=== PATIENT | female | born 1985 | race Caucasian/White ===

== ENCOUNTER 2024-11-29 21:12 | Observation (INO) ==
[2024-11-29] MEDS ORDERED: VANCOMYCIN CONSULT ACTIVE PRN (21:25)
--- NOTE | 2024-11-29 21:40 | Emergency Department Note ---
History of Present Illness General Chief complaint: Infection Stated complaint: SEPSIS, ADDISONS CRISIS? 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 She is due for all her medications. She was on vancomycin and cefepime. Patient states the source was her urine. Patient complains of Fever, chills, nausea, generalized illness, cough, chest pain, abdominal pain and states the source is her urine. Patient states that he was did not do any imaging on her. Home Medications Medication Instructions Recorded Confirmed Type B-complex with vitamin C 1 cap PO DAILY 11/29/24 11/29/24 History ascorbic acid (vitamin C) 1,000 mg 1,000 mg PO DAILY 11/29/24 11/29/24 History tablet (Vitamin C) calcium 250 mg (as 2 tab PO DAILY 11/29/24 11/29/24 History citrate)-vitamin D3 5 mcg (200 unit) tablet clonazepam 1 mg tablet 1 mg PO TID 11/29/24 11/29/24 History clotrimazole 10 mg ludwig 10 mg PO .2-3XDAILY 11/29/24 11/29/24 History cyanocobalamin (vitamin B-12) 1,000 mcg IM WK 11/29/24 11/29/24 History 1,000 mcg/mL injection solution cyclobenzaprine 10 mg tablet 10 mg PO QAM 11/29/24 11/29/24 History dicyclomine 10 mg capsule 10 mg PO TID PRN IRRITABLE BOWEL 11/29/24 11/29/24 History SYMPTOMS ferrous sulfate 325 mg (65 mg 650 mg PO DAILY 11/29/24 11/29/24 History iron) tablet hydrocortisone 10 mg tablet 10 - 20 mg PO TID 11/29/24 11/29/24 History hydrocortisone sod succinate 100 100 mg IM DIRECTED PRN RENAL 11/29/24 11/29/24 History mg solution for injection CRISIS lidocaine 5 % topical patch 1 patch topical DAILY 11/29/24 11/29/24 History multivitamin with minerals 1 tab PO DAILY 11/29/24 11/29/24 History pantoprazole 40 mg tablet,delayed 40 mg PO BID 11/29/24 11/29/24 History release polyethylene glycol 3350 17 17 g PO DAILY PRN Constipation 11/29/24 11/29/24 History gram/dose oral powder (Miralax) potassium chloride 20 mEq 20 meq PO DAILY 11/29/24 11/29/24 History tablet,extended release(part/cryst) pregabalin 100 mg capsule 100 mg PO AMHS 11/29/24 11/29/24 History pregabalin 50 mg capsule 50 mg PO QPM 11/29/24 11/29/24 History promethazine 25 mg tablet 25 mg PO Q6H PRN NAUSEA/VOMITING 11/29/24 11/29/24 History propranolol 10 mg tablet 10 mg PO TID PRN NEEDED 11/29/24 11/29/24 History sennosides 8.6 mg tablet (senna) 17.2 mg PO HS PRN Constipation 11/29/24 11/29/24 History sucralfate 1 gram tablet (Carafate) 1 g PO ACHS 11/29/24 11/29/24 History thiamine HCl (vitamin B1) 100 mg 100 mg PO DAILY 11/29/24 11/29/24 History tablet (Vitamin B-1) topiramate 100 mg tablet 100 mg PO BID 11/29/24 11/29/24 History topiramate 25 mg tablet 25 mg PO BID 11/29/24 11/29/24 History zinc acetate 50 mg (zinc) capsule 50 mg PO DAILY 11/29/24 11/29/24 History zolpidem 10 mg tablet (Ambien) 10 mg PO HS 11/29/24 11/29/24 History Allergies Allergy/AdvReac Type Severity Reaction Status Date / Time adhesive tape Allergy Intermediate SKIN Verified 11/29/24 22:49 REDDENED, ITCHY scopolamine Allergy Intermediate SKIN Verified 11/29/24 22:49 REDDENED, ITCHY escitalopram [From Lexapro] AdvReac Intermediate VERY Verified 11/29/24 22:49 EMOTIONAL, OPPOSITE EFFECT haloperidol [From Haldol] AdvReac Intermediate LOCKED JAW Verified 11/29/24 22:49 Past Med/Surg History Problem List (Updated 11/30/24 @ 01:54 by Bisi Riggins PA-C) Fever (Acute) Evangelina's disease (Acute) Social History Smoking Status: Never smoker Preferred Language: Macedonian Feels Safe at Home: Yes Review of Systems A total of 10 systems reviewed and were otherwise negative Physical Exam Vital Signs Vital Signs - 24 hr 11/29/24 21:15 11/29/24 21:47 11/29/24 21:56 Temperature 36.9 C Temperature Source Oral Pulse Rate 99 H 83 Pulse Rate [Apical] Pulse Rhythm [Apical] Pulse Strength [Apical] Respiratory Rate 18 Respiratory Effort / Characteristics Non-Labored Spontaneous Respiratory Depth Normal Respiratory Pattern Regular Blood Pressure 144/105 H Blood Pressure [Right Arm] Blood Pressure Mean 118 Blood Pressure Mean [Right Arm] Pulse Oximetry 98 95 Oxygen Delivery Method Room Air Room Air Sepsis Recent Fever Within 48 Hours Yes Sepsis New/Unexplained Change in Mental Status N/A Sepsis Action Taken by Nursing No Action Required 11/29/24 22:31 11/30/24 01:12 11/30/24 01:37 Temperature Temperature Source Pulse Rate 77 Pulse Rate [Apical] 87 74 Pulse Rhythm [Apical] Regular Pulse Strength [Apical] Normal Respiratory Rate 18 16 Respiratory Effort / Characteristics Non-Labored Spontaneous Non-Labored Spontaneous Respiratory Depth Normal Normal Respiratory Pattern Regular Blood Pressure Blood Pressure [Right Arm] 117/91 123/81 Blood Pressure Mean Blood Pressure Mean [Right Arm] 99 95 Pulse Oximetry 97 96 Oxygen Delivery Method Room Air Sepsis Recent Fever Within 48 Hours Sepsis New/Unexplained Change in Mental Status Sepsis Action Taken by Nursing 11/30/24 02:20 Temperature Temperature Source Pulse Rate Pulse Rate [Apical] 80 Pulse Rhythm [Apical] Regular Pulse Strength [Apical] Normal Respiratory Rate 16 Respiratory Effort / Characteristics Non-Labored Spontaneous Respiratory Depth Normal Respiratory Pattern Blood Pressure Blood Pressure [Right Arm] 100/73 Blood Pressure Mean Blood Pressure Mean [Right Arm] 82 Pulse Oximetry 98 Oxygen Delivery Method Room Air Sepsis Recent Fever Within 48 Hours Sepsis New/Unexplained Change in Mental Status Sepsis Action Taken by Nursing VITALS: Vitals are noted on the nurse's note and reviewed by myself. Vital signs stable. GENERAL: White female with family present, in no acute distress, nondiaphoretic, well-developed well-nourished. SKIN: The skin was without rashes, erythema, edema, or bruising. There is no tenting of the skin. Capillary reflex less than 2 seconds. HEAD: Normocephalic atraumatic. EARS: External auditory canals clear EYES: Pupils equal round and reactive to light and accommodation. Conjunctivae without injection, sclerae without icterus. Extraocular movements intact. NOSE: Patent, no discharge. MOUTH: Mucous membranes moist. Pharynx without erythema or exudate. Uvula midline. Airway patent. Tongue does not deviate. NECK: Supple without nuchal rigidity. No lymphadenopathy. No thyromegaly. Cervical spine is nontender. No JVD. HEART: Regular rate and rhythm LUNGS: Clear to auscultation bilaterally without wheezes, rales or rhonchi. No retractions or accessory muscle use. ABDOMEN: Positive bowel sounds x 4. Normal tympanic percussion. Soft, suprapubic cath present, tender to palpation lower abdomen, without masses or organomegaly. Macdonald sign negative. No guarding or rebound tenderness. No CVA tenderness MUSCULOSKELETAL: No muscle atrophy, erythema, or edema noted. NEURO: Patient was alert and oriented to person place and time. Normal sensation to light and sharp touch. No focal neurological deficits. Course Administered Medications Miscellaneous Information (Nursing To Pharmacy Communication) 1 each N/A TODAY ASHOK Stop: 12/30/24 00:59 Last Admin: 11/30/24 02:15 Dose: Not Given Documented By: [facility] Discontinued Medications Alteplase, Recombinant (Alteplase, Recombinant 1 Mg/Ml 2ml Vial) 2 mg INSTIL ONE ONE Stop: 11/29/24 22:30 Last Admin: 11/30/24 00:20 Dose: 2 mg Documented By: ALEXA Co-signed By: [facility] Hydrocortisone Sodium Succinate (Hydrocortisone Sod Succinate 100 Mg/2 Ml Vial) 100 mg IV NOW STA Stop: 11/29/24 21:26 Last Admin: 11/29/24 22:12 Dose: 100 mg Documented By: SKY Sodium Chloride (Nss) 1,000 mls @ 999 mls/hr IV .Q1H1M ONE Stop: 11/29/24 22:25 Last Infusion: 11/30/24 00:18 Dose: Infused Documented By: Admin: 11/29/24 22:08 Dose: 999 mls/hr Documented By: SKY Vancomycin HCl 2,500 mg/ (Sodium Chloride) 550 mls @ 200 mls/hr IV NOW ONE Stop: 11/30/24 00:09 Last Admin: 11/30/24 02:14 Dose: 200 mls/hr Documented By: [facility] Cefepime HCl (Maxipime 2000mg) 2,000 mg in 20 mls @ 5 mls/min IV NOW STA; Protocol Stop: 11/29/24 21:33 Last Admin: 11/29/24 23:43 Dose: 5 mls/min Documented By: NOE Ioversol (Optiray 320 125ml) 125 ml IV ONCE ONE Stop: 11/30/24 00:39 Last Admin: 11/30/24 00:39 Dose: 118 ml Documented By: JERMAIN Ondansetron HCl (Ondansetron Inj 2 Mg/Ml 2 Ml Vial) 4 mg IV NOW STA Stop: 11/29/24 21:37 Last Admin: 11/29/24 22:11 Dose: 4 mg Documented By: SKY Medical Decision Making Medical Records Attestation: I reviewed the patient's medical records. Home Medications Current Medication List: was personally reviewed by me Laboratory Data Attestation: I reviewed the patient's lab results. 11/29/24 23:27 11/29/24 23:27 Lab Results 11/29/24 11/29/24 11/29/24 Range/Units 23:15 23:27 23:38 WBC 8.37 (4.8-10.8) K/ul RBC 4.28 (4.20-5.40) M/uL Hgb 10.6 L (12.0-16.0) g/dl Hct 35.6 L (37.0-47.0) % MCV 83.2 (80.0-100.0) fL MCH 24.8 L (25.0-34.0) pg MCHC 29.8 L (32.0-36.0) g/dL RDW Std Deviation 81.0 H (36.4-46.3) fL RDW Coeff of [place] 28.1 H (11.5-14.5) % Plt Count 361 (130-400) K/uL MPV 9.0 L (9.4-12.4) fL Immature Gran % (Auto) 0.7 % Neut % (Auto) 80.9 % Lymph % (Auto) 13.5 % [place] % (Auto) 4.4 % Eos % (Auto) 0.1 % Baso % (Auto) 0.4 % Neut # (Auto) 6.77 H (1.40-6.50) K/uL Lymph # (Auto) 1.13 L (1.20-3.40) K/uL [place] # (Auto) 0.37 (0.11-0.59) K/uL Eos # (Auto) 0.01 (0.00-0.50) K/uL Baso # (Auto) 0.03 (0.00-0.20) K/uL Immature Gran # (Auto) 0.06 (0.01-0.20) K/uL Polychromasia 2+ Anisocytosis Present Tear Drop Cells 1+ Sodium 142 (136-145) mmol/L Potassium 3.7 (3.5-5.1) mmol/L Chloride 109 H (98-107) mmol/L Carbon Dioxide 24 (21-32) mmol/L Anion Gap 9 (3-11) BUN 8 (6-23) mg/dl Creatinine 0.54 L (0.6-1.2) mg/dl Est Cr Clr Drug Dosing 190.2 ml/min eGFR 119.29 BUN/Creatinine Ratio 14.8 (10-20) Glucose 124 H (70-99(Fasting)) mg/dl Lactate 1.7 (0.4-2.0) mmol/L Calcium 9.0 (8.6-10.3) mg/dl Magnesium 1.8 (1.7-2.4) mg/dl Total Bilirubin 0.3 (0.2-1.0) mg/dl Direct Bilirubin 0.1 (0-0.2) mg/dl AST 13 (13-39) U/L ALT 15 (7-52) U/L Alkaline Phosphatase 47 (34-104) U/L Troponin I High Sens < 2.3 (0-14) pg/ml Total Protein 6.7 (6.0-8.3) gm/dl Albumin 3.8 (3.4-5.0) gm/dl Procalcitonin 0.05 (0-0.5) ng/ml TSH 0.516 (0.300-4.500) uIu/ml Urine Color Yellow Urine Appearance Clear (Clear) Urine pH 8.5 H (4.5-7.5) Ur Specific [place] 1.008 (1.000-1.030) Urine Protein Negative (Negative) Urine Glucose (UA) Negative (Negative) Urine Ketones Negative (Negative) Urine Blood Trace H (Negative) Urine Nitrite Negative (Negative) Urine Bilirubin Negative (Negative) Urine Urobilinogen Negative (Negative) Ur Leukocyte Esterase Negative (Negative) Urine WBC (Auto) 0-5 (0-5) /hpf Urine RBC (Auto) 6-10 H (0-2) /hpf U Hyaline Cast (Auto) 0-2 (0-2) /lpf U Epithel Cells (Auto) 0-2 (0-2) /hpf Urine Bacteria (Auto) None Seen (None Seen) Urine Test Negative (Negative) Urine Comment Adenovirus (PCR) Not Detected (NotDetected) B. pertussis DNA (PCR) Not Detected (NotDetected) B.parapertussis DNA PCR Not Detected (NotDetected) C. pneumoniae DNA (PCR) Not Detected (NotDetected) Coronavirus OC43 (PCR) Not Detected (NotDetected) Coronavirus HKU1 (PCR) Not Detected (NotDetected) Coronavirus 229E (PCR) Not Detected (NotDetected) SARS-CoV-2 (PCR) Not Detected (NotDetected) Coronavirus NL63 (PCR) Not Detected (NotDetected) Human Metapneumovir PCR Not Detected (NotDetected) Influenza Type A (PCR) Not Detected (NotDetected) Influenza Type B (PCR) Not Detected (NotDetected) M. pneumoniae (PCR) Not Detected (NotDetected) Parainfluenza 1 (PCR) Not Detected (NotDetected) Parainfluenza 2 (PCR) Not Detected (NotDetected) Parainfluenza 3 (PCR) Not Detected (NotDetected) Parainfluenza 4 (PCR) Not Detected (NotDetected) RSV (PCR) Not Detected (NotDetected) Entero/Rhino (PCR) Not Detected (NotDetected) Imaging Data Attestation: I personally reviewed and interpreted this imaging study as follows: Radiologist's Impression: Abdomen/Pelvis CT 11/29/24 21:25 EXAM: CT abd pelvis IV con only CLINICAL HISTORY: evangelina's, suprapubi cath. sepsis TECHNIQUE: Contiguous axial images were obtained from the level of the diaphragm to the pubic symphysis with intravenous contrast. Coronal and sagittal reconstructions were likewise performed and indicated to increase the sensitivity for detecting clinically relevant pathology. If IV contrast material had not been administered, the likelihood of detecting abnormalities relevant to the patient's condition would have been substantially decreased. CT scan was performed according to ALARA (as low as reasonable achievable). COMPARISON: None. FINDINGS: The visualized lung bases show atelectatic bands . Minimal bilateral pleural effusion/pleural thickening is seen. Sliding hiatus hernia noted. The liver is normal in size and attenuation. No focal liver lesions are seen. There is no intra or extrahepatic biliary ductal dilatation. Hepatic vasculature is patent. The gallbladder is present. The spleen, pancreas, and adrenal glands are unremarkable. The kidneys are normal in size and attenuation. There is no hydronephrosis or perinephric fat stranding. No renal calculi or renal masses are identified. The ureters are normal in caliber and no ureteral calculi are seen. The bladder is collapsed. Evidence of suprapubic catheterization done with Lou's bulb seen in situ. Pelvic viscera are unremarkable. No focal or diffuse bowel wall thickening or evidence of bowel obstruction is identified. The appendix is visualized in the right lower quadrant and appears within normal limits. Abdominal and pelvic vasculature is patent. No adenopathy or fluid collections are seen. No aggressive appearing osseous lesions are identified. Multiple small follicles are noted in both ovaries. Mild anterolisthesis of L5 over S1 vertebra.Fixation screws are seen in situ involving L5 and S1 vertebrae. IMPRESSION: 1. Evidence of suprapubic catheterization done with Lou's bulb seen in situ. 2. Minimal bilateral pleural effusion/pleural thickening is seen. 3. Sliding hiatus hernia noted. 4. Mild anterolisthesis of L5 over S1 vertebra.Fixation screws are seen in situ involving L5 and S1 vertebrae. Electronically signed by Shamar Stovall 11-30-2024 01:39 AM Chest CTA 11/29/24 21:25 EXAM: CT angio chest PE protocol CLINICAL HISTORY: PE TECHNIQUE: Contiguous axial images were obtained from the neck base through the upper abdomen following intravenous administration of iodinated contrast material. Angiographic images were processed, 3D MIP images were acquired for interpretation. If IV contrast material had not been administered, the likelihood of detecting abnormalities relevant to the patient's condition would have been substantially decreased. Coronal and sagittal 3-D MIPs were likewise performed and indicated to increase the sensitivity of detectin diffuse clinically relevant pathology. CT scan was performed according to ALARA (as low as reasonable achievable). COMPARISON: None. FINDINGS: Few linear atelectatic bands are noted involving bilateral lower lobes. Minimal bilateral pleural effusion/pleural thickening is seen. Adequate contrast bolus without evidence of pulmonary embolism. The central airways are patent. Rest of lungs are clear. The heart, aorta, and pulmonary arteries are of normal size and configuration. There are no appreciable coronary artery and aortic atherosclerotic calcifications. No pericardial effusion is identified. The thyroid is unremarkable. No mediastinal, hilar, or axillary lymphadenopathy is noted. No suspicious lytic or sclerotic osseous lesions are identified. IMPRESSION: 1. No evidence of pulmonary embolism 2. Minimal bilateral pleural effusion/pleural thickening is seen. 3. Few linear atelectatic bands are noted involving bilateral lower lobes. Electronically signed by Shamar Stovall 11-30-2024 01:51 AM Chest X-Ray 11/29/24 21:27 Exam(s): XR CXR 1 VIEW EXAM: XR Chest, 1 View CLINICAL HISTORY: Reason for exam: Sepsis. TECHNIQUE: Frontal view of the chest. COMPARISON: No relevant prior studies available. FINDINGS: A Port-A-Cath is noted with its tip in the region of the superior vena cava. Lungs: No consolidation. Pleural space: No pleural effusion is seen. No pneumothorax. Heart: The heart is normal in size.. Mediastinum: Unremarkable Bones/joints: Grossly unremarkable.. IMPRESSION: No acute pulmonary disease. Electronically signed by: Phill Ramirez MD 11/30/24 01:25 AM MDM Narrative Prior records/ancillary studies reviewed and summarized above. Nursing notes reviewed. Additional history obtained from family. The patient's history was concerning for Moosic's with concerns for sepsis. Differential diagnosis: Etiologies such as sepsis, Moosic's crisis, metabolic, infection, hypo/hyperglycemia, electrolyte abnormalities, cardiac sources, intracerebral event, toxicologic, neurologic, as well as others were entertained. Physical examination: As above. ER treatment provided: IV Lock An order was placed for continuous cardiac monitoring. The monitor shows a rate of 60-100 with a sinus rhythm per my interpretation. Vancomycin, cefepime, IV fluids, Zofran was ordered Records were requested from [facility] I did review the records from [place]. She was admitted for cellulitis at the suprapubic cath site and started on vancomycin and cefepime. No cultures were reported back yet. I did review her EMR on her phone with her prior tests were done earlier today Dubious On reassessment the patient felt better. Diagnostics interpretation by me: ECG: Ordered for weakness EKG: Normal sinus, normal intervals, no acute ST-T wave changes, rate 81. Impression normal sinus rhythm independently interpreted by myself The labs Independently Interpreted by myself revealed Mild anemia, no worrisome leukocytosis, euthyroid, negative troponin, negative lactic. Negative urine. Negative BioFire Blood cultures pending Imaging studies: Imaging was reviewed and read by radiology Consultation: A consultation was placed with the hospitalist. The case was discussed and diagnostics were reviewed. The patient was evaluated in the ER for further treatment. Exam and history seem consistent with reported fever and a patient with Evangelina's disease. Patient signed out AMA from [email or web address]. She states she was admitted for cellulitis around her suprapubic cath site. This looks much better. Imaging was negative. She was given her stress dose of steroids here. She is continued on her antibiotics. I did review the records from the outside facility. Medicine was consulted and the case is discussed. She will be admitted to the medical service. By the evaluation outlined above emergent etiologies such as electrolyte abnormalities, cardiac sources, intracerebral event, toxologic, neurologic, abnormalities blood glucose, as well as others were deemed relatively unlikely. The pt informed about the findings as listed above. All questions were answered and pleased with the treatment. The chart was completed utilizing [employer] Speech voice recognition software. Grammatical errors, random word insertions, pronoun errors, and incomplete sentences are an occassional consequence of this system due to software limitations, ambient noise, and hardware issues. Any formal questions or concerns about the content, text, or information contained within the body of this dictation should be directly addressed to the physician health center assistant for clarification. Impression & Plan Moosic's disease, Fever Discharge Plan Visit Data Chief Complaint: Infection Stated Complaint: SEPSIS, ADDISONS CRISIS? ED Provider: Forrest Carl ED Midlevel Provider: Bisi Riggins Discharge Problem: Moosic's disease, Fever Patient Disposition: Being Evaluated by Hospitalist Condition: Good Forms Stand Alone Forms: My [facility] Prescriptions Prescriptions: No Action cyclobenzaprine [Flexeril] 10 mg Tablet 10 mg PO QAM clotrimazole 10 mg Ludwig 10 mg PO .2-3XDAILY sennosides [senna] 8.6 mg Tablet 17.2 mg PO HS PRN (Reason: Constipation) ascorbic acid (vitamin C) [Vitamin C] 1,000 mg Tablet 1,000 mg PO DAILY zinc acetate 50 mg (zinc) Capsule 50 mg PO DAILY Rx Instructions: TAKE 1 HR PRIOR TO EATING OR 2 HR AFTER EATING sucralfate [Carafate] 1 gram Tablet 1 g PO ACHS Rx Instructions: PER PT "ONLY 2-3 TIMES A DAY" clonazepam 1 mg Tablet 1 mg PO TID thiamine HCl (vitamin B1) [Vitamin B-1] 100 mg Tablet 100 mg PO DAILY topiramate 25 mg Tablet 25 mg PO BID Rx Instructions: TOTAL DOSE 125 MG--TAKES WITH 100 MG TAB. propranolol 10 mg Tablet 10 mg PO TID PRN (Reason: NEEDED) Rx Instructions: HOLD FOR LOW B/P potassium chloride 20 mEq Tablet,Er Particles/Crystals 20 meq PO DAILY hydrocortisone sod succinate 100 mg Recon Soln 100 mg IM DIRECTED PRN (Reason: RENAL CRISIS) pantoprazole 40 mg Tablet,Delayed Release (Dr/Ec) 40 mg PO BID cyanocobalamin (vitamin B-12) [Vitamin B-12] 1,000 mcg/mL Solution 1,000 mcg IM WK ferrous sulfate 325 mg (65 mg iron) Tablet 650 mg PO DAILY lidocaine 5 % Adhesive Patch,Medicated 1 patch TOPICAL DAILY Rx Instructions: leave on most painful area for up to 12 hrs promethazine 25 mg Tablet 25 mg PO Q6H PRN (Reason: NAUSEA/VOMITING) hydrocortisone 10 mg Tablet 10 - 20 mg PO TID Rx Instructions: NORMAL DOSE WHEN NOT TAKING PRN RENAL CRISIS DOSE. multivitamin with minerals Tablet 1 tab PO DAILY polyethylene glycol 3350 [Miralax] 17 gram/dose Powder 17 g PO DAILY PRN (Reason: Constipation) zolpidem [Ambien] 10 mg Tablet 10 mg PO HS topiramate 100 mg Tablet 100 mg PO BID Rx Instructions: TOTAL DOSE 125 MG--TAKES WITH 25 MG TAB. dicyclomine 10 mg Capsule 10 mg PO TID PRN (Reason: IRRITABLE BOWEL SYMPTOMS) B-complex with vitamin C [Vitamin B Complex With C] Capsule 1 cap PO DAILY pregabalin 50 mg capsule 50 mg PO QPM Rx Instructions: TAKES Q AFTERNOON pregabalin 100 mg capsule 100 mg PO AMHS calcium citrate-vitamin D3 250 mg-5 mcg (200 unit) Tablet 2 tab PO DAILY Referrals Referrals: Natalie Tony M.D. [Primary Care Provider] -
[2024-11-29] MEDS: SODIUM CHLORIDE 0.9% 1,000 ML IV ONE (22:08)
[2024-11-29] MEDS: ONDANSETRON INJ 2 MG/ML 2 ML VIAL IV STA (22:11)
[2024-11-29] MEDS: HYDROCORTISONE SOD SUCCINATE 100 MG/2 ML VIAL IV STA (22:12)
[2024-11-29 23:42] LABS: Basophils # (auto) 0.03 K/uL (0.00-0.20); Basophils % (auto) 0.4 %; Eosinophils # (auto) 0.01 K/uL (0.00-0.50); Eosinophils % (auto) 0.1 %; Hematocrit (blood only) 35.6 % (37.0-47.0); Hemoglobin 10.6 g/dl (12.0-16.0); Immature Granulocytes # (auto) 0.06 K/uL (0.01-0.20); Immature Granulocytes % (auto) 0.7 %; Lymphocytes # (auto) 1.13 K/uL (1.20-3.40); Lymphocytes % (auto) 13.5 %; Mean Corpuscular Hemoglobin 24.8 pg (25.0-34.0); Mean Corpuscular Hgb Conc 29.8 g/dL (32.0-36.0); Mean Corpuscular Volume 83.2 fL (80.0-100.0); Monocytes # (auto) 0.37 K/uL (0.11-0.59); Monocytes % (auto) 4.4 %; Neutrophils # (auto) 6.77 K/uL (1.40-6.50); Neutrophils % (auto) 80.9 %; Platelet Count 361 K/uL (130-400); RDW Coefficient of Variation 28.1 % (11.5-14.5); Red Blood Count 4.28 M/uL (4.20-5.40); White Blood Count 8.37 K/ul (4.8-10.8)
[2024-11-29] MEDS: CEFEPIME 2000MG 2,000 MG/20 ML SYR IV STA (23:43)
[2024-11-29 23:58] LABS: Appearance Urine Clear (Clear); Bacteria Urine Automated None Seen (None Seen); Bilirubin Urine Negative (Negative); Blood Urine Trace (Negative); Cast Urine Automated 0-2 /lpf (0-2); Color Urine Yellow; Epithelial Cell Urine Auto 0-2 /hpf (0-2); Glucose Urine UA Negative (Negative); Ketones Urine Negative (Negative); Leukocyte Esterase Urine Negative (Negative); Nitrite Urine Negative (Negative); Protein Urine Negative (Negative); Specific Gravity Urine 1.008 (1.000-1.030); Urobilinogen Urine Negative (Negative); WBC Urine Automated 0-5 /hpf (0-5); pH Urine 8.5 (4.5-7.5)
[2024-11-29 23:59] LABS: Alanine Aminotransferase 15 U/L (7-52); Alkaline Phosphatase 47 U/L (34-104); Anion Gap 9 (3-11); Aspartate Aminotransferase 13 U/L (13-39); BUN Creatinine Ratio 14.8 (10-20); Bilirubin Direct 0.1 mg/dl (0-0.2); Bilirubin,Total 0.3 mg/dl (0.2-1.0); Blood Urea Nitrogen 8 mg/dl (6-23); Carbon Dioxide 24 mmol/L (21-32); Chloride 109 mmol/L (98-107); Creatinine Clr Calc Pharmacy 190.2 ml/min; Glucose 124 mg/dl (70-99(Fasting)); Magnesium 1.8 mg/dl (1.7-2.4); Potassium 3.7 mmol/L (3.5-5.1); Sodium 142 mmol/L (136-145); Total Protein 6.7 gm/dl (6.0-8.3)
[2024-11-30 00:02] LABS: Anisocytosis Present; Polychromasia 2+; Tear Drop Cells 1+
[2024-11-30 00:05] LABS: Troponin I High Sensitivity < 2.3 pg/ml (0-14)
[2024-11-30 00:15] LABS: Thyroid Stimulating Hormone 0.516 uIu/ml (0.300-4.500)
[2024-11-30] MEDS: ALTEPLASE, RECOMBINANT 1 MG/ML 2ML VIAL INSTIL ONE (00:20)
[2024-11-30] MEDS: OPTIRAY 320 125ml IV ONE (00:39)
[2024-11-30 00:40] LABS: Adenovirus PCR Not Detected (NotDetected); Bordetella parapertussis PCR Not Detected (NotDetected); Bordetella pertussis PCR Not Detected (NotDetected); Chlamydia pneumoniae PCR Not Detected (NotDetected); Coronavirus 229E PCR Not Detected (NotDetected); Coronavirus CoV-2 (COVID19)PCR Not Detected (NotDetected); Coronavirus HKU1 PCR Not Detected (NotDetected); Coronavirus NL63 PCR Not Detected (NotDetected); Coronavirus OC43PCR Not Detected (NotDetected); Human Metapneumovirus PCR Not Detected (NotDetected); Influenza A PCR Not Detected (NotDetected); Influenza B PCR Not Detected (NotDetected); Mycoplasma pneumoniae PCR Not Detected (NotDetected); Parainfluenza Virus 1 PCR Not Detected (NotDetected); Parainfluenza Virus 2 PCR Not Detected (NotDetected); Parainfluenza Virus 3 PCR Not Detected (NotDetected); Parainfluenza Virus 4 PCR Not Detected (NotDetected); Respiratory Syncytial VirusPCR Not Detected (NotDetected); Rhinovirus/Enterovirus PCR Not Detected (NotDetected)
[2024-11-30 00:56] LABS: Pregnancy Test, Urine Negative (Negative)
--- NOTE | 2024-11-30 01:26 | XRay Report ---
Exam(s): XR CXR 1 VIEW EXAM: XR Chest, 1 View CLINICAL HISTORY: Reason for exam: Sepsis. TECHNIQUE: Frontal view of the chest. COMPARISON: No relevant prior studies available. FINDINGS: A Port-A-Cath is noted with its tip in the region of the superior vena cava. Lungs: No consolidation. Pleural space: No pleural effusion is seen. No pneumothorax. Heart: The heart is normal in size.. Mediastinum: Unremarkable Bones/joints: Grossly unremarkable.. IMPRESSION: No acute pulmonary disease. Electronically signed by: Phill Ramirez MD 11/30/24 01:25 AM
--- NOTE | 2024-11-30 01:40 | CT Scan Report ---
EXAM: CT abd pelvis IV con only CLINICAL HISTORY: evangelina's, suprapubi cath. sepsis TECHNIQUE: Contiguous axial images were obtained from the level of the diaphragm to the pubic symphysis with intravenous contrast. Coronal and sagittal reconstructions were likewise performed and indicated to increase the sensitivity for detecting clinically relevant pathology. If IV contrast material had not been administered, the likelihood of detecting abnormalities relevant to the patient's condition would have been substantially decreased. CT scan was performed according to ALARA (as low as reasonable achievable). COMPARISON: None. FINDINGS: The visualized lung bases show atelectatic bands . Minimal bilateral pleural effusion/pleural thickening is seen. Sliding hiatus hernia noted. The liver is normal in size and attenuation. No focal liver lesions are seen. There is no intra or extrahepatic biliary ductal dilatation. Hepatic vasculature is patent. The gallbladder is present. The spleen, pancreas, and adrenal glands are unremarkable. The kidneys are normal in size and attenuation. There is no hydronephrosis or perinephric fat stranding. No renal calculi or renal masses are identified. The ureters are normal in caliber and no ureteral calculi are seen. The bladder is collapsed. Evidence of suprapubic catheterization done with Lou's bulb seen in situ. Pelvic viscera are unremarkable. No focal or diffuse bowel wall thickening or evidence of bowel obstruction is identified. The appendix is visualized in the right lower quadrant and appears within normal limits. Abdominal and pelvic vasculature is patent. No adenopathy or fluid collections are seen. No aggressive appearing osseous lesions are identified. Multiple small follicles are noted in both ovaries. Mild anterolisthesis of L5 over S1 vertebra.Fixation screws are seen in situ involving L5 and S1 vertebrae. IMPRESSION: 1. Evidence of suprapubic catheterization done with Lou's bulb seen in situ. 2. Minimal bilateral pleural effusion/pleural thickening is seen. 3. Sliding hiatus hernia noted. 4. Mild anterolisthesis of L5 over S1 vertebra.Fixation screws are seen in situ involving L5 and S1 vertebrae. Electronically signed by Shamar Stovall 11-30-2024 01:39 AM
--- NOTE | 2024-11-30 01:51 | CT Scan Report ---
EXAM: CT angio chest PE protocol CLINICAL HISTORY: PE TECHNIQUE: Contiguous axial images were obtained from the neck base through the upper abdomen following intravenous administration of iodinated contrast material. Angiographic images were processed, 3D MIP images were acquired for interpretation. If IV contrast material had not been administered, the likelihood of detecting abnormalities relevant to the patient's condition would have been substantially decreased. Coronal and sagittal 3-D MIPs were likewise performed and indicated to increase the sensitivity of detectin diffuse clinically relevant pathology. CT scan was performed according to ALARA (as low as reasonable achievable). COMPARISON: None. FINDINGS: Few linear atelectatic bands are noted involving bilateral lower lobes. Minimal bilateral pleural effusion/pleural thickening is seen. Adequate contrast bolus without evidence of pulmonary embolism. The central airways are patent. Rest of lungs are clear. The heart, aorta, and pulmonary arteries are of normal size and configuration. There are no appreciable coronary artery and aortic atherosclerotic calcifications. No pericardial effusion is identified. The thyroid is unremarkable. No mediastinal, hilar, or axillary lymphadenopathy is noted. No suspicious lytic or sclerotic osseous lesions are identified. IMPRESSION: 1. No evidence of pulmonary embolism 2. Minimal bilateral pleural effusion/pleural thickening is seen. 3. Few linear atelectatic bands are noted involving bilateral lower lobes. Electronically signed by Shamar Stovall 11-30-2024 01:51 AM
[2024-11-30] MEDS: VANCOMYCIN HCL 2,500 MG in SODIUM CHLORIDE 0.9% 500 ML IV ONE (02:14)
[2024-11-30] MEDS: Nursing to Pharmacy Communication SCH (02:15)
--- NOTE | 2024-11-30 03:45 | History & Physical Report ---
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 Pt states that she has had numerous hospitalizations over the past few years due to sepsis or urosepsis and sometimes silent sepsis. Pt has a suprapubic catheter for neurogenic bladder and states that some admissions are due to infections around the catheter site, will get pus and rash around the site, and most other admissions are due to UTIs or adrenal crises. She states she gets sick nearly constantly due to a bad immune system and addisons and has been seen numerous times at [facility] and [facility]. She states that she likes the care she gets at [facility] but it is a long drive for her. Her usual care was through [facility], but she states they do not manage her sepsis properly, so with latest admission this Thursday (11/28) she then did sign out AMA to come here today for better care. Pt states that she has been in hypertensive crisis throughout her entire admission at [facility] from Thursday until signing out AMA today and that they just refused to do anything about it. She states that she went in to [facility] in the first place because she had her home health nurse come in on Thursday and he had noticed her suprapubic catheter was infected with pus and advised her to go to the hospital. She states she told him she would not go because she did not like the care at [facility]. Over the weekend, she states she had fevers 100-101F, hypotension, fatigue, diarrhea, tachycardia, and generalized malaise, she states she did stress dose herself with steroids but she states that finally on Thursday her home health nurse told her she really needed to go to the hospital and she felt very sick so she did go to [facility]. She states that they had her on cefepime and vancomycin and through today she just still does not feel much better, although states the suprapubic site does look much better than it did previously. She does have a hx of evangelina crises in the past, sometimes with transition from IV to oral steroids. She has had a number of antibiotics over the last year and per her [facility] health honorio she has grown resistant enterobacter (September 2024) and minocycline resistant enterococcus (October 2024). She does note that at [facility] that they check serial lactate levels as she states that sometimes it will be normal one time of day and then abnormal again later in the day preceding worsening illness. She has seen infectious disease in the hospital before for recurrent and sometimes resistant infections. She states when she is treated at [facility] she will be in the hospital for 2 weeks, then after 1 week of being home she will be sick again. She states when she has been treated with IV antibiotics at [facility] and transitioned to oral meds prior to leaving she will be free from illness about 1 mo before getting an infection once again. Allergies Allergy/AdvReac Type Severity Reaction Status Date / Time adhesive tape Allergy Intermediate SKIN Verified 11/29/24 22:49 REDDENED, ITCHY scopolamine Allergy Intermediate SKIN Verified 11/29/24 22:49 REDDENED, ITCHY escitalopram [From Lexapro] AdvReac Intermediate VERY Verified 11/29/24 22:49 EMOTIONAL, OPPOSITE EFFECT haloperidol [From Haldol] AdvReac Intermediate LOCKED JAW Verified 11/29/24 22:49 Home Medications Medication Instructions Recorded Confirmed Type B-complex with vitamin C 1 cap PO DAILY 11/29/24 11/29/24 History ascorbic acid (vitamin C) 1,000 mg 1,000 mg PO DAILY 11/29/24 11/29/24 History tablet (Vitamin C) calcium 250 mg (as 2 tab PO DAILY 11/29/24 11/29/24 History citrate)-vitamin D3 5 mcg (200 unit) tablet clonazepam 1 mg tablet 1 mg PO TID 11/29/24 11/29/24 History clotrimazole 10 mg ludwig 10 mg PO .2-3XDAILY 11/29/24 11/29/24 History cyanocobalamin (vitamin B-12) 1,000 mcg IM WK 11/29/24 11/29/24 History 1,000 mcg/mL injection solution cyclobenzaprine 10 mg tablet 10 mg PO QAM 11/29/24 11/29/24 History dicyclomine 10 mg capsule 10 mg PO TID PRN IRRITABLE BOWEL 11/29/24 11/29/24 History SYMPTOMS ferrous sulfate 325 mg (65 mg 650 mg PO DAILY 11/29/24 11/29/24 History iron) tablet hydrocortisone 10 mg tablet 10 - 20 mg PO TID 11/29/24 11/29/24 History hydrocortisone sod succinate 100 100 mg IM DIRECTED PRN RENAL 11/29/24 11/29/24 History mg solution for injection CRISIS lidocaine 5 % topical patch 1 patch topical DAILY 11/29/24 11/29/24 History multivitamin with minerals 1 tab PO DAILY 11/29/24 11/29/24 History pantoprazole 40 mg tablet,delayed 40 mg PO BID 11/29/24 11/29/24 History release polyethylene glycol 3350 17 17 g PO DAILY PRN Constipation 11/29/24 11/29/24 History gram/dose oral powder (Miralax) potassium chloride 20 mEq 20 meq PO DAILY 11/29/24 11/29/24 History tablet,extended release(part/cryst) pregabalin 100 mg capsule 100 mg PO AMHS 11/29/24 11/29/24 History pregabalin 50 mg capsule 50 mg PO QPM 11/29/24 11/29/24 History promethazine 25 mg tablet 25 mg PO Q6H PRN NAUSEA/VOMITING 11/29/24 11/29/24 History propranolol 10 mg tablet 10 mg PO TID PRN NEEDED 11/29/24 11/29/24 History sennosides 8.6 mg tablet (senna) 17.2 mg PO HS PRN Constipation 11/29/24 11/29/24 History sucralfate 1 gram tablet (Carafate) 1 g PO ACHS 11/29/24 11/29/24 History thiamine HCl (vitamin B1) 100 mg 100 mg PO DAILY 11/29/24 11/29/24 History tablet (Vitamin B-1) topiramate 100 mg tablet 100 mg PO BID 11/29/24 11/29/24 History topiramate 25 mg tablet 25 mg PO BID 11/29/24 11/29/24 History zinc acetate 50 mg (zinc) capsule 50 mg PO DAILY 11/29/24 11/29/24 History zolpidem 10 mg tablet (Ambien) 10 mg PO HS 11/29/24 11/29/24 History Past Med/Surg History Problem List (Updated 11/30/24 @ 04:58 by Angi Mejia DO) Anxiety Pyelonephritis Fever (Acute) Houston's disease (Acute) Social History Smoking Status: Never smoker Preferred Language: Niuean Feels Safe at Home: Yes Review of Systems Review of Systems: Per HPI. Physical Exam Physical Exam: General: Alert and oriented, no acute distress, very anxious but pleasant HEENT: Normocephalic, moist oral mucosa, Cardio: Regular rate and rhythm, Resp: Lungs clear to auscultation b/l, no wheezes or rhonchi, GI: Soft, bowel sounds active, lower abdominal pain to palpation, lloyds punch positive bilaterally, suprapubic catheter inspected and no surrounding erythema or pus noted at time of admission Skin: Warm, pink, dry, Results & Data Results & Data Vital Signs (Past 12 Hours) Vital Signs Temp Pulse Pulse Resp BP BP Pulse Ox 11/30/24 02:20 80 16 100/73 98 11/30/24 01:37 77 11/30/24 01:12 74 16 123/81 96 11/29/24 22:31 87 18 117/91 97 11/29/24 21:56 95 11/29/24 21:47 83 11/29/24 21:15 36.9 C 99 H 18 144/105 H 98 O2 Del Method 11/30/24 02:20 Room Air 11/30/24 01:37 11/30/24 01:12 Room Air 11/29/24 22:31 11/29/24 21:56 Room Air 11/29/24 21:47 11/29/24 21:15 Room Air Code Status & VTE Plan VTE Prophylaxis Plan VTE Prophylaxis will be ordered: Yes Supervising Physician Co-Signing Physician Notes I personally saw and examined the patient. I independently reviewed the labs, EKG, imaging, problem list, medication list, past medical history and family history. I verified all fallon points and agree with resident physician Dr Angi Mejia with the following exceptions and/or additions: 39 year old female presents to the ER after signing out from [facility] with diagnosis of sepsis due to cellulitis vs. UTI, adrenal crisis on IV hydrocortisone, IV vancomycin and cefepime. Blood culture 1/2 negative after 24 hours. Urine culture pending from outside hospital. 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 Usually she is switched over to oral hydrocortisone in the hospital setting once infection is under control due to poorer absorption with her gastric bypass. We also do not currently have a bacteria to switch her to oral antibiotics and in setting of history of multi-drug resistant organisms will continue the vancomycin and cefepime she was already on pending outside hospital cultures. Currently there is no cellulitis surrounding her suprapubic catheter therefore suspect more likely source of infection was her urine. Will reduce hydrocortisone to 25mg IV q6h. Resident Activity Tracking Resident Involvement: Resident Care Provided Care Provided: Adult Hospital Medicine
[2024-11-30] MEDS: PREGABALIN 100 MG CAP PO STA (04:17)
[2024-11-30] MEDS: PANTOprazole 40 MG TAB PO STA (04:17)
[2024-11-30] MEDS: clonazePAM 1 MG TAB PO STA (04:18)
[2024-11-30] MEDS: TOPIRAMATE 50 MG TAB PO STA (04:45)
[2024-11-30] MEDS ORDERED: VANCOMYCIN CONSULT ACTIVE PRN (05:06)
[2024-11-30] MEDS ORDERED: PROPRANOLOL HCL 10 MG TAB PO PRN (05:06)
[2024-11-30] MEDS ORDERED: HYDROCORTISONE SOD SUCCINATE 100 MG/2 ML VIAL IV SCH (05:06)
[2024-11-30] MEDS: TOPIRAMATE 25 MG TAB PO STA (05:34)
[2024-11-30] MEDS: TOPIRAMATE 100 MG TAB PO STA (05:34)
[2024-11-30] MEDS: HYDROCORTISONE SOD 25 MG in SYRINGE 0 ML IV SCH (06:28)
--- NOTE | 2024-11-30 06:40 | Billing Data ---
Date of Service November 30, 2024 Coding Level of Care Code 91923 INT INP/OBS CARE
--- NOTE | 2024-11-30 07:14 | Hospitalist Progress Note ---
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 #Pyelonephritis/ Frequent infections Pt's vitals have been stable since admission. Appearing non toxic, but awaiting results from prior medical facility for cultures. - Ordered immunoglobin levels - urine cx done at [facility]); pending - blood cx done at [facility]); pending - Continue cefepime and vanco (started 11/28 at [facility]) as pt has grown multidrug resistant bacteria in the past until culture/sensitivies back #Fredrick's disease Pt appears hypovolumic today with episode of pre syncope, nausea upon standing this morning. - Ordered Bolus LR followed by 125mls LR for maintenance - Zofran IV PRN for nausea - Continue IV prednisone 25mg q6h - Ordered CRP and orthostatics to be obtained after LR bolus #Anxiety - continue home medications including home benzos to prevent withdrawal #Chronic back pain - continue home medications for pain #GERD - continue home protonix DVT: Lovenox Diet: Heart healthy Code: Full Admission and Anticipated Discharge Date Admission Date: November 30, 2024 Supervising Physician Co-Signing Physician Notes I personally examined the patient and verified all fallon points of history and exam, discussed case, and agree with decision making with Dr Serrano Seen in follow-up from early a.m. admission. Feeling better. Appreciates care. Fairly difficult to truly obtain historyspeaks extremely at length with large mixture of acute symptoms and recent course intermingled with chronic problems intermingled with prior surgical history intermingled with what she has been told is going on intermingled with what seems to be a chronic degree of dysfunction. It sounds as though she was in a reasonable state of health until about 5 years ago. She had a gastric bypass. She has since had spinal issues and spine surgeries, and subsequent to that (it sounds like) neurogenic bladder and a degree of functional paraplegia/weakness of her lower extremities. She also notes frequent infections, but it sounds more like truly frequent times where she ends up in the hospital very symptomatic weak and/or hypotensive, but it is unclear how often there truly is an infection. Whenever asked her about frequent infections, she relates frequent bladder infections, as well as 1 GI infection, treatment regimen sounds like it might have been directed towards H. pylori. She is able to show me her labs from [facility] 11/28no leukocytosis, UA looked extremely reassuringI believe it was all negative except for positive leukocyte esterase. Ferritin was I believe 79 with an iron of 29. Remainder of labs essentially normal. Vitals noted, in general she is awake and alert mildly anxious but no acute distress. HEENT normocephalic atraumatic mucous membranes moist, poor dentition. Cardio is regular without rubs murmurs or gallops, lungs are clear without rales rhonchi or wheezes good effort no accessory muscle use no conversational dyspnea. Abdomen is soft nondistended nontender no masses organomegaly, suprapubic catheter site clean dry and intact with no erythema or exudate. Current labs and diagnostics noted as well. Acute illnessshe came with apparently a working diagnosis of sepsis from pyelonephritis in the context of suprapubic catheterization frequent infections and neurogenic bladderbut given her lack of leukocytosis there or here, given that her kidneys do not appear to light up with pyelonephritis type findings on CT here (and that often takes a while to get better), and given that the inciting symptoms as it relates to what led to the diagnosis of urinary tract infection sounds to have been visible exudative changes around her suprapubic catheter siteI am skeptical as to whether or not there is any infection at play at all. At the same time, with her diagnosis of Brookings's as well as potential for malabsorption from her gastric bypass, I do wonder if she has under treated adrenal insufficiency as potentially the culprit for why she notes that she can never really stay out of the hospital for more than a week before crashing out with another infection. Currently on stress dosing of steroids, she did feel a bit weak shaky and nauseated somewhat consistent with Brookings's todaywill give a fluid bolus and if that does not alleviate her symptoms increase the steroids. Probably will need larger baseline of steroids, although if the problem is malabsorption and not entirely sure if simply raising the dose will overcome this or if we will need to have an alternative solutionMay need to discuss with endocrine. Again doubt sepsis is at play at allwill hopefully be able to stop antibiotics by tomorrow if there is still no clear signs of infection and obviously awaiting cultures from [facility]. Check a CRP today for baseline to compare to. Seems as though she is likely got significant deficiencieswith her "crumbling bones" and post gastric bypasscheck a vitamin D, strongly suspicious of osteoporosis. With her motor weakness, while it seems to be a spinal issue, and likely structural, given the frequency of B12 deficiency post gastric bypass we will check a B12 level as well (she does note that she has B12 deficiency and is supposed to be on shots, but frequently is unable to get them due to being in the hospital ill). PT/OT eval and treat, very complicated. DVT proph - lovenox Subjective Pt reports she is feeling a little better this morning. She continues with nausea and a headache, which she attributes to her adrenal disease. She denies CP, SOB, cough/congestion, abdominal pain, Pt has chronic low back pain and weakness from DJD and previous back surgeries. 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 Pt has history of gastric bypass, and feels that is when all of her medical p roblems started. She takes 10 mg daily of prednisone for maintenance for Brookings's disease, but has been on stress doses more often than maintenance dose due to recurrent infections. Pt denies recurrent URI's reporting most of her infections are UTIs or GI infections. After initial exam, pt attempted to standing without assist from nursing and felt dizzy with significant weakness in her legs. She was able to sit herself back down on the bed. Since then she feels dizzy and nauseous. She is also noting straining to void through her catheter without much urine. Review of Systems Review of Systems: Per HPI. Physical Exam Physical Exam: General: Alert and oriented, no acute distress, very anxious but pleasant HEENT: Normocephalic, moist oral mucosa, Cardio: Regular rate and rhythm, no murmurs appreciated Resp: Lungs clear to auscultation b/l, no wheezes or rhonchi, GI: Soft, bowel sounds active, suprapubic catheter inspected and no surrounding erythema or pus noted. Lou bag with 100+mL or yellow urine without noted blood or sediment Skin: Warm, pink, dry. No rashes noted on exposed skin Results & Data Results & Data Vital Signs (Past 12 Hours) Vital Signs Temp Pulse Pulse Pulse Resp BP BP 11/30/24 06:28 36.5 C 71 16 129/81 11/30/24 05:11 36.5 C 71 16 129/81 11/30/24 04:10 78 18 126/89 11/30/24 02:20 80 16 100/73 11/30/24 01:37 77 11/30/24 01:12 74 16 123/81 11/29/24 22:31 87 18 117/91 11/29/24 21:56 11/29/24 21:47 83 11/29/24 21:15 36.9 C 99 H 18 144/105 H Pulse Ox O2 Del Method 11/30/24 06:28 92 Room Air 11/30/24 05:11 93 Room Air 11/30/24 04:10 100 Room Air 11/30/24 02:20 98 Room Air 11/30/24 01:37 11/30/24 01:12 96 Room Air 11/29/24 22:31 97 11/29/24 21:56 95 Room Air 11/29/24 21:47 11/29/24 21:15 98 Room Air Resident Activity Tracking Resident Involvement: Resident Care Provided Care Provided: Adult Hospital Medicine
[2024-11-30] MEDS: SUCRALFATE 1 GM TAB PO SCH (07:46)
[2024-11-30] MEDS: CEFEPIME 2000MG 2,000 MG/20 ML SYR IV SCH (07:46)
[2024-11-30] MEDS ORDERED: clonazePAM 1 MG TAB PO SCH (09:00)
--- NOTE | 2024-11-30 09:16 | Electrocardiogram Report ---
Test Reason : Blood Pressure : */* mmHG Vent. Rate : 81 BPM Atrial Rate : 81 BPM P-R Int : 164 ms QRS Dur : 76 ms QT Int : 386 ms P-R-T Axes : 41 6 27 degrees QTcB Int : 448 ms Normal sinus rhythm Normal ECG No previous ECGs available Confirmed by Kyle Guillen ([id number]) on 11/30/2024 9:16:20 AM Referred By: REFERRED SELF Confirmed By: Kyle Guillen
[2024-11-30] MEDS: FERROUS SULFATE 325 MG TAB PO SCH (10:00)
[2024-11-30] MEDS ORDERED: VANCOMYCIN HCL 2,500 MG in SODIUM CHLORIDE 0.9% 500 ML IV ONE (10:00)
[2024-11-30] MEDS: ENOXAPARIN INJ 40 MG/0.4 ML SYR SQ SCH (10:00)
[2024-11-30] MEDS: DICYCLOMINE HCL 10 MG CAP PO PRN (10:00)
[2024-11-30] MEDS: PANTOprazole 40 MG TAB PO SCH (10:01)
[2024-11-30] MEDS: THIAMINE HCL 100 MG TAB PO SCH (10:02)
[2024-11-30] MEDS: CYCLOBENZAPRINE HCL 10 MG TAB PO SCH (10:02)
[2024-11-30] MEDS: PREGABALIN 100 MG CAP PO SCH (10:18)
[2024-11-30] MEDS: POTASSIUM CHLORIDE CRTAB 20 MEQ TABCR PO SCH (10:18)
[2024-11-30 11:22] LABS: Creatinine Clr Calc Pharmacy 180.1 ml/min
--- NOTE | 2024-11-30 11:56 | Pharmacy Report ---
Pharmacy PK ABX Note - Date of Service November 30, 2024 - Assessment and Plan Assessment 39 year old F receiving empiric vancomycin and cefepime for treatment of pyelonephritis. Pertinent microbiologic data includes: urine culture and blood cultures obtained at [facility] (pending currently per hospitalist note), blood cultures x 2 from [facility] also pending. Patient was admitted at [facility] and left AMA (did receive vancomycin on 11/29, 2 g at ~0300 and then 1 g at ~1500). Patient has history of Addisons disease (on chronic oral steroids at home). Day # 1 of antimicrobial therapy. Plan Vancomycin * Loading dose: 2500 mg IV x 1 * Random level obtained due to patient previously receiving vanocomycin and then being reloaded * Vanco level resulted as 16.5 mg/L * Maintenance dose: 1250 mg IV every 8 hours * Regimen is predicted to achieve target AUC/ROYER of 400-600 mg/L.hr * Random level ordered for: 12/02/24 Pharmacy will continue to follow and will adjust dose/frequency as necessary. Thank you. Pharmacy has transitioned to AUC monitoring for vancomycin. AUC/ROYER is the preferred PK/PD target and is associated with decreased risk of nephrotoxicity compared to traditional trough targets.
[2024-11-30] MEDS: ONDANSETRON INJ 2 MG/ML 2 ML VIAL IV STA (12:01)
[2024-11-30] MEDS: TOPIRAMATE 100 MG TAB PO SCH (12:02)
[2024-11-30] MEDS: LACTATED RINGER'S 1,000 ML IV SCH (12:02)
[2024-11-30] MEDS: TOPIRAMATE 25 MG TAB PO SCH (12:02)
[2024-11-30] MEDS: LACTATED RINGER'S 1,000 ML IV ONE (12:02)
[2024-11-30 12:30] LABS: C Reactive Protein 0.54 mg/dl (0-0.5); Immunoglobulin A 191.9 mg/dl (70-400); Immunoglobulin G 595.2 mg/dl (635-1741); Immunoglobulin M 86.9 mg/dl (45-281)
[2024-11-30] MEDS: VANCOMYCIN HCL 1,250 MG in SODIUM CHLORIDE 0.9% 250 ML IV SCH (14:20)
[2024-11-30] MEDS: PREGABALIN 50 MG CAP PO SCH (14:25)
[2024-11-30] MEDS: ACETAMINOPHEN 325 MG TAB PO PRN (15:54)
[2024-11-30] MEDS: oxyCODONE HCL IR 5 MG TAB (IMMEDIATE RELEASE) PO PRN (17:08)
[2024-11-30] MEDS: ERGOCALCIFEROL 1250 MCG (50,000 UNITS) CAP PO SCH (18:20)
[2024-11-30] MEDS: ZOLPIDEM TARTRATE 5 MG TAB PO SCH (22:19)
[2024-12-01] MEDS: ONDANSETRON INJ 2 MG/ML 2 ML VIAL IV PRN (03:48)
[2024-12-01 07:28] LABS: Anion Gap 6 (3-11); BUN Creatinine Ratio 15.3 (10-20); Blood Urea Nitrogen 9 mg/dl (6-23); C Reactive Protein < 0.50 mg/dl (0-0.5); Calcium 8.8 mg/dl (8.6-10.3); Carbon Dioxide 27 mmol/L (21-32); Chloride 109 mmol/L (98-107); Glucose 74 mg/dl (70-99(Fasting)); Potassium 3.5 mmol/L (3.5-5.1); Sodium 142 mmol/L (136-145)
--- NOTE | 2024-12-01 07:38 | Hospitalist Progress Note ---
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 #Pyelonephritis/ Frequent infections Pt's vitals have been stable since admission. Appearing non toxic, but awaiting results from prior medical facility for cultures. Immunoglobin levels returned with mild reduction in IgM. CRP was 0.54 on 11/30 and <0.50 this morning. - urine cx done at [facility] ([place] negative - blood cx done at [facility] pending - Blood cultures drawn on 11/29 in [facility] ED- negative at 24 hrs. - Stopped cefepime and vanco due to low likelihood of sepsis as well as negative urine culture. - Consider outpatient follow up with immunology for work up due to low IgM and hx of frequent #Fredrick's disease Pt appeared hypovolumic on 11/30 with episode of pre syncope and nausea upon standing. S/p Bolus 1L LR on 11/30. - Continue 125mls LR for maintenance - Continues Zofran IV PRN for nausea - Stop IV hydrocortisone 25mg q6h, in favor of PO 10mg prednisone qd for improved absorption in intestine s/p Tanya-en-Y - Consider outpatient follow up with endocrinology for continued care of Choctaw's disease via prednisone verses hydrocortisone #Anxiety - continue home medications including home benzos to prevent withdrawal #Chronic back pain - continue home medications for pain - Added oxycodone 5 mg q6h PRN #GERD - continue home protonix DVT: Lovenox Diet: Heart healthy Code: Full Admission and Anticipated Discharge Date Admission Date: November 30, 2024 Supervising Physician Co-Signing Physician Notes I personally examined the patient and verified all fallon points of history and exam, discussed case, and agree with decision making with Dr Serrano feeling some nausea but also headache (and on directed questioning photophobia). no new or different abdominal pain (on asking about abdominal pain she then delves into chronic issues that are not clear if it's pain or just anatomic issues her bariatrics team has been monitoring, but it's clear that there's no acute/new/different/intolerable pain issues today). last BM ~2 days ago. clarifying past surg hx - bariatric surgery was tanya en Y. vitals noted nad heent nc at mmm breathing unlabored no accessory muscles good effort skin no rashes no pallor or icterus abd soft mild epigastric > diffuse abdominal discomfort on palpation no guarding no rebound no rigidity frequent decompensations -leaving dx, and even presenting symptom complex, purposefully vague as the actual cause is not entirely clear. she notes that she's labeled as frequent sepsis but i'm fairly skeptical - this current admission seems entirely inconsistent with sepsis - no fever, no leukocytosis/leukopenia, HR up slightly but nonspecific. cultures at OSH negative. CRP 0.54 yesterday. given all this and given that she left OSH after only a day or so - if septic it would have had to resolve rapidly and dramatically for her to look so good/stay so good since arrival, and this (as well as data from OSH) are quite inconsistent with sepsis as a working dx this time. this, then raises the question of if she was ever septic (or if she was, was she occasionally, but other admissions were for different problems?). -stop abx, follow -alternate working dx would be that her decompensation relates to her fredrick's - given her tanya en Y, it's possible that she's not absorbing her hydrocortisone (which appears to be predominantly duodenal absorption) - and therefore if she gets supported with IV steroids while inpatient, then home on PO steroids that she's not absorbing, then it would essentially be not treating the adrenal insufficiency at all. for now will follow with this as working dx (but keeping viewpoints open for other dx as her situation evolves) - stop IV steroids, switch to PO prednisone (absorbed across all of small bowel)(she notes previously other docs would avoid prednisone - d/w her my suspicion is that this would be risks/benefits concern on PUD but that PUD would be more dose dependant than specific steroids dependant, she agrees with trial) and follow. if she's doing OK into tomorrow, stop IV fluids and follow another ~1-3 days depending on progress/stability. d/w endocrine and they will be happy to see in f/u (and also see to help confirm if the adrenal insufficiency is true) ?frequent infections -now that i've got more data, more skeptical about this; yesterday in wanting to investigate frequent infections deeper, and knowing that she does not appear to have infection now, checked Ig levels - IgG sl low - doubtful of large significance - but did d/w immunology who feels most likely secondary to nutritional status/gastric bypass - and (like endocrine) is graciously willing to follow as outpt as well -currently no infection -she notes that she appreciates care here compared to other facilities - will be following locally and coming to this hospital when/if needed - which will then allow us more continuous data to be able to truly discern ?frequent infections vs no infection and labeled as such, vs mild infection labeled more significant due to other factors (such as addisons) nutritional deficiencies -B12 shots have her adequately replaced; as noted from OSH Iron ~29, ferritin ~79 - notes getting IV iron in the past - levels reasonable; since care coordination has been difficult for her and she's transitioning much of care to our system, will likely give venofer prior to dc since she's likely to need IV iron in the reasonably near future anyway and levels, while adequate, certainly are not elevated -PO vitamin D, follow levels in ~3 months to ensure she's getting enough vaginal bleeding -notes for hysterectomy in [facility] - seems to relate to ?fibroids, ?endometriosis - based on hx. also relates hx of abnormal pap smears but then relates that hyster planned seems to center on uterine issues not anything she can recall related to cervical cancer leg weakness -?spinal stenosis; post op? ?other -> awaiting outside records. PT/OT eval and treat otherwise as above Subjective Pt reports she had some increased low back pain yesterday afternoon, however, oxycodone allowed her to rest comfortably last night. She feels that her ability to standing and move from bed to chair is much better since receiving IVF as her HR has maintained in the 90's with activity, compared to at home where her HR jumps to the 130-160's with small activities. Pt states that she sees in her records that her urine culture has returned from the last hospital she was at and they negative for growth. Pt is concerned that this is not an accurate test as she thinks she was started on IV abx prior to urine sample being taken. Although, pt is agreeable to stopping IV abx today. Pt endorses nausea today and headache. She was taken Zofran and tylenol, which has helped. Pt denies CP, SOB, abdominal pain/cramping, vomiting, diarrhea Review of Systems Review of Systems: Per HPI. Physical Exam Physical Exam: General: Alert and oriented, no acute distress, very anxious but pleasant HEENT: Normocephalic, moist oral mucosa, Cardio: Regular rate and rhythm, no murmurs appreciated Resp: Lungs clear to auscultation b/l, no wheezes or rhonchi, GI: Soft, bowel sounds active, suprapubic catheter inspected and no surrounding erythema or pus noted. Lou bag with 100+mL of pale yellow urine without noted blood or sediment Skin: Warm, pink, dry. No rashes noted on exposed skin Results & Data Results & Data Vital Signs (Past 12 Hours) Vital Signs Temp Pulse Resp BP Pulse Ox O2 Del Method 12/01/24 07:18 36.5 C 85 18 124/83 100 Room Air 11/30/24 20:44 36.5 C 94 H 16 121/85 97 Room Air Resident Activity Tracking Resident Involvement: Resident Care Provided Care Provided: Adult Hospital Medicine
[2024-12-01] MEDS: CHOLECALCIFEROL 125 MCG (5,000 UNITS) TAB PO SCH (08:57)
--- NOTE | 2024-12-01 14:00 | Billing Data ---
Date of Service December 01, 2024 Coding Level of Care Code 70060 SUB INP/OBS CARE
[2024-12-01] MEDS: predniSONE 10 MG TABLET PO SCH (14:22)
[2024-12-01] MEDS: POLYETHYLENE (MIRALAX) 17 GM PACK PO PRN (15:11)
[2024-12-01] MEDS: SENNA 8.6 MG TAB PO PRN (21:13)
[2024-12-02] MEDS: clonazePAM 1 MG TAB PO PRN (02:06)
[2024-12-02] MEDS: CYCLOBENZAPRINE HCL 5 MG TAB PO STA (03:12)
[2024-12-02] MEDS: MAGNESIUM SULFATE / D5W 1 GM/100 ML BAG IV ONE (03:12)
[2024-12-02] MEDS: VANCOMYCIN LEVEL ONE (06:31)
[2024-12-02 06:40] LABS: Hemoglobin 10.1 g/dl (12.0-16.0); Mean Corpuscular Hemoglobin 25.7 pg (25.0-34.0); Mean Corpuscular Hgb Conc 30.6 g/dL (32.0-36.0); Mean Platelet Volume 9.2 fL (9.4-12.4); Nucleated RBC # (auto) 0.02 K/uL (0.00-0.12); Nucleated RBC % (auto) 0.3 %; Platelet Count 304 K/uL (130-400); RDW Coefficient of Variation 27.4 % (11.5-14.5); Red Blood Count 3.93 M/uL (4.20-5.40)
[2024-12-02 07:11] LABS: BUN Creatinine Ratio 16.1 (10-20); Calcium 8.7 mg/dl (8.6-10.3); Creatinine Clr Calc Pharmacy 165.6 ml/min; Potassium 3.3 mmol/L (3.5-5.1)
--- NOTE | 2024-12-02 07:25 | Hospitalist Progress Note ---
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 Exacerbation os symptoms last night may be due to transition of IV hydrocortisone to PO prednisone vs reaction to overload of anticholinergic medication with addition of oxybutynin on 12/01. #Pyelonephritis/ Frequent infections Pt's vitals have been stable since admission- afebrile, normotensive, no tachycardia. Pt's urine culture for outside facility resulted with no growth. CRPs have been low to normal. Records from last visit from outside facility show only slight increase in lactate that resolved in less than 24 hrs. All things considered making sepsis less likely. Immunoglobin levels returned 12/01 with mild reduction in IgM. - Blood cultures drawn on 11/29 in [facility] ED- negative at 48 hrs. - No antibiotics at this time - Consider outpatient follow up with immunology for work up due to low IgM and hx of frequent infections #Rooks's disease Pt appeared hypovolumic on 11/30 with episode of pre syncope and nausea upon standing. S/p Bolus 1L LR on 11/30. Pt appears euvolemic at this time with stable. - Stop LR for maintenance - Continues Zofran IV PRN for nausea - Continue PO 10mg prednisone qd for improved absorption in intestine s/p Jean-en-Y, will continue to monitor -Consider additional 5mg prednisone, if needed for increase in symptoms - Consider outpatient follow up with endocrinology for continued care of Rooks's disease via prednisone verses hydrocortisone #Anxiety - continue home medications including home benzos to prevent withdrawal #Chronic back pain - continue home medications for pain - Added oxycodone 5 mg q6h PRN - PT following Recommended return to home if goals met, if not short term stay at rehab #GERD - continue home protonix DVT: Lovenox Diet: Heart healthy Code: Full Admission and Anticipated Discharge Date Admission Date: November 30, 2024 Supervising Physician Co-Signing Physician Notes I personally examined the patient and verified all fallon points of history and exam, discussed case, and agree with decision making with Dr Serrano feeling ok now. did have some racing heart earlier. now better. does not feel it was anxiety related. does note that it improved ~40mins after PO prednisone. does have occassional diarrhea at home, but also sounds like she has constipation about as often. nothing chronically that sounds c/w dumping syndrome. present as well. vitals noted nad heent nc at mmm breathing unlabored no accessory muscles good effort skin no rashes no pallor or icterus frequent decompensations -leaving dx, and even presenting symptom complex, purposefully vague as the actual cause is not entirely clear. she notes that she's labeled as frequent sepsis but i'm fairly skeptical - this current admission seems entirely inconsistent with sepsis - no fever, no leukocytosis/leukopenia, HR up slightly but nonspecific. cultures at OSH negative. CRP 0.54 yesterday. given all this and given that she left OSH after only a day or so - if septic it would have had to resolve rapidly and dramatically for her to look so good/stay so good since arrival, and this (as well as data from OSH) are quite inconsistent with sepsis as a working dx this time. this, then raises the question of if she was ever septic (or if she was, was she occasionally, but other admissions were for different problems?). -stop abx, follow -alternate working dx would be that her decompensation relates to her evangelina's - given her jean en Y, it's possible that she's not absorbing her hydrocortisone (which appears to be predominantly duodenal absorption) - and therefore if she gets supported with IV steroids while inpatient, then home on PO steroids that she's not absorbing, then it would essentially be not treating the adrenal insufficiency at all. for now will follow with this as working dx (but keeping viewpoints open for other dx as her situation evolves) - stopped IV steroids, switched to PO prednisone (absorbed across all of small bowel)(she notes previously other docs would avoid prednisone - d/w her my suspicion is that this would be risks/benefits concern on PUD but that PUD would be more dose dependant than specific steroids dependant, she agrees with trial) and follow. stopping fluids today. if more erratic weakness/tremulousness and tachycardia - then consider escalating prednisone a little. d/w endocrine and they will be happy to see in f/u (and also see to help confirm if the adrenal insufficiency is true) ?frequent infections -now that i've got more data, more skeptical about this; yesterday in wanting to investigate frequent infections deeper, and knowing that she does not appear to have infection now, checked Ig levels - IgG sl low - doubtful of large significance - but did d/w immunology who feels most likely secondary to nutritional status/gastric bypass - and (like endocrine) is graciously willing to follow as outpt as well -currently no infection -she notes that she appreciates care here compared to other facilities - will be following locally and coming to this hospital when/if needed - which will then allow us more continuous data to be able to truly discern ?frequent infections vs no infection and labeled as such, vs mild infection labeled more significant due to other factors (such as addisons) nutritional deficiencies -B12 shots have her adequately replaced; as noted from OSH Iron ~29, ferritin ~79 - notes getting IV iron in the past - levels reasonable; since care coordination has been difficult for her and she's transitioning much of care to our system, will give venofer prior since she's likely to need IV iron in the reasonably near future anyway and levels, while adequate, certainly are not elevated -PO vitamin D, follow levels in ~3 months to ensure she's getting enough vaginal bleeding -notes for hysterectomy in [facility] - seems to relate to ?fibroids, ?endometriosis - based on hx. also relates hx of abnormal pap smears but then relates that hyster planned seems to center on uterine issues not anything she can recall related to cervical cancer leg weakness -?spinal stenosis; post op? ?other -> awaiting outside records. PT/OT eval and treat otherwise as above Subjective Pt states that she was able to get up and walk with therapy in her room yesterd jaxon. She also sat int he chair for 3 hours before getting back in the bed to rest. She noted a red, flushed area at her left cheek yesterday evening (pt showed picture). Then, reports she was unable to sleep overnight due to sweating, alternating muscle cramps and twitching, restlessness and headache. Pt reports her mouth was very dry and she had a dry cough. She drank quite a bit of water, but had a lot of trouble being able to relax and sleep. Pt endorses nausea and headache. She was taken Zofran and tylenol, which has helped. Pt denies CP, SOB, abdominal pain/cramping, vomiting, diarrhea Review of Systems Review of Systems: Per HPI. Physical Exam Physical Exam: General: Alert and oriented, anxious but pleasant HEENT: Normocephalic, No facial flushing noted, moist oral mucosa Cardio: Regular rate and rhythm, no murmurs appreciated Resp: Lungs clear to auscultation b/l, no wheezes or rhonchi, GI: Soft, bowel sounds active, suprapubic catheter inspected and no surrounding erythema or pus noted. Lou bag with pale yellow urine without noted blood or sediment Extremities: No edema noted at distal extremities. Able to move all 4 limbs on command. Skin: Warm, pink, dry. No rashes noted on exposed skin Results & Data Results & Data Vital Signs (Past 12 Hours) Vital Signs Temp Pulse Resp BP Pulse Ox O2 Del Method 12/02/24 01:43 36.5 C 83 18 131/82 100 Room Air 12/01/24 19:48 36.8 C 80 16 133/92 93 Room Air Resident Activity Tracking Resident Involvement: Resident Care Provided Care Provided: Adult Hospital Medicine
[2024-12-02] MEDS: OXYBUTYNIN CHLORIDE XL 5 MG TABCR PO SCH (09:32)
[2024-12-02] MEDS: HEPARIN 100 UNIT/ML 5ML FLUSH FLUSH PRN (09:42)
[2024-12-02] MEDS: POTASSIUM CHLORIDE CRTAB 20 MEQ TABCR PO STA (11:20)
--- NOTE | 2024-12-02 13:35 | Billing Data ---
Date of Service December 02, 2024 Coding Level of Care Code 98558 SUB INP/OBS CARE
[2024-12-02] MEDS: IRON SUCROSE 200 MG in SODIUM CHLORIDE 0.9% 100 ML IV ONE (14:44)
--- NOTE | 2024-12-02 16:16 | Electrocardiogram Report ---
Test Reason : Blood Pressure : */* mmHG Vent. Rate : 113 BPM Atrial Rate : 113 BPM P-R Int : 150 ms QRS Dur : 76 ms QT Int : 292 ms P-R-T Axes : * 126 -25 degrees QTcB Int : 400 ms Sinus tachycardia Low voltage QRS Left posterior fascicular block Inferior infarct , age undetermined Abnormal ECG When compared with ECG of 29-Nov-2024 22:23, Left posterior fascicular block is now Present Non-specific change in ST segment in Lateral leads Nonspecific T wave abnormality, worse in Inferior leads Nonspecific T wave abnormality now evident in Anterolateral leads Confirmed by Kyle Guillen ([id number]) on 12/02/2024 4:16:23 PM Referred By: REFERRED SELF Confirmed By: Kyle Guillen
[2024-12-02] MEDS: PROMETHAZINE HCL 25 MG TAB PO PRN (21:07)
[2024-12-02] MEDS: MoRPHine SULFATE 2 MG/ML CARP IV STA (22:02)
[2024-12-03 05:54] LABS: Hematocrit (blood only) 37.7 % (37.0-47.0); Hemoglobin 11.2 g/dl (12.0-16.0); Mean Corpuscular Hemoglobin 25.1 pg (25.0-34.0); Mean Corpuscular Hgb Conc 29.7 g/dL (32.0-36.0); Mean Corpuscular Volume 84.3 fL (80.0-100.0); Mean Platelet Volume 9.2 fL (9.4-12.4); Platelet Count 326 K/uL (130-400); RDW Coefficient of Variation 28.1 % (11.5-14.5); Red Blood Count 4.47 M/uL (4.20-5.40); White Blood Count 7.85 K/ul (4.8-10.8)
[2024-12-03 06:12] LABS: BUN Creatinine Ratio 17.4 (10-20); Calcium 8.8 mg/dl (8.6-10.3); Creatinine Clr Calc Pharmacy 148.8 ml/min; Potassium 3.2 mmol/L (3.5-5.1)
[2024-12-03] MEDS: ACETAMINOPHEN 500 MG TAB PO SCH (12:34)
[2024-12-03] MEDS: predniSONE 5 MG TAB PO SCH (13:59)
[2024-12-03] MEDS ORDERED: predniSONE 5 MG TAB PO SCH (14:00)
--- NOTE | 2024-12-03 15:14 | Hospitalist Progress Note ---
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 for continued medical care to treat Readfield's flare vs UTI. Exacerbation os symptoms last night may be due to transition of IV hydrocortisone to PO prednisone vs reaction to overload of anticholinergic medication with addition of oxybutynin on 12/01. #Pyelonephritis/ Frequent infections Pt's vitals have been stable since admission- afebrile, normotensive, no tachycardia. Pt's urine culture for outside facility resulted with no growth. CRPs have been low to normal. Records from last visit from outside facility show only slight increase in lactate that resolved in less than 24 hrs. All things considered making sepsis less likely. Immunoglobin levels returned 12/01 with mild reduction in IgM. - Blood cultures drawn on 11/29 in [facility] ED- negative at 48 hrs. - No antibiotics at this time - Consider outpatient follow up with immunology for work up due to low IgM and hx of frequent infections #Readfield's disease Pt appeared hypovolumic on 11/30 with episode of pre syncope and nausea upon standing. S/p Bolus 1L LR on 11/30. Pt appears euvolemic at this time with stable. - Stop LR for maintenance - Continues Zofran IV PRN for nausea - Continue PO 10mg prednisone qd for improved absorption in intestine s/p [id number], will continue to monitor - Additional 5mg prednisone afternoon dose given - If volume status still poor will add 2L LR and 4g of magnesium - Continue to monitor, consider addition of 0.1mg fludrocortisone due potential mineralocorticoid deficiency - Consider outpatient follow up with endocrinology for continued care of Fredrick's disease via prednisone verses hydrocortisone #Yeast infection - Patient endorses painful urges to urinate with clear thick discharge - Patient endorses that this has happened 4-5 times since suprapubic catheter placement - Ordered Monistat #Anxiety - continue home medications including home benzos to prevent withdrawal #Chronic back pain - continue home medications for pain - Added oxycodone 5 mg q6h PRN - PT following Recommended return to home if goals met, if not short term stay at rehab #GERD - continue home protonix DVT: Lovenox Diet: Heart healthy Code: Full Admission and Anticipated Discharge Date Admission Date: November 30, 2024 Supervising Physician Co-Signing Physician Notes I personally examined the patient and verified all fallon points of history and exam, discussed case, and agree with decision making with Dr Bojorquez feeling a little bit worse. Heart rate was up to 130/140 for a good bit of the night, now down to more like 1 teens, but still not as good as it was a few days ago. She also feels a bit headachy and flushed. Some back pain and leg cramps. No bowel movements. While she is drinking a good bit and making a lot of urine she does note her urine is getting noticeably darker. In terms of drinking a good bit it is hard to totally discern, but it seems like she is probably drink at least 100 ounces p.o. in the last 18 or so hours. vitals noted appears a bit more fatigued, flushed heent nc at mmm breathing unlabored no accessory muscles good effort skin no rashes no pallor or icterus urine in bag moderately concentrated despite being fairly large volume frequent decompensations -leaving out dx, and even presenting symptom complex, purposefully vague as the actual cause is not entirely clear. she notes that she's labeled as frequent sepsis but i'm fairly skeptical - this current admission seems entirely inconsistent with sepsis - no fever, no leukocytosis/leukopenia, HR up slightly but nonspecific. cultures at OSH negative. CRP 0.54 yesterday. given all this and given that she left OSH after only a day or so - if septic it would have had to resolve rapidly and dramatically for her to look so good/stay so good since arrival, and this (as well as data from OSH) are quite inconsistent with sepsis as a working dx this time. this, then raises the question of if she was ever septic (or if she was, was she occasionally, but other admissions were for different problems?). -stopped abx, following - no septic decompensation -alternate working dx would be that her decompensation relates to her fredrick's - given her tanya en Y, it's possible that she's not absorbing her hydrocortisone (which appears to be predominantly duodenal absorption) - and therefore if she gets supported with IV steroids while inpatient, then home on PO steroids that she's not absorbing, then it would essentially be not treating the adrenal insufficiency at all. for now will follow with this as working dx (but keeping viewpoints open for other dx as her situation evolves) - stopped IV steroids, switched to PO prednisone (absorbed across all of small bowel)(she notes previously other docs would avoid prednisone - d/w her my suspicion is that this would be risks/benefits concern on PUD but that PUD would be more dose dependant than specific steroids dependant, she agrees with trial) and follow. off fluids for >24hrs. HR up some - a bit concerning that we either may be under treating her addisons (will give additional 5mg prednisone this afternoon - d/w pt that eventually it would probably be easier to roll whole dose into AM with prednisone - but for now will split), that she requires mineralocorticoid too (will give trial of fludrocortisone starting in AM) or that we have a differrent dx altogether ------>does seem to have trouble holding volume status - oddly incongruous but following closely: great PO fluid intake, fairly high urine volume but looking more and more concentrated, no dumping syndrome sx that would be the "ready explanation" for this. -->another reason to give trial to PO fludrocortisone (caveat being it's not totally clear where it gets absorbed); eval for other reasons she could third space - not septic, albumin 3.8, bili normal (will check INR to round this out). if no other clear reason can be found, but fluid status still is an issue, it would be reasonable to at least consider some degree of gut malabsorption (again, her lack of bowel symptoms plead against this) and then look at some degree of regular IV fluids at home ?frequent infections -now that i've got more data, more skeptical about this; yesterday in wanting to investigate frequent infections deeper, and knowing that she does not appear to have infection now, checked Ig levels - IgG sl low - doubtful of large significance - but did d/w immunology who feels most likely secondary to nutritional status/gastric bypass - and (like endocrine) is graciously willing to follow as outpt as well -currently no infection -she notes that she appreciates care here compared to other facilities - will be following locally and coming to this hospital when/if needed - which will then allow us more continuous data to be able to truly discern ?frequent infections vs no infection and labeled as such, vs mild infection labeled more significant due to other factors (such as addisons) nutritional deficiencies -B12 shots have her adequately replaced; as noted from OSH Iron ~29, ferritin ~79 - notes getting IV iron in the past - levels reasonable; since care coordina tion has been difficult for her and she's transitioning much of care to our system, will gave venofer prior since she's likely to need IV iron in the reasonably near future anyway and levels, while adequate, certainly are not elevated -PO vitamin D, follow levels in ~3 months to ensure she's getting enough vaginal bleeding -notes for hysterectomy in [facility] - seems to relate to ?fibroids, ?endometriosis - based on hx. also relates hx of abnormal pap smears but then relates that hyster planned seems to center on uterine issues not anything she can recall related to cervical cancer leg weakness -?spinal stenosis; post op? ?other -> awaiting outside records. PT/OT eval and treat - doing well enough with mobility that she will be able to go home once stable for discharge otherwise as above if HR doesn't improve/feels worse despite slight increase in prednisone can give fluids (would probably give ~2L LR) and for cramping give IV mag (probably 4g) - but trying to hold off since this would also stabilize her situation and make it harder to know that she's shown enough progress to be safe for discharge -- and given her frequent readmissions and decompensations, we've been discussing that really we should probably see ~48hrs of stability with only interventions she can do outside the hospital prior to discharge. Subjective Patient reports continued substantial pain this morning at about a 8/10. Reports that she had a rough night, with dizziness, migraines, abdominal pain, back pain, hip/[place] pain and urethral pain. Patient reports that her worst discomfort is her migraines, back and hip muscular pain. Today patient denies SOB, chest pain, and palpitations but has been closely monitoring her HR and reports that it has been elevated and normally she does run elevated at about 120s at home. Patient remains afebrile and hemodynamically stable. Physical Exam Physical Exam: General: patient resting comfortably, NAD, non-toxic in appearance, answers questions appropriately. Skin: warm, dry, intact HEENT: NC/AT, anicteric sclera, conjunctiva without injection, moist mucus membranes. Heart: +S1/S2, regular, no m/r/g Lungs: equal air entry bilaterally, no rales/rhonchi/wheezes Abd: +BS, soft, NT/ND Ext: warm, no clubbing/cyanosis or edema Neuro: nonfocal, speech intact, no facial droop, moving all extremities. Results & Data Results & Data Vital Signs (Past 12 Hours) Vital Signs Temp Pulse Pulse Resp BP Pulse Ox O2 Del Method 12/03/24 15:01 105 H 98 H 12/03/24 11:50 132 H 16 96 Room Air 12/03/24 07:46 36.7 C 97 H 16 124/84 93 Room Air Resident Activity Tracking Resident Involvement: Resident Care Provided Care Provided: Adult Hospital Medicine
--- NOTE | 2024-12-03 16:01 | Billing Data ---
Date of Service December 03, 2024 Coding Level of Care Code 05500 SUB INP/OBS CARE
[2024-12-03] MEDS: MICONAZOLE NITRATE 2% VAG CR 45 GM TUBE PV SCH (20:28)
[2024-12-03] MEDS: FLUCONAZOLE 50 MG TAB PO ONE (22:45)
[2024-12-04 07:24] LABS: Prothrombin Time 10.6 Seconds (9.0-12.0)
[2024-12-04] MEDS: FLUDROCORTISONE ACETATE 0.1 MG TAB PO SCH (08:01)
[2024-12-04 09:23] LABS: BUN Creatinine Ratio 20.3 (10-20); Calcium 9.1 mg/dl (8.6-10.3); Creatinine Clr Calc Pharmacy 160.4 ml/min; Potassium 3.5 mmol/L (3.5-5.1)
--- NOTE | 2024-12-04 10:50 | Hospitalist Progress Note ---
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 Exacerbation os symptoms last night may be due to transition of IV hydrocortisone to PO prednisone vs reaction to overload of anticholinergic medication with addition of oxybutynin on 12/01. #Pyelonephritis/ Frequent infections (disproven - no infection this admission) Pt's vitals have been stable since admission- afebrile, normotensive, no tachycardia. Pt's urine culture for outside facility resulted with no growth. CRPs have been low to normal. Records from last visit from outside facility show only slight increase in lactate that resolved in less than 24 hrs. All things considered making sepsis less likely. Immunoglobin levels returned 12/01 with mild reduction in IgM. - Blood cultures drawn on 11/29 in [facility] ED- negative at 48 hrs. - No antibiotics at this time - Consider outpatient follow up with immunology for work up due to low IgM and hx of frequent infections #[place]'s disease Pt appeared hypovolumic on 11/30 with episode of pre syncope and nausea upon standing. S/p Bolus 1L LR on 11/30. Pt appears euvolemic at this time with stable. - Stop LR for maintenance - Continues Zofran IV PRN for nausea - Continue PO 10mg prednisone qd for improved absorption in intestine s/p Jean-en-Y, will continue to monitor - Additional 5mg prednisone afternoon dose given - If volume status still poor will add 2L LR and 4g of magnesium - Continue to monitor, addition of 0.1mg fludrocortisone due potential mineralocorticoid deficiency. Absorption may be compromised by gastric bypass via jean en y, however literature suggests absorption pattern is uncertain and may not be reliant on the duodenum - Consider outpatient follow up with endocrinology for continued care of [place]'s disease via prednisone verses hydrocortisone #Yeast infection - Patient endorses painful urges to urinate with clear thick discharge - Patient endorses that this has happened 4-5 times since suprapubic catheter placement - Ordered Monistat #Anxiety - continue home medications including home benzos to prevent withdrawal #Chronic back pain - continue home medications for pain - Added oxycodone 5 mg q6h PRN - PT following Recommended return to home if goals met, if not short term stay at rehab #GERD - continue home protonix DVT: Lovenox Diet: Heart healthy Code: Full Admission and Anticipated Discharge Date Admission Date: November 30, 2024 Supervising Physician Co-Signing Physician Notes I personally examined the patient and verified all fallon points of history and exam, discussed case, and agree with decision making with Dr Bojorquez Ongoing cramping pain in the legs and low back, also had abdominal cramps that started as what felt like an abdominal wall charley horse and then localizedshe describes what she felt as bladder and uterine contractionsbut it does not appear that she had any notable urethral or vaginal discharge). Tachycardia has become more erratic. She notes a hospital stay in [facility] Sometime in the last few years she cannot quite remember exactly when where she was told that she had tachybradycardia syndrome, and separately relates at some point being told maybe she had atrial fibrillation. Interestingly, while she was told that she might need a pacemaker or an ablation, there has been no follow-up since. She had an echocardiogram done a few weeks ago at [facility], EF was 6570, trace tricuspid regurg, pulmonary artery pressure estimated at 37, otherwise normal. vitals noted appears fatigued, heent nc at mmm breathing unlabored no accessory muscles good effort skin no rashes no pallor or icterus urine in bag moderately concentrated despite being fairly large volume, about the same as yesterday. Pulse in the 140s whenever we are in the room, palpates regular. Abdomen mildly distended, no guarding rebound or rigidity. frequent decompensations - Given that the exact etiology is not 100% clear, we are trying to make sure that we do not anchor on any working diagnosis, but rather build differentials, explore them, and then keep our eyes open for other possibilities. The common threads seem to be tachycardia, feeling very weak, facial flushing, possibly low blood pressures but this part is not entirely clear, muscle cramps, and weakness - she has been labeled septic repeatedly, including when she was admitted at [facility] the day before leaving against advice and coming to our facilityat least for this particular admission there appears to be absolutely no sepsis at play on review of her records from [facility] and since she arrived here. stopped abx, following - no septic decompensation -alternate working dx would be that her decompensation relates to her evangelina's - given her jean en Y, it's possible that she's not absorbing her hydrocortisone (which appears to be predominantly duodenal absorption) - and therefore if she gets supported with IV steroids while inpatient, then home on PO steroids that she's not absorbing, then it would essentially be not treating the adrenal insufficiency at all. for now will follow with this as working dx (but keeping viewpoints open for other dx as her situation evolves) - stopped IV steroids, switched to PO prednisone (absorbed across all of small bowel)(she notes previously other docs would avoid prednisone - d/w her my suspicion is that this would be risks/benefits concern on PUD but that PUD would be more dose dependant than specific steroids dependant, she agrees with trial) and follow. off fluids for ~3 days. HR up some -see below under "tachycardia" for ddx for this, but in terms of potential adrenal insufficiency we added an additional 5mg prednisone (In the end, probably no real need for split dosing, but for now we are doing so to allow for closer monitoring, as well as the fact that at least psychologically she is used to taking the majority of her dose in the morning and a smaller dose in the afternoon); today added 0.1 of fludrocortisone (not entirely clear where this gets absorbed in the intestines). Endocrinology has reviewed her case with me, and notes that are working theory, while obviously rare, is physiologically plausibleand they will be seeing her as an outpatient - apparent difficulty holding volume status: She has been drinking probably 120- 150 ounces or more per day, and still showing some evidence that seems like she is intravascularly "volume down"tying together with the potential adrenal insufficiency, it could be a hint that we are still inadequately managing her Evangelina's (hence the addition of 5 mg of prednisone in the afternoon, and today the addition of the fludrocortisone)and obviously we will need to continue to look at steroid mediated physiology as a possibility; at the same time, I wonder about an overlay of POTS physiology (even if she does not overtly meet criteria for POTS), and it is also possible that her volume status is reasonable but she is tachycardic for other reasons, creating a bit of a mixed picture that becomes harder to interpret (again see "tachycardia" below). we have been also entertaining malabsorption/dumping syndrome, but right now this seems to be far less likely the case given that she gives a back story of some incongruence bowel habits, but here in the hospital she has not had a bowel movement for several days in spite of some MiraLAX and senna. While she does seem to be getting a little bit more symptomatic from the constipation, given that she is not in distress and her abdomen only examines mildly distended, purposefully holding off on more aggressive bowel regimen so as to not create an iatrogenic diarrhea that might cloud the clinical picture creating the illusion of dumping syndrome physiology. We did discuss that while we are not there yet, it is also possible we may see a situation that eventually requires a degree of maintenance outpatient IV fluids (something like a liter or to IV a few days a week) she is certainly amenable to this if it ends up being necessary. --------> As it relates to the potential for Evangelina's being undertreated and/or other difficulties with holding her volume status, we discussed that it would be very easy to "fix her vitals" with stress dosing IV steroids as well as IV fluids, but in the big picture given that her fundamental problem is frequent decompensations and her inability to stay stable at home, and given that we are not seeing anything that looks like true harm at play right now, I felt it more prudent to try to get to the bottom of what is actually going on and build more of a plan that is viable in the outpatient world even if it means excepting s omewhat less than ideal "numbers" (as long as she continues to look like she is not going to suffer any true harmwhich is again the case today) rather than "winning the carlos to lose the war" - Tachycardia: She definitely shows inappropriate and somewhat erratic tachycardia. Obviously the differential that would tie it altogether would relate to adrenal insufficiencyand we are managing with prednisone/fludrocortisone to try to titrate for this. To a degree the erratic nature of this seems to fit with a degree of POTS physiology (although she does not seem to overtly show POTS)and this may be at play as well, although I suppose the management for it would largely be the same, along with education and reassurance. It does raise the question of if she has intravascular hypovolemia that may simply require outpatient IV fluidsbut I feel like this would be more of a plan/diagnosis of exclusion given that she is not showing overt GI malabsorption or dumping syndrome to support the requirement of outpatient IVs. she also relates a history that today opens the door for the potential of cardiac electrophysiology issueshopefully we will be able to get records from [facility] From this day where she was told she might have tachybradycardia syndrome, we will check EKGs from time to time when she is tachycardic (consider transfer to telemetry, but given that she has been sinus, feels sinus, and she does not show another need for higher level of care, we will keep on medical and check periodic EKGs for now)and it is reassuring that her echocardiogram was so normal (I suspect the mild elevation in pulmonary artery pressures may just be from undiagnosed and therefore untreated sleep apnea). 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 She also does carry a history of anxiety with panic attacks. I would work "backwards" into looking at the tachycardia as being caused by anxiety simply because we have a lot of other physiologic possibilities to evaluate and managealso a few days ago w henever we were discussing the potential for anxiety driving some of the tachycardia, she felt like this was not the case because of no clear anxiety trigger at this time (I did try to explain that when someone has anxiety as a condition, panic attacks can occur with no clear trigger, but she did not believe it to be the case at the time). That said, and to be clear, I do not think that the majority of her tachycardia is anxiety driven at this time, but more that it is a bit of a "wild card" that could also be contributing to erratic tachycardia, not the main underlying cause. *as noted above in HPI - her echo from [facility] just a few weeks ago was quite reassuring - from reviewing her portal report: ef 65-70, mild TR, PAP 37mmHg, otherwise normal muscle cramps -?exact situation with Lspine unclear - no acuity but would like to get prior imaging and op notes if at all possible -cramping could also relate to fluid shifting/volume status/etc as above, but definitely want to keep [id number] broad and differentials wide -continue to follow ?frequent infections -now that i've got more data, more skeptical about this; yesterday in wanting to investigate frequent infections deeper, and knowing that she does not appear to have infection now, checked Ig levels - IgG sl low - doubtful of large significance - but did d/w immunology who feels most likely secondary to nutritional status/gastric bypass - and (like endocrine) is graciously willing to follow as outpt as well (Dr Quiles noted his office will be in contact to schedule) -currently no infection -she notes that she appreciates care here compared to other facilities - will be following locally and coming to this hospital when/if needed - which will then allow us more continuous data to be able to truly discern ?frequent infections vs no infection and labeled as such, vs mild infection labeled more significant due to other factors (such as addisons) nutritional deficiencies -B12 shots have her adequately replaced; as noted from OSH Iron ~29, ferritin ~79 - notes getting IV iron in the past - levels reasonable; since care coordination has been difficult for her and she's transitioning much of care to our system, will gave venofer prior since she's likely to need IV iron in the reasonably near future anyway and levels, while adequate, certainly are not elevated -PO vitamin D, follow levels in ~3 months to ensure she's getting enough vaginal bleeding -notes for hysterectomy in [facility] - seems to relate to ?fibroids, ?endometriosis - based on hx. also relates hx of abnormal pap smears but then relates that hyster planned seems to center on uterine issues not anything she can recall related to cervical cancer leg weakness -?spinal stenosis; post op? ?other -> awaiting outside records. PT/OT eval and treat - doing well enough with mobility that she will be able to go home once stable for discharge *records we do not yet have that would be helpful: -most recent detailed (ie MRI) Lspine imaging and spine surgery report -discharge summary from hospital stay at [facility] when she was told she may have tachybrady syndrome (?exact date unclear, but within the last few years) -reports from [employer] (we believe to be Jae [facility]) about her vaginal bleeding and potential need for hysterectomy would like to see ~48hrs of stability without "hospital level interventions" given that her main presenting problem truly is that she can't stay out of the hospital for very long without decompensating at home, and the etiology/management of that is still a "work in progress" -outpt f/u being arranged: PCP Dr Caridad Felton (RN Hunter will arrange), endocrine (Dr Beckett - he noted to me that his office will call to arrange f/u), immunology (Dr Quiles - he also noted his office will arrange f/u), [facility] Bariatric surgery (ongoing/as scheduled/as previous) Subjective Patient reports feeling drained this morning, but does endorse being able to sleep from around 12am to 6am and this has been an improvement from previous nights. Patient does report that yesterday when working with PT her HR remained elevated and continued to increase with minimal exertion. Patient reports that she had some discomfort in her chest that was partially relieved by rubbing her chest. Patient reports that she has not had a BM since 11/29, but has been regularly taking stool softeners and her fluid intake has been maintained well. Patient shows data from her previous echo that is largely within normal limits other than trace tricuspid regurgitation and mildly elevated pulmonary a. pressures. Patient remains afebrile and hemodynamically stable. Physical Exam Physical Exam: General: patient resting comfortably, NAD, non-toxic in appearance, answers questions appropriately. Skin: warm, dry, intact HEENT: NC/AT, anicteric sclera, conjunctiva without injection, moist mucus membranes. Heart: +S1/S2, regular, no m/r/g Lungs: equal air entry bilaterally, no rales/rhonchi/wheezes Abd: +BS, soft, NT/ND Ext: warm, no clubbing/cyanosis or edema Neuro: nonfocal, speech intact, no facial droop, moving all extremities. Results & Data Results & Data Vital Signs (Past 12 Hours) Vital Signs Temp Pulse Pulse Resp BP Pulse Ox O2 Del Method 12/04/24 09:47 136 H 98 Room Air 12/04/24 08:15 36.8 C 100 H 18 104/74 97 Room Air 12/04/24 06:06 94 H
--- NOTE | 2024-12-04 11:21 | Billing Data ---
Date of Service December 04, 2024 Coding Level of Care Code 82694 SUB INP/OBS CARE
[2024-12-05 07:16] LABS: Basophils # (auto) 0.04 K/uL (0.00-0.20); Basophils % (auto) 0.5 %; Eosinophils % (auto) 1.3 %; Hematocrit (blood only) 36.7 % (37.0-47.0); Hemoglobin 10.7 g/dl (12.0-16.0); Immature Granulocytes # (auto) 0.14 K/uL (0.01-0.20); Immature Granulocytes % (auto) 1.8 %; Lymphocytes % (auto) 30.9 %; Mean Corpuscular Hemoglobin 25.2 pg (25.0-34.0); Mean Corpuscular Hgb Conc 29.2 g/dL (32.0-36.0); Mean Corpuscular Volume 86.4 fL (80.0-100.0); Mean Platelet Volume 9.4 fL (9.4-12.4); Monocytes % (auto) 5.1 %; Neutrophils # (auto) 4.69 K/uL (1.40-6.50); Neutrophils % (auto) 60.4 %; Platelet Count 290 K/uL (130-400); RDW Standard Deviation 86.3 fL (36.4-46.3); Red Blood Count 4.25 M/uL (4.20-5.40); White Blood Count 7.77 K/ul (4.8-10.8)
[2024-12-05 07:32] LABS: BUN Creatinine Ratio 18.2 (10-20); Calcium 9.1 mg/dl (8.6-10.3); Creatinine Clr Calc Pharmacy 155.6 ml/min; Potassium 3.3 mmol/L (3.5-5.1)
[2024-12-05 07:38] LABS: Anisocytosis Present; Polychromasia 1+; Tear Drop Cells 1+
--- NOTE | 2024-12-05 11:31 | Hospitalist Progress Note ---
Date of Service December 05, 2024 Assessment & Plan (1) [place]'s disease: (2) Anxiety: Plan Pt is a 39 yo female with a past med hx including [place]'s on chronic steroids, neurogenic bladder with suprapubic catheter, anxiety, chronic pain, GERD, and obesity admitted to [facility] on 11/29 after leaving [facility] for continued medical care to treat [place]'s flare vs UTI. #[place]ue[place]'s disease - Patient presented hypovolemic on 11/30. with an episode of pre syncope and nausea upon standing. On beginning of admission patient treated with IV steroids stress dose while infection was clear up. - Worry that her frequent decompensation is secondary of poor absorption of hydrocortisone due to Tanya-en-Y - Continue PO prednisone qd for improved absorption in intestine s/p Tanya-en-Y, will continue to monitor - Decreased to 10 mg prednisone from 15 mg prednisone (equivalent to her stress home dose of hydrocortisone 20 mg TID) - Plan to taper to home dose of steroids, this will be equivalent to 7.5 mg Prednisone ( equivalent to home dose of hydrocortisone 10 mg TID) - Continue to monitor, addition of 0.1mg fludrocortisone due potential mineralocorticoid deficiency - Continue monitor symptoms of weakness, tachycardia??, facial flushing, hypot ension, muscle cramps. - Consider outpatient follow up with endocrinology for continued care of [place]'s disease via prednisone verses hydrocortisone #Tachycardia - Unknown etiology. Fredrick's disease vs overload anticholinergic vs possible POTS vs anxiety component vs tachybrady syndrome - low concern of dehydration as per patine being taking po and no signs of dehydration on labs -Outside Echo from [facility] reassuring - EF 65-70, mild TR, PAP 37 mmHg, otherwise normal - EKG sinus tachycardia - Propranolol as needed for HR >130, hold with soft BPs - Will stop Oxybutynin today as per patient has other symptoms such as dry mouth and eyes. This can explained her tachycardia as well - Prednisone taper as above #hx Frequent infections Pt's vitals have been stable since admission- afebrile, normotensive - Pt's urine culture for outside facility resulted with no growth. CRPs have been low to normal. Records from last visit from outside facility show only slight increase in lactate that resolved in less than 24 hrs. All things considered making sepsis less likely. Immunoglobin levels returned 12/01 with mild reduction in IgM. - Blood cultures drawn on 11/29 in [facility] ED- negative at 48 hrs. - No antibiotics at this time - Consider outpatient follow up with immunology for work up due to low IgM and hx of frequent infections #Yeast infection - Patient endorses painful urges to urinate with clear thick discharge - Patient endorses that this has happened 4-5 times since suprapubic catheter placement - Ordered Monistat #Anxiety - continue home medications including home benzos to prevent withdrawal #Chronic back pain | Muscle cramps - continue home medications for pain - Continue Flexeril - Added oxycodone 5 mg q6h PRN - PT following Recommended return to home if goals met, if not short term stay at rehab #GERD - continue home protonix DVT: Lovenox Diet: Heart healthy Disposition -outpt f/u being arranged: PCP Dr Caridad Felton (CELESTINE Harrison will arrange), endocrine (Dr Beckett - he noted to me that his office will call to arrange f/u), immunology (Dr Quiles - he also noted his office will arrange f/u), [facility] Bariatric surgery (ongoing/as scheduled/as previous) Admission and Anticipated Discharge Date Admission Date: November 30, 2024 Supervising Physician Co-Signing Physician Notes Attending attestation Pt seen and examined in concert with Dr. Palomo Briscoe. In agreement with the documented findings as noted in the resident documentation with any exceptions or additions as noted here. Ongoing complaint of pain which is stable chronically, focused primarily in the back related to 'titanium cage' and surgical repairs. Intermittent bilateral lower extremity cramping not responsive to increased PO intake. Feeling very bloated 2/2 significant water POI without drastic adjustment in either tachycardia or BP. Symptoms of Addisonian Crisis reported with previous adjustment including cognitive slowing and dysfunction, worsening of pain. Reports no symptoms related to tachycardia either with flare or currently. VS noted. On examination, S1/S2 nl tachy no MCG. CTAB. Abd NT/ND BS+ve Tachycardia - multiple potential etiologies apparent - chronic enough that has PRN for propranolol at home which she attests is for tachycardia (?anxiety). Continue tele monitoring. Agree w/ d/c oxybutynin as may be contributing to same and is likely contributing to xerostomia [place]ue[place]'s disease - if hydrocortisone inappropriately absorbed, then transition to equivalent escalated dose of prednisone would be significantly higher than even escalated hydrocortisone dose and may also be contributing to tachycardia. Would down adjust prednisone and monitor for change in symptom control. If c risis arises, would split dose of intermediate steroid to 6mg BID as a mid-point and continue to monitor. Vulvovaginal candidiasis - continue topical Monistat therapy Chronic back pain and myalgias in the setting of back surgery - continue pain control with oxycodone and cyclobenzaprine, monitor. PT/OT consult. Else see resident documentation as noted. Subjective Seen this morning. Patient states that sleep ok. She refers yesterday had episodes of tachycardia and hypoxia that was accompanied with confusion. She had been increasing her hydration drinking 250 in less than 24 hr. She states feel "like a truck run her over" she states that she has abdominal pain, flare up of OA, headaches, confusion and back pain. She denied any chest pain or SOB. Review of Systems Review of Systems: Per HPI. Physical Exam Constitutional: WD/WN, vitals as above ENMT: external ear and nose normal, oropharynx normal Respiratory: normal respiratory effort, lungs clear to auscultation Cardiovascular: Rate/Rhythm: regular rhythm and + tachycardic Gastrointestinal (Abdomen): normal bowel sounds, soft, nontender, no hepatosplenomegaly Results & Data Results & Data Vital Signs (Past 12 Hours) Vital Signs Temp Pulse Resp BP Pulse Ox O2 Del Method 12/05/24 09:16 36.7 C 93 H 16 114/82 93 Room Air 12/05/24 04:17 36.4 C L 87 17 110/79 95 Room Air 12/05/24 00:27 36.4 C L 114 H 18 117/84 94 Room Air Resident Activity Tracking Resident Involvement: Resident Care Provided Care Provided: Adult Hospital Medicine
[2024-12-05] MEDS: LIDOCAINE 5% 1 PATCH TD STA (16:36)
[2024-12-05] MEDS: KETOROLAC TROMETHAMINE 15 MG/ML VIAL IV ONE (16:37)
[2024-12-05] MEDS: oxyCODONE HCL IR 5 MG TAB (IMMEDIATE RELEASE) PO STA (17:42)
[2024-12-05] MEDS: DICLOFENAC SOD 1% GEL 100 GM TUBE EXT SCH (20:44)
--- NOTE | 2024-12-06 07:17 | Electrocardiogram Report ---
Test Reason : Blood Pressure : */* mmHG Vent. Rate : 114 BPM Atrial Rate : 114 BPM P-R Int : 160 ms QRS Dur : 78 ms QT Int : 330 ms P-R-T Axes : 43 31 24 degrees QTcB Int : 454 ms Sinus tachycardia Cannot rule out Inferior infarct (cited on or before 02-Dec-2024) Possible Anterolateral infarct , age undetermined Abnormal ECG When compared with ECG of 02-Dec-2024 10:20, Left posterior fascicular block is no longer Present Questionable change in initial forces of Inferior leads Confirmed by Annita Marcos (Casey) on 12/06/2024 7:17:08 AM Referred By: REFERRED SELF Confirmed By: Annita Marcos
[2024-12-06 07:29] LABS: Hematocrit (blood only) 36.9 % (37.0-47.0); Hemoglobin 11.1 g/dl (12.0-16.0); Mean Corpuscular Hemoglobin 25.6 pg (25.0-34.0); Mean Corpuscular Hgb Conc 30.1 g/dL (32.0-36.0); Mean Corpuscular Volume 85.2 fL (80.0-100.0); Mean Platelet Volume 9.5 fL (9.4-12.4); Platelet Count 303 K/uL (130-400); RDW Coefficient of Variation 28.2 % (11.5-14.5); RDW Standard Deviation 85.4 fL (36.4-46.3); Red Blood Count 4.33 M/uL (4.20-5.40); White Blood Count 8.01 K/ul (4.8-10.8)
[2024-12-06 07:52] LABS: Albumin Globulin Ratio 1.7 (0.9-2); BUN Creatinine Ratio 20.3 (10-20); Bilirubin,Total 0.4 mg/dl (0.2-1.0); Calcium 8.8 mg/dl (8.6-10.3); Creatinine Clr Calc Pharmacy 151.6 ml/min; Globulin 2.4 gm/dl (2.5-4.0); Magnesium 1.9 mg/dl (1.7-2.4); Potassium 3.1 mmol/L (3.5-5.1); Total Protein 6.4 gm/dl (6.0-8.3)
[2024-12-06] MEDS: POTASSIUM CHLORIDE CRTAB 20 MEQ TABCR PO STA (08:48)
[2024-12-06] MEDS: predniSONE 2.5 MG TAB PO SCH (08:52)
--- NOTE | 2024-12-06 09:15 | Hospitalist Progress Note ---
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 #Cochise's disease - Patient presented hypovolemic on 11/30. with an episode of pre syncope and nausea upon standing. On beginning of admission patient treated with IV steroids stress dose while infection was clear up. - Worry that her frequent decompensation is secondary of poor absorption of hydrocortisone due to Tanya-en-Y - Continue PO prednisone qd for improved absorption in intestine s/p Tanya-en-Y: - Decreased to 10 mg prednisone from 15 mg prednisone ( which is equivalent to her stress home dose of hydrocortisone 20 mg TID) - Plan to taper to home dose of steroids, this will be equivalent to 7.5 mg Prednisone ( to home dose of hydrocortisone 10 mg TID) - Continue to monitor, addition of 0.1mg fludrocortisone due potential mineralocorticoid deficiency - Continue monitor symptoms of weakness, tachycardia??, facial flushing, hypotension, muscle cramps. - Consider outpatient follow up with endocrinology for continued care of Cochise's disease via prednisone verses hydrocortisone - BP stable, no hypotension #Tachycardia - Unknown etiology. Cochise's disease vs overload anticholinergic vs possible POTS vs anxiety component vs tachybrady syndrome - low concern of dehydration as per patine being taking po and no signs of dehydration on labs - Outside Echo from [facility] reassuring - EF 65-70, mild TR, PAP 37 mmHg, otherwise normal - Telemetry overnight sinus tachycardia higher 110 - Propranolol as needed for HR >130, hold with soft BPs - Will stop Oxybutynin today as per patient has other symptoms such as dry mouth and eyes. This can explained her tachycardia as well - Prednisone taper as above - LAbs AM #Spastic bladder #Suprapubic catheter - She uses antispasm medication on and off. Spasm worse when they change foleey - Usually on trospium at home - oxybutunin #hx Frequent infections Pt's vitals have been stable since admission- afebrile, normotensive - Pt's urine culture for outside facility resulted with no growth. CRPs have been low to normal. Records from last visit from outside facility show only slight increase in lactate that resolved in less than 24 hrs. All things considered making sepsis less likely. Immunoglobin levels returned 12/01 with mild reduction in IgM. - Blood cultures drawn on 11/29 in [facility] ED- negative at 48 hrs. - No antibiotics at this time - Consider outpatient follow up with immunology for work up due to low IgM and hx of frequent infections #Yeast infection - Patient endorses painful urges to urinate with clear thick discharge - Patient endorses that this has happened 4-5 times since suprapubic catheter placement - Ordered Monistat #Anxiety - continue home medications including home benzos to prevent withdrawal #Chronic back pain | Muscle cramps - continue home medications for pain - Continue Flexeril - Added oxycodone 5 mg q6h PRN - PT following Recommended return to home if goals met, if not short term stay at rehab #GERD - continue home protonix DVT: Lovenox Diet: Heart healthy Disposition -outpt f/u being arranged: PCP Dr Caridad Felton (RN Hunter will arrange), endocrine (Dr Beckett - he noted to me that his office will call to arrange f/u), immunology (Dr Quiles - he also noted his office will arrange f/u), [facility] Bariatric surgery (ongoing/as scheduled/as previous) Admission and Anticipated Discharge Date Admission Date: November 30, 2024 Supervising Physician Co-Signing Physician Notes Attending attestation Pt seen and examined in concert with Dr. Palomo Briscoe. In agreement with the documented findings as noted in the resident documentation with any exceptions or additions as noted here. In the setting of decreasing steroid use and discontinued oxybutynin, the patient reports stable persistent back pain and spasm, intermittent lower extremity cramping which is unchanged from previous in frequency and severity, no significant change in bladder spasm presentation. Single episode of tachycardia which resolved following PRN propranolol for tachycardia/anxiety and breathing exercises and did not recur, without accompanying hemodynamic instability. No episode of cognitive change. VS noted. On examination, S1/S2 nl RRR no MCG. CTAB. Abd NT/ND BS+ve Tachycardia - multiple potential etiologies apparent - chronic enough that has PRN for propranolol at home which she attests is for tachycardia (?anxiety). Continue tele monitoring. Significant improvement off oxybutynin, avoid anti- cholinergic if possible. Patient reports has tolerated stretches of being off without significant ill consequence. 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 PT/OT consult. Else see resident documentation as noted. Subjective Seen this am. AOOx3. States feels about the same. States having muscle/ back pain, leg spasm. This morning had a little but of face flush. last night with her back pain had nausea and vomiting. She expressed anxiety regarding her tachycardia and Oxygen saturation, she measured them herself overnight. Denied any SOB, palpitations, chest pain. Her fatigue had remained consistent - Telemetry overnight - sinus tachycardia 110 Review of Systems Review of Systems: Per HPI. Physical Exam Constitutional: WD/WN, vitals as above ENMT: external ear and nose normal, oropharynx normal Respiratory: normal respiratory effort, lungs clear to auscultation Cardiovascular: Rate/Rhythm: regular rhythm and + tachycardic Gastrointestinal (Abdomen): normal bowel sounds, soft, nontender, no hepatosplenomegaly Results & Data Results & Data Vital Signs (Past 12 Hours) Vital Signs Temp Pulse Resp BP Pulse Ox O2 Del Method 12/06/24 07:38 36.4 C L 90 20 125/84 98 Room Air 12/06/24 03:50 36.5 C 86 18 110/74 97 Room Air 12/05/24 22:55 36.6 C 93 H 17 107/75 97 Room Air"
[2024-12-06] MEDS: PROPRANOLOL HCL 10 MG TAB PO PRN (09:41)
[2024-12-06] MEDS: POLYETHYLENE (MIRALAX) 17 GM PACK PO SCH (20:29)
[2024-12-07 06:51] LABS: Basophils # (auto) 0.06 K/uL (0.00-0.20); Basophils % (auto) 0.8 %; Eosinophils # (auto) 0.07 K/uL (0.00-0.50); Eosinophils % (auto) 0.9 %; Hemoglobin 10.7 g/dl (12.0-16.0); Immature Granulocytes # (auto) 0.23 K/uL (0.01-0.20); Immature Granulocytes % (auto) 2.9 %; Lymphocytes # (auto) 2.57 K/uL (1.20-3.40); Lymphocytes % (auto) 32.2 %; Mean Corpuscular Hemoglobin 25.5 pg (25.0-34.0); Mean Corpuscular Hgb Conc 29.7 g/dL (32.0-36.0); Mean Corpuscular Volume 85.7 fL (80.0-100.0); Mean Platelet Volume 9.2 fL (9.4-12.4); Monocytes # (auto) 0.56 K/uL (0.11-0.59); Neutrophils # (auto) 4.48 K/uL (1.40-6.50); Neutrophils % (auto) 56.2 %; Platelet Count 285 K/uL (130-400); White Blood Count 7.97 K/ul (4.8-10.8)
[2024-12-07 07:22] LABS: Anisocytosis Present; Hypochromasia Present
[2024-12-07 07:28] LABS: BUN Creatinine Ratio 21.1 (10-20); Calcium 8.3 mg/dl (8.6-10.3); Creatinine Clr Calc Pharmacy 147.3 ml/min; Potassium 3.3 mmol/L (3.5-5.1)
[2024-12-07] MEDS: predniSONE 1 MG TAB PO SCH ×2 (09:30→12:11)
--- NOTE | 2024-12-07 09:56 | Hospitalist Progress Note ---
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 #Juncos's disease - Patient presented hypovolemic on 11/30. with an episode of pre syncope and nausea upon standing. On beginning of admission patient treated with IV steroids stress dose while infection was clear up. - Worry that her frequent decompensation is secondary of poor absorption of hydrocortisone due to Tanya-en-Y - Continue PO prednisone qd for improved absorption in intestine s/p Tanya-en-Y: - Prednisone decreased to home dose of steroids, this will be equivalent to 7.5 mg Prednisone ( to home dose of hydrocortisone 10 mg TID) yesterday - Will split this during the day with Prednisone 3 mg TID - Continue to monitor, addition of 0.1mg fludrocortisone due potential mineralocorticoid deficiency - Continue monitor symptoms of weakness, tachycardia??, facial flushing, hypotension, muscle cramps. - outpatient follow up with endocrinology - BP stable, no hypotension - Continue to monitor #Tachycardia - Unknown etiology. Fredrick's disease vs overload anticholinergic vs possible POTS vs anxiety component vs tachybrady syndrome - low concern of dehydration as per patient being taking po and no signs of dehydration on labs - Outside Echo from [facility] reassuring - EF 65-70, mild TR, PAP 37 mmHg, otherwise normal - Telemetry overnight sinus tachycardia higher 110 - Propranolol as needed for HR >130 sustained , hold with soft BPs - Patient 24 hrs without Oxybutynin, anticholinergic symptoms had improved as well as the tachycardia - Prednisone taper as above - LAbs AM #Spastic bladder #Suprapubic catheter - She uses antispasm medication on and off. Spasm worse when they change Lou - Usually on trospium at home - Oxybutynin was hold - Will continue monitoring symptoms. But plan to use oxybutynin as needed with Lou changes #hx Frequent infections Pt's vitals have been stable since admission- afebrile, normotensive - Pt's urine culture for outside facility resulted with no growth. CRPs have been low to normal. Records from last visit from outside facility show only slight increase in lactate that resolved in less than 24 hrs. All things considered making sepsis less likely. Immunoglobin levels returned 12/01 with mild reduction in IgM. - Blood cultures drawn on 11/29 in [facility] ED- negative - No antibiotics at this time - Consider outpatient follow up with immunology for work up due to low IgM and hx of frequent infections #Yeast infection - Patient endorses painful urges to urinate with clear thick discharge - Patient endorses that this has happened 4-5 times since suprapubic catheter placement - Ordered Monistat #Anxiety - continue home medications including home benzos to prevent withdrawal #Chronic back pain | Muscle cramps - continue home medications for pain - Continue Flexeril and oxycodone 5 mg q6h PRN - PT following Recommended return to home if goals met, if not short term stay at rehab #GERD - continue home Protonix DVT: Lovenox Diet: Heart healthy Disposition -outpt f/u being arranged: PCP Dr Caridad Felton (CELESTINE Harrison will arrange), endocrine (Dr Beckett - he noted to me that his office will call to arrange f/u), immunology (Dr Quiles - he also noted his office will arrange f/u), [facility] Bariatric surgery (ongoing/as scheduled/as previous) Admission and Anticipated Discharge Date Admission Date: November 30, 2024 Supervising Physician Co-Signing Physician Notes ATTESTATION I also saw the patient and confirmed fallon portions of the history and exam. I agree with the impression and plan in the resident documentation, and as summarized below. Patient happy with new dosing schedule for prednisone; discussed timing here in the hospital versus timing at home (to allow for some variability given her activities at home). EXAM VS as noted; tachycardic, although around 100 upon auscultation A/O. NAD Respirations non labored DATA Labs CBC with mild anemia and hypokalemia IMPRESSION & PLAN Juncos's Disease Tachycardia Candidiasis, vulvovaginal I agree with the impression and plan as noted in the resident documentation. Will need outpatient endocrinology follow-up. Patient did not feel comfortable with discharge today, but we are getting close and discussed that further adjustments will likely be needed (and can be accomplished) as an outpatient. Subjective Patient was seen this morning. States feeling tired and fatigue still. She believe at afternoon feels more fatigue. She had PT yesterday, HR increased while walking. She states having palpitations and nausea in the afternoon that resolved after zofran. Had a bowel movement Review of Systems Review of Systems: Per HPI. Physical Exam Constitutional: WD/WN, vitals as above ENMT: external ear and nose normal, oropharynx normal Respiratory: normal respiratory effort, lungs clear to auscultation Cardiovascular: Rate/Rhythm: regular rhythm and + tachycardic Gastrointestinal (Abdomen): normal bowel sounds, soft, nontender, no hepatosplenomegaly Results & Data Results & Data Vital Signs (Past 12 Hours) Vital Signs Temp Pulse Pulse Resp BP Pulse Ox Pulse Ox 12/07/24 07:42 36.4 C L 98 H 19 111/78 98 12/07/24 04:21 36.6 C 90 18 130/82 94 12/06/24 23:30 36.8 C 105 H 18 118/82 97 12/06/24 22:37 119 H 12/06/24 22:00 96 O2 Del Method O2 Del Method 12/07/24 07:42 Room Air 12/07/24 04:21 Room Air 12/06/24 23:30 Room Air 12/06/24 22:37 12/06/24 22:00 Room Air Resident Activity Tracking Resident Involvement: Resident Care Provided Care Provided: Adult Hospital Medicine"
[2024-12-08 06:59] LABS: Hematocrit (blood only) 35.4 % (37.0-47.0); Hemoglobin 10.8 g/dl (12.0-16.0); Mean Corpuscular Hemoglobin 26.2 pg (25.0-34.0); Mean Corpuscular Hgb Conc 30.5 g/dL (32.0-36.0); Mean Corpuscular Volume 85.9 fL (80.0-100.0); Mean Platelet Volume 9.5 fL (9.4-12.4); Platelet Count 295 K/uL (130-400); Red Blood Count 4.12 M/uL (4.20-5.40); White Blood Count 8.14 K/ul (4.8-10.8)
[2024-12-08 07:20] LABS: BUN Creatinine Ratio 16.9 (10-20); Calcium 8.6 mg/dl (8.6-10.3); Creatinine Clr Calc Pharmacy 146.3 ml/min; Potassium 3.2 mmol/L (3.5-5.1)
[2024-12-08] MEDS: POTASSIUM CHLORIDE CRTAB 20 MEQ TABCR PO STA (08:30)
[2024-12-08] MEDS: SODIUM CHLORIDE 0.9% 500 ML IV SCH (09:33)
--- NOTE | 2024-12-08 10:27 | Hospitalist Progress Note ---
"Date of Service December 08, 2024 Assessment & Plan (1) Jo Daviess's disease: (2) Anxiety: Plan Pt is a 39 yo female with a past med hx including Jo Daviess's on chronic steroids, neurogenic bladder with suprapubic catheter, anxiety, chronic pain, GERD, and obesity admitted to [facility] on 11/29 after leaving [facility] for continued medical care to treat Jo Daviess's flare #Jo Daviess's disease - Patient presented hypovolemic on 11/30. with an episode of pre syncope and nausea upon standing. On beginning of admission patient treated with IV steroids stress dose while infection was clear up. - Worry that her frequent decompensation is secondary of poor absorption of hydrocortisone due to Tanya-en-Y, changed to prednisone PO - Continue PO prednisone qd for improved absorption in intestine s/p Tanya-en-Y: - Prednisone decreased to home dose of steroids, this will be equivalent to 7.5 mg Prednisone ( to home dose of hydrocortisone 10 mg TID) yesterday - Will split this during the day with Prednisone 3 mg TID. HR had maintain in 90-110, with spikes with migraine or ambulation. - Continue to monitor, addition of 0.1mg fludrocortisone due potential mineralocorticoid deficiency - Continue monitor symptoms of weakness, tachycardia??, facial flushing, hypotension, muscle cramps. This had remained stable. Continue PT - outpatient follow up with endocrinology - BP stable, no hypotension - Continue to monitor - Dispo- Anticipate discharge with Prednisone 3 mg TID, with home health, Outpatient follow up with neurology #Tachycardia - Unknown etiology. Fredrick's disease vs overload anticholinergic vs possible POTS vs anxiety component vs tachybrady syndrome. - Suspected this was secondary to overload anticholinergic vs stress dose of steroids. - low concern of dehydration as per patient being taking po and no signs of dehydration on labs. - Outside Echo from [facility] reassuring - EF 65-70, mild TR, PAP 37 mmHg, otherwise normal - Telemetry overnight sinus tachycardia higher 110 - Propranolol as needed for HR >130 sustained , hold with soft BPs - Patient 72 hrs without Oxybutynin, anticholinergic symptoms had improved as well as the tachycardia - Prednisone as above - Continue po hydration. - LAbs AM #Spastic bladder #Suprapubic catheter - She uses antispasm medication on and off. Spasm worse when they change Lou - Usually on trospium at home - Oxybutynin was hold - Will continue monitoring symptoms. But plan to use oxybutynin as needed with Lou changes #hx Frequent infections Pt's vitals have been stable since admission- afebrile, normotensive - Pt's urine culture for outside facility resulted with no growth. CRPs have been low to normal. Records from last visit from outside facility show only slight increase in lactate that resolved in less than 24 hrs. All things considered making sepsis less likely. Immunoglobin levels returned 12/01 with mild reduction in IgM. - Blood cultures drawn on 11/29 in [facility] ED- negative - No antibiotics at this time - Consider outpatient follow up with immunology for work up due to low IgM and hx of frequent infections #Yeast infection - Patient endorses painful urges to urinate with clear thick discharge - Patient endorses that this has happened 4-5 times since suprapubic catheter placement - Ordered Monistat #Anxiety - continue home medications including home benzos to prevent withdrawal #Chronic back pain | Muscle cramps - continue home medications for pain - Continue Flexeril and oxycodone 5 mg q6h PRN - PT following Recommended return to home if goals met, if not short term stay at rehab #GERD - continue home Protonix DVT: Lovenox Diet: Heart healthy Disposition -outpt f/u being arranged: PCP Dr Caridad Felton (CELESTINE Harrison will arrange), endocrine (Dr Beckett - he noted to me that his office will call to arrange f/u), immunology (Dr Quiles - he also noted his office will arrange f/u), [facility] Bariatric surgery (ongoing/as scheduled/as previous) Admission and Anticipated Discharge Date Admission Date: November 30, 2024 Supervising Physician Co-Signing Physician Notes ATTESTATION I also saw the patient and confirmed fallon portions of the history and exam. I agree with the impression and plan in the resident documentation, and as summarized below. Patient moved from PCU to floor with telemetry. Overall, seems better; still had some tachycardia with PT that concerned her. EXAM VS as noted; tachycardic, rate 100s upon my exam. A/O. NAD Respirations non labored IMPRESSION & PLAN Jo Daviess's Disease Tachycardia Candidiasis, vulvovaginal I agree with the impression and plan as noted in the resident documentation. Will need outpatient endocrinology follow-up. Patient did not feel comfortable with discharge today, but we are getting close and discussed that further adjustments will likely be needed (and can be accomplished) as an outpatient. She is targeting tomorrow for discharge. Subjective PAtient seen this am and again this afternoon. Seem that the 3 doses are working well. She states feeling fatigue and had been nodding a lot. Heart rate had been up with headaches and with ambulation. Doing PT improving Review of Systems Review of Systems: as per hpi Physical Exam Constitutional: WD/WN, vitals as above well developed ENMT: external ear and nose normal, oropharynx normal Respiratory: normal respiratory effort, lungs clear to auscultation Cardiovascular: Rate/Rhythm: regular rhythm and + tachycardic Gastrointestinal (Abdomen): normal bowel sounds, soft, nontender, no hepatosplenomegaly Results & Data Results & Data Vital Signs (Past 12 Hours) Vital Signs Temp Pulse Pulse Resp BP Pulse Ox O2 Del Method 12/08/24 08:19 36.5 C 89 19 114/82 99 Room Air 12/08/24 06:45 60 12/08/24 04:13 36.6 C 94 H 18 99/62 L 93 Room Air 12/07/24 23:45 36.6 C 108 H 18 91/68 L 96 Room Air 12/07/24 23:43 114 H Resident Activity Tracking Resident Involvement: Resident Care Provided Care Provided: Adult Hospital Medicine"
[2024-12-08] MEDS ORDERED: POLYETHYLENE (MIRALAX) 17 GM PACK PO PRN (14:23)
[2024-12-08] MEDS: MAGNESIUM SULFATE / D5W 1 GM/100 ML BAG IV ONE (14:54)
[2024-12-08] MEDS: LACTATED RINGER'S 1,000 ML IV SCH (16:24)
[2024-12-08 22:49] VITALS: RESP 18
[2024-12-09 06:21] LABS: Basophils # (auto) 0.04 K/uL (0.00-0.20); Basophils % (auto) 0.5 %; Eosinophils # (auto) 0.08 K/uL (0.00-0.50); Eosinophils % (auto) 1.1 %; Hematocrit (blood only) 34.3 % (37.0-47.0); Hemoglobin 10.2 g/dl (12.0-16.0); Immature Granulocytes # (auto) 0.14 K/uL (0.01-0.20); Immature Granulocytes % (auto) 1.9 %; Lymphocytes # (auto) 2.22 K/uL (1.20-3.40); Lymphocytes % (auto) 30.2 %; Mean Corpuscular Hemoglobin 25.8 pg (25.0-34.0); Mean Corpuscular Hgb Conc 29.7 g/dL (32.0-36.0); Mean Corpuscular Volume 86.6 fL (80.0-100.0); Mean Platelet Volume 9.7 fL (9.4-12.4); Monocytes # (auto) 0.56 K/uL (0.11-0.59); Monocytes % (auto) 7.6 %; Neutrophils # (auto) 4.31 K/uL (1.40-6.50); Neutrophils % (auto) 58.7 %; Platelet Count 280 K/uL (130-400); Red Blood Count 3.96 M/uL (4.20-5.40); White Blood Count 7.35 K/ul (4.8-10.8)
[2024-12-09 06:38] LABS: BUN Creatinine Ratio 18.6 (10-20); Calcium 8.5 mg/dl (8.6-10.3); Creatinine Clr Calc Pharmacy 150.7 ml/min; Potassium 3.4 mmol/L (3.5-5.1)
[2024-12-09 06:45] LABS: Anisocytosis Present; Hypochromasia Present; Polychromasia 1+
[2024-12-09] MEDS: POTASSIUM CHLORIDE CRTAB 20 MEQ TABCR PO SCH (08:05)
[2024-12-09 11:09] VITALS: BP 121/84; TEMP 97.9; O2SAT 93
--- NOTE | 2024-12-09 13:31 | Discharge Summary ---
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 Pt states that she has had numerous hospitalizations over the past few years due to sepsis or urosepsis and sometimes silent sepsis. Pt has a suprapubic catheter for neurogenic bladder and states that some admissions are due to infections around the catheter site, will get pus and rash around the site, and most other admissions are due to UTIs or adrenal crises. She states she gets sick nearly constantly due to a bad immune system and addisons and has been seen numerous times at [facility] and [facility]. She states that she likes the care she gets at [facility] but it is a long drive for her. Her usual care was through [facility], but she states they do not manage her sepsis properly, so with latest admission this Thursday (11/28) she then did sign out AMA to come here today for better care. Pt states that she has been in hypertensive crisis throughout her entire admission at [facility] from Thursday until signing out AMA today and that they just refused to do anything about it. She states that she went in to [facility] in the first place because she had her home health nurse come in on Thursday and he had noticed her suprapubic catheter was infected with pus and advised her to go to the hospital. She states she told him she would not go because she did not like the care at [facility]. Over the weekend, she states she had fevers 100-101F, hypotension, fatigue, diarrhea, tachycardia, and generalized malaise, she states she did stress dose herself with steroids but she states that finally on Thursday her home health nurse told her she really needed to go to the hospital and she felt very sick so she did go to [facility]. She states that they had her on cefepime and vancomycin and through today she just still does not feel much better, although states the suprapubic site does look much better than it did previously. She does have a hx of evangelina crises in the past, sometimes with transition from IV to oral steroids. She has had a number of antibiotics over the last year and per her [facility] health honorio she has grown resistant enterobacter (September 2024) and minocycline resistant enterococcus (October 2024). She does note that at [facility] that they check serial lactate levels as she states that sometimes it will be normal one time of day and then abnormal again later in the day preceding worsening illness. She has seen infectious disease in the hospital before for recurrent and sometimes resistant infections. She states when she is treated at [facility] she will be in the hospital for 2 weeks, then after 1 week of being home she will be sick again. She states when she has been treated with IV antibiotics at [facility] and transitioned to oral meds prior to leaving she will be free from illness about 1 mo before getting an infection once again. Principal Diagnosis Taccycardia Discharge Exam Constitutional: well-appearing, no acute distress HEENT: NCAT, no conjunctival injection CV: regular rhythm, no murmur appreciated, extremities well-perfused, no LE edema Resp: CTABL, no wheezes/rales/rhonchi appreciated, no increased work of breathing GI: soft, nondistended, nontender MSK: no gross deformities appreciated Skin: warm, dry, no rash appreciated Neuro: alert, oriented, no focal neurologic deficit appreciated Discharge Data Allergies Allergy/AdvReac Type Severity Reaction Status Date / Time adhesive tape Allergy Intermediate SKIN Verified 11/29/24 22:49 REDDENED, ITCHY scopolamine Allergy Intermediate SKIN Verified 11/29/24 22:49 REDDENED, ITCHY escitalopram [From Lexapro] AdvReac Intermediate VERY Verified 11/29/24 22:49 EMOTIONAL, OPPOSITE EFFECT haloperidol [From Haldol] AdvReac Intermediate LOCKED JAW Verified 11/29/24 22:49 Consultations 11/30/24 01:53 ED Decision to Admit Stat Ordered Studies 11/29/24 21:25 CT Abd and Pelvis [CT abd pelvis IV con only] Stat CT angio chest PE protocol Stat Hospital Course (1) Barron's disease: (2) Anxiety: Plan Pt is a 39 yo female with a past med hx including 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 with an episode of pre syncope and nausea upon standing. On beginning of admission patient treated with IV steroids stress dose while infection was clear up. - Worry that her frequent decompensation is secondary of poor absorption of hydrocortisone due to Tanya-en-Y, changed to prednisone PO - Continue PO prednisone qd for improved absorption in intestine s/p Tanya-en-Y: - Prednisone 3mg TID (slightly higher than prior 10mg TID hydrocortisone). HR had maintain in 90-110, with spikes with migraine or ambulation. - Continue to monitor, addition of 0.1mg fludrocortisone due potential mineralocorticoid deficiency - Continue monitor symptoms of weakness, tachycardia??, facial flushing, hypotension, muscle cramps. This had remained stable. Continue PT - outpatient follow up with endocrinology - BP stable, no hypotension - Plan for discharge with Prednisone 3 mg TID and a plan for 5mg TID as stress dose, with home health #Tachycardia - Unknown etiology. Barron's disease vs overload anticholinergic vs possible POTS vs anxiety component vs tachybrady syndrome. - Suspected this was secondary to overload anticholinergic vs stress dose of steroids. - low concern of dehydration as per patient being taking po and no signs of dehydration on labs. - Outside Echo from [facility] reassuring - EF 65-70, mild TR, PAP 37 mmHg, otherwise normal - Sinus tachycardia as per telemetry - Patient 72 hrs without Oxybutynin, anticholinergic symptoms had improved as well as the tachycardia - Prednisone as above - Continue po hydration. #Spastic bladder #Suprapubic catheter - She uses antispasm medication on and off. Spasm worse when they change Lou - Usually on trospium at home - Oxybutynin stopped -plan to use of Antispasmodic only as needed with Lou changes #hx Frequent infections Pt's vitals have been stable since admission- afebrile, normotensive - Pt's urine culture for outside facility resulted with no growth. CRPs have been low to normal. Records from last visit from outside facility show only sl ight increase in lactate that resolved in less than 24 hrs. All things considered making sepsis less likely. Immunoglobin levels returned 12/01 with mild reduction in IgM. - Blood cultures drawn on 11/29 in [facility] ED- negative - No antibiotics at this time - Consider outpatient follow up with immunology for work up due to low IgM and hx of frequent infections #Anxiety - continue home medications including home benzos to prevent withdrawal #Chronic back pain | Muscle cramps - continue home medications for pain - Continue Flexeril and oxycodone 5 mg q6h PRN-> will get short supply at d/c. - PT following Recommended return to home w/ home health #GERD - continue home Protonix Disposition -outpt f/u being arranged: PCP Dr Caridad Felton (CELESTINE Harrison will arrange), endocrine (Dr Beckett - he noted to me that his office will call to arrange f/u), immunology (Dr Quiles - he also noted his office will arrange f/u), [facility] Bariatric surgery (ongoing/as scheduled/as previous) Total Time Total Time Spent Total Time Spent (In Minutes): See Attending Attestation Discharge Plan Discharge Items Patient Disposition: Home - Home Health Services Reason For Visit: SEPSIS, ADDISONS Discharge Diagnosis: Barron's disease Condition on Discharge: Good Activity: Per Instructions section Non-emergency contact: Primary Care Provider Call non-emergency contact if: you have any medication questions and your symptoms worsen Follow-up/Referrals: Fabricio Beckett MD [Physician] - (Office will reach out to schedule) Ammon Quiles MD [Physician] - (Office will reach out to schedule) Giovanni Mclean DO [Physician] - 12/12/24 11:00 am Natalie Tony M.D. [Primary Care Provider] - Diet: Regular Addtl Attending Provider Instructions: A discharge summary will be sent to your primary care physician to ensure continuity of care. Please bring this discharge summary with you to your next office appointment so that your provider can review it at that time. Follow-up appointments: We have requested a follow-up appointment with your primary care physician within one week of discharge. Please call their office if you do not hear from them. Medications: Your medication list has been reviewed and reconciled upon discharge to ensure accuracy and continuity of care. An updated list of all your medications is included with your hospital discharge paperwork. Please review this list closely, and make note of any changes. We have changed your hydrocortisone to prednisone.You should take 3mg (3 tabs) 3 times per day at 9000, 1400, and 1900. If stress dosing is indicated then you can increase to 5mg three times per day. We have also started you on fl udrocortisone, which you should take once daily. We stopped the medication for bladder spasm, oxybutynin, because we feel it was contributing to the symptoms you are having -> when you get your catheter changed it is reasonable to take this as needed for bladder spasm. We will also send you a prescription for 5mg of oxycodone to be taken as needed for extreme back pain in case of emergency. You should continue with your current regimen for back pain in addition to this, adding ice/heat, lidocaine patches, and Voltaren gel will also help. Pending Studies at Discharge: No Stand-Alone Forms: My [facility] [employer], Smoking Cessation Medications and DC Order Prescriptions: New prednisone 1 mg Tablet 3 mg PO TID@0900,1400,1900 30 Days Qty: 270 0RF fludrocortisone 0.1 mg Tablet 0.1 mg PO QAM 30 Days Qty: 30 0RF oxycodone 5 mg tablet 5 mg PO Q8H PRN (Reason: pain) Qty: 14 0RF Continued cyclobenzaprine 10 mg Tablet 10 mg PO QAM clotrimazole 10 mg Enoch 10 mg PO .2-3XDAILY sennosides [senna] 8.6 mg Tablet 17.2 mg PO HS PRN (Reason: Constipation) ascorbic acid (vitamin C) [Vitamin C] 1,000 mg Tablet 1,000 mg PO DAILY zinc acetate 50 mg (zinc) Capsule 50 mg PO DAILY Rx Instructions: TAKE 1 HR PRIOR TO EATING OR 2 HR AFTER EATING sucralfate [Carafate] 1 gram Tablet 1 g PO ACHS Rx Instructions: PER PT "ONLY 2-3 TIMES A DAY" clonazepam 1 mg Tablet 1 mg PO TID thiamine HCl (vitamin B1) [Vitamin B-1] 100 mg Tablet 100 mg PO DAILY topiramate 25 mg Tablet 25 mg PO BID Rx Instructions: TOTAL DOSE 125 MG--TAKES WITH 100 MG TAB. propranolol 10 mg Tablet 10 mg PO TID PRN (Reason: NEEDED) Rx Instructions: HOLD FOR LOW B/P potassium chloride 20 mEq Tablet,Er Particles/Crystals 20 meq PO DAILY pantoprazole 40 mg Tablet,Delayed Release (Dr/Ec) 40 mg PO BID cyanocobalamin (vitamin B-12) 1,000 mcg/mL Solution 1,000 mcg IM WK ferrous sulfate 325 mg (65 mg iron) Tablet 650 mg PO DAILY lidocaine 5 % Adhesive Patch,Medicated 1 patch TOPICAL DAILY Rx Instructions: leave on most painful area for up to 12 hrs promethazine 25 mg Tablet 25 mg PO Q6H PRN (Reason: NAUSEA/VOMITING) multivitamin with minerals Tablet 1 tab PO DAILY polyethylene glycol 3350 [Miralax] 17 gram/dose Powder 17 g PO DAILY PRN (Reason: Constipation) zolpidem [Ambien] 10 mg Tablet 10 mg PO HS topiramate 100 mg Tablet 100 mg PO BID Rx Instructions: TOTAL DOSE 125 MG--TAKES WITH 25 MG TAB. dicyclomine 10 mg Capsule 10 mg PO TID PRN (Reason: IRRITABLE BOWEL SYMPTOMS) B-complex with vitamin C Capsule 1 cap PO DAILY pregabalin 50 mg capsule 50 mg PO QPM Rx Instructions: TAKES Q AFTERNOON pregabalin 100 mg capsule 100 mg PO [facility] calcium citrate-vitamin D3 250 mg-5 mcg (200 unit) Tablet 2 tab PO DAILY Discontinued hydrocortisone sod succinate 100 mg Recon Soln 100 mg IM DIRECTED PRN (Reason: RENAL CRISIS) hydrocortisone 10 mg Tablet 10 - 20 mg PO TID Rx Instructions: NORMAL DOSE WHEN NOT TAKING PRN RENAL CRISIS DOSE. Discharge Orders: Discharge Order (Routine); Ordered 12/09/24 Ordered By: Ibeth Prabhakar/Other Patient Handouts: When You Have Barron Disease Admission Data Admit Date/Time: 11/30/24 03:33 Attending Provider: Eleazar Lowery Admit Provider: Angi Mejia Primary Care Provider: Natalie Tony Other Providers: Omega Ramírez Other Interventions: Discharge Summary Assessment (RN) Last Done: 12/09/24 13:37 Supervising Physician Co-Signing Physician Notes Attending attestation Pt seen and examined in concert with Dr. Calhoun. In agreement with the documented findings as noted in the resident documentation with any exceptions or additions as noted here. No remarkable episodes of pain, nausea, cramping or other changes reported by patient at time of examination. Did have one episode of fecal urgency resulting in incontinence which has since resolved. VS as noted. On examination, S1/S2 nl RRR no MCG. CTAB. Abd NT/ND BS+ve Evangelina's disease with hypovolemia on presentation - steroid preparation adjusted to compensate for possible absorptive issues following gastric bypass and doing well on prednisone and fludrocortisone at present dose. Patient self- challenged with ~2 gal water intake which resulted in increased urine output and stable BP with good creatinine, indicating that in the acute sense she would not warrant further administration of IV fluids as outpatient - encourage to d/w care team. Tachycardia - possibly multifactorial but likely predominantly tied to use of oxybutynin as tachycardia and symptoms onset following initiation and resolved w/ discontinuation. Would strongly consider avoidance of anticholinergic agents. If strictly necessary, would use low dose options for bladder spasm with more limited anticholinergic profiles to limit impact and monitor closely. Else see resident documentation as noted. Total attending physician time spent with this patient's care on the day of discharge: 45 minutes.
[2024-12-09] MEDS ORDERED: oxyCODONE HCL IR 5 MG TAB (IMMEDIATE RELEASE) PO PRN (14:00)
[2024-12-09 14:42] VITALS: PULSE 98
== END 2024-12-09 16:29 | disposition home health service (06) | DRG 644 ==
LOC: ED 21:12 → 3E 11-30 03:33 → INTOOBSV 11-30 03:33 → SUATTDRO 11-30 03:33 → 3E 11-30 04:40 → 2S 12-04 17:38 → 2W 12-07 17:48

== ENCOUNTER 2024-12-26 13:48 | Observation (INO) ==
--- NOTE | 2024-12-26 14:18 | Emergency Department Note ---
Impression & Plan Bollinger's disease, Neurogenic bladder ED Provider Note CHIEF COMPLAINT: Fever, dysuria, Bollinger's disease HISTORY OF PRESENTING ILLNESS: Patient is a 39-year-old female who arrives to the emergency department for evaluation of pain at the site of her indwelling Lou catheter. She reports she has been having pain at the urethra, which feels like a razor blade. She states the chronic indwelling catheter was placed Thursday of last week. She reports no previous issues, however has been noting some mucus from the urethra, as well as some sediment in the urine itself. She states she is also having low-grade fevers, bilateral flank pain, and tenderness in her lower abdomen. 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 She reports she is concerned for crisis, as she is having diarrhea, and weakness. She states she is currently taking prednisone, however is unsure how to titrate up her dosing. She reports she has also been unable to keep down food or fluids due to nausea and vomiting. She reports previous history of urosepsis. REVIEW OF SYSTEMS: See HPI for pertinent positives and pertinent negatives. ALLERGIES: See below MEDICATIONS: See below PAST MEDICAL HISTORY: See below PHYSICAL EXAM: VITALS: Vitals are noted on the nurse's note and reviewed by myself. Tachycardia, afebrile. GENERAL: 39-year-old female, in no acute distress, nondiaphoretic. SKIN: The skin was without rashes, erythema, edema, or bruising. HEAD: Normocephalic atraumatic. HEART: Regular rate and rhythm without murmurs gallops or rubs. LUNGS: Clear to auscultation bilaterally without wheezes, rales or rhonchi. No retractions or accessory muscle use. ABDOMEN: Positive bowel sounds x 4. Soft, tenderness to palpation diffuse low abdomen, no rebound tenderness or guarding. Bilateral CVA TTP. Suprapubic catheter in place. MUSCULOSKELETAL: No muscle atrophy, erythema, or edema noted. Strength 5/5 throughout. NEURO: Patient was alert and oriented to person place and time. No focal neurological deficits. DIFFERENTIAL DIAGNOSIS: Viral illness, UTI, pyelonephritis, abscess, colitis, infection, electrolyte abnormality, sepsis, as well as other pathologies. ED COURSE AND MEDICAL DECISION MAKING: HISTORY FROM INDEPENDENT HISTORIAN: at bedside serving as secondary historian. MEDICATIONS GIVEN: 100 mg IV hydrocortisone, 1 L NSS bolus. MONITOR: Continuous cardiac rehabilitation program director: Order was placed for continuous cardiac rehabilitation program director. Patient was placed on the cardiac rehabilitation program director and continuous pulse ox. Patient was noted to be in normal sinus rhythm at an initial rate of 106 bpm per my interpretation. EKG: EKG was interpreted by myself as normal sinus rhythm rate of 98 bpm, no ST elevation, or depression noted. Previous for comparison from November 2024, which shows no concerning changes. INTERPRETATION OF LABS: I interpreted the labs with full lab results as below in the lab section of this note. Pertinent lab results discussed in the MDM section below. INTERPRETATION OF IMAGING: Imaging studies were interpreted by myself and read by radiology as per the imaging section of this note. CHRONIC MEDICAL/SOCIAL CONDITIONS AFFECTING CARE: Fredrick's disease, neurogenic bladder. MDM SUMMARY: The patient is a pleasant, 39-year-old female who arrives to the emergency department for evaluation of the above-stated complaint. The patient's Mediport was accessed by nursing staff. Sepsis workup was obtained. CBC shows no leukocytosis, no anemia. CMP shows slight hypokalemia 3.4, elevated anion gap 13, lactate 3.3, with repeat after hydration 2.4. Urinalysis shows trace leukocyte esterase, which was obtained from the suprapubic catheter. Patient was provided stress dosing of 100 mg of IV hydrocortisone. Blood cultures were obtained, will be evaluated for systemic infection. Chest x-ray imaging was obtained which per my interpretation shows no acute cardiopulmonary process. CT imaging of the abdomen pelvis with IV contrast was obtained which shows small hiatal hernia, however no infectious or surgical concerns. I spoke with Dr. Gr, from the [facility] hospitalist group, who agreed to evaluate the patient for admission due to history of Bollinger's disease. She will require IV hydration, as well as IV steroids. Dr. Gr did agree to accept the patient for admission. Please refer to her documentation for the patient workup and care. DIAGNOSIS: Bollinger's disease, neurogenic bladder The chart was completed utilizing [email or web address] voice recognition software. Grammatical errors, random word insertions, pronoun errors, and incomplete sentences are an occasional consequence of this system due to software limitations, ambient noise, and hardware issues. Any formal questions or concerns about the content, text, or information contained within the body of this dictation should be directly addressed to the provider for clarification. Past Med/Surg History Problem List (Updated 12/27/24 @ 14:40 by MARCOS Dubon) UTI (urinary tract infection) Acute diarrhea Suprapubic catheter POTS (postural orthostatic tachycardia syndrome) Anemia HTN (hypertension) Difficult intravenous access Hypokalemia Neurogenic bladder (Acute) Vulvovaginal candidiasis GERD without esophagitis Chronic back pain Chronic pain Tachycardia Anxiety Bollinger's disease (Acute) Surgical History History of lumbar fusion History of gastric bypass Family History Grandfather (Paternal) Colorectal cancer Grandmother (Paternal) Myocardial infarction Denies family history of Ovarian cancer Prostate cancer Breast cancer Social History Smoking Status: Never smoker Second Hand Exposure: No; Do You Dip or Chew Tobacco: No; Tobacco Cessation Education Requested by Patient: No Hx Alcohol Use: No Hx Substance Use: No Preferred Language: Belarusian Communication Ability: Effective Visual Impairment: No Limitations Hearing Ability: Normal Gas Engine Performance Engineer Required: No Beliefs That Will Affect Care: None marital status: Current Living Situation: Family current occupational status: disabled How many Children do You have: 2 Other Information That Helps Us Care for You: No Feels Safe at Home: Yes Safety Concerns: Feels Safe At This Time Childhood Exposure to Second-Hand Smoke: No Diet: other Diet Comment: protein, Bypass diet caffeine: Yes during the past year weight has: increased > 10 lbs Dental Care, Regularly: No Physical Activity Frequency: 3-4 Times per Week Physical Activity Frequency Comment: PT/OT Seatbelt Use: always Sunscreen Use: Yes Assistive Devices: Walker and Wheelchair Assistive Devices Comment: shower chair Allergies Allergies Allergy/AdvReac Type Severity Reaction Status Date / Time pepper (genus Capsicum) Allergy Severe Jalapeno - Unverified 12/26/24 17:00 Tongue swelling and hives adhesive tape Allergy Intermediate SKIN Verified 12/26/24 17:00 REDDENED, ITCHY scopolamine Allergy Intermediate SKIN Verified 12/26/24 17:00 REDDENED, ITCHY escitalopram [From Lexapro] AdvReac Intermediate VERY Verified 12/26/24 17:00 EMOTIONAL, OPPOSITE EFFECT haloperidol [From Haldol] AdvReac Intermediate LOCKED JAW Verified 12/26/24 17:00 Home Meds Home Medications Medication Instructions Recorded Confirmed B-complex with vitamin C 1 cap PO DAILY 11/29/24 12/26/24 ascorbic acid (vitamin C) 1,000 mg 1,000 mg PO DAILY 11/29/24 12/26/24 tablet (Vitamin C) calcium 250 mg (as 2 tab PO DAILY 11/29/24 12/26/24 citrate)-vitamin D3 5 mcg (200 unit) tablet clonazepam 1 mg tablet 1 mg PO TID 11/29/24 12/26/24 clotrimazole 10 mg ludwig 10 mg PO DIRECTED PRN Flare 11/29/24 12/26/24 cyanocobalamin (vitamin B-12) 1,000 mcg IM WK 11/29/24 12/26/24 1,000 mcg/mL injection solution cyclobenzaprine 10 mg tablet 10 mg PO QAM 11/29/24 12/26/24 dicyclomine 10 mg capsule 10 mg PO TID PRN IRRITABLE BOWEL 11/29/24 12/26/24 SYMPTOMS ferrous sulfate 325 mg (65 mg 650 mg PO DAILY 11/29/24 12/26/24 iron) tablet lidocaine 5 % topical patch 1 patch topical DAILY 11/29/24 12/26/24 multivitamin with minerals 1 tab PO DAILY 11/29/24 12/26/24 pantoprazole 40 mg tablet,delayed 40 mg PO BID 11/29/24 12/26/24 release polyethylene glycol 3350 17 17 g PO DAILY PRN Constipation 11/29/24 12/26/24 gram/dose oral powder (Miralax) potassium chloride 20 mEq 20 meq PO DAILY 11/29/24 12/26/24 tablet,extended release(part/cryst) pregabalin 100 mg capsule 100 mg PO AMHS 11/29/24 12/26/24 pregabalin 50 mg capsule 50 mg PO QPM 11/29/24 12/26/24 promethazine 25 mg tablet 25 mg PO Q6H PRN NAUSEA/VOMITING 11/29/24 12/26/24 propranolol 10 mg tablet 10 mg PO TID PRN NEEDED 11/29/24 12/26/24 sennosides 8.6 mg tablet (senna) 17.2 mg PO HS PRN Constipation 11/29/24 12/26/24 sucralfate 1 gram tablet (Carafate) 1 g PO ACHS 11/29/24 12/26/24 thiamine HCl (vitamin B1) 100 mg 100 mg PO DAILY 11/29/24 12/26/24 tablet (Vitamin B-1) topiramate 100 mg tablet 100 mg PO BID 11/29/24 12/26/24 topiramate 25 mg tablet 25 mg PO BID 11/29/24 12/26/24 zinc acetate 50 mg (zinc) capsule 50 mg PO DAILY 11/29/24 12/26/24 zolpidem 10 mg tablet (Ambien) 10 mg PO HS PRN Sleep 12/12/24 12/26/24 acetaminophen 500 mg tablet 500 mg PO Q6H PRN Pain 12/26/24 12/26/24 prednisone 1 mg tablet 3 mg PO TID 12/26/24 12/26/24 Previous Rx's Medication Instructions Recorded fludrocortisone 0.1 mg tablet 0.1 mg PO QAM 30 days #30 tabs 12/09/24 Results & Data (ED) Vital Signs Vital Signs - 24 hr 12/26/24 14:47 12/26/24 16:00 12/26/24 16:01 Pulse Rate 106 H 81 84 Pulse Rate from SpO2 Sensor 81 Pulse Rhythm Regular Respiratory Rate 20 16 Blood Pressure 129/73 Blood Pressure Mean 95 Pulse Oximetry 96 98 Oxygen Delivery Method Room Air 12/26/24 16:30 12/26/24 17:00 12/26/24 17:30 Pulse Rate 76 88 87 Pulse Rate from SpO2 Sensor 89 88 Pulse Rhythm Respiratory Rate 16 15 22 Blood Pressure 111/79 114/81 129/90 Blood Pressure Mean 98 85 103 Pulse Oximetry 98 99 97 Oxygen Delivery Method 12/26/24 18:00 Pulse Rate 105 H Pulse Rate from SpO2 Sensor 84 Pulse Rhythm Respiratory Rate 16 Blood Pressure 117/76 Blood Pressure Mean 89 Pulse Oximetry 96 Oxygen Delivery Method Home Medications Current Medication List: was personally reviewed by me Laboratory Data Attestation: I reviewed the patient's lab results. 12/27/24 08:39 12/27/24 08:46 Lab Results 12/26/24 12/26/24 12/26/24 Range/Units 14:47 15:35 17:20 WBC 9.78 (4.8-10.8) K/ul RBC 4.95 (4.20-5.40) M/uL Hgb 13.2 (12.0-16.0) g/dl Hct 43.1 (37.0-47.0) % MCV 87.1 (80.0-100.0) fL MCH 26.7 (25.0-34.0) pg MCHC 30.6 L (32.0-36.0) g/dL RDW Std Deviation 70.7 H (36.4-46.3) fL RDW Coeff of Los 22.7 H (11.5-14.5) % Plt Count 344 (130-400) K/uL MPV 9.1 L (9.4-12.4) fL Immature Gran % (Auto) 0.3 % Neut % (Auto) 74.4 % Lymph % (Auto) 19.1 % Emmons % (Auto) 5.6 % Eos % (Auto) 0.2 % Baso % (Auto) 0.4 % Neut # (Auto) 7.27 H (1.40-6.50) K/uL Lymph # (Auto) 1.87 (1.20-3.40) K/uL Emmons # (Auto) 0.55 (0.11-0.59) K/uL Eos # (Auto) 0.02 (0.00-0.50) K/uL Baso # (Auto) 0.04 (0.00-0.20) K/uL Immature Gran # (Auto) 0.03 (0.01-0.20) K/uL Anisocytosis Present Tear Drop Cells 1+ Sodium 140 (136-145) mmol/L Potassium 3.4 L (3.5-5.1) mmol/L Chloride 103 (98-107) mmol/L Carbon Dioxide 24 (21-32) mmol/L Anion Gap 13 H (3-11) BUN 9 (6-23) mg/dl Creatinine 0.56 L (0.6-1.2) mg/dl Est Cr Clr Drug Dosing 181.4 ml/min eGFR 118.25 BUN/Creatinine Ratio 16.1 (10-20) Glucose 91 (70-99(Fasting)) mg/dl Lactate 3.3 H* 2.4 H* (0.4-2.0) mmol/L Calcium 9.5 (8.6-10.3) mg/dl Magnesium 2.0 (1.7-2.4) mg/dl Total Bilirubin 0.4 (0.2-1.0) mg/dl Direct Bilirubin 0.1 (0-0.2) mg/dl AST 14 (13-39) U/L ALT 18 (7-52) U/L Alkaline Phosphatase 71 (34-104) U/L Troponin I High Sens < 2.3 (0-14) pg/ml Total Protein 7.4 (6.0-8.3) gm/dl Albumin 4.2 (3.4-5.0) gm/dl Procalcitonin < 0.02 (0-0.5) ng/ml Urine Color Yellow Urine Appearance Clear (Clear) Urine pH 5.5 (4.5-7.5) Ur Specific [place] 1.012 (1.000-1.030) Urine Protein Negative (Negative) Urine Glucose (UA) Negative (Negative) Urine Ketones Negative (Negative) Urine Blood Negative (Negative) Urine Nitrite Negative (Negative) Urine Bilirubin Negative (Negative) Urine Urobilinogen Negative (Negative) Ur Leukocyte Esterase Trace H (Negative) Urine WBC (Auto) 0-5 (0-5) /hpf Urine RBC (Auto) 0-2 (0-2) /hpf U Hyaline Cast (Auto) 0-2 (0-2) /lpf U Epithel Cells (Auto) 0-2 (0-2) /hpf Urine Bacteria (Auto) None Seen (None Seen) Urine Comment Administered Medications Clonazepam (Clonazepam 1 Mg Tab) 1 mg PO TID [facility] Stop: 01/25/25 20:59 Last Admin: 12/27/24 14:13 Dose: 1 mg Documented By: Admin: 12/27/24 08:53 Dose: 1 mg Documented By: Admin: 12/26/24 22:09 Dose: 1 mg Documented By: JUAN Cyclobenzaprine HCl (Cyclobenzaprine Hcl 10 Mg Tab) 10 mg PO QAM [facility] Stop: 01/26/25 08:59 Last Admin: 12/27/24 08:56 Dose: 10 mg Documented By: YAZMIN Ferrous Sulfate (Ferrous Sulfate 325 Mg Tab) 650 mg PO DAILY [facility] Stop: 01/26/25 08:59 Last Admin: 12/27/24 08:56 Dose: 650 mg Documented By: YAZMIN Fludrocortisone Acetate (Fludrocortisone Acetate 0.1 Mg Tab) 0.1 mg PO QAM [facility] Stop: 01/26/25 08:59 Last Admin: 12/27/24 08:54 Dose: 0.1 mg Documented By: YAZMIN Ceftriaxone Sodium (Rocephin) 2,000 mg in 50 mls @ 100 mls/hr IV Q24H [facility] Stop: 12/28/24 19:44 Last Infusion: 12/26/24 20:39 Dose: Infused Documented By: Admin: 12/26/24 19:52 Dose: 100 mls/hr Documented By: KING Lactated Ringer's (Lr) 1,000 mls @ 80 mls/hr IV .[id number] [facility] Stop: 12/28/24 08:59 Last Admin: 12/27/24 08:53 Dose: 80 mls/hr Documented By: YAZMIN Famotidine (Pepcid 20mg Iv Push) 20 mg in 5 mls @ 2.5 mls/min IV Q12H [facility] Stop: 01/26/25 12:14 Last Admin: 12/27/24 12:39 Dose: 2.5 mls/min Documented By: YAZMIN Prochlorperazine 5 mg/ Syringe 5 mls @ 5 mls/min IV Q6H [facility] Stop: 01/26/25 12:14 Last Admin: 12/27/24 13:00 Dose: 5 mls/min Documented By: YAZMIN Morphine Sulfate (Morphine Sulfate 2 Mg/Ml Carp) 2 mg IV Q3H PRN PRN Reason: Severe Pain (7,8,9,10) on NRS Stop: 01/09/25 20:28 Last Admin: 12/27/24 12:39 Dose: 2 mg Documented By: Admin: 12/27/24 09:07 Dose: 2 mg Documented By: Admin: 12/27/24 05:48 Dose: 2 mg Documented By: Admin: 12/27/24 02:02 Dose: 2 mg Documented By: Admin: 12/26/24 22:12 Dose: 2 mg Documented By: JUAN Pantoprazole Sodium (Pantoprazole 40 Mg Tab) 40 mg PO BID [facility] Stop: 01/25/25 20:59 Last Admin: 12/27/24 08:55 Dose: 40 mg Documented By: Admin: 12/26/24 21:56 Dose: 40 mg Documented By: AUSTYNK Potassium Chloride (Potassium Chloride Crtab 20 Meq Tabcr) 20 meq PO DAILY [facility] Stop: 01/26/25 08:59 Last Admin: 12/27/24 09:08 Dose: 20 meq Documented By: YAZMIN Pregabalin (Pregabalin 50 Mg Cap) 50 mg PO TODAY@1200 [facility] Stop: 01/26/25 11:59 Last Admin: 12/27/24 12:44 Dose: 50 mg Documented By: YAZMIN Pregabalin (Pregabalin 100 Mg Cap) 100 mg PO AMHS [facility] Stop: 01/25/25 20:59 Last Admin: 12/27/24 08:53 Dose: 100 mg Documented By: Admin: 12/26/24 22:10 Dose: 100 mg Documented By: AUSTYNK Promethazine HCl (Promethazine Hcl 25 Mg Tab) 25 mg PO Q6H PRN PRN Reason: NAUSEA/VOMITING Stop: 01/25/25 20:28 Last Admin: 12/27/24 01:59 Dose: 25 mg Documented By: AUSTYNK Propranolol HCl (Propranolol Hcl 10 Mg Tab) 10 mg PO TID PRN PRN Reason: Heart rate greater than 120 Stop: 01/25/25 21:18 Last Admin: 12/27/24 08:54 Dose: 10 mg Documented By: YAZMIN Sucralfate (Sucralfate 1 Gm Tab) 1 gm PO [facility] Stop: 01/25/25 20:59 Last Admin: 12/27/24 12:39 Dose: 1 gm Documented By: Admin: 12/27/24 08:55 Dose: 1 gm Documented By: Admin: 12/26/24 21:57 Dose: 1 gm Documented By: AUSTYNK Thiamine HCl (Thiamine Hcl 100 Mg Tab) 100 mg PO DAILY [facility] Stop: 01/26/25 08:59 Last Admin: 12/27/24 08:55 Dose: 100 mg Documented By: YAZMIN Topiramate (Topiramate 25 Mg Tab) 25 mg PO BID [facility] Stop: 01/25/25 20:59 Last Admin: 12/27/24 08:54 Dose: 25 mg Documented By: Admin: 12/26/24 21:57 Dose: 25 mg Documented By: JUAN Topiramate (Topiramate 100 Mg Tab) 100 mg PO BID [facility] Stop: 01/25/25 20:59 Last Admin: 12/27/24 08:54 Dose: 100 mg Documented By: Admin: 12/26/24 21:57 Dose: 100 mg Documented By: JUAN Zinc Sulfate (Zinc Sulfate 220 Mg Capsule) 220 mg PO DAILY [facility] Stop: 01/26/25 08:59 Last Admin: 12/27/24 08:56 Dose: 220 mg Documented By: YAZMIN Discontinued Medications Hydrocortisone Sodium Succinate (Hydrocortisone Sod Succinate 100 Mg/2 Ml Vial) 100 mg IV NOW STA Stop: 12/26/24 14:29 Last Admin: 12/26/24 15:05 Dose: 100 mg Documented By: STEFFI Sodium Chloride (Nss) 1,000 mls @ 999 mls/hr IV .Q1H1M [facility] Stop: 12/26/24 16:30 Last Infusion: 12/26/24 17:24 Dose: Infused Documented By: Admin: 12/26/24 16:18 Dose: 999 mls/hr Documented By: Infusion: 12/26/24 16:03 Dose: Infused Documented By: Admin: 12/26/24 15:02 Dose: 999 mls/hr Documented By: STEFFI Hydrocortisone Sodium (Succinate 25 mg/ Syringe) 0.5 mls @ 4 mls/min IV Q6H [facility] Stop: 01/25/25 20:59 Last Admin: 12/27/24 08:57 Dose: 4 mls/min Documented By: Admin: 12/27/24 03:26 Dose: 4 mls/min Documented By: Admin: 12/26/24 22:11 Dose: 4 mls/min Documented By: JUAN Potassium Chloride (K Shar / Wtr) 10 meq in 100 mls @ 100 mls/hr IV ONE ONE Stop: 12/26/24 19:16 Last Infusion: 12/26/24 19:52 Dose: Infused Documented By: Admin: 12/26/24 18:30 Dose: 75 mls/hr Documented By: STEFFI Ioversol (Optiray 320 100ml) 93 ml IV ONCE ONE Stop: 12/26/24 15:50 Last Admin: 12/26/24 15:50 Dose: 93 ml Documented By: MEI Lidocaine (Lidocaine 5% 1 Patch) 1 patch TD NOW STA Stop: 12/26/24 18:07 Last Admin: 12/26/24 18:30 Dose: 1 patch Documented By: STEFFI Miscellaneous (Remove Lidoderm Patch) 1 each N/A DAILY@0600 ONE Stop: 12/27/24 06:01 Last Admin: 12/27/24 05:53 Dose: 1 each Documented By: JUAN Morphine Sulfate (Morphine Sulfate 4 Mg/Ml 1 Ml Carp\Vial) 4 mg IV NOW STA Stop: 12/26/24 15:22 Last Admin: 12/26/24 15:26 Dose: 4 mg Documented By: STEFFI Morphine Sulfate (Morphine Sulfate 2 Mg/Ml Carp) 2 mg IV NOW STA Stop: 12/26/24 18:10 Last Admin: 12/26/24 18:30 Dose: 2 mg Documented By: STEFFI Ondansetron HCl (Ondansetron Inj 2 Mg/Ml 2 Ml Vial) 4 mg IV NOW STA Stop: 12/26/24 15:22 Last Admin: 12/26/24 15:26 Dose: 4 mg Documented By: STEFFI Potassium Chloride (Potassium Chloride Crtab 20 Meq Tabcr) 60 meq PO NOW STA Stop: 12/27/24 08:12 Last Admin: 12/27/24 12:55 Dose: Not Given Documented By: YAZMIN Promethazine HCl (Promethazine Hcl 25 Mg Tab) 25 mg PO NOW ONE Stop: 12/26/24 18:07 Last Admin: 12/26/24 18:29 Dose: 25 mg Documented By: STEFFI Imaging Data Attestation: I personally reviewed and interpreted this imaging study as follows: Discharge Plan Visit Data Chief Complaint: Illness Stated Complaint: FEVER, MUSCLE CRAMPS, CONFUSION, VOMITING ED Provider: Jaquelin Mccabe ED Midlevel Provider: Kasey Mason Discharge Problem: Bollinger's disease, Neurogenic bladder Patient Disposition: Admitted As Inpatient Condition: Fair Discharge Instructions Interventions: ED Discharge Assessment Last Done: 12/26/24 20:28
[2024-12-26] MEDS: SODIUM CHLORIDE 0.9% 1,000 ML IV SCH (15:02)
[2024-12-26 15:03] LABS: Hematocrit (blood only) 43.1 % (37.0-47.0); Hemoglobin 13.2 g/dl (12.0-16.0); Immature Granulocytes # (auto) 0.03 K/uL (0.01-0.20); Immature Granulocytes % (auto) 0.3 %; Mean Corpuscular Hemoglobin 26.7 pg (25.0-34.0); Mean Corpuscular Volume 87.1 fL (80.0-100.0); Platelet Count 344 K/uL (130-400); RDW Standard Deviation 70.7 fL (36.4-46.3); Red Blood Count 4.95 M/uL (4.20-5.40); White Blood Count 9.78 K/ul (4.8-10.8)
[2024-12-26] MEDS: HYDROCORTISONE SOD SUCCINATE 100 MG/2 ML VIAL IV STA (15:05)
[2024-12-26 15:24] LABS: Alanine Aminotransferase 18 U/L (7-52); Alkaline Phosphatase 71 U/L (34-104); Anion Gap 13 (3-11); Bilirubin,Total 0.4 mg/dl (0.2-1.0); Blood Urea Nitrogen 9 mg/dl (6-23); Calcium 9.5 mg/dl (8.6-10.3); Carbon Dioxide 24 mmol/L (21-32); Chloride 103 mmol/L (98-107); Creatinine Clr Calc Pharmacy 181.4 ml/min; Glucose 91 mg/dl (70-99(Fasting)); Magnesium 2.0 mg/dl (1.7-2.4); Potassium 3.4 mmol/L (3.5-5.1); Sodium 140 mmol/L (136-145); Total Protein 7.4 gm/dl (6.0-8.3)
[2024-12-26] MEDS: MoRPHine SULFATE 4 MG/ML 1 ML CARP\\VIAL IV STA (15:26)
[2024-12-26] MEDS: ONDANSETRON INJ 2 MG/ML 2 ML VIAL IV STA (15:26)
[2024-12-26 15:28] LABS: Anisocytosis Present; Tear Drop Cells 1+
--- NOTE | 2024-12-26 15:30 | XRay Report ---
XR chest 1V portable CLINICAL HISTORY: Sepsis COMPARISON STUDY: 11/29/2024 FINDINGS: Stable right chest port. Heart size and pulmonary vasculature are normal. No effusion, cons olidation, or pneumothorax. IMPRESSION: No acute findings. ACT 112: Negative or not required by law. Electronically signed by: Ulices Elizabeth M.D. 12/26/2024 3:28 PM
[2024-12-26] MEDS: OPTIRAY 320 100ml IV ONE (15:50)
[2024-12-26 15:59] LABS: Appearance Urine Clear (Clear); Bacteria Urine Automated None Seen (None Seen); Cast Urine Automated 0-2 /lpf (0-2); Epithelial Cell Urine Auto 0-2 /hpf (0-2); Glucose Urine UA Negative (Negative); RBC Urine Automated 0-2 /hpf (0-2); WBC Urine Automated 0-5 /hpf (0-5)
--- NOTE | 2024-12-26 16:31 | CT Scan Report ---
Clinical History: Bilateral flank pain Technique: Axial computed tomography images were obtained of the abdomen and pelvis after the administration of intravenous contrast. Comparison is made to the prior CT dated 11/29/2024. Findings: The liver is overall of normal size, attenuation, and contour with no sign of cirrhosis or significant fatty infiltration. No liver mass lesion is seen. The portal vein is patent. The gallbladder appears unremarkable. No bile duct dilatation is noted. The spleen is of normal size. No focal splenic lesion is evident. The pancreas appears normal with no sign of acute or chronic pancreatitis and no mass lesion noted. The pancreatic duct is of normal caliber. The adrenal glands appear unremarkable. No definite renal or proximal ureteral calculi are seen on this contrast-enhanced study. There is no hydronephrosis or perinephric stranding. No renal mass lesion is identified. The aorta is of normal caliber. No abdominal adenopathy is seen. There is a small hiatal hernia. There is a small diverticulum of the gastric fundus. Postsurgical changes are seen of gastric bypass surgery. There is no sign of small bowel obstruction. The colon appears unremarkable. The appendix appears normal also. No free intraperitoneal fluid or air is identified. No distal ureteral or bladder calculi are seen. The bladder is decompressed, containing a superpubic catheter. The iliac arteries are of normal caliber. No pelvic adenopathy is noted. There are small follicles in both ovaries There is mild linear atelectasis in the left lower lobe. There is an anterior posterior fusion of L5 and S1 with posterior fixation rods and pedicle screws and prosthetic disc placement. There is grade 1 anterolisthesis at L5-S1. No fracture is identified. No focal osseous lesion is seen Impression: 1. No definite acute pathology 2. Small hiatal hernia and postsurgical findings ACT 112: Positive. There are findings on this exam that require communication between the performing entity and the patient following Patient Test Result Information Act ([place] ACT 112) guidelines. Electronically signed by Howie Johnson 12-26-2024 4:31 PM
--- NOTE | 2024-12-26 16:52 | History & Physical Report ---
Date of Service December 26, 2024 Assessment & Plan (1) Suprapubic catheter: (2) Fredrick's disease: (3) Anxiety: (4) History of gastric bypass: Plan This is a 39-year-old female who presented on 12/26 for suprapubic pain and concern for adrenal crisis due to nausea/vomiting and UTI. #[place]'s disease Hydrocortisone 100 mg IV x 1 given in the ED Will plan to continue this reduced hydrocortisone 25 mg IV q6h for now Note: Patient is not hypotensive in the ED, but does have significant concern for adrenal crisis/sepsis due to history Continue home fludrocortisone Continue as needed propranolol for POTS #H/o recurrent suprapubic catheter infection | history of UTI leading to sepsis No leukocytosis; however patient reports fevers at home A/P CT revealed no acute findings Lactate 3.6 -> 2.4 UA negative on arrival, however patient reports that she normally grows bacteria on UCx (see below) Will cover empirically with Rocephin 2000 mg IV q24h and follow urine culture, blood cultures Urology consult appreciated for suprapubic catheter exchange Patient reports she has her suprapubic catheter exchanged every Thursday; last exchanged on 12/19 #Suprapubic pain Acetaminophen as needed for fever/pain control Morphine PRN for breakthrough pain Lidocaine patch application to lower back #Chest pain Clinically, patient endorses chest pain and intermittent palpitations Troponin WNL on arrival EKG NSR 98 bpm; QTc 446 Continuous telemetry monitoring #N/V/D Antiemetics as needed Close monitoring of electrolytes Flu, COVID, RSV ordered, pending #H/o gastric bypass Patient reports that she has a hard time absorbing pills/nutrients Port in place for iron infusions and IV access Prior UCxs, per [facility] records, seen on patient's phone (formal records have been requested): UCx 11/30/24 Zuly dubliniensis Unable to do sensitivities UCx 11/06/2024 E Faecalis R to minocycline S to amp/PCN UCx 05/20/2023 Klebsiella R to ampicillin S to ceph, cipro UCx 12/18/2022 E.coli new sensitive UCx 11/27/2020 E Coli R to amp, gent, bactrim S to ceph Disposition: Obs - Admit to MedSurg tele VTE PPx: SCDs History of Present Illness Chief Complaint: Suprapubic catheter pain Primary Care Provider: Giovanni Mclean DO Mrs. Weldon is a 39-year-old female who presented on 12/26 for bilateral flank pain, pain at her suprapubic catheter site, and mucus/bloody drainage from her urethra. Patient reports that she has been sick with flulike symptoms that began on 12/22. Originally, her children were sick last week, then she and her developed nausea, vomiting, and diarrhea. Over the past 40 hours, she reports that she has had constant 9/10 pain in her urethra. She reports it feels like there are "razor blades and knives" cutting into your urethra. She also endorses increased urinary frequency, mucus in her suprapubic catheter, and bloody drainage from her bag. Patient reports her last period was 2 weeks ago, however she had bright red blood in the toilet this morning. Patient reports that she has a port due to her gastric bypass and inability to retain fluids/vitamins; she also reports that she has poor IV access with her veins, and has required iron infusions through her port in the past. She is requesting a urology consult, she would like to establish care with [facility] urology. Patient reports her Lou gets changed by home health every Thursday; last changed on 12/19. She normally changes the dressing daily, but forgot to change it, and reports that when she went to change it this morning it smelled "rotten", and there was dark red/brown drainage from the site. Additionally, she reports that she is having significant lower back pain like her back is "seizing". She denies any allergies to antibiotics. She reports she has a history of "silent sepsis" requiring multiple transfers from [place] to [place], even when she has had a white blood cell count of 6. She also reports she has a history of multidrug-resistant UTI infections. Patient took "most of her" regular morning medications today at 7 AM, including Tylenol, promethazine, and propranolol. She was recently changed to prednisone and fludrocortisone for her [place]'s disease, and reports that she had difficulty keeping down her prednisone yesterday; throughout the pills. She is currently unsure how to stress dose prednisone, and was hoping to establish with Dr. Beckett ([place] [facility]). Patient denies smoking, tobacco use, recent alcohol use. Vital stable time admission. ED course: Hydrocortisone 100 mg IV NSS 1000 mL IV Zofran 4 mg IV Morphine 4 mg IV ROS: Patient endorses fever, chills, headaches, blurry vision, lower back pain, chest pain, chest palpitations (which she attributes to anxiety), nausea, vomiting, diarrhea, blood in urine, dysuria, and pain when bearing down. Patient denies SOB at rest, cough, or saddle anesthesia. Allergies Allergy/AdvReac Type Severity Reaction Status Date / Time pepper (genus Capsicum) Allergy Severe Jalapeno - Unverified 12/26/24 17:00 Tongue swelling and hives adhesive tape Allergy Intermediate SKIN Verified 12/26/24 17:00 REDDENED, ITCHY scopolamine Allergy Intermediate SKIN Verified 12/26/24 17:00 REDDENED, ITCHY escitalopram [From Lexapro] AdvReac Intermediate VERY Verified 12/26/24 17:00 EMOTIONAL, OPPOSITE EFFECT haloperidol [From Haldol] AdvReac Intermediate LOCKED JAW Verified 12/26/24 17:00 Home Medications Medication Instructions Recorded Confirmed Type B-complex with vitamin C 1 cap PO DAILY 11/29/24 12/26/24 History ascorbic acid (vitamin C) 1,000 mg 1,000 mg PO DAILY 11/29/24 12/26/24 History tablet (Vitamin C) calcium 250 mg (as 2 tab PO DAILY 11/29/24 12/26/24 History citrate)-vitamin D3 5 mcg (200 unit) tablet clonazepam 1 mg tablet 1 mg PO TID 11/29/24 12/26/24 History clotrimazole 10 mg ludwig 10 mg PO DIRECTED PRN Flare 11/29/24 12/26/24 History cyanocobalamin (vitamin B-12) 1,000 mcg IM WK 11/29/24 12/26/24 History 1,000 mcg/mL injection solution cyclobenzaprine 10 mg tablet 10 mg PO QAM 11/29/24 12/26/24 History dicyclomine 10 mg capsule 10 mg PO TID PRN IRRITABLE BOWEL 11/29/24 12/26/24 History SYMPTOMS ferrous sulfate 325 mg (65 mg 650 mg PO DAILY 11/29/24 12/26/24 History iron) tablet lidocaine 5 % topical patch 1 patch topical DAILY 11/29/24 12/26/24 History multivitamin with minerals 1 tab PO DAILY 11/29/24 12/26/24 History pantoprazole 40 mg tablet,delayed 40 mg PO BID 11/29/24 12/26/24 History release polyethylene glycol 3350 17 17 g PO DAILY PRN Constipation 11/29/24 12/26/24 History gram/dose oral powder (Miralax) potassium chloride 20 mEq 20 meq PO DAILY 11/29/24 12/26/24 History tablet,extended release(part/cryst) pregabalin 100 mg capsule 100 mg PO AMHS 11/29/24 12/26/24 History pregabalin 50 mg capsule 50 mg PO QPM 11/29/24 12/26/24 History promethazine 25 mg tablet 25 mg PO Q6H PRN NAUSEA/VOMITING 11/29/24 12/26/24 History propranolol 10 mg tablet 10 mg PO TID PRN NEEDED 11/29/24 12/26/24 History sennosides 8.6 mg tablet (senna) 17.2 mg PO HS PRN Constipation 11/29/24 12/26/24 History sucralfate 1 gram tablet (Carafate) 1 g PO ACHS 11/29/24 12/26/24 History thiamine HCl (vitamin B1) 100 mg 100 mg PO DAILY 11/29/24 12/26/24 History tablet (Vitamin B-1) topiramate 100 mg tablet 100 mg PO BID 11/29/24 12/26/24 History topiramate 25 mg tablet 25 mg PO BID 11/29/24 12/26/24 History zinc acetate 50 mg (zinc) capsule 50 mg PO DAILY 11/29/24 12/26/24 History fludrocortisone 0.1 mg tablet 0.1 mg PO QAM 30 days #30 tabs 12/09/24 12/26/24 Rx zolpidem 10 mg tablet (Ambien) 10 mg PO HS PRN Sleep 12/12/24 12/26/24 History acetaminophen 500 mg tablet 500 mg PO Q6H PRN Pain 12/26/24 12/26/24 History prednisone 1 mg tablet 3 mg PO TID 12/26/24 12/26/24 History Past Med/Surg History Problem List (Updated 12/20/24 @ 22:58 by Giovanni Mclean DO) Suprapubic catheter POTS (postural orthostatic tachycardia syndrome) Anemia HTN (hypertension) Difficult intravenous access Hypokalemia Neurogenic bladder Vulvovaginal candidiasis GERD without esophagitis Chronic back pain Chronic pain Tachycardia Anxiety Louisville's disease (Acute) Surgical History (Updated 12/26/24 @ 21:17 by Emili Gr MD) History of lumbar fusion History of gastric bypass Family History (Updated 12/12/24 @ 11:33 by Evelyn Daniel LPN) Grandfather (Paternal) Colorectal cancer Grandmother (Paternal) Myocardial infarction Denies family history of Ovarian cancer Prostate cancer Breast cancer Social History (Updated 12/12/24 @ 11:30 by Evelyn Daniel LPN) Smoking Status: Never smoker Second Hand Exposure: No; Do You Dip or Chew Tobacco: No; Hx Alcohol Use: No Hx Substance Use: No Preferred Language: Gibraltarian Communication Ability: Effective Visual Impairment: No Limitations Hearing Ability: Normal Sleeve Tailor Required: No Beliefs That Will Affect Care: None marital status: Current Living Situation: Spouse current occupational status: disabled How many Children do You have: 2 Feels Safe at Home: Yes Childhood Exposure to Second-Hand Smoke: No Diet: other Diet Comment: protein, Bypass diet caffeine: Yes during the past year weight has: increased > 10 lbs Dental Care, Regularly: No Physical Activity Frequency: 3-4 Times per Week Physical Activity Frequency Comment: PT/OT Seatbelt Use: always Sunscreen Use: Yes Assistive Devices: Walker and Wheelchair Review of Systems Review of Systems: See HPI above Physical Exam Physical Exam: General: Moderate distress secondary to suprapubic catheter pain; anxious; at bedside; non-toxic appearing; cooperative; SpO2 98% on RA HEENT: normocephalic, atraumatic; no scleral icterus; PERRLA; vision and hearing intact Neck: supple; trachea midline; patient demonstrates ability to shrug shoulders against resistance without pain; negative Brudzinski's sign Skin: warm, dry without signs of tenting; no cyanosis; no rashes, bruising, lesions, or erythema noted CV: chest wall NTP; RRR; S1/S2 normal; no murmurs/rubs/gallops; pulses intact and symmetric at radial, DP, and PT Lungs: no acute respiratory distress; symmetrical chest wall expansion; clear breath sounds across all lung [place] w/o adventitious sounds; no wheezing ABD: Soft, NTP; BS present; no rebound/guarding; no distention : Suprapubic tenderness to palpation; suprapubic catheter in place draining clear yellow urine Back: Bilateral CVA tenderness MSK: no tics or fasciculations; no edema noted in the LEs b/l, nonerythematous Neuro: A&Ox3; normal mood and affect; fluent speech; no focal deficits; sensation grossly intact in the LEs b/l Results & Data Results & Data Vital Signs (Past 12 Hours) Vital Signs Temp Pulse Resp BP Pulse Ox O2 Del Method 12/26/24 16:01 84 12/26/24 14:47 106 H 20 96 Room Air 12/26/24 13:56 36.4 C L 106 H 20 132/87 96 Room Air Laboratory Results Abnormal lab results 12/26/24 12/26/24 Range/Units 14:47 15:35 MCHC 30.6 L (32.0-36.0) g/dL RDW Std Deviation 70.7 H (36.4-46.3) fL RDW Coeff of Los 22.7 H (11.5-14.5) % MPV 9.1 L (9.4-12.4) fL Neut # (Auto) 7.27 H (1.40-6.50) K/uL Potassium 3.4 L (3.5-5.1) mmol/L Anion Gap 13 H (3-11) Creatinine 0.56 L (0.6-1.2) mg/dl Lactate 3.3 H* (0.4-2.0) mmol/L Ur Leukocyte Esterase Trace H (Negative) Diagnostic Findings Chest X-Ray 12/26/24 14:18 XR chest 1V portable CLINICAL HISTORY: Sepsis COMPARISON STUDY: 11/29/2024 FINDINGS: Stable right chest port. Heart size and pulmonary vasculature are normal. No effusion, consolidation, or pneumothorax. IMPRESSION: No acute findings. ACT 112: Negative or not required by law. Electronically signed by: Ulices Elizabeth M.D. 12/26/2024 3:28 PM Abdomen/Pelvis CT 12/26/24 14:31 Clinical History: Bilateral flank pain Technique: Axial computed tomography images were obtained of the abdomen and pelvis after the administration of intravenous contrast. Comparison is made to the prior CT dated 11/29/2024. Findings: The liver is overall of normal size, attenuation, and contour with no sign of cirrhosis or significant fatty infiltration. No liver mass lesion is seen. The portal vein is patent. The gallbladder appears unremarkable. No bile duct dilatation is noted. The spleen is of normal size. No focal splenic lesion is evident. The pancreas appears normal with no sign of acute or chronic pancreatitis and no mass lesion noted. The pancreatic duct is of normal caliber. The adrenal glands appear unremarkable. No definite renal or proximal ureteral calculi are seen on this contrast-enhanced study. There is no hydronephrosis or perinephric stranding. No renal mass lesion is identified. The aorta is of normal caliber. No abdominal adenopathy is seen. There is a small hiatal hernia. There is a small diverticulum of the gastric fundus. Postsurgical changes are seen of gastric bypass surgery. There is no sign of small bowel obstruction. The colon appears unremarkable. The appendix appears normal also. No free intraperitoneal fluid or air is identified. No distal ureteral or bladder calculi are seen. The bladder is decompressed, containing a superpubic catheter. The iliac arteries are of normal caliber. No pelvic adenopathy is noted. There are small follicles in both ovaries There is mild linear atelectasis in the left lower lobe. There is an anterior posterior fusion of L5 and S1 with posterior fixation rods and pedicle screws and prosthetic disc placement. There is grade 1 anterolisthesis at L5-S1. No fracture is identified. No focal osseous lesion is seen Impression: 1. No definite acute pathology 2. Small hiatal hernia and postsurgical findings ACT 112: Positive. There are findings on this exam that require communication between the performing entity and the patient following Patient Test Result Information Act ([place] ACT 112) guidelines. Electronically signed by Howie Johnson 12-26-2024 4:31 PM ECG Additional Comments: ECG revealed normal sinus rhythm, rate 98, no ischemic changes Code Status & VTE Plan Code Status Full code VTE Prophylaxis Plan VTE Prophylaxis will be ordered: Yes Supervising Physician Co-Signing Physician Notes PA Supervision Note: I personally saw and examined the patient. I verified all fallon points and agree with FRANKIE Gimenez with the following exceptions and/or additions: S-this patient is a 39-year-old female who has had a recent episode with nausea and vomiting and diarrhea along with other members of her family followed by sharp pains in her urethra as well as bloody and cloudy drainage from her suprapubic catheter with concerns for development of UTI. She felt weak and felt she needed increased steroids. History and ROS otherwise reviewed as above O- Vitals reviewed Gen: AAOx3, NAD, morbidly obese HEENT: Anicteric sclerae, EOMI CV: RRR no mgr nl S1S2 Pulm: CTAB no wcr Abd: +BS soft NT ND no masses or hernias Ext: No edema Skin: No rashes, warm/dry : SP cath in place with small amount of mildly erythematous rash around SP site, urine in bag clear and yellow A/S-15-fhwv-old female with history of Fredrick's disease, neurogenic bladder with SP cath, POTS, anemia, and lower back issues here with possible adrenal insufficiency, UTI Plan outlined as above, continue empiric antibiotics and follow cultures Stress dose steroids Urology consult PG Care Time/CCT Total # of Minutes Spent Total Time Spent with Patient: Total time spent is greater than 50% in coordination of care (as documented) at patient's floor/unit and/or counseling patient: C[place] [address] INT INP/OBS CARE 3/75MIN Patient Type Established Medical Decision Making High Complexity Diagnoses Suprapubic catheter Z93.59 [place]'s disease E27.1 Anxiety F41.9 History of gastric bypass Z98.84
[2024-12-26] MEDS ORDERED: PROCHLORPERAZINE 5 MG in SYRINGE 4 ML IV PRN (17:59)
[2024-12-26] MEDS: PROMETHAZINE HCL 25 MG TAB PO ONE (18:29)
[2024-12-26] MEDS: LIDOCAINE 5% 1 PATCH TD STA (18:30)
[2024-12-26] MEDS: MoRPHine SULFATE 2 MG/ML CARP IV STA (18:30)
[2024-12-26] MEDS: POTASSIUM CHLORIDE / WTR 10 MEQ/100 ML PLCT IV ONE (18:30)
[2024-12-26] MEDS: cefTRIAXone SODIUM 2,000 MG/50 ML BAG IV SCH (19:52)
[2024-12-26] MEDS ORDERED: ACETAMINOPHEN 500 MG TAB PO PRN (20:29)
[2024-12-26] MEDS ORDERED: POLYETHYLENE (MIRALAX) 17 GM PACK PO PRN (20:29)
[2024-12-26 20:33] LABS: Influenza A virus by PCR Negative (Neg); Influenza B virus by PCR Negative (Neg); SARS CoV2 RNA(COVID-19) Ceph NEGATIVE (Negative)
[2024-12-26] MEDS: TOPIRAMATE 100 MG TAB PO SCH (21:57)
[2024-12-26] MEDS: SUCRALFATE 1 GM TAB PO SCH (21:57)
[2024-12-26] MEDS: TOPIRAMATE 25 MG TAB PO SCH (21:57)
[2024-12-26] MEDS: clonazePAM 1 MG TAB PO SCH (22:09)
[2024-12-26] MEDS: MoRPHine SULFATE 2 MG/ML CARP IV PRN ×2 (22:10→22:12)
[2024-12-26] MEDS: PREGABALIN 100 MG CAP PO SCH (22:10)
[2024-12-26] MEDS: HYDROCORTISONE SOD 25 MG in SYRINGE 0 ML IV SCH (22:11)
[2024-12-26] MEDS ORDERED: HYDROCORTISONE SOD 50 MG in SYRINGE 0 ML IV SCH (23:00)
[2024-12-26] MEDS ORDERED: HYDROCORTISONE SOD SUCCINATE 100 MG/2 ML VIAL IV SCH (23:00)
[2024-12-27] MEDS: PROMETHAZINE HCL 25 MG TAB PO PRN (01:59)
[2024-12-27] MEDS: REMOVE LIDODERM PATCH ONE (05:53)
--- NOTE | 2024-12-27 05:56 | Electrocardiogram Report ---
Test Reason : Blood Pressure : */* mmHG Vent. Rate : 98 BPM Atrial Rate : 98 BPM P-R Int : 160 ms QRS Dur : 80 ms QT Int : 350 ms P-R-T Axes : 28 -2 31 degrees QTcB Int : 446 ms Normal sinus rhythm Minimal voltage criteria for LVH, may be normal variant ( R in aVL ) Inferior infarct (cited on or before 02-Dec-2024) Abnormal ECG When compared with ECG of 04-Dec-2024 11:14, Questionable change in initial forces of Inferior leads Confirmed by Deangelo Leary ([id number]) on 12/27/2024 5:55:50 AM Referred By: REFERRED SELF Confirmed By: Deangelo Leary
--- NOTE | 2024-12-27 06:59 | Hospitalist Progress Note ---
Date of Service December 27, 2024 Assessment & Plan (1) Acute diarrhea: (2) UTI (urinary tract infection): (3) Fredrick's disease: (4) Suprapubic catheter: Plan This is a 39-year-old female who presented on 12/26 for suprapubic pain and concern for adrenal crisis due to nausea/vomiting and UTI. #Acute diarrheal illness - no diarrhea since being in the hospital - Given /son also ill, suspect viral (they drink bottled water only per pt) - Flu/RSV/covid on admission negative - replete electrolytes as needed - antiemetics as needed, encourage oral hydration - will do IVF 80/hr for 2 bags #UTI - after diarrheal illness, does have symptoms of significant urethral pain - Lactate 3.6 -> 2.4 - No leukocytosis; however patient reports fevers at home - will do Rocephin pending blood cultures #[place]'s disease - Hydrocortisone 100 mg IV x 1 given in the ED - then reduced to hydrocortisone 25 mg IV q6h -> decreased today to 25 mg BID IV, plan for restarting home dosing tomorrow as she does not seem to be in adrenal crisis here - Note: Patient is not hypotensive in the ED, but does have significant concern for adrenal crisis/sepsis due to history - Continue home fludrocortisone - Continue as needed propranolol for POTS #H/o recurrent suprapubic catheter infection - A/P CT revealed no acute findings - suspect infections around suprapubic that are recurrent likely are fungal given pt BMI and the area around the cath gets very warm/moist instead of true bacterial infections around this site repeatedly #Suprapubic pain - no acute pathology on CT - Acetaminophen as needed for fever/pain control - Morphine PRN for breakthrough pain - Lidocaine patch application to lower back #Chest pain - Clinically, patient endorses chest pain and intermittent palpitations - Troponin WNL on arrival - EKG NSR 98 bpm; QTc 446 - Continuous telemetry monitoring #H/o gastric bypass - Patient reports that she has a hard time absorbing pills/nutrients - Port in place for iron infusions and IV access Prior UCxs, per [facility], seen on patient's phone (formal records have been requested): UCx 11/30/24 Zuly dubliniensis Unable to do sensitivities UCx 11/06/2024 E Faecalis R to minocycline S to amp/PCN UCx 05/20/2023 Klebsiella R to ampicillin S to ceph, cipro UCx 12/18/2022 E.coli new sensitive UCx 11/27/2020 E Coli R to amp, gent, bactrim S to ceph Admission and Anticipated Discharge Date Admission Date: December 26, 2024 Supervising Physician Co-Signing Physician Notes I personally examined the patient and verified all fallon points of history and exam, discussed case, and agree with decision making with Dr Mejia ongoing urethral pain. cath discharge and blood have cleared. no appetite. no further vomiting or diarrhea vitals noted fatigued but nad heent nc at mmm breathing unlabored no accessory muscles good effort suprapubic cath site without tracking erythema/surrounding erythema - does have mild intertrigo type changes. skin no rashes no pallor or icterus uti - appears to be subsequent to diarrhea (which was likely viral GE vs foodborne enteritis, either way now resolved) - rocephin pending ID&S, adjust abx based on culture (or if culture no dominant growth, then adjust abx based on symptom response) dehydration - due to diarrhea/vomiting/poor PO intake - IV fluids, supportive care. suspect she has a degree of gastritis due to illness - BID PPI, BID H2, QID carafate for now, follow addisons - recently switched to prednisone due to potential poor intestinal absorption of hydrocortisone. overall this seems to have done well. wean stress dosing today, switch to predisone by tomorrow otherwise as above Subjective Pt seen at bedside this morning. She states she is feeling okay but not as good as when she left the hospital last admission. She gives the following time course; she states her suprapubic catheter was replaced last week on Thursday (12/19) and she was doing well. She states starting on , she was ill. She states her son had a cough and then her and her got sick with more GI symptoms like nausea and vomiting and diarrhea. She states she had a number of watery bowel movements and fevers 100 F. She states she noticed with this illness that her HR got up to the 200s. She states that her also developed a cough like her son had but she did not. She states that she developed flank pain and urethral pain that felt like razor blades on the inside of her urethra. She states she was recently discharged with 3mg prednisone daily and was told it was more potent than her prior steroid so she was unsure how to stress dose for this illness, so she did not stress dose and instead stayed on 3mg a day but with her GI symptoms she was doubtful she actually got most of the dose. She states she just continued to feel like she was "hit by a bus." She states that the last few days she noticed blood clots in her suprapubic catheter, decreased output, and ultimately a foul smelling pus discharge around the catheter and also within the catheter bag (she has pictures of this.) She states she still feels quite dry today. She states that the nausea medication helps but does not fully take away the nausea and so even though she is trying to drink, she cannot drink much. She states the suprapubic catheter site looks better than yesterday but otherwise still feeling pretty down. Review of Systems Review of Systems: Per HPI. Physical Exam Physical Exam: General:Alert and oriented, no acute distress, very talkative with few pauses between thoughts, fatigued appearing HEENT: Normocephalic, moist oral mucosa, Cardio: Regular rate and rhythm, Resp:Lungs clear to auscultation b/l, no wheezes or rhonchi, GI: Soft and nontender, nondistended, bowel sounds active, suprapubic catheter in place with no discharge noted around the site or in urine bag this morning Skin: Warm, pink, dry, Results & Data Results & Data Vital Signs (Past 12 Hours) Vital Signs Temp Pulse Pulse Resp BP BP Pulse Ox 12/27/24 03:50 36.4 C L 80 20 112/77 98 12/27/24 00:26 36.7 C 88 20 128/88 97 12/26/24 22:00 36.7 C 99 H 18 133/87 95 12/26/24 21:30 96 H 12/26/24 20:36 91 H 19 111/82 97 12/26/24 20:00 88 20 129/80 96 12/26/24 19:57 98 H 12/26/24 19:03 86 18 114/77 95 O2 Del Method 12/27/24 03:50 Room Air 12/27/24 00:26 Room Air 12/26/24 22:00 Room Air 12/26/24 21:30 12/26/24 20:36 Room Air 12/26/24 20:00 Room Air 12/26/24 19:57 12/26/24 19:03 Room Air Resident Activity Tracking Resident Involvement: Resident Care Provided Care Provided: Adult Hospital Medicine
[2024-12-27] MEDS: LACTATED RINGER'S 1,000 ML IV SCH (08:53)
[2024-12-27] MEDS: PROPRANOLOL HCL 10 MG TAB PO PRN (08:54)
[2024-12-27] MEDS: FLUDROCORTISONE ACETATE 0.1 MG TAB PO SCH (08:54)
[2024-12-27] MEDS: THIAMINE HCL 100 MG TAB PO SCH (08:55)
[2024-12-27] MEDS: ZINC SULFATE 220 MG CAPSULE PO SCH (08:56)
[2024-12-27] MEDS: CYCLOBENZAPRINE HCL 10 MG TAB PO SCH (08:56)
[2024-12-27] MEDS: FERROUS SULFATE 325 MG TAB PO SCH (08:56)
[2024-12-27 08:57] LABS: Hematocrit (blood only) 40.6 % (37.0-47.0); Hemoglobin 12.4 g/dl (12.0-16.0); Immature Granulocytes # (auto) 0.03 K/uL (0.01-0.20); Immature Granulocytes % (auto) 0.5 %; Mean Corpuscular Hemoglobin 27.0 pg (25.0-34.0); Mean Corpuscular Volume 88.5 fL (80.0-100.0); Platelet Count 293 K/uL (130-400); RDW Standard Deviation 70.1 fL (36.4-46.3); Red Blood Count 4.59 M/uL (4.20-5.40); White Blood Count 5.95 K/ul (4.8-10.8)
[2024-12-27] MEDS: POTASSIUM CHLORIDE CRTAB 20 MEQ TABCR PO SCH (09:08)
[2024-12-27 09:31] LABS: Anisocytosis Present; Polychromasia 1+
[2024-12-27 09:41] LABS: Anion Gap 7.0 (3-11); Blood Urea Nitrogen 8.0 mg/dl (6-23); Calcium 9.0 mg/dl (8.6-10.3); Carbon Dioxide 27.0 mmol/L (21-32); Chloride 105.0 mmol/L (98-107); Creatinine Clr Calc Pharmacy 168.0 ml/min; Glucose 88.0 mg/dl (70-99(Fasting)); Potassium 3.8 mmol/L (3.5-5.1); Sodium 139.0 mmol/L (136-145)
[2024-12-27] MEDS ORDERED: POTASSIUM CHLORIDE CRTAB 20 MEQ TABCR PO ONE (12:05)
[2024-12-27] MEDS: FAMOTIDINE 20MG IV PUSH 20 MG/5 ML SYR IV SCH (12:39)
[2024-12-27] MEDS: PREGABALIN 50 MG CAP PO SCH (12:44)
[2024-12-27] MEDS: POTASSIUM CHLORIDE CRTAB 20 MEQ TABCR PO STA (12:55)
[2024-12-27] MEDS: PROCHLORPERAZINE 5 MG in SYRINGE 4 ML IV SCH (13:00)
--- NOTE | 2024-12-27 13:29 | Billing Data ---
Date of Service December 27, 2024 Coding Level of Care Code 67395 SUB INP/OBS CARE MIN
[2024-12-27] MEDS: HYDROCORTISONE SOD 25 MG in SYRINGE 0 ML IV SCH (20:15)
[2024-12-28 07:33] LABS: Anion Gap 6.0 (3-11); Blood Urea Nitrogen 7.0 mg/dl (6-23); Calcium 8.7 mg/dl (8.6-10.3); Carbon Dioxide 26.0 mmol/L (21-32); Chloride 108.0 mmol/L (98-107); Creatinine Clr Calc Pharmacy 173.6 ml/min; Glucose 75.0 mg/dl (70-99(Fasting)); Potassium 3.4 mmol/L (3.5-5.1); Sodium 140.0 mmol/L (136-145)
[2024-12-28] MEDS: PROMETHAZINE 12.5 MG/50.5 ML BAG IV PRN (09:02)
[2024-12-28] MEDS ORDERED: CLOTRIMAZOLE 10 MG TROCHE BUCCAL PRN (09:33)
[2024-12-28] MEDS: POTASSIUM CHLORIDE CRTAB 20 MEQ TABCR PO STA (09:40)
--- NOTE | 2024-12-28 11:01 | Hospitalist Progress Note ---
Date of Service December 28, 2024 Assessment & Plan (1) Acute diarrhea: (2) UTI (urinary tract infection): (3) Fredrick's disease: (4) Suprapubic catheter: Plan This is a 39-year-old female who presented on 12/26 for suprapubic pain and concern for adrenal crisis due to nausea/vomiting and UTI. #Acute diarrheal illness - no diarrhea since being in the hospital - Given /son also ill, suspect viral (they drink bottled water only per pt) - Flu/RSV/covid on admission negative - replete electrolytes as needed - antiemetics as needed (scheduled IV Compazine, prn IV Phenergan), encourage oral hydration - will do IVF 80/hr for 1 bag today while oral intake still poor #UTI - after diarrheal illness, does have symptoms of significant urethral pain - Lactate 3.6 -> 2.4 - No leukocytosis; however patient reports fevers at home - will continue Rocephin pending blood cultures -> once able to tolerate oral intake reliably, will transition to oral #[place]'s disease - Hydrocortisone 100 mg IV x 1 given in the ED - then reduced to hydrocortisone 25 mg IV q6h -> decreased to 25 mg BID IV on 12/27 -> today transitioned to home po dosing prednisone 3mg TID - Note: Patient is not hypotensive in the ED, but does have significant concern for adrenal crisis/sepsis due to history - Continue home fludrocortisone - Continue as needed propranolol for POTS #H/o recurrent suprapubic catheter infection - A/P CT revealed no acute findings - suspect infections around suprapubic that are recurrent likely are fungal given pt BMI and the area around the cath gets very warm/moist instead of true bacterial infections around this site repeatedly #Suprapubic pain - no acute pathology on CT - Acetaminophen as needed for fever/pain control - Morphine PRN for breakthrough pain - Lidocaine patch application to lower back #Chest pain - Clinically, patient endorses chest pain and intermittent palpitations - Troponin WNL on arrival - EKG NSR 98 bpm; QTc 446 - Continuous telemetry monitoring #H/o gastric bypass - Patient reports that she has a hard time absorbing pills/nutrients - Port in place for iron infusions and IV access Prior UCxs, [facility], seen on patient's phone (formal records have been requested): UCx 11/30/24 Zuly dubliniensis Unable to do sensitivities UCx 11/06/2024 E Faecalis R to minocycline S to amp/PCN UCx 05/20/2023 Klebsiella R to ampicillin S to ceph, cipro UCx 12/18/2022 E.coli new sensitive UCx 11/27/2020 E Coli R to amp, gent, bactrim S to ceph Admission and Anticipated Discharge Date Admission Date: December 28, 2024 Supervising Physician Co-Signing Physician Notes I personally examined the patient and verified all fallon points of history and exam, discussed case, and agree with decision making with Dr Mejia vomiting through the night, feeling a little better this AM tolerated a small amount of PO ok. urinary symptoms persist but seem to be getting better - and seem to have improved with some assistance with pelvic cleaning/hygeine vitals noted fatigued but nad heent nc at mmm breathing unlabored no accessory muscles good effort suprapubic cath site without tracking erythema/surrounding erythema - does have mild intertrigo type changes. skin no rashes no pallor or icterus uti - appears to be subsequent to diarrhea (which was likely viral GE vs foodborne enteritis, either way now resolved) - rocephin seems to be affecting improvement - continue for now and anticipate transition to PO cephalosporin once more reliably able to take PO dehydration - due to diarrhea/vomiting/poor PO intake - IV fluids, supportive care. suspect she has a degree of gastritis due to illness -continue aggressive supportive care and antiemetics, encouraged gradual return to regular diet addisons - recently switched to prednisone due to potential poor intestinal absorption of hydrocortisone. transition to PO prednisone again, educate on stress dosing w this. otherwise as above Subjective Pt seen at bedside. She states she was very nauseated overnight and had a few episodes of vomiting. She has the vomit bag she was given with clear liquid vomitus in it that she showed me. No blood or food contents in the vomit per my assessment. She states she did also have another episode of feeling the need to urinate and burning sensation of her urethral that feels like "razor blades." She does note her urine is more clear today compared to previous days. Review of Systems Review of Systems: Per HPI. Physical Exam Physical Exam: General:Alert and oriented, no acute distress, very talkative with few pauses between thoughts, fatigued appearing today as well but less so than yesterday HEENT: Normocephalic, moist oral mucosa, Cardio: Regular rate and rhythm, Resp:No increased resp effort, no resp distress Skin: Warm, pink, dry, Results & Data Results & Data Vital Signs (Past 12 Hours) Vital Signs Temp Pulse Pulse Resp BP Pulse Ox O2 Del Method 12/28/24 08:26 36.5 C 62 16 118/87 99 Room Air 12/28/24 03:56 36.4 C L 59 L 18 114/78 96 Room Air 12/28/24 01:16 36.3 C L 76 18 125/86 98 Room Air 12/27/24 23:31 80 Resident Activity Tracking Resident Involvement: Resident Care Provided Care Provided: Adult Hospital Medicine
[2024-12-28] MEDS: LACTATED RINGER'S 1,000 ML IV SCH (11:29)
--- NOTE | 2024-12-28 12:55 | Billing Data ---
Date of Service December 28, 2024 Coding Level of Care Code 36507 SUB INP/OBS CARE MIN
--- NOTE | 2024-12-28 12:55 | Billing Data ---
Date of Service December 28, 2024 Coding Level of Care Code 94094 SUB INP/OBS CARE MIN
[2024-12-28] MEDS: ACETAMINOPHEN 325 MG TAB PO PRN (17:41)
[2024-12-28] MEDS: LIDOCAINE 5% 1 PATCH TD SCH (18:19)
[2024-12-28] MEDS: SENNA 8.6 MG TAB PO PRN (21:07)
[2024-12-28] MEDS: REMOVE LIDODERM PATCH SCH (21:08)
[2024-12-29 08:16] LABS: Anion Gap 8.0 (3-11); Blood Urea Nitrogen 4.0 mg/dl (6-23); Calcium 8.6 mg/dl (8.6-10.3); Carbon Dioxide 25.0 mmol/L (21-32); Chloride 108.0 mmol/L (98-107); Creatinine Clr Calc Pharmacy 171.7 ml/min; Glucose 78.0 mg/dl (70-99(Fasting)); Potassium 2.9 mmol/L (3.5-5.1); Sodium 141.0 mmol/L (136-145)
--- NOTE | 2024-12-29 10:50 | Hospitalist Progress Note ---
Date of Service December 29, 2024 Assessment & Plan (1) Acute diarrhea: (2) UTI (urinary tract infection): (3) Fredrick's disease: (4) Suprapubic catheter: Plan This is a 39-year-old female who presented on 12/26 for suprapubic pain and concern for adrenal crisis due to nausea/vomiting and UTI. #Acute diarrheal illness - no diarrhea since being in the hospital - Given /son also ill, suspect viral (they drink bottled water only per pt) - Flu/RSV/covid on admission negative - replete electrolytes as needed - antiemetics as needed (scheduled IV Compazine, prn IV Phenergan), encourage oral hydration - will hold off on IVF today given increased po intake #UTI - after diarrheal illness, does have symptoms of significant urethral pain - Lactate 3.6 -> 2.4 - No leukocytosis; however patient reports fevers at home - will transition today from rocephin to cefdinir po to assess further po tolerance while in the hospital and then will discharge with remaining course #Fredrick's disease - Hydrocortisone 100 mg IV x 1 given in the ED - then reduced to hydrocortisone 25 mg IV q6h -> decreased to 25 mg BID IV on 12/27 -> transitioned to home po dose on 12/28 and did have some tachycardia in the evening (suspect more due to routine use TID propranolol at home and no use since 12/27, but given extra 3mg po prednisone and this has resolved) - Note: Patient is not hypotensive in the ED, but does have significant concern for adrenal crisis/sepsis due to history - Continue home fludrocortisone - Continue as needed propranolol for POTS #H/o recurrent suprapubic catheter infection - A/P CT revealed no acute findings - suspect infections around suprapubic that are recurrent likely are fungal given pt BMI and the area around the cath gets very warm/moist instead of true bacterial infections around this site repeatedly #Suprapubic pain - no acute pathology on CT - Acetaminophen as needed for fever/pain control - Morphine PRN for breakthrough pain - Lidocaine patch application to lower back #Chest pain - Clinically, patient endorses chest pain and intermittent palpitations - Troponin WNL on arrival - EKG NSR 98 bpm; QTc 446 - Continuous telemetry monitoring #H/o gastric bypass - Patient reports that she has a hard time absorbing pills/nutrients - Port in place for iron infusions and IV access Prior UCxs, per [facility] [place] records, seen on patient's phone (formal records have been requested): UCx 11/30/24 Zuly dubliniensis Unable to do sensitivities UCx 11/06/2024 E Faecalis R to minocycline S to amp/PCN UCx 05/20/2023 Klebsiella R to ampicillin S to ceph, cipro UCx 12/18/2022 E.coli new sensitive UCx 11/27/2020 E Coli R to amp, gent, bactrim S to ceph Admission and Anticipated Discharge Date Admission Date: December 28, 2024 Supervising Physician Co-Signing Physician Notes I personally examined the patient and verified all fallon points of history and exam, discussed case, and agree with decision making with Dr Mejia bad night - still a lot of vomiting. couldnt' really keep anything down. ongoing urethral pain - noted about 4oz urethral urine output and still "felt like razor blades" vitals noted fatigued and tearful heent nc at mmm breathing unlabored no accessory muscles good effort abd soft mild/mod distention LLQ mod tender no guarding no rebound. uti - appears to be subsequent to diarrhea (which was likely viral GE vs foodborne enteritis, either way now resolved) - at the same time, urethritis type symptoms were getting better but are now worsening and without overt sepsis/etc - exact cause and better remedy unclear - continue rocephin, consider urology input nausea/vomiting - still most likely post viral gastritis but since she's not improving and has altered GI anatomy - imaging - will start w SBFT as it's more likley to provide "workable" information than more detailed, but static imaging like a CT. dehydration - due to diarrhea/vomiting/poor PO intake - IV fluids, supportive care. suspect she has a degree of gastritis due to illness -continue aggressive supportive care and antiemetics, encouraged gradual return to regular diet addisons - PO prednisone otherwise as above Subjective Pt seen at bedside this morning. She was initially asleep but easily arousable. She grumbles initially but after a minute was more alert and baseline for her. She states she did vomit once last night but otherwise able to eat more yesterday, not full meals yet but more than before. No pain at the present. She did inquire about checking a CBC as she has a bruise on R hand from previous IV site but advised I would hold off on checking this unless she has continuous bleeding. Review of Systems Review of Systems: Per HPI. Physical Exam Physical Exam: General:Alert and oriented once awakened, no acute distress, HEENT: Normocephalic, moist oral mucosa, Cardio: Regular rate and rhythm, Resp:No increased resp effort, no resp distress Skin: Warm, pink, dry, Results & Data Results & Data Vital Signs (Past 12 Hours) Vital Signs Temp Pulse Resp BP Pulse Ox O2 Del Method 12/29/24 07:43 36.5 C 80 16 123/84 100 Room Air 12/29/24 02:32 36.5 C 82 18 119/87 96 Room Air 12/29/24 00:58 134/90 Resident Activity Tracking Resident Involvement: Resident Care Provided Care Provided: Adult Hospital Medicine
[2024-12-29] MEDS: CEFDINIR 300 MG CAP PO SCH (11:31)
[2024-12-29] MEDS: LACTATED RINGER'S 1,000 ML IV SCH (12:17)
[2024-12-29] MEDS: cefTRIAXone SODIUM 2,000 MG/50 ML BAG IV SCH (12:49)
--- NOTE | 2024-12-29 13:35 | Billing Data ---
Date of Service December 29, 2024 Coding Level of Care Code 04133 SUB INP/OBS CARE MIN
[2024-12-29] MEDS: POTASSIUM CHLORIDE CRTAB 20 MEQ TABCR PO STA (15:39)
[2024-12-29] MEDS: POTASSIUM CHLORIDE / WTR 10 MEQ/100 ML PLCT IV SCH (15:39)
--- NOTE | 2024-12-29 16:23 | Fluoroscopy Report ---
FL small bowel follow through CLINICAL HISTORY: continued N/V. TECHNIQUE: Oral barium was administered to the patient and serial radiographs of the abdomen were pe rformed. COMPARISON STUDY: CT of 12/26/2024 FLUOROSCOPY IMAGES: 8 FINDINGS: Tier Over view demonstrates moderate retained stool. There is prior gastric bypass. There is re tained esophageal contrast on the initial view, reduced esophageal motility or gastroesophageal reflu x. Initially, there is mildly dilated small bowel which resolves on the 60 minute view when the contr ast has progressed to the colon. IMPRESSION: Contrast progresses to the colon within 60 minutes. ACT 112: Negative or not required by law. The above report was generated using voice recognition software. It may contain grammatical, syntax o r spelling errors. Electronically signed by: Ulices Elizabeth M.D. 12/29/2024 4:20 PM
[2024-12-29] MEDS: ZOLPIDEM TARTRATE 5 MG TAB PO PRN (20:49)
[2024-12-29] MEDS: HEPARIN 100 UNIT/ML 5ML FLUSH FLUSH PRN (20:51)
--- NOTE | 2024-12-29 21:56 | Electrocardiogram Report ---
Test Reason : Blood Pressure : */* mmHG Vent. Rate : 106 BPM Atrial Rate : 106 BPM P-R Int : 160 ms QRS Dur : 76 ms QT Int : 342 ms P-R-T Axes : 36 14 22 degrees QTcB Int : 454 ms Sinus tachycardia Otherwise normal ECG When compared with ECG of 26-Dec-2024 14:30, No significant change was found Confirmed by Deangelo Leary ([id number]) on 12/29/2024 9:56:16 PM Referred By: REFERRED SELF Confirmed By: Deangelo Leary
[2024-12-30 07:45] LABS: Anion Gap 8.0 (3-11); Blood Urea Nitrogen 9.0 mg/dl (6-23); Calcium 8.5 mg/dl (8.6-10.3); Carbon Dioxide 24.0 mmol/L (21-32); Chloride 107.0 mmol/L (98-107); Creatinine Clr Calc Pharmacy 149.5 ml/min; Glucose 88.0 mg/dl (70-99(Fasting)); Potassium 3.0 mmol/L (3.5-5.1); Sodium 139.0 mmol/L (136-145)
--- NOTE | 2024-12-30 08:20 | Hospitalist Progress Note ---
Date of Service December 30, 2024 Assessment & Plan (1) Acute diarrhea: (2) UTI (urinary tract infection): (3) Fredrick's disease: (4) Suprapubic catheter: Plan This is a 39-year-old female who presented on 12/26 for suprapubic pain and concern for adrenal crisis due to nausea/vomiting and UTI. #Acute diarrheal illness - Given /son also ill, suspect viral (they drink bottled water only per pt) - Flu/RSV/covid on admission negative - replete electrolytes as needed - antiemetics as needed (scheduled IV Compazine, prn IV Phenergan), encourage oral hydration - no indication for further IVF #UTI - after diarrheal illness, does have symptoms of significant urethral pain - lactic acidosis on admission - resolved - No leukocytosis; however patient reports fevers at home - will transition today from rocephin to cefdinir po to assess further po tolerance while in the hospital and then will discharge with remaining course #[place]'s disease - Hydrocortisone 100 mg IV x 1 given in the ED - then reduced to hydrocortisone 25 mg IV q6h -> decreased to 25 mg BID IV on 12/27 -> transitioned to home po dose on 12/28 and did have some tachycardia in the evening (suspect more due to routine use TID propranolol at home and no use since 12/27, but given extra 3mg po prednisone and this has resolved) - Note: Patient is not hypotensive in the ED, but does have significant concern for adrenal crisis/sepsis due to history - Continue home fludrocortisone - Continue as needed propranolol for POTS #H/o recurrent suprapubic catheter infection - A/P CT revealed no acute findings - suspect infections around suprapubic that are recurrent likely are fungal given pt BMI and the area around the cath gets very warm/moist instead of true bacterial infections around this site repeatedly #Suprapubic pain - no acute pathology on CT - Acetaminophen as needed for fever/pain control - Morphine PRN for breakthrough pain - Lidocaine patch application to lower back #Chest pain - Clinically, patient endorses chest pain and intermittent palpitations - Troponin WNL on arrival - EKG NSR 98 bpm; QTc 446 - Continuous telemetry monitoring #H/o gastric bypass - Patient reports that she has a hard time absorbing pills/nutrients - Port in place for iron infusions and IV access Prior UCxs, per [facility] records, seen on patient's phone (formal records have been requested): UCx 11/30/24 Zuly dubliniensis Unable to do sensitivities UCx 11/06/2024 E Faecalis R to minocycline S to amp/PCN UCx 05/20/2023 Klebsiella R to ampicillin S to ceph, cipro UCx 12/18/2022 E.coli new sensitive UCx 11/27/2020 E Coli R to amp, gent, bactrim S to ceph Admission and Anticipated Discharge Date Admission Date: December 28, 2024 Supervising Physician Co-Signing Physician Notes I personally examined the patient and verified all fallon points of history and exam, discussed case, and agree with decision making with Dr Lam no vomiting. woke up hoarse/no voice. throat sore. also congested, then started w myalgias and sinus congestion lots of diarrhea - explosive, green and watery drinking a lot of fluids urology input appreciated vitals noted, nad heent nc at mmm breathing unlabored no accessory muscles. b/l maxillary sinus tenderness to palp. skin warm and dry no rashes no pallor or icterus uti - appears to be subsequent to diarrhea (which was likely viral GE vs foodborne enteritis, either way now resolved) - continue rocephin, treat intertrigo more aggressively, appreciate urology input nausea/vomiting - has improved. was likley post viral diarrhea - not clear etiology - no significant fecal load on CT 12/26, but then enough feces to cast shadow as part of SBFT 12/29. has had chronic constipation issues before, but current HPI fits more with dumping/fast throughput. appears well hydrated right now, HR has been goo through the day - follow for now. if continues to appear fast throughput then consider adding fiber. dehydration - due to diarrhea/vomiting/poor PO intake - seems to have improved overall. she has understandable concern on her diarrhea, but also is drinking well. 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 discussed we can be aggressively reactive and i'm not at all averse to having her restarted on IV fluids if the situation appears to warrant, but for now would want to follow her UO/color, HR, volume status, vitals and only restart fluids if appearing to be needed myalgias/malaise/congestion - most likely viral URI given congestion - afrin BID. given time of year and centra PA - check CBC, CMP as "front end screening" for hint of anything tick borne such as anaplasma/babesia, consider more specific tick borne testing/management if situation starts to warrant such addisons - PO prednisone otherwise as above Subjective Patient seen and evaluated at bedside this morning. No acute events overnight. Complains this am of sore/scratchy throat. Ongoing flank and urethral pain. VSS. Remains hypokalemic on BMP. Reports diarrhea after small bowel follow through Review of Systems Review of Systems: Per HPI. Physical Exam Physical Exam: General:Alert and oriented once awakened, no acute distress, HEENT: Normocephalic, moist oral mucosa, Cardio: Regular rate and rhythm, Resp:No increased resp effort, no resp distress Skin: Warm, pink, dry, Results & Data Results & Data Vital Signs (Past 12 Hours) Vital Signs Temp Pulse Pulse Resp BP Pulse Ox O2 Del Method 12/30/24 07:00 78 12/30/24 02:42 36.5 C 83 18 111/78 98 Room Air 12/29/24 22:52 36.6 C 96 H 18 111/79 94 Room Air 12/29/24 22:12 93 H Resident Activity Tracking Resident Involvement: Resident Care Provided Care Provided: Adult Hospital Medicine
[2024-12-30] MEDS: SENNA 8.6 MG TAB PO SCH (08:28)
[2024-12-30] MEDS: POLYETHYLENE (MIRALAX) 17 GM PACK PO SCH (08:28)
[2024-12-30] MEDS: POTASSIUM CHLORIDE / WTR 10 MEQ/100 ML PLCT IV SCH (09:33)
--- NOTE | 2024-12-30 11:53 | Urology Consultation ---
Date of Consultation December 30, 2024 Assessment & Plan (1) Suprapubic catheter: (2) Neurogenic bladder: 39-year-old female with history of neurogenic bladder managed with suprapubic catheter admitted for concern of Palisade's crisis and UTI. Urology is consulted regarding suprapubic catheter, ongoing dysuria She is afebrile and hemodynamically stable Labs reviewedcreatinine 0.68, WBC 5.95, hemoglobin 12.4 Urine culture with no growth Blood cultures with no growth to date Suprapubic catheter was recently exchanged on 12/19/2024 She reports SP catheter has not been changed since admission and it was appropriately positioned within the bladder on CT 12/26 Examined patient to ensure suprapubic catheter is not visibly tracking into urethra which can cause discomfortdid not see catheter protruding from urethra On exam, noted yeast-like dischargeconsider treatment of possible yeast infection, especially in context of steroids Consider renal/bladder ultrasound to reassess SP position and nursing can exchange catheter if indicated, otherwise can change as scheduled with her home health Consider Pyridium for dysuria Consider addition of Gemtesa for bladder spasms, urgency/frequency and leaking Continue supportive care and medical management per hospital medicine service Patient can follow-up with her established urologist for ongoing management and consideration of cystoscopy for further evaluation if ongoing dysuria Regarding mucus in urine, can consider routine suprapubic catheter flushes which can be discussed as an outpatient will sign off, please contact her service with any additional questions or concerns History of Present Illness Reason for Consultation: suprapubic cath, continued severe dysuria Attending Physician: Charli Montana DO History of Present Illness This is a 39-year-old female with 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 She presented to the emergency department on 12/26/2024 for evaluation of pain at her suprapubic catheter site, urinary symptoms and ill feelings with concern for Fredrick's crisis. On arrival she was tachycardic, normotensive. Lab work showed WBC 5.95, hemoglobin 12.4, creatinine 0.61. Lactate 3.3. Urinalysis showed trace LE, otherwise unremarkable. Workup included CT abdomen pelvis with contrast which showed no hydronephrosis, no definite renal or ureteral calculi. Bladder appears decompressed with suprapubic catheter in place. She was admitted to the hospital medicine service for concern for Palisade's crisis and UTI. Urology is consulted for suprapubic catheter, ongoing dysuria. Chart review Labs reviewedcreatinine 0.68, WBC 5.95, hemoglobin 12.4 Blood culture 12/26 no growth after 48 hours Urine culture 12/26 no growth Remains on ceftriaxone empirically Patient seen and examined at bedside. She reports she follows with [facility] urology at present. She has a suprapubic catheter due to neurogenic bladder from lumbar pathology status post fusion and decompression. Her suprapubic catheter was initially placed at [facility]. She has had multiple complications of urosepsis and recurrent UTIs. She reports home health changes her catheter approximately every 3 weeks and it was last changed on 12/19/2024. She reports her urine has had significant mucus in it recently and she is also passing mucus from her urethra. She reports home health flushes her catheter when they do changes, but she does not routinely flush it. She reports she is experiencing extreme dysuria described as "razor blades" in her urethra. This started prior to admission and continues at present. She reports prior to admission, her suprapubic catheter site was red and foul smelling, which has resolved. She reports she has experiencing urgency and frequency. Also notes urine leaking from her urethra. She reports she is on medication for bladder spasms at home, but not since admission. No fever or chills. Allergies Allergy/AdvReac Type Severity Reaction Status Date / Time pepper (genus Capsicum) Allergy Severe Jalapeno - Verified 12/30/24 08:31 Tongue swelling and hives adhesive tape Allergy Intermediate SKIN Verified 12/26/24 17:00 REDDENED, ITCHY scopolamine Allergy Intermediate SKIN Verified 12/26/24 17:00 REDDENED, ITCHY escitalopram [From Lexapro] AdvReac Intermediate VERY Verified 12/26/24 17:00 EMOTIONAL, OPPOSITE EFFECT haloperidol [From Haldol] AdvReac Intermediate LOCKED JAW Verified 12/26/24 17:00 Home Medications Medication Instructions Recorded Confirmed Type B-complex with vitamin C 1 cap PO DAILY 11/29/24 12/26/24 History ascorbic acid (vitamin C) 1,000 mg 1,000 mg PO DAILY 11/29/24 12/26/24 History tablet (Vitamin C) calcium 250 mg (as 2 tab PO DAILY 11/29/24 12/26/24 History citrate)-vitamin D3 5 mcg (200 unit) tablet clonazepam 1 mg tablet 1 mg PO TID 11/29/24 12/26/24 History clotrimazole 10 mg ludwig 10 mg PO DIRECTED PRN Flare 11/29/24 12/26/24 History cyanocobalamin (vitamin B-12) 1,000 mcg IM WK 11/29/24 12/26/24 History 1,000 mcg/mL injection solution cyclobenzaprine 10 mg tablet 10 mg PO QAM 11/29/24 12/26/24 History dicyclomine 10 mg capsule 10 mg PO TID PRN IRRITABLE BOWEL 11/29/24 12/26/24 History SYMPTOMS ferrous sulfate 325 mg (65 mg 650 mg PO DAILY 11/29/24 12/26/24 History iron) tablet lidocaine 5 % topical patch 1 patch topical DAILY 11/29/24 12/26/24 History multivitamin with minerals 1 tab PO DAILY 11/29/24 12/26/24 History pantoprazole 40 mg tablet,delayed 40 mg PO BID 11/29/24 12/26/24 History release polyethylene glycol 3350 17 17 g PO DAILY PRN Constipation 11/29/24 12/26/24 History gram/dose oral powder (Miralax) potassium chloride 20 mEq 20 meq PO DAILY 11/29/24 12/26/24 History tablet,extended release(part/cryst) pregabalin 100 mg capsule 100 mg PO AMHS 11/29/24 12/26/24 History pregabalin 50 mg capsule 50 mg PO QPM 11/29/24 12/26/24 History promethazine 25 mg tablet 25 mg PO Q6H PRN NAUSEA/VOMITING 11/29/24 12/26/24 History propranolol 10 mg tablet 10 mg PO TID PRN NEEDED 11/29/24 12/26/24 History sennosides 8.6 mg tablet (senna) 17.2 mg PO HS PRN Constipation 11/29/24 12/26/24 History sucralfate 1 gram tablet (Carafate) 1 g PO ACHS 11/29/24 12/26/24 History thiamine HCl (vitamin B1) 100 mg 100 mg PO DAILY 11/29/24 12/26/24 History tablet (Vitamin B-1) topiramate 100 mg tablet 100 mg PO BID 11/29/24 12/26/24 History topiramate 25 mg tablet 25 mg PO BID 11/29/24 12/26/24 History zinc acetate 50 mg (zinc) capsule 50 mg PO DAILY 11/29/24 12/26/24 History fludrocortisone 0.1 mg tablet 0.1 mg PO QAM 30 days #30 tabs 12/09/24 12/26/24 Rx zolpidem 10 mg tablet (Ambien) 10 mg PO HS PRN Sleep 12/12/24 12/26/24 History acetaminophen 500 mg tablet 500 mg PO Q6H PRN Pain 12/26/24 12/26/24 History prednisone 1 mg tablet 3 mg PO TID 12/26/24 12/26/24 History Patient History Surgical History History of lumbar fusion History of gastric bypass Family History Grandfather (Paternal) Colorectal cancer Grandmother (Paternal) Myocardial infarction Denies family history of Ovarian cancer Prostate cancer Breast cancer Social History Smoking Status: Never smoker Second Hand Exposure: No; Do You Dip or Chew Tobacco: No; Tobacco Cessation Education Requested by Patient: No Hx Alcohol Use: No Hx Substance Use: No Preferred Language: [place]ese Communication Ability: Effective Visual Impairment: No Limitations Hearing Ability: Normal Early Childhood Education Worker Required: No Beliefs That Will Affect Care: None marital status: Current Living Situation: Family current occupational status: disabled How many Children do You have: 2 Other Information That Helps Us Care for You: No Feels Safe at Home: Yes Safety Concerns: Feels Safe At This Time Childhood Exposure to Second-Hand Smoke: No Diet: other Diet Comment: protein, Bypass diet caffeine: Yes during the past year weight has: increased > 10 lbs Dental Care, Regularly: No Physical Activity Frequency: 3-4 Times per Week Physical Activity Frequency Comment: PT/OT Seatbelt Use: always Sunscreen Use: Yes Assistive Devices: Walker and Wheelchair Assistive Devices Comment: shower chair Review of Systems Review of Systems: All systems reviewed & are unremarkable except as noted in HPI & below Physical Exam Constitutional: + morbidly obese; no acute distress Respiratory: no respiratory distress and no labored breathing Gastrointestinal (Abdomen): Inspection/Auscultation: abdomen normal to inspection Percussion/Palpation: abdomen soft Skin: Suprapubic catheter site without erythema or drainage Neurologic: awake Psychiatric: Orientation: alert and oriented x 3 Genitourinary: Suprapubic catheter patent and draining clear yellow urine. I do not see her suprapubic catheter protruding from urethra on exam. Moisture and yeast/discharge noted. Results & Data Vital Signs (Past 12 Hours) Vital Signs Temp Pulse Pulse Resp BP Pulse Ox O2 Del Method 12/30/24 11:51 36.5 C 73 20 117/84 98 Room Air 12/30/24 08:27 36.4 C L 73 18 108/77 94 Room Air 12/30/24 07:00 78 12/30/24 02:42 36.5 C 83 18 111/78 98 Room Air PG Care Time/CCT Total # of Minutes Spent Total Time Spent with Patient: Total time spent is greater than 50% in coordination of care (as documented) at patient's floor/unit and/or counseling patient: Coding Level of Care Code 94312 IN/OBS CONSULT LVL 4,60M Diagnoses Suprapubic catheter Z93.59 Neurogenic bladder N31.9
--- NOTE | 2024-12-30 13:45 | Electrocardiogram Report ---
Test Reason : Blood Pressure : */* mmHG Vent. Rate : 88 BPM Atrial Rate : 88 BPM P-R Int : 160 ms QRS Dur : 80 ms QT Int : 392 ms P-R-T Axes : 43 12 18 degrees QTcB Int : 474 ms Normal sinus rhythm Normal ECG When compared with ECG of 28-Dec-2024 18:24, No significant change was found Confirmed by Kyle Guillen ([id number]) on 12/30/2024 1:45:19 PM Referred By: REFERRED SELF Confirmed By: Kyle Guillen
[2024-12-30] MEDS: FLUCONAZOLE 50 MG TAB PO ONE (15:47)
[2024-12-30] MEDS: NYSTATIN POWDER 15GM BTL EXT SCH (15:48)
--- NOTE | 2024-12-30 16:23 | Billing Data ---
Date of Service December 30, 2024 Coding Level of Care Code 94446 SUB INP/OBS CARE MIN
[2024-12-30] MEDS: OXYMETAZOLINE 0.05% 30 ML BTL SCH (16:59)
[2024-12-30] MEDS: FAMOTIDINE 20 MG TAB PO SCH (22:11)
[2024-12-30] MEDS: CEFDINIR 300 MG CAP PO SCH (22:12)
--- NOTE | 2024-12-31 07:01 | Hospitalist Progress Note ---
Date of Service December 31, 2024 Assessment & Plan (1) Acute diarrhea: (2) UTI (urinary tract infection): (3) Fredrick's disease: (4) Suprapubic catheter: Plan This is a 39-year-old female who presented on 12/26 for suprapubic pain and concern for adrenal crisis due to nausea/vomiting and UTI. Condition is improving but still multiple illnesses that are not yet stable/resolved. #Acute diarrheal illness - Improving; today, stool closer to normal color & caliber than prior pictures taken by pt - Given /son also ill, suspect viral (they drink bottled water only per pt) - Flu/RSV/covid on admission negative, blood cultures NGTD - Replete electrolytes as needed - Continued IV Compazine vahe, IV Phenergan prn, protnix bid, carafate achs, pepcid bid - Encourage oral hydration #UTI - after diarrheal illness, does have symptoms of significant urethral pain - UA c/w infection, final urine culture with no growth - No leukocytosis. Pt reports fevers at home; afebrile during admission - Continue po cefdinir and finish course after discharge #Fredrick's disease - Hydrocortisone 100 mg IV x 1 given in the ED - then reduced to hydrocortisone 25 mg IV q6h -> decreased to 25 mg BID IV on 12/27 -> transitioned to home po dose on 12/28 and did have some tachycardia in the evening (suspect more due to routine use TID propranolol at home and no use since 12/27, but given extra 3mg po prednisone and this has resolved) - Note: Patient is not hypotensive in the ED, but still significant concern for adrenal crisis/sepsis due to history - Continue home fludrocortisone - Continue as needed propranolol for POTS #H/o recurrent suprapubic catheter infection - A/P CT revealed no acute findings - suspect infections around suprapubic that are recurrent likely are fungal giv en pt BMI and the area around the cath gets very warm/moist instead of true bacterial infections around this site repeatedly #Suprapubic pain - no acute pathology on CT - Acetaminophen as needed for fever/pain control - Morphine PRN for breakthrough pain - Lidocaine patch application to lower back #Chest pain - Clinically, patient endorses chest pain and intermittent palpitations - Troponin WNL on arrival - EKG NSR 98 bpm; QTc 446 - Continuous telemetry monitoring #H/o gastric bypass - Patient reports that she has a hard time absorbing pills/nutrients - Port in place for iron infusions and IV access Prior UCxs, per [facility] records, seen on patient's phone (formal records have been requested): UCx 11/30/24 Zuly dubliniensis Unable to do sensitivities UCx 11/06/2024 E Faecalis R to minocycline S to amp/PCN UCx 05/20/2023 Klebsiella R to ampicillin S to ceph, cipro UCx 12/18/2022 E.coli new sensitive UCx 11/27/2020 E Coli R to amp, gent, bactrim S to ceph Diet: regular Dispo: home when stable Code: Full Admission and Anticipated Discharge Date Admission Date: December 28, 2024 Supervising Physician Co-Signing Physician Notes I personally examined the patient and verified all fallon points of history and exam, discussed case, and agree with decision making with Dr Hensley no vomiting but does still feel nausea and at times some epigastric pain, generalized abdominal bloat. loose stools slowed down. walking a bit better althoough HR did go up to ~170 with walking vitals noted, nad heent nc at mmm breathing unlabored no accessory muscles. bbreathing unlabored no accesory muscles good effort. skin warm and dry no rashes no pallor or icterus uti - appears to be subsequent to diarrhea (which was likely viral GE vs foodborne enteritis, either way now resolved) - continue rocephin, treat intertrigo more aggressively, appreciate urology input nausea/vomiting - slow ongoing improvement. was likley post viral; still has some residual sx but between GE, gastric bypass, and esophageal dysmotility - not at all surprising that her sx would take a while to improve fully diarrhea - improving. most likely was laxative effect of PO contrast for SBFT, but in the context of chronic constipation wtih what sounds to be diet mediated/intermittent dumping like symptoms, was confusing as to cause - but now getting better. dehydration - due to diarrhea/vomiting/poor PO intake - seems to have improved overall. drinking better. continue to hold off on IV fluids - low threshold to restart but try to allow PO for now. 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 discussed we can be aggressively reactive and i'm not at all averse to having her restarted on IV fluids if the situation appears to warrant, but for now would want to follow her UO/color (was less, mid-range yellow earlier --> now higher volume and clearer), HR, volume status, vitals and only restart fluids if appearing to be needed myalgias/malaise/congestion - most likely viral URI given congestion - afrin BID. addisons - PO prednisone, low threshold to give IV fluids; if that didnt' help then would consider resume IV steroids otherwise as above Subjective Patient seen and examined in bed this morning. Has been walking around the room and a bit into the mendoza. Per telemetry, her HR does get into the 140s during this exertion, but patient says she has no SOB or CP. Still having diarrhea but now more formed and normal in color. Has been doing great with po hydration, having finished several Powerades, and did well w/ breakfast. Does report still having flank pain. No abd pain or sensation of "razor blades in her urethra" Review of Systems Review of Systems: Per HPI. Physical Exam Physical Exam: Gen: NAD, WD/WN HEENT: NCAT, PERRL, MMM CV: RRR, no m/r/g, no LE edema Resp: CTAB, symmetrical chest rise, breathing non-labored Abd: Soft, nondistended, mild diffuse tenderness, +BS : No SP tenderness, no CVA tenderness to light palpation MSK: Full ROM, normal str, no gross deformities Skin: Warm, dry, well-perfused Neuro: Alert, oriented, no focal deficits Psych: Anxious. Full affect. Speech pace normal. Very circumstantial thinking. Results & Data Results & Data Vital Signs (Past 12 Hours) Vital Signs Temp Pulse Resp BP Pulse Ox O2 Del Method 12/31/24 04:18 36.2 C L 96 H 20 121/85 94 Room Air 12/30/24 23:15 36.5 C 92 H 20 126/90 97 Room Air 12/30/24 19:43 36.5 C 97 H 20 121/84 96 Room Air Resident Activity Tracking Resident Involvement: Resident Care Provided Care Provided: Adult Hospital Medicine
[2024-12-31 07:18] LABS: Hematocrit (blood only) 37.1 % (37.0-47.0); Hemoglobin 11.7 g/dl (12.0-16.0); Immature Granulocytes # (auto) 0.06 K/uL (0.01-0.20); Immature Granulocytes % (auto) 0.9 %; Mean Corpuscular Hemoglobin 27.9 pg (25.0-34.0); Mean Corpuscular Volume 88.5 fL (80.0-100.0); Platelet Count 274 K/uL (130-400); RDW Standard Deviation 68.3 fL (36.4-46.3); Red Blood Count 4.19 M/uL (4.20-5.40); White Blood Count 6.79 K/ul (4.8-10.8)
[2024-12-31 07:53] LABS: Alanine Aminotransferase 12.0 U/L (7-52); Albumin Globulin Ratio 1.7 (0.9-2); Alkaline Phosphatase 57.0 U/L (34-104); Anion Gap 8.0 (3-11); Bilirubin,Total 0.2 mg/dl (0.2-1.0); Blood Urea Nitrogen 9.0 mg/dl (6-23); Calcium 8.5 mg/dl (8.6-10.3); Carbon Dioxide 25.0 mmol/L (21-32); Chloride 107.0 mmol/L (98-107); Creatinine Clr Calc Pharmacy 153.0 ml/min; Globulin 2.4 gm/dl (2.5-4.0); Glucose 98.0 mg/dl (70-99(Fasting)); Potassium 3.3 mmol/L (3.5-5.1); Sodium 140.0 mmol/L (136-145); Total Protein 6.4 gm/dl (6.0-8.3)
[2024-12-31 08:00] LABS: Anisocytosis Present
--- NOTE | 2024-12-31 17:42 | Billing Data ---
Date of Service December 31, 2024 Coding Level of Care Code 57431 SUB INP/OBS CARE MIN
--- NOTE | 2025-01-01 08:39 | Hospitalist Progress Note ---
Date of Service January 01, 2025 Assessment & Plan (1) Acute diarrhea: (2) UTI (urinary tract infection): (3) Fredrick's disease: (4) Suprapubic catheter: Plan This is a 39-year-old female who presented on 12/26 for suprapubic pain and concern for adrenal crisis due to nausea/vomiting and UTI. Condition is improving but still multiple illnesses that are not yet stable/resolved. #Acute diarrheal illness - Improving; today, stool closer to normal color & caliber than prior pictures taken by pt - Given /son also ill, suspect viral (they drink bottled water only per pt) - Flu/RSV/covid on admission negative, blood cultures NGTD - Replete electrolytes as needed - Continued IV Compazine vahe, IV Phenergan prn, protnix bid, carafate achs, pepcid bid - Encourage oral hydration #UTI - after diarrheal illness, does have symptoms of significant urethral pain - UA c/w infection, final urine culture with no growth - No leukocytosis. Pt reports fevers at home; afebrile during admission - Continue po cefdinir and finish course after discharge #Fredrick's disease - Hydrocortisone 100 mg IV x 1 given in the ED - then reduced to hydrocortisone 25 mg IV q6h -> decreased to 25 mg BID IV on 12/27 -> transitioned to home po dose on 12/28 and did have some tachycardia in the evening (suspect more due to routine use TID propranolol at home and no use since 12/27, but given extra 3mg po prednisone and this has resolved) - Note: Patient is not hypotensive in the ED, but still significant concern for adrenal crisis/sepsis due to history - Continue home fludrocortisone - Continue as needed propranolol for POTS #H/o recurrent suprapubic catheter infection - A/P CT revealed no acute findings - suspect infections around suprapubic that are recurrent likely are fungal giv en pt BMI and the area around the cath gets very warm/moist instead of true bacterial infections around this site repeatedly #Suprapubic pain - no acute pathology on CT - Acetaminophen as needed for fever/pain control - Morphine PRN for breakthrough pain - Lidocaine patch application to lower back #Chest pain - Clinically, patient endorses chest pain and intermittent palpitations - Troponin WNL on arrival - EKG NSR 98 bpm; QTc 446 - Continuous telemetry monitoring #H/o gastric bypass - Patient reports that she has a hard time absorbing pills/nutrients - Port in place for iron infusions and IV access Prior [facility]xs, per [facility], seen on patient's phone (formal records have been requested): UCx 11/30/24 Zuly dubliniensis Unable to do sensitivities UCx 11/06/2024 E Faecalis R to minocycline S to amp/PCN UCx 05/20/2023 Klebsiella R to ampicillin S to ceph, cipro UCx 12/18/2022 E.coli new sensitive UCx 11/27/2020 E Coli R to amp, gent, bactrim S to ceph Diet: regular Dispo: home when stable Code: Full Admission and Anticipated Discharge Date Admission Date: December 28, 2024 Review of Systems Review of Systems: Per HPI. Physical Exam Physical Exam: Gen: NAD, WD/WN HEENT: NCAT, PERRL, MMM CV: RRR, no m/r/g, no LE edema Resp: CTAB, symmetrical chest rise, breathing non-labored Abd: Soft, nondistended, mild diffuse tenderness, +BS : No SP tenderness, no CVA tenderness to light palpation MSK: Full ROM, normal str, no gross deformities Skin: Warm, dry, well-perfused Neuro: Alert, oriented, no focal deficits Psych: Anxious. Full affect. Speech pace normal. Very circumstantial thinking. Results & Data Results & Data Vital Signs (Past 12 Hours) Vital Signs Temp Pulse Pulse Resp BP BP Pulse Ox 01/01/25 08:04 36.6 C 99 H 18 111/82 95 01/01/25 07:43 84 01/01/25 01:59 104 H 12/31/24 23:46 36.5 C 99 H 18 125/88 98 O2 Del Method 01/01/25 08:04 Room Air 01/01/25 07:43 01/01/25 01:59 12/31/24 23:46 Room Air
--- NOTE | 2025-01-01 11:08 | Hospitalist Progress Note ---
Date of Service January 01, 2025 Assessment & Plan (1) Acute diarrhea: (2) UTI (urinary tract infection): (3) Fredrick's disease: (4) Suprapubic catheter: Plan *01/01 -seems to be improving overall. d/w pt that she's proving herself to probably be more stable than she may have been told in the past, although unfortunately she is still quite symptomatic. d/w her that i suspect some times she probably truly has been unstable, but other times because of the complexity of her hx and potentially prior events, it may have been that she was managed as though she was becoming unstable even if she was largely sick/symptomatic but not in life threatening danger -discussed that it's quite reassurring that she can "dig herself out of a hydration hole" with PO intake - but watching for ~48hrs with no IV support, it does seem like she probably does have some malabsorption and it takes a "misery inflicting" amount of PO fluids to get there --> this seems to prove that she'd probably do much better chronically with a degree of IV fluid support. will give 1L LR today, and set things in motion for initial assumption that she'll get 1L LR daily at home to supplement PO fluid intake -discussed that her viral URI is probably unfortunately making her reasonably ill and that this is probably a large part of why she's not feeling noticeably better yet -ongoing urethral sx unclear etiology - may need to ask urology for other thoughts; urine visual finding of cylindrical mucous stranding may just be "normal abnormality" with suprapubic but will ask for UA/micro to better define this -->plan towards home: post viral gastritis appears better, can probably anticipate home on aggressive acid suppression and slow wean to baseline meds over ~1-4wks; will ask that IV fluid support be set up for home with an initial 1L daily - and then depending on her needs/clinical course, can potentially do less if needed. ongoing supportive care and "unraveling of medical PTSD" as far as giving empathy and support, but also helping her distinguish between "very symptomatic/miserable" and "truly unstable" (i suspect most of the time she requires care due to her complexity/severity of chronic illness but that true instability, while probably happening occassionally, is common). at ct will need education on stress dosing of PO prednisone This is a 39-year-old female who presented on 12/26 for suprapubic pain and concern for adrenal crisis due to nausea/vomiting and UTI. Condition is improving but still multiple illnesses that are not yet stable/resolved. #Acute diarrheal illness - Improving; today, stool closer to normal color & caliber than prior pictures taken by pt - Given /son also ill, suspect viral (they drink bottled water only per pt) - Flu/RSV/covid on admission negative, blood cultures NGTD - Replete electrolytes as needed - Continued IV Compazine vahe, IV Phenergan prn, protnix bid, carafate achs, pepcid bid - Encourage oral hydration #UTI - after diarrheal illness, does have symptoms of significant urethral pain - UA c/w infection, final urine culture with no growth - No leukocytosis. Pt reports fevers at home; afebrile during admission - Continue po cefdinir and finish course after discharge #Fredrick's disease - Hydrocortisone 100 mg IV x 1 given in the ED - then reduced to hydrocortisone 25 mg IV q6h -> decreased to 25 mg BID IV on 12/27 -> transitioned to home po dose on 12/28 and did have some tachycardia in the evening (suspect more due to routine use TID propranolol at home and no use since 12/27, but given extra 3mg po prednisone and this has resolved) - Note: Patient is not hypotensive in the ED, but still significant concern for adrenal crisis/sepsis due to history - Continue home fludrocortisone - Continue as needed propranolol for POTS #H/o recurrent suprapubic catheter infection - A/P CT revealed no acute findings - suspect infections around suprapubic that are recurrent likely are fungal given pt BMI and the area around the cath gets very warm/moist instead of true bacterial infections around this site repeatedly #Suprapubic pain - no acute pathology on CT - Acetaminophen as needed for fever/pain control - Morphine PRN for breakthrough pain - Lidocaine patch application to lower back #Chest pain - Clinically, patient endorses chest pain and intermittent palpitations - Troponin WNL on arrival - EKG NSR 98 bpm; QTc 446 - Continuous telemetry monitoring #H/o gastric bypass - Patient reports that she has a hard time absorbing pills/nutrients - Port in place for iron infusions and IV access Prior UCxs, per [facility] records, seen on patient's phone (formal records have been requested): UCx 11/30/24 Zuly dubliniensis Unable to do sensitivities UCx 11/06/2024 E Faecalis R to minocycline S to amp/PCN UCx 05/20/2023 Klebsiella R to ampicillin S to ceph, cipro UCx 12/18/2022 E.coli new sensitive UCx 11/27/2020 E Coli R to amp, gent, bactrim S to ceph Diet: regular Dispo: home when stable Code: Full Admission and Anticipated Discharge Date Admission Date: December 28, 2024 Supervising Physician Co-Signing Physician Notes I personally examined the patient and verified all fallon points of history and exam, discussed case, and agree with decision making with Dr Hensley no vomiting but does still feel nausea and at times some epigastric pain, generalized abdominal bloat. loose stools slowed down. walking a bit better althoough HR did go up to ~170 with walking vitals noted, nad heent nc at mmm breathing unlabored no accessory muscles. bbreathing unlabored no accesory muscles good effort. skin warm and dry no rashes no pallor or icterus uti - appears to be subsequent to diarrhea (which was likely viral GE vs foodborne enteritis, either way now resolved) - continue rocephin, treat intertrigo more aggressively, appreciate urology input nausea/vomiting - slow ongoing improvement. was constantinoley post viral; still has some residual sx but between GE, gastric bypass, and esophageal dysmotility - not at all surprising that her sx would take a while to improve fully diarrhea - improving. most likely was laxative effect of PO contrast for SBFT, but in the context of chronic constipation wtih what sounds to be diet mediated/intermittent dumping like symptoms, was confusing as to cause - but now getting better. dehydration - due to diarrhea/vomiting/poor PO intake - seems to have improved overall. drinking better. continue to hold off on IV fluids - low threshold to restart but try to allow PO for now. 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 discussed we can be aggressively reactive and i'm not at all averse to having her restarted on IV fluids if the situation appears to warrant, but for now would want to follow her UO/color (was less, mid-range yellow earlier --> now higher volume and clearer), HR, volume status, vitals and only restart fluids if appearing to be needed myalgias/malaise/congestion - most likely viral URI given congestion - afrin BID. addisons - PO prednisone, low threshold to give IV fluids; if that didnt' help then would consider resume IV steroids otherwise as above Subjective GI sx - mostly now bloating, and some epigastric discomfort. is able to eat and drink - but (see below w hydration) is having to drink very large volumes and then feels quite bloated hydration - still fairly tachy w exertion, she notes resting HR 115, although on monitor through the night (when she would have been asleep) she was more consistently ~80-100. urine a little more dark in the AM "eyeball sp grav" ~1.020, but then with hydration is able to get urine higher in volume and more clear - but has to drink enough that she feels quite bloated urine sx - thick mucous strands in urine, ongoing urethral pain ambulatory - still able to walk - seems to have some back pain/spasms URI sx - cough, yellow sputum Review of Systems Review of Systems: All systems reviewed & are unremarkable except as noted in HPI & below Physical Exam Physical Exam: aaox3 pleasant somewhat pressured speech fatigued appearing. heent nc at mmm. lungs cta b/l no rrw good effort skin no rashes no pallor or icterus. neuro no focal deficits. Results & Data Results & Data Vital Signs (Past 12 Hours) Vital Signs Temp Pulse Pulse Resp BP BP Pulse Ox 01/01/25 08:04 97.9 F 99 H 18 111/82 95 01/01/25 07:43 84 01/01/25 01:59 104 H 12/31/24 23:46 97.7 F 99 H 18 125/88 98 O2 Del Method 01/01/25 08:04 Room Air 01/01/25 07:43 01/01/25 01:59 12/31/24 23:46 Room Air PG Care Time/CCT Total # of Minutes Spent Total Time Spent with Patient: Total time spent is greater than 50% in coordination of care (as documented) at patient's floor/unit and/or counseling patient: Coding Level of Care Code 55640 SUB INP/OBS CARE 50MIN Diagnoses Acute diarrhea R19.7 UTI (urinary tract infection) N39.0 [place]'s disease E27.1 Suprapubic catheter Z93.59
[2025-01-01] MEDS: MAGNESIUM SULFATE / D5W 1 GM/100 ML BAG IV SCH (11:09)
[2025-01-01] MEDS: LACTATED RINGER'S 1,000 ML IV SCH (11:11)
[2025-01-01 12:04] LABS: Appearance Urine Clear (Clear); Bacteria Urine Automated None Seen (None Seen); Glucose Urine UA Negative (Negative); RBC Urine Automated >20 /hpf (0-2); WBC Urine Automated 0-5 /hpf (0-5)
--- NOTE | 2025-01-02 06:48 | Hospitalist Progress Note ---
Date of Service January 02, 2025 Assessment & Plan (1) Acute diarrhea: (2) UTI (urinary tract infection): (3) Fredrick's disease: (4) Suprapubic catheter: Plan This is a 39-year-old female with PMH [place] disease on chronic steroids, neurogenic bladder with suprapubic catheter, anxiety, chronic pain, GERD ,and obesity with BMI of 39.9 who presented on 12/26 for suprapubic pain , urinary symptoms and N/V. Condition overall improving but still multiple illnesses that are not yet resolved. #[place]'s disease - Hydrocortisone 100 mg IV x 1 given in the ED - Continue IV Hydrocortisone 25mg BID -Continue Prednisone 3mg PO TID -Continue Home Fludrocortisone 0.1mg qAM #N/V/D - Denies symptoms currently. - Flu/RSV/Covid on admission negative, blood cultures NGTD - Close monitoring of electrolytes and replete as needed - Continue IV Compazine vahe, IV Phenergan PRN, Protonix BID, Carafate ACHS, Pepcid bid - Encourage oral hydration -K+: 3.1 . Kcl 60meq stat given #Possible EDEN -Consider Sleep study in the outpatient #UTI - Urinary pain still persists. currently afebrile - UA c/w infection, final urine culture with no growth - No leukocytosis. - Continue Cefdinir(Day 4) #H/o recurrent suprapubic catheter infection - A/P CT revealed no acute findings - suspect infections around suprapubic that are recurrent likely are fungal given pt BMI and the area around the cath gets very warm/moist instead of true bacterial infections around this site repeatedly -apply Nystatin powder BID #Suprapubic pain - no acute pathology on CT - Acetaminophen as needed for fever/pain control - Morphine PRN for breakthrough pain - Lidocaine patch application to lower back #Chest pain - Clinically, patient endorses chest pain and intermittent palpitations - Troponin WNL on arrival - EKG NSR 98 bpm; QTc 446 - Continuous telemetry monitoring #H/o gastric bypass - Patient reports that she has a hard time absorbing pills/nutrients - Port in place for iron infusions and IV access #POTS -Continue Propranolol 10mg TID PRN #Anxiety -Continue Clonazepam 1mg PO TID #Chronic back pain -Continue Flexeril and Pregabalin Admission and Anticipated Discharge Date Admission Date: December 28, 2024 Supervising Physician Co-Signing Physician Notes I personally examined the patient and verified fallon points of history and exam, discussed case, and agree with decision making and plan documented by Dr. Carballo. Patient continues to maintain good p.o. intake, did have some nausea and vomiting earlier, reports loose stools with improvement from initial diarrhea. Intermittent tachycardia, improved with propranolol, also likely exacerbated with stress and frustration with staff. Discussed hope that patient gets some restorative sleep tonight. Patient appears comfortable, lungs clear b/l to auscultation, regular rate and rhythm, mild erythema and serous discharge at suprapubic catheter site in fold of pannus, no acute distress. Nystatin cream added. Repleting potassium. Monitor for continued clinical improvement. Subjective Overnight events: Didn't sleep well overnight due to multiple issues going on. Ongoing symptoms: Still feels bloated and some epigastric discomfort. Denies nausea, vomiting and diarrhea Ongoing urethral pain, has thick mucous strands in urine She had worst morning yesterday due to urinary pain and passage of clots Have some back pain/spasms but able to walk URI symptoms: Has cough, yellow sputum New symptoms: Denies new issues Review of Systems Review of Systems: As per HPI Physical Exam Physical Exam: Constitutional: Well appearing, No acute distress, PILCCOD: Negative HEENT: Atraumatic, Normocephalic, No conjunctival injection CVS: S1 S2 no murmur, Regular Rhythm, no LE edema Respiratory: BL equal air entry with NVBS. No rhonchi, wheezes, or crackles. No increased work of breathing GI: Generalized abdominal tenderness, Normal Bowel sounds + MSK: No gross deformities noted Skin: Warm, Dry, No rashes Neuro: Alert, Oriented to TPP, No Focal deficit Results & Data Results & Data Vital Signs (Past 12 Hours) Vital Signs Temp Pulse Pulse Resp BP Pulse Ox O2 Del Method 01/02/25 04:00 36.6 C 87 110/79 98 Room Air 01/02/25 00:09 36.5 C 115 H 18 116/83 96 Room Air 01/01/25 21:55 100 H 01/01/25 19:52 36.5 C 107 H 22 123/87 98 Room Air Resident Activity Tracking Resident Involvement: Resident Care Provided Care Provided: Adult [facility]
[2025-01-02 09:31] LABS: Anion Gap 6 (3-11); Calcium 9.0 mg/dl (8.6-10.3); Carbon Dioxide 24 mmol/L (21-32); Chloride 106 mmol/L (98-107); Sodium 136 mmol/L (136-145)
[2025-01-02 09:36] LABS: Blood Urea Nitrogen 9 mg/dl (6-23); Creatinine Clr Calc Pharmacy 137.2 ml/min; Glucose 80 mg/dl (70-99(Fasting))
[2025-01-02] MEDS: POTASSIUM CHLORIDE 20 MEQ/15 ML UDC PO STA ×2 (13:09→15:04)
[2025-01-03] MEDS: NYSTATIN CR 15 GM TUBE EXT SCH (00:33)
[2025-01-03 06:25] LABS: Hematocrit (blood only) 39.7 % (37.0-47.0); Hemoglobin 11.9 g/dl (12.0-16.0); Immature Granulocytes # (auto) 0.06 K/uL (0.01-0.20); Immature Granulocytes % (auto) 1.2 %; Mean Corpuscular Hemoglobin 26.6 pg (25.0-34.0); Mean Corpuscular Volume 88.8 fL (80.0-100.0); Platelet Count 260 K/uL (130-400); RDW Standard Deviation 67.2 fL (36.4-46.3); Red Blood Count 4.47 M/uL (4.20-5.40); White Blood Count 5.16 K/ul (4.8-10.8)
--- NOTE | 2025-01-03 06:46 | Hospitalist Progress Note ---
Date of Service January 03, 2025 Assessment & Plan (1) Acute diarrhea: (2) UTI (urinary tract infection): (3) Fredrick's disease: (4) Suprapubic catheter: Plan This is a 39-year-old female with PMH [place] disease on chronic steroids, neurogenic bladder with suprapubic catheter, anxiety, chronic pain, GERD ,and obesity with BMI of 39.9 who presented on 12/26 for suprapubic pain , urinary symptoms and N/V. Condition overall improving but still multiple illnesses that are not yet resolved. #[place]'s disease - Hydrocortisone 100 mg IV x 1 given in the ED - Continue IV Hydrocortisone 25mg BID -Continue Prednisone 3mg PO TID -Continue Home Fludrocortisone 0.1mg qAM #N/V/D - Had one episode of loose stool yesterday which was foul smelling. Ordered Stool test - Flu/RSV/Covid on admission negative, blood cultures NGTD - Close monitoring of electrolytes and replete as needed - Stop IV Compazine vahe - IV Phenergan PRN, Protonix BID, Carafate ACHS, Pepcid bid - Encourage oral hydration - K+: 3.3 this morning. Repleted with KCl. Will repeat tomorrow morning. #Possible EDEN -Consider Sleep study in the outpatient #UTI - Urinary pain still persists. currently afebrile - UA c/w infection, final urine culture with no growth - No leukocytosis. - Continue Cefdinir(Day 5) #H/o recurrent suprapubic catheter infection # Candidiasis around catheter insertion site - A/P CT revealed no acute findings - suspect infections around suprapubic that are recurrent likely are fungal given pt BMI and the area around the cath gets very warm/moist instead of true bacterial infections around this site repeatedly -Fluconazole 150mg stat #Suprapubic pain - no acute pathology on CT - Acetaminophen as needed for fever/pain control - Morphine PRN for breakthrough pain - Lidocaine patch application to lower back #Chest pain - Clinically, patient endorses chest pain and intermittent palpitations - Troponin WNL on arrival - EKG NSR 98 bpm; QTc 446 - Continuous telemetry monitoring #H/o gastric bypass - Patient reports that she has a hard time absorbing pills/nutrients - Port in place for iron infusions and IV access #POTS -Continue Propranolol 10mg TID PRN #Anxiety -Continue Clonazepam 1mg PO TID #Chronic back pain -Continue Flexeril and Pregabalin Admission and Anticipated Discharge Date Admission Date: December 28, 2024 Supervising Physician Co-Signing Physician Notes I personally examined the patient and verified fallon points of history and exam, discussed case, and agree with decision making and plan documented by Dr. Carballo. Great effort of PO hydration. Patient ambulated with physical therapy however continues to experience symptomatic POTS. Still having diarrhea episodes with some nausea. Vulvar area appears erythematous and irritated, agree with dose of Diflucan. Subjective Overnight events: Didn't sleep well overnight due to multiple issues going on. Ongoing symptoms: Reports some significant discomfort and itching on catheter insertion site Denies nausea, vomiting Had loose stool one episode yesterday evening which was foul smelling Reports she had distressing cough with yellow sputum Have some back pain/spasms but able to walk New symptoms: Denies new issues Review of Systems Review of Systems: As per HPI Physical Exam Physical Exam: Constitutional: Well appearing, No acute distress, PILCCOD: Negative HEENT: Atraumatic, Normocephalic, No conjunctival injection CVS: S1 S2 no murmur, Regular Rhythm, no LE edema Respiratory: BL equal air entry with NVBS. No rhonchi, wheezes, or crackles. No increased work of breathing GI: Generalized abdominal tenderness, Normal Bowel sounds + MSK: No gross deformities noted Skin: Warm, Dry, No rashes Neuro: Alert, Oriented to TPP, No Focal deficit Results & Data Results & Data Vital Signs (Past 12 Hours) Vital Signs Temp Pulse Pulse Resp BP Pulse Ox O2 Del Method 01/03/25 03:00 36.6 C 92 H 18 117/85 99 Room Air 01/02/25 22:53 36.7 C 92 H 18 129/88 96 Room Air 01/02/25 21:49 107 H 01/02/25 20:21 Room Air 01/02/25 19:39 37.1 C 104 H 18 112/77 97 Room Air 01/02/25 18:46 36.7 C 99 H 17 124/85 97 Room Air
[2025-01-03 06:58] LABS: Anisocytosis Present; Polychromasia 1+
[2025-01-03 07:03] LABS: Anion Gap 7.0 (3-11); Calcium 9.0 mg/dl (8.6-10.3); Carbon Dioxide 27.0 mmol/L (21-32); Chloride 107.0 mmol/L (98-107); Potassium 3.3 mmol/L (3.5-5.1); Sodium 141.0 mmol/L (136-145)
[2025-01-03 07:08] LABS: Blood Urea Nitrogen 11.0 mg/dl (6-23); Creatinine Clr Calc Pharmacy 156.7 ml/min
[2025-01-03] MEDS: POTASSIUM CHLORIDE 20 MEQ/15 ML UDC PO STA (10:22)
[2025-01-03] MEDS: FLUCONAZOLE 50 MG TAB PO ONE (16:40)
[2025-01-03] MEDS: POTASSIUM CHLORIDE CRTAB 20 MEQ TABCR PO SCH (21:17)
[2025-01-04 06:23] LABS: Hematocrit (blood only) 36.6 % (37.0-47.0); Hemoglobin 11.3 g/dl (12.0-16.0); Immature Granulocytes # (auto) 0.07 K/uL (0.01-0.20); Immature Granulocytes % (auto) 0.9 %; Mean Corpuscular Hemoglobin 27.1 pg (25.0-34.0); Mean Corpuscular Volume 87.8 fL (80.0-100.0); Platelet Count 263 K/uL (130-400); RDW Standard Deviation 67.5 fL (36.4-46.3); Red Blood Count 4.17 M/uL (4.20-5.40); White Blood Count 7.62 K/ul (4.8-10.8)
[2025-01-04 06:46] LABS: Anisocytosis Present; Polychromasia 2+
[2025-01-04 06:56] LABS: Anion Gap 4.0 (3-11); Blood Urea Nitrogen 10.0 mg/dl (6-23); Calcium 8.6 mg/dl (8.6-10.3); Carbon Dioxide 25.0 mmol/L (21-32); Chloride 109.0 mmol/L (98-107); Creatinine Clr Calc Pharmacy 151.2 ml/min; Potassium 3.1 mmol/L (3.5-5.1); Sodium 138.0 mmol/L (136-145)
--- NOTE | 2025-01-04 07:23 | Hospitalist Progress Note ---
Date of Service January 04, 2025 Assessment & Plan (1) Acute diarrhea: (2) UTI (urinary tract infection): (3) Fredrick's disease: (4) Suprapubic catheter: Plan This is a 39-year-old female with PMH [place] disease on chronic steroids, neurogenic bladder with suprapubic catheter, anxiety, chronic pain, GERD ,and obesity with BMI of 39.9 who presented on 12/26 for suprapubic pain , urinary symptoms and N/V. Condition overall improving but still multiple illnesses that are not yet resolved. #[place] disease - Hydrocortisone 100 mg IV x 1 given in the ED - Continue IV Hydrocortisone 25mg BID -Continue Prednisone 3mg PO TID -Continue Home Fludrocortisone 0.1mg qAM #N/V/D - She reported having 9 episodes of greenish loose stool overnight. Stool test for C diff pending - Flu/RSV/Covid on admission negative, blood cultures NGTD - Close monitoring of electrolytes and replete as needed - Stop IV Compazine vahe - IV Phenergan PRN, Protonix BID, Carafate ACHS, Pepcid bid - Encourage oral hydration - K+: 3.1 this morning. Repleted #Possible EDEN -Consider Sleep study in the outpatient #UTI - Urinary pain still persists. currently afebrile - UA c/w infection, final urine culture with no growth - No leukocytosis. - Completed course of antibiotics for 10 days. Stop antibiotics #H/o recurrent suprapubic catheter infection # Candidiasis around catheter insertion site - A/P CT revealed no acute findings - suspect infections around suprapubic that are recurrent likely are fungal given pt BMI and the area around the cath gets very warm/moist instead of true bacterial infections around this site repeatedly -Fluconazole 150mg stat given(09/05) #Suprapubic pain - no acute pathology on CT - Acetaminophen as needed for fever/pain control - Morphine PRN for breakthrough pain - Lidocaine patch application to lower back #Chest pain - Clinically, patient endorses chest pain and intermittent palpitations - Troponin WNL on arrival - EKG NSR 98 bpm; QTc 446 - Continuous telemetry monitoring #H/o gastric bypass - Patient reports that she has a hard time absorbing pills/nutrients - Port in place for iron infusions and IV access #POTS -Continue Propranolol 10mg TID PRN #Anxiety -Continue Clonazepam 1mg PO TID #Chronic back pain -Continue Flexeril and Pregabalin Admission and Anticipated Discharge Date Admission Date: December 28, 2024 Supervising Physician Co-Signing Physician Notes I personally examined the patient and verified fallon points of history and exam, discussed case, and agree with decision making and plan documented by Dr. Carballo. Patient continued to have multiple episodes of loose stools overnight, thankfully not C. difficile positive, likely due to antibiotics. Antibiotics have now been discontinued. Probiotics initiated. Will provide 1 L of LR. Loperamide ordered. Will continue to monitor for clinical improvement. Subjective Overnight events: Didn't sleep well overnight due to multiple issues going on. Ongoing symptoms: At 6:15 PM, he was coughing so hard and was wheezing and was scared At midnight, she was nauseas, hot and dizzy She still continues to have loose stool which is greenish in color. She had 9 episodes of loose stool overnight. Have some back pain/spasms but able to walk Has abdominal pain, and heart was pounding Has blurry vision Getting more fatigued. Review of Systems 2 Review of Systems: As per HPI Physical Exam Physical Exam: Constitutional: Well appearing, No acute distress, PILCCOD: Negative HEENT: Atraumatic, Normocephalic, No conjunctival injection CVS: S1 S2 no murmur, Regular Rhythm, no LE edema Respiratory: BL equal air entry with NVBS. No rhonchi, wheezes, or crackles. No increased work of breathing GI: Generalized abdominal tenderness, Normal Bowel sounds + MSK: No gross deformities noted Skin: Warm, Dry, No rashes Neuro: Alert, Oriented to TPP, No Focal deficit Results & Data Results & Data Vital Signs (Past 12 Hours) Vital Signs Temp Pulse Pulse Resp BP Pulse Ox O2 Del Method 01/04/25 04:30 36.6 C 88 18 118/87 97 Room Air 01/03/25 23:01 36.4 C L 98 H 18 106/77 95 Room Air 01/03/25 21:58 99 H
[2025-01-04] MEDS: POTASSIUM CHLORIDE 20 MEQ/15 ML UDC PO STA (08:56)
[2025-01-04] MEDS: ADVANCED PROBIOTIC 625 MG CAPSULE PO SCH (12:02)
[2025-01-04 12:31] LABS: Cdiff Toxin B Gene (2yr or >) Negative Cdiff Gene (Neg)
[2025-01-04] MEDS: LACTATED RINGER'S 1,000 ML IV ONE (15:04)
[2025-01-04] MEDS: LOPERAMIDE HCL 2 MG CAP PO PRN (15:04)
[2025-01-04] MEDS: POTASSIUM CHLORIDE 20 MEQ/15 ML UDC PO SCH (20:27)
[2025-01-05] MEDS: POTASSIUM CHLORIDE CRTAB 20 MEQ TABCR PO SCH (09:41)
--- NOTE | 2025-01-05 14:24 | XRay Report ---
KUB HISTORY: pelvic pain COMPARISON STUDY: 12/29/2024 FINDINGS: There is moderate retained stool. No bowel obstruction seen. Stable right upper quadrant an d left abdominal surgical clips. No gross free air seen. IMPRESSION: No acute findings. ACT 112: Negative or not required by law. The above report was generated using voice recognition software. It may contain grammatical, syntax o r spelling errors. Electronically signed by: Ulices Elizabeth M.D. 01/05/2025 2:23 PM
--- NOTE | 2025-01-05 14:25 | XRay Report ---
XR chest 2V PA/lateral CLINICAL HISTORY: cough COMPARISON STUDY: 12/26/2024 FINDINGS: Stable chest port. Heart size and pulmonary vasculature are normal. No consolidation or ple ural effusion. No pneumothorax. IMPRESSION: No pneumonia seen. ACT 112: Negative or not required by law. Electronically signed by: Ulices Elizabeth M.D. 01/05/2025 2:23 PM
--- NOTE | 2025-01-05 14:35 | Hospitalist Progress Note ---
Date of Service January 05, 2025 Assessment & Plan (1) Acute diarrhea: (2) UTI (urinary tract infection): (3) Fredrick's disease: (4) Suprapubic catheter: Plan This is a 39-year-old female with PMH [place] disease on chronic steroids, neurogenic bladder with suprapubic catheter, anxiety, chronic pain, GERD ,and obesity with BMI of 39.9 who presented on 12/26 for suprapubic pain , urinary symptoms and N/V. Condition overall improving but still multiple illnesses that are not yet resolved. #[place]'s disease - Hydrocortisone 100 mg IV x 1 given in the ED - Continue IV Hydrocortisone 25mg BID -Continue Prednisone 3mg PO TID -Continue Home Fludrocortisone 0.1mg qAM -Additional prednisone 1 gm given today #Diarrhea -Ongoing episodes of diarrhea likely 2/2 to antibiotics -C diff was negative -Stool biofire test pending -Loperamide 2mg q4hr PRN -K+: #Possible EDEN -Consider Sleep study in the outpatient #UTI - Urinary pain still persists. currently afebrile. XR KUB with no acute findings today - UA c/w infection, final urine culture with no growth - No leukocytosis. - Completed course of antibiotics for 10 days. Stop antibiotics #H/o recurrent suprapubic catheter infection # Candidiasis around catheter insertion site - A/P CT revealed no acute findings - suspect infections around suprapubic that are recurrent likely are fungal give n pt BMI and the area around the cath gets very warm/moist instead of true bacterial infections around this site repeatedly -Fluconazole 150mg stat given(09/05) #Suprapubic pain - no acute pathology on CT - Acetaminophen as needed for fever/pain control - Morphine PRN for breakthrough pain - Lidocaine patch application to lower back #Chest pain - Clinically, patient endorses chest pain and intermittent palpitations - Troponin WNL on arrival - EKG NSR 98 bpm; QTc 446 - Continuous telemetry monitoring #H/o gastric bypass - Patient reports that she has a hard time absorbing pills/nutrients - Port in place for iron infusions and IV access #POTS -Continue Propranolol 10mg TID PRN #Anxiety -Continue Clonazepam 1mg PO TID #Chronic back pain -Continue Flexeril and Pregabalin Admission and Anticipated Discharge Date Admission Date: December 28, 2024 Supervising Physician Co-Signing Physician Notes I personally examined the patient and verified fallon points of history and exam, discussed case, and agree with decision making and plan documented by Dr. Carballo. Patient continues to have multiple episodes of loose stools, KUB shows moderate stool burden, patient shared that she does have a history of IBS mixed symptoms that cycle through constipation and diarrhea at baseline. Will discontinue l operamide. Advised patient against use of opiates unless she absolutely needs it. Morphine IV discontinued. Tylenol with codeine added for pain. Prednisone dosing changed to 4 times daily due to volume loss with loose stools. Patient does report some improvement following 1 L of LR yesterday. Patient is happy her son is coming to visit, hopes to get home by the weekend. Subjective Overnight events: Didn't sleep well overnight due to multiple issues going on. Ongoing symptoms: Patient reports worsening pain in pelvic area, still having distressing cough, ongoing episodes of diarrhea. Review of Systems Review of Systems: As per HPI Physical Exam Physical Exam: Constitutional: Well appearing, No acute distress, PILCCOD: Negative HEENT: Atraumatic, Normocephalic, No conjunctival injection CVS: S1 S2 no murmur, Regular Rhythm, no LE edema Respiratory: BL equal air entry with NVBS. No rhonchi, wheezes, or crackles. No increased work of breathing GI: Generalized abdominal tenderness, Normal Bowel sounds + MSK: No gross deformities noted Skin: Warm, Dry, No rashes Neuro: Alert, Oriented to TPP, No Focal deficit Results & Data Results & Data Vital Signs (Past 12 Hours) Vital Signs Temp Pulse Pulse Resp BP Pulse Ox O2 Del Method 01/05/25 05:42 81 01/05/25 04:18 36.4 C L 85 18 118/82 99 Room Air 01/04/25 21:49 98 H 01/04/25 20:17 36.4 C L 96 H 18 135/85 100 Room Air
[2025-01-05] MEDS: ACETAMINOPHEN W/CODEINE #3 1 TAB PO PRN (16:29)
[2025-01-05] MEDS: PROPRANOLOL HCL 10 MG TAB PO SCH (21:38)
[2025-01-05] MEDS: ACETAMINOPHEN 325 MG TAB PO PRN (22:02)
[2025-01-05] MEDS: MAGNESIUM SULFATE / D5W 1 GM/100 ML BAG IV ONE ×2 (22:02→23:54)
[2025-01-06] MEDS: METHOCARBAMOL 750 MG TABLET PO PRN (01:20)
[2025-01-06] MEDS: MAGNESIUM SULFATE / D5W 1 GM/100 ML BAG IV ONE (01:57)
[2025-01-06 06:56] LABS: Hematocrit (blood only) 37.8 % (37.0-47.0); Hemoglobin 11.8 g/dl (12.0-16.0); Mean Corpuscular Hemoglobin 27.9 pg (25.0-34.0); Mean Corpuscular Volume 89.4 fL (80.0-100.0); Platelet Count 277 K/uL (130-400); RDW Standard Deviation 67.6 fL (36.4-46.3); Red Blood Count 4.23 M/uL (4.20-5.40); White Blood Count 8.27 K/ul (4.8-10.8)
[2025-01-06 07:18] LABS: Alanine Aminotransferase 12.0 U/L (7-52); Albumin Globulin Ratio 1.5 (0.9-2); Alkaline Phosphatase 54.0 U/L (34-104); Anion Gap 9.0 (3-11); Bilirubin,Total 0.2 mg/dl (0.2-1.0); Blood Urea Nitrogen 11.0 mg/dl (6-23); Calcium 8.7 mg/dl (8.6-10.3); Carbon Dioxide 24.0 mmol/L (21-32); Chloride 108.0 mmol/L (98-107); Creatinine Clr Calc Pharmacy 117.6 ml/min; Globulin 2.6 gm/dl (2.5-4.0); Glucose 121.0 mg/dl (70-99(Fasting)); Potassium 2.9 mmol/L (3.5-5.1); Sodium 141.0 mmol/L (136-145); Total Protein 6.6 gm/dl (6.0-8.3)
[2025-01-06] MEDS: POTASSIUM CHLORIDE 20 MEQ/15 ML UDC PO STA (10:09)
[2025-01-06] MEDS: MoRPHine SULFATE 2 MG/ML CARP IV STA (10:11)
[2025-01-06] MEDS: SODIUM CHLORIDE 0.9% 500 ML IV SCH (10:37)
[2025-01-06] MEDS: KETOROLAC 30 MG/ML VIAL IV ONE (10:50)
--- NOTE | 2025-01-06 12:16 | Electrocardiogram Report ---
Test Reason : Blood Pressure : */* mmHG Vent. Rate : 88 BPM Atrial Rate : 88 BPM P-R Int : 176 ms QRS Dur : 82 ms QT Int : 388 ms P-R-T Axes : 33 -1 18 degrees QTcB Int : 469 ms Normal sinus rhythm Inferior infarct , age undetermined Abnormal ECG When compared with ECG of 29-Dec-2024 00:04, Inferior infarct is now Present Confirmed by Barry Jimenez ([id number]) on 01/06/2025 12:16:14 PM Referred By: REFERRED SELF Confirmed By: Barry Jimenez
--- NOTE | 2025-01-06 16:57 | Hospitalist Progress Note ---
Date of Service January 06, 2025 Assessment & Plan (1) Acute diarrhea: (2) UTI (urinary tract infection): (3) Fredrick's disease: (4) Suprapubic catheter: Plan This is a 39-year-old female with PMH [place] disease on chronic steroids, neurogenic bladder with suprapubic catheter, anxiety, chronic pain, GERD ,and obesity with BMI of 39.9 who presented on 12/26 for suprapubic pain , urinary symptoms and N/V. Condition overall improving but still multiple illnesses that are not yet resolved. #Dysmenorrhea 2/ to endometriosis -H/O endometriosis -Planned for Hysterectomy - Cramping pain not manageable with Tylenol/Codeine and Toradol -Oxycodone 5mg q8hr PRN #Fredrick's disease - Hydrocortisone 100 mg IV x 1 given in the ED - Continue IV Hydrocortisone 25mg BID -Continue Prednisone 3mg PO QID -Continue Home Fludrocortisone 0.1mg qAM #Irritable bowel Syndrome -Alternating episodes of diarrhea and constipation -XR KUB reveals moderate fecal impaction -Miralax and Senna PRN #Possible EDEN -Consider Sleep study in the outpatient #UTI (Resolved) - Completed course of antibiotics for 10 days. Stop antibiotics #H/o recurrent suprapubic catheter infection # Candidiasis around catheter insertion site - A/P CT revealed no acute findings - suspect infections around suprapubic that are recurrent likely are fungal given pt BMI and the area around the cath gets very warm/moist instead of true bacterial infections around this site repeatedly -Fluconazole 150mg stat given(09/05) #Chest pain - Clinically, patient endorses chest pain and intermittent palpitations - Troponin WNL on arrival - EKG NSR 98 bpm; QTc 446 - Continuous telemetry monitoring #H/o gastric bypass - Patient reports that she has a hard time absorbing pills/nutrients - Port in place for iron infusions and IV access #POTS -Continue Propranolol 10mg TID PRN #Anxiety -Continue Clonazepam 1mg PO TID #Chronic back pain -Continue Flexeril and Pregabalin Admission and Anticipated Discharge Date Admission Date: December 28, 2024 Supervising Physician Co-Signing Physician Notes I personally examined the patient and verified fallon points of history and exam, discussed case, and agree with decision making and plan documented by Dr. Carballo. Subjective Overnight events: Didn't sleep well overnight due to multiple issues going on. Ongoing symptoms: Patient reports worsening pain after discontinuation of Morphine, has pounding headache, chest pain. She is menstruating and having severe cramping pain. Review of Systems Review of Systems: As per HPI Physical Exam Physical Exam: Constitutional: Well appearing, No acute distress, PILCCOD: Negative HEENT: Atraumatic, Normocephalic, No conjunctival injection CVS: S1 S2 no murmur, Regular Rhythm, no LE edema Respiratory: BL equal air entry with NVBS. No rhonchi, wheezes, or crackles. No increased work of breathing GI: Generalized abdominal tenderness, Normal Bowel sounds + MSK: No gross deformities noted Skin: Warm, Dry, No rashes Neuro: Alert, Oriented to TPP, No Focal deficit Results & Data Results & Data Vital Signs (Past 12 Hours) Vital Signs Temp Pulse Pulse Resp BP Pulse Ox O2 Del Method 01/06/25 15:56 36.7 C 98 H 17 120/85 96 Room Air 01/06/25 14:29 88 01/06/25 11:13 36.6 C 101 H 18 116/82 97 Room Air 01/06/25 07:51 36.5 C 106 H 19 115/84 100 Room Air Resident Activity Tracking Resident Involvement: Resident Care Provided Care Provided: Adult Hospital Medicine
[2025-01-06] MEDS: POTASSIUM CHLORIDE 40 MEQ in SODIUM CHLORIDE 0.9% 1,000 ML IV SCH (17:13)
[2025-01-07 09:47] LABS: Anion Gap 7.0 (3-11); Blood Urea Nitrogen 11.0 mg/dl (6-23); Calcium 9.0 mg/dl (8.6-10.3); Carbon Dioxide 27.0 mmol/L (21-32); Chloride 109.0 mmol/L (98-107); Creatinine Clr Calc Pharmacy 146.0 ml/min; Glucose 86.0 mg/dl (70-99(Fasting)); Potassium 3.1 mmol/L (3.5-5.1); Sodium 143.0 mmol/L (136-145)
--- NOTE | 2025-01-07 10:36 | Hospitalist Progress Note ---
Date of Service January 07, 2025 Assessment & Plan (1) Acute diarrhea: (2) UTI (urinary tract infection): (3) Fredrick's disease: (4) Suprapubic catheter: Plan This is a 39-year-old female with PMH [place] disease on chronic steroids, neurogenic bladder with suprapubic catheter, anxiety, chronic pain, GERD ,and obesity with BMI of 39.9 who presented on 12/26 for suprapubic pain , urinary symptoms and N/V. Condition overall improving but still multiple illnesses that are not yet resolved. #Dysmenorrhea 2/2 to endometriosis -H/O endometriosis -Planned for Hysterectomy -Oxycodone 5mg q8hr PRN #[place]'s disease - IV Hydrocortisone 25mg OID -Continue Prednisone 3mg PO QID -Continue Home Fludrocortisone 0.1mg qAM #Irritable bowel Syndrome -Alternating episodes of diarrhea and constipation -XR KUB reveals moderate fecal impaction -Miralax and Senna PRN #Possible EDEN -Consider Sleep study in the outpatient #UTI - Completed course of antibiotics for 10 days. Stop antibiotics -Repeated Urinalysis today. Reveals trace Leucocyte esterase, negative nitrite, urine mucus and 3-5 hyaline cast #H/o recurrent suprapubic catheter infection # Candidiasis around catheter insertion site - A/P CT revealed no acute findings - suspect infections around suprapubic that are recurrent likely are fungal given pt BMI and the area around the cath gets very warm/moist instead of true bacterial infections around this site repeatedly -Fluconazole 150mg stat given(09/05) -Changed Suprapubic catheter today #Chest pain - Clinically, patient endorses chest pain and intermittent palpitations - Troponin WNL on arrival - EKG NSR 98 bpm; QTc 446 - Continuous telemetry monitoring. Non concerning findings on tele #H/o gastric bypass - Patient reports that she has a hard time absorbing pills/nutrients - Port in place for iron infusions and IV access #POTS -Continue Propranolol 10mg TID PRN #Anxiety -Continue Clonazepam 1mg PO TID #Chronic back pain -Continue Flexeril and Pregabalin Admission and Anticipated Discharge Date Admission Date: December 28, 2024 Supervising Physician Co-Signing Physician Notes I personally examined the patient and verified fallon points of history and exam, discussed case, and agree with decision making and plan documented by Dr. Carballo. Patient is a 39-year-old female with past medical history pertinent for Fredrick's disease, POTS, neurogenic bladder with suprapubic catheter, gastric bypass, IBS, endometriosis, chronic pain, and anxiety on admission for concern for adrenal crisis in setting of acute diarrheal illness and possible UTI. Will wean patient back down to home dose steroids prior to discharge. Reduced IV hydrocortisone to 25 mg QD, will need to discontinue. Currently on prednisone 3 mg QID, home dose is prednisone 3 mg TID with fludrocortisone 0.1 mg QD. She has had improvement of intermittent tachycardia with scheduled propranolol. She reports larger formed bowel movement today. Patient has multiple complaints with concerns about being discharged early before she is ready. Reviewed importance of stress reduction and focusing on getting better. Subjective Overnight events: Had some good sleep today after additional dose of Oxycodone Ongoing symptoms: Pain manageable with Oxycodone. She is concerned about her catheter, thinks she has infection going on. Catheter changed today. Review of Systems Review of Systems: As per HPI Physical Exam Physical Exam: Constitutional: Well appearing, No acute distress, PILCCOD: Negative HEENT: Atraumatic, Normocephalic, No conjunctival injection CVS: S1 S2 no murmur, Regular Rhythm, no LE edema Respiratory: BL equal air entry with NVBS. No rhonchi, wheezes, or crackles. No increased work of breathing GI: Generalized abdominal tenderness, Normal Bowel sounds + MSK: No gross deformities noted Skin: Warm, Dry, No rashes Neuro: Alert, Oriented to TPP, No Focal deficit Results & Data Results & Data Vital Signs (Past 12 Hours) Vital Signs Temp Pulse Pulse Resp BP Pulse Ox O2 Del Method 01/07/25 07:56 36.6 C 74 18 127/88 99 Room Air 01/07/25 07:46 74 01/07/25 02:25 36.7 C 84 16 116/80 97 Room Air
[2025-01-07 14:09] LABS: Appearance Urine Clear (Clear); Bacteria Urine Automated None Seen (None Seen); Epithelial Cell Urine Auto 0-2 /hpf (0-2); Glucose Urine UA Negative (Negative); RBC Urine Automated 0-2 /hpf (0-2); WBC Urine Automated 0-5 /hpf (0-5)
[2025-01-07] MEDS: prednisoLONE sod phosphate 15 MG/5 ML PO SCH (16:16)
[2025-01-07] MEDS: DICYCLOMINE HCL 10 MG CAP PO PRN (17:18)
[2025-01-07 19:27] LABS: Adenovirus F 40/41 PCR Not Detected (NotDetected); Campylobacter PCR Not Detected (NotDetected); Enteroaggregative E.coli(EAEC) Not Detected (NotDetected); Shiga-like Toxin E.coli (STEC) Not Detected (NotDetected); Vibrio species PCR Not Detected (NotDetected)
[2025-01-08 06:14] LABS: Hematocrit (blood only) 38.8 % (37.0-47.0); Hemoglobin 11.8 g/dl (12.0-16.0); Immature Granulocytes # (auto) 0.11 K/uL (0.01-0.20); Immature Granulocytes % (auto) 1.1 %; Mean Corpuscular Hemoglobin 27.3 pg (25.0-34.0); Mean Corpuscular Volume 89.6 fL (80.0-100.0); Platelet Count 293 K/uL (130-400); RDW Standard Deviation 67.2 fL (36.4-46.3); Red Blood Count 4.33 M/uL (4.20-5.40); White Blood Count 10.36 K/ul (4.8-10.8)
[2025-01-08 06:34] LABS: Anion Gap 8.0 (3-11); Blood Urea Nitrogen 13.0 mg/dl (6-23); Calcium 8.8 mg/dl (8.6-10.3); Carbon Dioxide 26.0 mmol/L (21-32); Chloride 107.0 mmol/L (98-107); Creatinine Clr Calc Pharmacy 141.9 ml/min; Glucose 79.0 mg/dl (70-99(Fasting)); Potassium 3.5 mmol/L (3.5-5.1); Sodium 141.0 mmol/L (136-145)
[2025-01-08 06:45] LABS: Anisocytosis Present; Polychromasia 1+
--- NOTE | 2025-01-08 06:51 | Hospitalist Progress Note ---
Date of Service January 08, 2025 Assessment & Plan (1) Acute diarrhea: (2) UTI (urinary tract infection): (3) Fredrick's disease: (4) Suprapubic catheter: Plan This is a 39-year-old female with PMH [place] disease on chronic steroids, neurogenic bladder with suprapubic catheter, anxiety, chronic pain, GERD ,and obesity with BMI of 39.9 who presented on 12/26 for suprapubic pain , urinary symptoms and N/V. Condition overall improving but still multiple illnesses that are not yet resolved. #Dysmenorrhea 2/ to endometriosis -H/O endometriosis -Planned for Hysterectomy -Oxycodone 5mg q8hr PRN #[place]'s disease - Stop IV Hydrocortisone -Continue Prednisone 3mg PO QID -Continue Home Fludrocortisone 0.1mg qAM #Irritable bowel Syndrome -Alternating episodes of diarrhea and constipation -XR KUB reveals moderate fecal impaction - Stop Miralax and Senna for now due to diarrhea #Possible EDEN -Consider Sleep study in the outpatient #UTI - Completed course of antibiotics for 10 days. Stop antibiotics -Repeated Urinalysis (01/07). Reveals trace Leucocyte esterase, negative nitrite, urine mucus and 3-5 hyaline cast #H/o recurrent suprapubic catheter infection # Candidiasis around catheter insertion site - A/P CT revealed no acute findings - suspect infections around suprapubic that are recurrent likely are fungal given pt BMI and the area around the cath gets very warm/moist instead of true bacterial infections around this site repeatedly -Fluconazole 150mg stat given(09/05) -Changed Suprapubic catheter on 01/07 #Chest pain - Clinically, patient endorses chest pain and intermittent palpitations - Troponin WNL on arrival - EKG NSR 98 bpm; QTc 446 - Continuous telemetry monitoring. Non concerning findings on tele #H/o gastric bypass - Patient reports that she has a hard time absorbing pills/nutrients - Port in place for iron infusions and IV access #POTS -Continue Propranolol 10mg TID PRN #Anxiety -Continue Clonazepam 1mg PO TID #Chronic back pain -Continue Flexeril and Pregabalin Admission and Anticipated Discharge Date Admission Date: December 28, 2024 Supervising Physician Co-Signing Physician Notes I personally examined the patient and verified fallon points of history and exam, discussed case, and agree with decision making and plan documented by Dr. Carballo. Patient is a 39-year-old female with past medical history pertinent for Fredrick's disease, POTS, neurogenic bladder with suprapubic catheter, gastric bypass, IBS, endometriosis, chronic pain, and anxiety on admission for concern for adrenal crisis in setting of acute diarrheal illness and possible UTI. Suprapubic catheter was changed 01/07/25, repeat urine culture showed staph epidermidis 60K, sensitivities pending, likely colonization, no fever or signs of infection at present, monitor. Discontinued IV hydrocortisone. Currently on prednisone 3 mg QID, home dose is prednisone 3 mg TID with fludrocortisone 0.1 mg QD. She has had improvement of intermittent tachycardia, continue scheduled propranolol. She reports larger formed bowel movement yesterday and multiple episodes of diarrhea today with nausea and vomiting. Patient doing well with PO intake. Discussed hopeful discharge tomorrow, patient reluctant and worried about driving 1.5 hours home and coming right back. on phone during conversation. Subjective Overnight events: Couldnot sleep well. Reports she had episodes of vomiting and diarrhea overnight Ongoing symptoms: Pain manageable with Oxycodone. Feels tired , overnight episodes of diarrhea and vomiting and not ready to go home yet. Review of Systems Review of Systems: As per HPI Physical Exam Physical Exam: Constitutional: Well appearing, No acute distress, PILCCOD: Negative HEENT: Atraumatic, Normocephalic, No conjunctival injection CVS: S1 S2 no murmur, Regular Rhythm, no LE edema Respiratory: BL equal air entry with NVBS. No rhonchi, wheezes, or crackles. No increased work of breathing GI: Generalized abdominal tenderness, Normal Bowel sounds + MSK: No gross deformities noted Skin: Warm, Dry, No rashes Neuro: Alert, Oriented to TPP, No Focal deficit Results & Data Results & Data Vital Signs (Past 12 Hours) Vital Signs Temp Pulse Pulse Resp BP Pulse Ox O2 Del Method 01/08/25 02:19 36.5 C 90 18 134/89 96 Room Air 01/07/25 23:51 36.7 C 88 20 159/114 H 99 Room Air 01/07/25 22:28 88 01/07/25 19:38 36.4 C L 98 H 18 134/87 100 Room Air
[2025-01-08] MEDS: HYDROCORTISONE SOD 25 MG in SYRINGE 0 ML IV SCH (08:46)
[2025-01-08] MEDS ORDERED: Nursing to Pharmacy Communication SCH (16:45)
--- NOTE | 2025-01-09 12:48 | Hospitalist Progress Note ---
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 Condition overall improving but still multiple illnesses that are not yet resolved. #Irritable bowel Syndrome #Intractable nausea/vomiting -Alternating episodes of diarrhea and constipation -Reports of episodes of vomiting overnight -H/o Tanya-en Y bypass surgery - Gastroenterology consultation for persistence of N/V/D in setting of previous surgery -RL 50ml/hr upto 1l q24hr -XR KUB reveals moderate fecal impaction - Stop Miralax and Senna for now due to diarrhea #Otero's disease -Continue Prednisone 3mg PO QID -Continue Home Fludrocortisone 0.1mg qAM #Chronic pain -Has oxycodone q6hr PRN ordered #Possible EDEN -Consider Sleep study in the outpatient #UTI - Completed course of antibiotics for 10 days. Stop antibiotics -Repeated Urinalysis (01/07). Reveals trace Leucocyte esterase, negative nitrite, urine mucus and 3-5 hyaline cast #H/o recurrent suprapubic catheter infection # Candidiasis around catheter insertion site - A/P CT revealed no acute findings - suspect infections around suprapubic that are recurrent likely are fungal given pt BMI and the area around the cath gets very warm/moist instead of true bacterial infections around this site repeatedly -Fluconazole 150mg stat given(09/05) -Changed Suprapubic catheter on 01/07 #Chest pain - Clinically, patient endorses chest pain and intermittent palpitations - Troponin WNL on arrival - EKG NSR 98 bpm; QTc 446 - Continuous telemetry monitoring. Non concerning findings on tele #H/o gastric bypass - Patient reports that she has a hard time absorbing pills/nutrients - Port in place for iron infusions and IV access #POTS -Continue Propranolol 10mg TID PRN #Anxiety -Continue Clonazepam 1mg PO TID #Chronic back pain -Continue Flexeril and Pregabalin Admission and Anticipated Discharge Date Admission Date: December 28, 2024 Supervising Physician Co-Signing Physician Notes I personally examined the patient and verified all fallon points of history and exam, discussed case, and agree with decision making with Dr Carballo Still with intractable vomiting. Able to drink liquids, but generally solids or pills has her vomit right away. Ongoing loose stools. Intermittent bladder spasms. Leg cramps. Yesterday with walking had a rash from her knees down her shins that was very red and bright that seems to have come on and totally regressed over a few hours time. She notes whenever it was red and hot it was also burning and painful. Very anxious. and son present at the bedside. I spent approximately 55 minutes directly at the bedside in addition to time spent on chart review and note preparation etc. Vitals noted, in general she is awake and alert oriented anxious no distress. HEENT normocephalic atraumatic mucous membranes moist. Breathing is unlabored no accessory muscle use good effort. Abdomen shows her suprapubic cath site to be clean dry and intact with only maybe an exceedingly mild appearance of healing intertrigodefinitely far better than the last I saw it. Extremities with scattered bruising no rashes no pallor or icterus. Skin otherwise without rashes pallor or icterus. Neuro shows cranial nerves II through XII be grossly intact gross motor and sensory are intact. Intractable vomiting/dysphagia for solidsgreatly appreciate GI inputagree with EGD and appreciate assistance in management. Alternating diarrhea and constipationagain, appreciate GI insights in thisit was a bit odd that her CT from admission did not show much of any fecal burden and then only a few days later on the KUB from her small bowel follow-through there was a decent amount of stool. At the bedside, her history seems most co nsistent with overflow diarrhea, but the imaging would suggest otherwise. I wondered if she has a baseline of constipation with intermittent dumping syndrome, but other etiologies such as just general motility issues or small bowel bacterial overgrowth certainly could be playing a rolewill have GI take the lead on this for the time being, and again greatly appreciate their assistance. Adrenal insufficiencyI think she is being adequately treated at this time. No hemodynamic compromise to suggest inadequate steroid replacement. For outpatient endocrinology follow-up. Given that she is having an EGD tomorrow, we will leave the prednisone at 4 times daily for today, but after scope if she continues to look well we will try to reduce it to her prior dosing of 3 mg 3 times daily. skin rashthe weight appeared as well as its onset, peak, and resolution makes me wonder about something urticarial or mast cell related. Consider a tryptase level if it happens again, she is already set up to see immunology as an outpatient in regards to her somewhat low immunoglobulin levels, we will certainly appreciate their opinion on this as well. Status post gastric bypass, short gut syndrome.Discussed with her that it is reassuring she is able to maintain hydration with p.o. intake, but also whenever we tracked this it seems to be the better part of 140-150 ounces a day, which obviously led to a lot of GI bloating, and may also affect her bowel habitsin that respect, seems reasonable for now to assume she will need a liter of IV fluids a day as maintenance to make her p.o. intake much more reasonable. When she is well enough to get out of the hospital we will want to set this up for home. Tachycardiaseems to be multifactorialcertainly whenever her volume status or adrenal status would suggested I would look at it as related; at the same time, I do wonder especially with exertion if there is not a factor of deconditioning given how long she was bedbound before really being able to get up and around well; also discussed with patient that I do suspect an overlay of anxietymade it very clear to her that I do believe there are other medical issues at playadrenal insufficiency, volume status issues, GI issues that all create symptoms, but at the same time I do worry about how closely her anxiety may mirror how she feelsand we will need to try to carefully tease apart what is being caused by what each time she has symptoms arisediscussed with her essentially we do not want to make the mistake of treating a panic attack with IV fluids and steroids; and at the same time do not want to ignore hemodynamic compromise and label it as anxiety. I.e. I believe she has multiple diagnoses at play, but the hard part for her will be that her anxiety creates a "phen otype" very similar to her adrenal insufficiency or volume status issues. Bladder spasmswhenever we had her on an anticholinergic here it precipitated more tachycardia, discussed that she could take her bladder spasm medicine from home if her brings it in. DVT prophylaxisambulation Again 55 minutes spent directly at the bedside, in addition to time on chart review and note preparation. Otherwise as above. Subjective Overnight events: Couldnot sleep well. Reports she had episodes of vomiting and diarrhea overnight Ongoing symptoms: Pain manageable with Oxycodone. Feels tired , overnight episodes of diarrhea and vomiting and not ready to go home yet. Review of Systems Review of Systems: As per HPI Physical Exam Physical Exam: Constitutional: Well appearing, No acute distress, PILCCOD: Negative HEENT: Atraumatic, Normocephalic, No conjunctival injection CVS: S1 S2 no murmur, Regular Rhythm, no LE edema Respiratory: BL equal air entry with NVBS. No rhonchi, wheezes, or crackles. No increased work of breathing GI: Generalized abdominal tenderness, Normal Bowel sounds + MSK: No gross deformities noted Skin: Warm, Dry, No rashes Neuro: Alert, Oriented to TPP, No Focal deficit Results & Data Results & Data Vital Signs (Past 12 Hours) Vital Signs Temp Pulse Pulse Resp BP Pulse Ox Pulse Ox 01/09/25 11:30 37.3 C 92 H 18 125/91 97 01/09/25 08:00 99 01/09/25 07:42 36.5 C 87 18 127/90 99 01/09/25 06:45 90 01/09/25 03:53 36.4 C L 73 18 122/94 100 01/09/25 02:14 89 O2 Del Method O2 Del Method 01/09/25 11:30 Room Air 01/09/25 08:00 Room Air 01/09/25 07:42 Room Air 01/09/25 06:45 01/09/25 03:53 Room Air 01/09/25 02:14 Resident Activity Tracking Resident Involvement: Resident Care Provided Care Provided: Adult Hospital Medicine
--- NOTE | 2025-01-09 13:26 | Gastrointestinal Consultation ---
Date of Consultation January 09, 2025 Assessment & Plan (1) Acute diarrhea: (2) Vomiting: Plan 39yowf with h/o POTS, GERD, Chronic low back pain, Neurogenic bladder with suprapubic catheter, Fredrick's disease, Anxiety, dysmenorrhea, Endometriosis, IBS, HTN, anemia and Tanya en Y gastric bypass 2014 is seen today for initial GI consultation at [facility] where she is currently hospitalized for ongoing N/V/D and UTI. (1) Nausea and Vomiting x 1-2 years with h/o Tanya en Y bypass - DDX - may include gastroparesis, PUD/gastritis, esophageal dysmotility amongst other conditions. - CT abd/pelvis, Small bowel Xray and KUB - non-diagnostic. - Recommended scheduling with EGD. Clear liquid for the rest of the day. NPO after midnight. - Plan to f/u with further recommendations upon completion of endoscopy. (2) Diarrhea alternating with constipation - KUB initially displayed constipation with moderate fecal retention. Stool PCR negative. - CT abd/pelvis negative for signs of enteritis/colitis. No biliary or pancreatic disease noted. H/H stable. CMP unremarkable. - Recommend holding Miralax and Senna, then re-assess and adjust bowel regimen accordingly. - If s/s re-occur may consider Stool calprotectin and C.diff assessment. - Further recommendations to come with Supervising GI provider on medical rounds. Please see co-signature comments. Supervising Physician Co-Signing Physician Notes I saw and examined this patient with our nurse practitioner and agree with her assessment and plan. Major medical issues are recurrent nausea and vomiting with some dysphagia and diarrhea alternating with constipation. Suspect an underlying functional bowel disorder aggravated by her prior gastric bypass as a cause for her irregular bowel habits. Need to consider bacterial overgrowth in light of her altered anatomy as well as recent use of laxatives. Agree with excluding C. difficile as well as testing for fecal calprotectin to exclude underlying inflammatory process. Her nausea and vomiting could be related to recurrent anastomotic ulcers as well as functional disorders such as gastroparesis, esophageal dysmotility which can be seen late after gastric bypass surgery. Will proceed with endoscopy to rule out inflammatory mechanical causes for her symptoms. Imaging with CT scan and small bowel study fails to reveal any significant more distal small bowel or colonic disease as well as any additional intra-abdominal process that could be contributing to her symptoms. History of Present Illness Reason for Consultation: Intractable N/V. H/O gastric bypass. Ulcer. Attending Physician: Charli Montana DO History of Present Illness 39yowf with h/o POTS, GERD, Chronic low back pain, Neurogenic bladder with suprapubic catheter, [place]'s disease, Anxiety, dysmenorrhea, Endometriosis, IBS, HTN, anemia and Tanya en Y gastric bypass 2014 is seen today for initial GI consultation at [facility] where she is currently hospitalized for ongoing N/V/D and UTI. She reports that she's been struggling over the last 5 years. Over the last 1-2 hours she's been struggling with difficulty swallowing, regurgitation of food and vomiting. She reports that she vomits about 4 days a week. Severity varies. It's often undigested food product. Associated with chronic epigastric discomfort. She reports that she's had multiple EGDs in the past. Her bariatric surgeon has retired. She also struggles with alternating constipation and diarrhea. Her initial imaging study during this hospitalization suggested moderate fecal retention. She has since been treated with Miralax and Senna. Yesterday she reports she had 7 watery BMs by mid-morning so today they held her laxatives. She denies any hematemesis, coffee ground emesis, melena or hematochezia. KUB 01/05/25 - FINDINGS: There is moderate retained stool. No bowel obstruction seen. Stable right upper quadrant and left abdominal surgical clips. No gross free air seen. IMPRESSION: No acute findings. Small bowel xray 12/29/24 FINDINGS: Stapler Hand view demonstrates moderate retained stool. There is prior gastric bypass. There is retained esophageal contrast on the initial view, reduced esophageal motility or gastroesophageal reflux. Initially, there is mildly dilated small bowel which resolves on the 60 minute view when the contrast has progressed to the colon. IMPRESSION: Contrast progresses to the colon within [address] abd/pelvis IV contrast only 12/26/24 - Impression: 1. No definite acute pathology 2. Small hiatal hernia and postsurgical findings Stool PCR testing completed 01/05/25 - Negative. Of note Cdiff was not tested. H/H stable. BMP and LFTs unremarkable. Allergies Allergy/AdvReac Type Severity Reaction Status Date / Time pepper (genus Capsicum) Allergy Severe Jalapeno - Verified 12/30/24 08:31 Tongue swelling and hives adhesive tape Allergy Intermediate SKIN Verified 12/26/24 17:00 REDDENED, ITCHY scopolamine Allergy Intermediate SKIN Verified 12/26/24 17:00 REDDENED, ITCHY escitalopram [From Lexapro] AdvReac Intermediate VERY Verified 12/26/24 17:00 EMOTIONAL, OPPOSITE EFFECT haloperidol [From Haldol] AdvReac Intermediate LOCKED JAW Verified 12/26/24 17:00 Home Medications Medication Instructions Recorded Confirmed Type B-complex with vitamin C 1 cap PO DAILY 11/29/24 12/26/24 History ascorbic acid (vitamin C) 1,000 mg 1,000 mg PO DAILY 11/29/24 12/26/24 History tablet (Vitamin C) calcium 250 mg (as 2 tab PO DAILY 11/29/24 12/26/24 History citrate)-vitamin D3 5 mcg (200 unit) tablet clonazepam 1 mg tablet 1 mg PO TID 11/29/24 12/26/24 History clotrimazole 10 mg ludwig 10 mg PO DIRECTED PRN Flare 11/29/24 12/26/24 History cyanocobalamin (vitamin B-12) 1,000 mcg IM WK 11/29/24 12/26/24 History 1,000 mcg/mL injection solution cyclobenzaprine 10 mg tablet 10 mg PO QAM 11/29/24 12/26/24 History dicyclomine 10 mg capsule 10 mg PO TID PRN IRRITABLE BOWEL 11/29/24 12/26/24 History SYMPTOMS ferrous sulfate 325 mg (65 mg 650 mg PO DAILY 11/29/24 12/26/24 History iron) tablet lidocaine 5 % topical patch 1 patch topical DAILY 11/29/24 12/26/24 History multivitamin with minerals 1 tab PO DAILY 11/29/24 12/26/24 History pantoprazole 40 mg tablet,delayed 40 mg PO BID 11/29/24 12/26/24 History release polyethylene glycol 3350 17 17 g PO DAILY PRN Constipation 11/29/24 12/26/24 History gram/dose oral powder (Miralax) potassium chloride 20 mEq 20 meq PO DAILY 11/29/24 12/26/24 History tablet,extended release(part/cryst) pregabalin 100 mg capsule 100 mg PO AMHS 11/29/24 12/26/24 History pregabalin 50 mg capsule 50 mg PO QPM 11/29/24 12/26/24 History promethazine 25 mg tablet 25 mg PO Q6H PRN NAUSEA/VOMITING 11/29/24 12/26/24 History propranolol 10 mg tablet 10 mg PO TID PRN NEEDED 11/29/24 12/26/24 History sennosides 8.6 mg tablet (senna) 17.2 mg PO HS PRN Constipation 11/29/24 12/26/24 History sucralfate 1 gram tablet (Carafate) 1 g PO ACHS 11/29/24 12/26/24 History thiamine HCl (vitamin B1) 100 mg 100 mg PO DAILY 11/29/24 12/26/24 History tablet (Vitamin B-1) topiramate 100 mg tablet 100 mg PO BID 11/29/24 12/26/24 History topiramate 25 mg tablet 25 mg PO BID 11/29/24 12/26/24 History zinc acetate 50 mg (zinc) capsule 50 mg PO DAILY 11/29/24 12/26/24 History fludrocortisone 0.1 mg tablet 0.1 mg PO QAM 30 days #30 tabs 12/09/24 12/26/24 Rx zolpidem 10 mg tablet (Ambien) 10 mg PO HS PRN Sleep 12/12/24 12/26/24 History acetaminophen 500 mg tablet 500 mg PO Q6H PRN Pain 12/26/24 12/26/24 History prednisone 1 mg tablet 3 mg PO TID 12/26/24 12/26/24 History Patient History Medical History (Updated 01/09/25 @ 15:41 by Enrique Johnson PA-C) Vomiting Surgical History History of lumbar fusion History of gastric bypass Family History Grandfather (Paternal) Colorectal cancer Grandmother (Paternal) Myocardial infarction Denies family history of Ovarian cancer Prostate cancer Breast cancer Social History Smoking Status: Never smoker Second Hand Exposure: No; Do You Dip or Chew Tobacco: No; Hx Alcohol Use: No Hx Substance Use: No Preferred Language: Guyanese Communication Ability: Effective Visual Impairment: No Limitations Hearing Ability: Normal Diplomatic Courier Required: No Beliefs That Will Affect Care: None marital status: Current Living Situation: Family current occupational status: disabled How many Children do You have: 2 Feels Safe at Home: Yes Childhood Exposure to Second-Hand Smoke: No Diet: other Diet Comment: protein, Bypass diet caffeine: Yes during the past year weight has: increased > 10 lbs Dental Care, Regularly: No Physical Activity Frequency: 3-4 Times per Week Physical Activity Frequency Comment: PT/OT Seatbelt Use: always Sunscreen Use: Yes Assistive Devices: Walker and Wheelchair Review of Systems Review of Systems: See HPI Physical Exam Physical Exam: Constitutional: NAD. Alert. Answering questions appropriately. Respiratory: Breathing is even, non-labored. Lungs hosuton are clear to auscultation anteriorly. Cardiovascular: Regular Rate and Rhythm, no murmurs, rubs or gallops appreciated. Gastrointestinal (Abdomen): Normoactive bowel sounds x4, soft, non-distended, non-tender. Musculoskeletal: Lying in bed comfortably. No peripheral edema. Results & Data Vital Signs (Past 12 Hours) Vital Signs Temp Pulse Pulse Resp BP Pulse Ox Pulse Ox 01/09/25 11:30 99.1 F 92 H 18 125/91 97 01/09/25 08:00 99 01/09/25 07:42 97.7 F 87 18 127/90 99 01/09/25 06:45 90 01/09/25 03:53 97.5 F L 73 18 122/94 100 01/09/25 02:14 89 O2 Del Method O2 Del Method 01/09/25 11:30 Room Air 01/09/25 08:00 Room Air 01/09/25 07:42 Room Air 01/09/25 06:45 01/09/25 03:53 Room Air 01/09/25 02:14 Laboratory Results Laboratory Results - last 48 hr 01/07/25 01/08/25 17:09 05:51 WBC 10.36 RBC 4.33 Hgb 11.8 L Hct 38.8 MCV 89.6 MCH 27.3 MCHC 30.4 L RDW Std Deviation 67.2 H RDW Coeff of Los 20.4 H Plt Count 293 MPV 9.3 L Immature Gran % (Auto) 1.1 Neut % (Auto) 62.9 Lymph % (Auto) 29.8 Harvey % (Auto) 5.1 Eos % (Auto) 0.6 Baso % (Auto) 0.5 Neut # (Auto) 6.52 H Lymph # (Auto) 3.09 Harvey # (Auto) 0.53 Eos # (Auto) 0.06 Baso # (Auto) 0.05 Immature Gran # (Auto) 0.11 Polychromasia 1+ Anisocytosis Present Sodium 141 Potassium 3.5 Chloride 107 Carbon Dioxide 26 Anion Gap 8 BUN 13 Creatinine 0.72 Est Cr Clr Drug Dosing 141.9 eGFR 108.33 BUN/Creatinine Ratio 18.1 Glucose 79 Lactate 1.2 Calcium 8.8 Stl C. cayetanensis PCR Not Detected Stool Rotavirus A PCR Not Detected Stl Adenov F 40/41 PCR Not Detected Stool Astrovirus (PCR) Not Detected Stool Campylobacter PCR Not Detected Stool Cryptosporidium PCR Not Detected Stl E.coli Shiga Tox PCR Not Detected Stl Enterotoxigenic E PCR Not Detected Stool EPEC (PCR) Not Detected Stool EAEC (PCR) Not Detected Stl E. histolytica PCR Not Detected Stool Giardia Lamblia PCR Not Detected Stool Salmonella PCR Not Detected Stool Sapovirus (PCR) Not Detected Stl P. shigelloides PCR Not Detected Stl Shigella/EIEC PCR Not Detected St Y.enterocolitica PCR Not Detected Stool Vibrio (PCR) Not Detected Stl Vibrio cholerae PCR Not Detected Stl Norovirus GI/GII PCR Not Detected PG Care Time/CCT Total # of Minutes Spent Total Time Spent with Patient: Total time spent is greater than 50% in coordination of care (as documented) at patient's floor/unit and/or counseling patient: Coding Level of Care Code 52715 IN/OBS CONSULT LVL 3,45M Diagnoses Acute diarrhea R19.7 Vomiting R11.10
[2025-01-09] MEDS: LACTATED RINGER'S 1,000 ML IV SCH (13:33)
[2025-01-09] MEDS: LACTATED RINGER'S 500 ML IV SCH (13:56)
--- NOTE | 2025-01-09 16:43 | Billing Data ---
Date of Service January 09, 2025 Coding Level of Care Code 36829 SUB INP/OBS CARE MIN
--- NOTE | 2025-01-10 06:51 | Hospitalist Progress Note ---
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 Condition overall improving but still multiple illnesses that are not yet resolved. #Irritable bowel Syndrome #Intractable nausea/vomiting -Gastroenterology on board -EGD today -RL 50ml/hr upto 1l q24hr #Wibaux's disease -Continue Prednisone 3mg PO QID. Plan to switch to Prednisone 3mg TID after procedure -Continue Home Fludrocortisone 0.1mg qAM #Chronic pain -Has oxycodone q6hr PRN ordered #Possible EDEN -Consider Sleep study in the outpatient #UTI - Completed course of antibiotics for 10 days. Stop antibiotics -Repeated Urinalysis (01/07). Reveals trace Leucocyte esterase, negative nitrite, urine mucus and 3-5 hyaline cast #H/o recurrent suprapubic catheter infection # Candidiasis around catheter insertion site - A/P CT revealed no acute findings - suspect infections around suprapubic that are recurrent likely are fungal given pt BMI and the area around the cath gets very warm/moist instead of true bacterial infections around this site repeatedly -Fluconazole 150mg stat given(09/05) -Changed Suprapubic catheter on 01/07 #Chest pain - Clinically, patient endorses chest pain and intermittent palpitations - Troponin WNL on arrival - EKG NSR 98 bpm; QTc 446 - Continuous telemetry monitoring. Non concerning findings on tele #H/o gastric bypass - Patient reports that she has a hard time absorbing pills/nutrients - Port in place for iron infusions and IV access #POTS -Continue Propranolol 10mg TID PRN #Anxiety -Continue Clonazepam 1mg PO TID #Chronic back pain -Continue Flexeril and Pregabalin Admission and Anticipated Discharge Date Admission Date: December 28, 2024 Supervising Physician Co-Signing Physician Notes I personally examined the patient and verified all fallon points of history and exam, discussed case, and agree with decision making with Dr Carballo Seen after scope. Continuing to have vomiting anytime she really takes much of anything p.o. Especially food or medications. GI input appreciated. Family present at the bedside. Vitals noted, in general she is awake and alert pleasantly anxious but no distress. HEENT normocephalic atraumatic mucous membranes moist. Breathing unlabored no accessory muscle use good effort. Skin without rashes pallor or icterus. gastritis - H Pylori pending. if positive, obviously treat. If negative, somewhat concerning that she has developed gastritis in spite of twice daily Pepcid, twice daily Protonix, and 4 times daily Carafate. Given that she is having worse vomiting with the gastritis, we will switch what medications we can to IV for now mostly because she is vomiting them up. Alternating diarrhea and constipationagain, appreciate GI insights in thisit was a bit odd that her CT from admission did not show much of any fecal burden and then only a few days later on the KUB from her small bowel follow-through there was a decent amount of stool. At the bedside, her history seems most consistent with overflow diarrhea, but the imaging would suggest otherwise. I wondered if she has a baseline of constipation with intermittent dumping syndrome, but other etiologies such as just general motility issues or small bowel bacterial overgrowth certainly could be playing a rolewill have GI take the lead on this for the time being, and again greatly appreciate their assistance. Adrenal insufficiencyI think she is being adequately treated at this time. No hemodynamic compromise to suggest inadequate steroid replacement. For now given that she is vomiting medications will change to IV hydrocortisone (to be clear, not due to anything that appears to be adrenal crisis as much is simply that it seems cruel to have her have a fairly sizable pill burden when she is vomiting when almost anything hits her stomach) skin rashthe weight appeared as well as its onset, peak, and resolution makes me wonder about something urticarial or mast cell related. Consider a tryptase level if it happens again, she is already set up to see immunology as an outpatient in regards to her somewhat low immunoglobulin levels, we will certai nly appreciate their opinion on this as well. Status post gastric bypass, short gut syndrome.Discussed with her that it is reassuring she is able to maintain hydration with p.o. intake, but also whenever we tracked this it seems to be the better part of 140-150 ounces a day, which obviously led to a lot of GI bloating, and may also affect her bowel habitsin that respect, seems reasonable for now to assume she will need a liter of IV fluids a day as maintenance to make her p.o. intake much more reasonable. When she is well enough to get out of the hospital we will want to set this up for home. for now given her vomiting from gastritis, we will continue IV fluids [id number] Tachycardiaseems to be multifactorialcertainly whenever her volume status or adrenal status would suggested I would look at it as related; at the same time, I do wonder especially with exertion if there is not a factor of deconditioning given how long she was bedbound before really being able to get up and around well; also discussed with patient that I do suspect an overlay of anxietymade it very clear to her that I do believe there are other medical issues at playadrenal insufficiency, volume status issues, GI issues that all create symptoms, but at the same time I do worry about how closely her anxiety may mirror how she feelsand we will need to try to carefully tease apart what is being caused by what each time she has symptoms arisediscussed with her essentially we do not want to make the mistake of treating a panic attack with IV fluids and steroids; and at the same time do not want to ignore hemodynamic compromise and label it as anxiety. I.e. I believe she has multiple diagnoses at play, but the hard part for her will be that her anxiety creates a "phenotype" very similar to her adrenal insufficiency or volume status issues. Bladder spasmswhenever we had her on an anticholinergic here it precipitated more tachycardia, discussed that she could take her bladder spasm medicine from home if her brings it in. DVT prophylaxisambulation Subjective Overnight events: Had good sleep overnight. Did better with fluids. Ongoing symptoms: Having headache, cramps b/l legs, continues to feel nauseous and had one episode of vomiting overnight Review of Systems Review of Systems: As per HPI Physical Exam Physical Exam: Constitutional: Well appearing, No acute distress, PILCCOD: Negative HEENT: Atraumatic, Normocephalic, No conjunctival injection CVS: S1 S2 no murmur, Regular Rhythm, no LE edema Respiratory: BL equal air entry with NVBS. No rhonchi, wheezes, or crackles. No increased work of breathing GI: Generalized abdominal tenderness, Normal Bowel sounds + MSK: No gross deformities noted Skin: Warm, Dry, No rashes Neuro: Alert, Oriented to TPP, No Focal deficit Results & Data Results & Data Vital Signs (Past 12 Hours) Vital Signs Temp Pulse Pulse Resp BP Pulse Ox O2 Del Method 01/10/25 02:22 79 01/10/25 01:42 36.4 C L 69 18 120/85 99 Room Air 01/09/25 22:02 36.4 C L 82 18 124/87 96 Room Air 01/09/25 20:48 36.8 C 112 H 18 141/95 H 98 Room Air Resident Activity Tracking Resident Involvement: Resident Care Provided Care Provided: Adult Hospital Medicine
[2025-01-10 07:13] LABS: Anion Gap 6.0 (3-11); Blood Urea Nitrogen 10.0 mg/dl (6-23); Calcium 8.5 mg/dl (8.6-10.3); Carbon Dioxide 26.0 mmol/L (21-32); Chloride 110.0 mmol/L (98-107); Creatinine Clr Calc Pharmacy 143.9 ml/min; Glucose 77.0 mg/dl (70-99(Fasting)); Potassium 3.4 mmol/L (3.5-5.1); Sodium 142.0 mmol/L (136-145)
[2025-01-10] MEDS: LACTATED RINGER'S 1,000 ML IV SCH (08:47)
[2025-01-10] MEDS: PHENAZOPYRIDINE HCL 200 MG TAB PO PRN (08:52)
--- NOTE | 2025-01-10 09:18 | History & Physical Bridge Note ---
Date of Service January 10, 2025 History & Physical Bridge Note I have examined the patient, reviewed the History & Physical and in the interval since the performance of the History & Physical I have noted the following changes of clinical significance: no changes noted Patient seen today. No concerns. Has ongoing vomiting as previously noted. Completed NPO orders. Plan to proceed with EGD as scheduled today. Supervising Physician Co-Signing Physician Notes I saw and examined this patient with our nurse practitioner and agree with her assessment and plan. Will proceed with endoscopy for further evaluation.
--- NOTE | 2025-01-10 15:53 | Anesthesiology Consultation ---
Date of Service January 10, 2025 Assessment & Plan Chart Review Chart Review: Acceptable Risk for Surgery ASA ASA3 Proposed Anesthesia Anesthesia Type: MAC Risk / Benefits Reviewed With: PT / POA / Parent / Guardian, Accepts Plan and Informed Consent Obtained History Surgery Operation Date: 01/10/25 18:05 Proposed Procedures p Esophagogastroduodenoscopy Dr. Ludwin Mascorro MD Height/Weight Height: 5 ft 8 in Weight: 117.5 kg Allergies Allergy/AdvReac Type Severity Reaction Status Date / Time pepper (genus Capsicum) Allergy Severe Jalapeno - Verified 12/30/24 08:31 Tongue swelling and hives adhesive tape Allergy Intermediate SKIN Verified 12/26/24 17:00 REDDENED, ITCHY scopolamine Allergy Intermediate SKIN Verified 12/26/24 17:00 REDDENED, ITCHY escitalopram [From Lexapro] AdvReac Intermediate VERY Verified 12/26/24 17:00 EMOTIONAL, OPPOSITE EFFECT haloperidol [From Haldol] AdvReac Intermediate LOCKED JAW Verified 12/26/24 17:00 Medications Home Medications Medication Instructions Recorded Confirmed Last Taken B-complex with vitamin C 1 cap PO DAILY 11/29/24 12/26/24 12/25/24 ascorbic acid (vitamin C) 1,000 mg 1,000 mg PO DAILY 11/29/24 12/26/24 12/25/24 tablet (Vitamin C) calcium 250 mg (as 2 tab PO DAILY 11/29/24 12/26/24 12/25/24 citrate)-vitamin D3 5 mcg (200 unit) tablet clonazepam 1 mg tablet 1 mg PO TID 11/29/24 12/26/24 12/26/24 clotrimazole 10 mg ludwig 10 mg PO DIRECTED PRN Flare 11/29/24 12/26/24 Unknown cyanocobalamin (vitamin B-12) 1,000 mcg IM WK 11/29/24 12/26/24 2 Weeks Ago 1,000 mcg/mL injection solution ~12/12/24 cyclobenzaprine 10 mg tablet 10 mg PO QAM 11/29/24 12/26/24 12/25/24 dicyclomine 10 mg capsule 10 mg PO TID PRN IRRITABLE BOWEL 11/29/24 12/26/24 Unknown SYMPTOMS ferrous sulfate 325 mg (65 mg 650 mg PO DAILY 11/29/24 12/26/2412/25/25 iron) tablet lidocaine 5 % topical patch 1 patch topical DAILY 11/29/24 12/26/24 12/25/24 multivitamin with minerals 1 tab PO DAILY 11/29/24 12/26/24 12/25/24 pantoprazole 40 mg tablet,delayed 40 mg PO BID 11/29/24 12/26/24 12/25/24 release polyethylene glycol 3350 17 17 g PO DAILY PRN Constipation 11/29/24 12/26/24 Unknown gram/dose oral powder (Miralax) potassium chloride 20 mEq 20 meq PO DAILY 11/29/24 12/26/24 12/25/24 tablet,extended release(part/cryst) pregabalin 100 mg capsule 100 mg PO AMHS 11/29/24 12/26/24 12/25/24 pregabalin 50 mg capsule 50 mg PO QPM 11/29/24 12/26/24 12/25/24 promethazine 25 mg tablet 25 mg PO Q6H PRN NAUSEA/VOMITING 11/29/24 12/26/24 12/26/24 propranolol 10 mg tablet 10 mg PO TID PRN NEEDED 11/29/24 12/26/24 12/26/24 sennosides 8.6 mg tablet (senna) 17.2 mg PO HS PRN Constipation 11/29/24 12/26/24 Unknown sucralfate 1 gram tablet (Carafate) 1 g PO ACHS 11/29/24 12/26/24 12/25/24 thiamine HCl (vitamin B1) 100 mg 100 mg PO DAILY 11/29/24 12/26/24 12/25/24 tablet (Vitamin B-1) topiramate 100 mg tablet 100 mg PO BID 11/29/24 12/26/24 12/26/24 topiramate 25 mg tablet 25 mg PO BID 11/29/24 12/26/24 12/26/24 zinc acetate 50 mg (zinc) capsule 50 mg PO DAILY 11/29/24 12/26/24 12/25/24 fludrocortisone 0.1 mg tablet 0.1 mg PO QAM 30 days #30 tabs 12/09/24 12/26/24 12/25/24 zolpidem 10 mg tablet (Ambien) 10 mg PO HS PRN Sleep 12/12/24 12/26/24 Unknown acetaminophen 500 mg tablet 500 mg PO Q6H PRN Pain 12/26/24 12/26/24 12/26/24 prednisone 1 mg tablet 3 mg PO TID 12/26/24 12/26/24 12/26/24 Active Medications Generic Name Dose Route Start Last Admin Trade Name Freq PRN Reason Stop Dose Admin Acetaminophen 650 mg 01/05/25 21:25 01/09/25 10:48 Acetaminophen 325 Mg Tab PO 01/25/25 20:28 650 mg Q6H PRN Administration Fever/Mild Pain (Pain 1,2,3) Acetaminophen/Codeine Phosphate 1 tab 01/05/25 15:38 01/10/25 07:51 Acetaminophen W/Codeine #3 1 Tab PO 02/04/25 15:37 1 tab Q6H PRN Administration Pain 4-10 Clonazepam 1 mg 12/26/24 21:00 01/10/25 13:43 Clonazepam 1 Mg Tab PO 01/25/25 20:59 1 mg TID ASHOK Administration Cyclobenzaprine HCl 10 mg 12/27/24 09:00 01/10/25 08:47 Cyclobenzaprine Hcl 10 Mg Tab PO 01/26/25 08:59 10 mg QAM ASHOK Administration Dicyclomine HCl 10 mg 12/26/24 20:29 01/07/25 17:18 Dicyclomine Hcl 10 Mg Cap PO 01/25/25 20:28 10 mg TID PRN Administration IRRITABLE BOWEL SYMPTOMS Famotidine 20 mg 12/30/24 21:00 01/10/25 08:48 Famotidine 20 Mg Tab PO 01/29/25 20:59 20 mg BID ASHOK Administration Protocol Ferrous Sulfate 650 mg 12/27/24 09:00 01/10/25 08:50 Ferrous Sulfate 325 Mg Tab PO 01/26/25 08:59 650 mg DAILY ASHOK Administration Fludrocortisone Acetate 0.1 mg 12/27/24 09:00 01/10/25 08:52 Fludrocortisone Acetate 0.1 Mg Tab PO 01/26/25 08:59 0.1 mg QAM ASHOK Administration Heparin Sodium (Porcine) 5 ml 12/27/24 03:26 01/09/25 09:05 Heparin 100 Unit/Ml 5ml Flush FLUSH 01/26/25 03:25 5 ml PRN PRN Administration Flush Promethazine HCl 12.5 mg in 50.5 mls @ 202 mls/hr 12/28/24 07:51 01/10/25 02:07 Phenergan IV 01/27/25 07:50 Infused Q6H PRN Infusion Nausea And Vomiting Lactated Ringer's 1,000 mls @ 80 mls/hr 01/10/25 08:15 01/10/25 08:47 Lr IV 01/10/25 20:44 80 mls/hr .[id number] ASHOK Administration Lactobacillus Acidophilus 1,250 mg 01/04/25 10:45 01/10/25 08:50 Advanced Probiotic 625 Mg Capsule PO 02/03/25 10:44 1,250 mg DAILY ASHOK Administration Lidocaine 1 patch 12/28/24 17:45 01/10/25 08:53 Lidocaine 5% 1 Patch TD 01/27/25 17:44 1 patch DAILY ASHOK Administration Methocarbamol 750 mg 01/06/25 00:53 01/10/25 08:48 Methocarbamol 750 Mg Tablet PO 02/05/25 00:52 750 mg TID PRN Administration MSK pain Miscellaneous 1 each 12/28/24 21:00 01/09/25 20:53 Remove Lidoderm Patch N/A 01/27/25 20:59 1 each DAILY@2100 ASHOK Administration Nystatin 1 appln 12/30/24 17:00 01/10/25 12:24 Nystatin Powder 15gm Btl EXT 01/29/25 16:59 Not Given QID ASHOK Nystatin 1 appln 01/02/25 21:00 01/10/25 08:48 Nystatin Cr 15 Gm Tube EXT 02/01/25 20:59 1 appln BID ASHOK Administration Oxycodone HCl 5 mg 01/06/25 17:05 01/10/25 13:43 Oxycodone Hcl Ir 5 Mg Tab (Immediate Release) PO 01/20/25 17:04 5 mg Q8 ASHOK Administration Pantoprazole Sodium 40 mg 12/26/24 21:00 01/10/25 08:53 Pantoprazole 40 Mg Tab PO 01/25/25 20:59 40 mg BID ASHOK Administration Phenazopyridine HCl 200 mg 01/03/25 06:49 01/10/25 08:52 Phenazopyridine Hcl 200 Mg Tab PO 02/02/25 06:48 200 mg TID PRN Administration Dysuria Potassium Chloride 40 meq 01/05/25 09:00 01/10/25 08:47 Potassium Chloride Crtab 20 Meq Tabcr PO 02/04/25 08:59 40 meq QAM ASHOK Administration Potassium Chloride 20 meq 01/04/25 21:00 01/09/25 20:52 Potassium Chloride 20 Meq/15 Ml Udc PO 02/03/25 20:59 20 meq QPM ASHOK Administration Prednisone 3 mg 01/06/25 06:00 01/10/25 12:25 Prednisone 1 Mg Tab PO 02/05/25 05:59 3 mg QID ASHOK Administration Pregabalin 50 mg 12/27/24 12:00 01/10/25 11:37 Pregabalin 50 Mg Cap PO 01/26/25 11:59 50 mg TODAY@1200 ASHOK Administration Pregabalin 100 mg 12/26/24 21:00 01/10/25 08:54 Pregabalin 100 Mg Cap PO 01/25/25 20:59 100 mg AMHS ASHOK Administration Propranolol HCl 10 mg 01/05/25 21:00 01/10/25 13:45 Propranolol Hcl 10 Mg Tab PO 02/04/25 20:59 10 mg TID ASHOK Administration Sennosides 17.2 mg 12/26/24 20:29 12/29/24 20:50 Senna 8.6 Mg Tab PO 01/25/25 20:28 17.2 mg HS PRN Administration Constipation Sucralfate 1 gm 12/26/24 21:00 01/10/25 11:33 Sucralfate 1 Gm Tab PO 01/25/25 20:59 1 gm ACHS ASHOK Administration Thiamine HCl 100 mg 12/27/24 09:00 01/10/25 08:52 Thiamine Hcl 100 Mg Tab PO 01/26/25 08:59 100 mg DAILY ASHOK Administration Topiramate 25 mg 12/26/24 21:00 01/10/25 08:48 Topiramate 25 Mg Tab PO 01/25/25 20:59 25 mg BID ASHOK Administration Topiramate 100 mg 12/26/24 21:00 01/10/25 08:49 Topiramate 100 Mg Tab PO 01/25/25 20:59 100 mg BID ASHOK Administration Zinc Sulfate 220 mg 12/27/24 09:00 01/10/25 08:53 Zinc Sulfate 220 Mg Capsule PO 01/26/25 08:59 220 mg DAILY ASHOK Administration Zolpidem Tartrate 10 mg 12/26/24 20:56 01/07/25 00:26 Zolpidem Tartrate 5 Mg Tab PO 01/25/25 20:55 10 mg HS PRN Administration Sleep NPO Date Last Intake of Fluids: 01/10/25 Time Last Intake of Fluids: 14:00 Date Last Intake of Solids: 01/09/25 Time Last Intake of Solids: 13:00 Past Medical History Medical History (Updated 01/09/25 @ 15:41 by Enrique Johnson PA-C) Vomiting Past Family History Family History Grandfather (Paternal) Colorectal cancer Grandmother (Paternal) Myocardial infarction Denies family history of Ovarian cancer Prostate cancer Breast cancer Past Surgical History Surgical History History of lumbar fusion History of gastric bypass Social History Smoking Status: Never smoker Do You Dip or Chew Tobacco: No Hx Alcohol Use: No Hx Substance Use: No substance use type: does not use Review of Systems ROS Unobtainable: All systems reviewed & are unremarkable except as noted in HPI & below Physical Exam Vital Signs Last Vital Signs Temp 36.1 C L 01/10/25 15:25 Pulse 84 01/10/25 15:25 Resp 20 01/10/25 15:25 BP 128/87 01/10/25 15:25 Pulse Ox 99 01/10/25 15:25 O2 Del Method Room Air 01/10/25 15:25 ENMT Thyromental Distance: > or= 3.5 Finger Breadths Mallampati Class: II Respiratory normal respiratory effort Auscultation: lungs clear to auscultation bilaterally Cardiovascular Rate/Rhythm: regular rate and regular rhythm Psychiatric Orientation: alert and oriented x 3 Testing Laboratory Results 01/08/25 05:51 01/10/25 06:19 Urine Color Yellow 01/07/25 12:23 Urine Appearance Clear (Clear) 01/07/25 12:23 Urine pH 7.0 (4.5-7.5) 01/07/25 12:23 Ur Specific [place] 1.011 (1.000-1.030) 01/07/25 12:23 Urine Protein Negative (Negative) 01/07/25 12:23 Urine Glucose (UA) Negative (Negative) 01/07/25 12:23 Urine Ketones Negative (Negative) 01/07/25 12:23 Urine Nitrite Negative (Negative) 01/07/25 12:23 Ur Leukocyte Esterase Trace (Negative) H 01/07/25 12:23 Urine WBC (Auto) 0-5 /hpf (0-5) 01/07/25 12:23 Urine RBC (Auto) 0-2 /hpf (0-2) 01/07/25 12:23 U Hyaline Cast (Auto) 3-5 /lpf (0-2) H 01/07/25 12:23 U Epithel Cells (Auto) 0-2 /hpf (0-2) 01/07/25 12:23 Urine Bacteria (Auto) None Seen (None Seen) 01/07/25 12:23 01/07/25 12:23 Urine Culture - Final Urine,Indwelling Cath Staphylococcus epidermidis 12/26/24 14:51 Aerobic Blood Culture - Final Blood No growth in Aerobic bottle after 5 days. Anaerobic Blood Culture - Final 12/26/24 14:47 Aerobic Blood Culture - Final Blood No growth in Aerobic bottle after 5 days. Anaerobic Blood Culture - Final No growth in Anaerobic bottle after 5 days. 12/26/24 15:35 Urine Culture - Final Urine,Indwelling Cath No growth - less than 1,000 colonies/mL.
--- NOTE | 2025-01-10 16:21 | GI REPORT ---
[facility] Patient: KRZYSZTOF KATHLEEN : 1985 Sex at : Female Age: 39 Years Procedure: Upper GI endoscopy Date: 01/10/2025 Attending Physician: Enzo Mascorro MD Referring MD: Referred Self; Charli [place] Indications: - Nausea and vomiting Medications: - Monitored Anesthesia Care Complications: - No immediate complications. Procedure: - Prior to the procedure, a History and Physical was performed, and patient medications and allergies were reviewed. The patient's tolerance of previous anesthesia was also reviewed. The risks and benefits of the procedure and the sedation options and risks were discussed with the patient. All questions were answered, and informed consent was obtained. [Anticoagulant Agents] [Days Prior to Procedure]. [ASA Grade]. After reviewing the risks and benefits, the patient was deemed in satisfactory condition to undergo the procedure. - The egd scope was introduced through the mouth and advanced to the jejunum. - The upper GI endoscopy was accomplished without difficulty. - The patient tolerated the procedure well. Findings: - The examined esophagus was normal. - Diffuse moderate inflammation characterized by erythema and friability was found in the entire examined stomach. Biopsies were taken with a cold forceps for Helicobacter pylori testing. - Evidence of a gastric bypass was found. A gastric pouch with a normal size was found. The gastrojejunal anastomosis was characterized by healthy appearing mucosa. This was traversed. The [id number] limb was characterized by healthy appearing mucosa. - The examined jejunum was normal. Impression: - Normal esophagus. - Gastritis, characterized by erythema and friability. Biopsied. - Biopsies were obtained. - Gastric bypass with a normal-sized pouch. Gastrojejunal anastomosis characterized by healthy appearing mucosa. - Normal examined jejunum. Recommendation: - Resume previous diet. - Patient has a contact number available for emergencies. The signs and symptoms of potential delayed complications were discussed with the patient. Return to normal activities tomorrow. Written discharge instructions were provided to the patient. Procedure Code(s): - 75778, Esophagogastroduodenoscopy, flexible, transoral; with biopsy, single or multiple Diagnosis Code(s): - K29.70, Gastritis, unspecified, without bleeding - Z98.84, Bariatric surgery status CPT(R) - [address] [employer]. All Rights Reserved. The CPT codes, CCI edits and ICD codes generated are intended as suggestions and were generated based on input data. These codes are preliminary and upon felter tennis balls review may be revised to meet current compliance and payer requirements. The provider is responsible for the final determination of appropriate codes, and modifiers. Enzo Mascorro MD This document has been electronically signed. Note Initiated:01/10/2025 Note Completed:01/10/2025 4:20 PM \\[id number]
--- NOTE | 2025-01-10 17:32 | Anesthesiology Progress Note ---
Date of Service January 10, 2025 Anesthesia Post Procedure Vital Signs Vital Signs: Temp Pulse Pulse Resp BP BP Pulse Ox 01/10/25 16:57 87 20 110/90 93 01/10/25 16:54 36.7 C 93 H 18 123/84 94 01/10/25 16:30 82 18 124/71 92 01/10/25 16:15 89 16 120/71 92 01/10/25 15:25 36.1 C L 84 20 128/87 99 01/10/25 13:44 91 H 130/98 01/10/25 13:11 84 01/10/25 11:40 36.8 C 85 18 107/78 99 01/10/25 07:45 01/10/25 07:39 36.4 C L 74 18 118/83 96 01/10/25 05:33 72 01/10/25 02:22 79 01/10/25 01:42 36.4 C L 69 18 120/85 99 01/09/25 22:02 36.4 C L 82 18 124/87 96 01/09/25 20:48 36.8 C 112 H 18 141/95 H 98 O2 Del Method 01/10/25 16:57 Room Air 01/10/25 16:54 Room Air 01/10/25 16:30 Room Air 01/10/25 16:15 Room Air 01/10/25 15:25 Room Air 01/10/25 13:44 01/10/25 13:11 01/10/25 11:40 Room Air 01/10/25 07:45 Room Air 01/10/25 07:39 Room Air 01/10/25 05:33 01/10/25 02:22 01/10/25 01:42 Room Air 01/09/25 22:02 Room Air 01/09/25 20:48 Room Air Pain Intensity Abdomen: Pain Intensity: 8 Lower Medial Back: Pain Intensity: 8 Vaginal: Pain Intensity: 6 Pelvic: Pain Intensity: 8 Head: Pain Intensity: 7 Transfer of Care Handoff Completed per policy Notes Mental Status: alert / awake / arousable Patient Amnestic to Procedure: Yes Nausea / Vomiting: adequately controlled Pain: adequately controlled Airway Patency, RR, SpO2: stable & adequate BP & HR: stable & adequate Hydration State: stable & adequate Anesthetic Complications: no major complications apparent
[2025-01-10] MEDS: PROPOFOL IV EMULSION 10 MG/ML 20 ML VIAL IV ONE (17:38)
[2025-01-10] MEDS: LIDOCAINE 2% 2 ML VIAL/AMP(20MG/ML) INFIL ONE (17:38)
[2025-01-10] MEDS: MIDAZOLAM HCL 1 MG/ML 2ML VIAL ONE (17:38)
[2025-01-10] MEDS: HYDROCORTISONE SOD SUCCINATE 100 MG/2 ML VIAL ONE (17:39)
--- NOTE | 2025-01-10 18:20 | Billing Data ---
Date of Service January 10, 2025 Coding Level of Care Code 45793 SUB INP/OBS CARE MIN
--- NOTE | 2025-01-10 18:22 | Billing Data ---
Date of Service January 10, 2025 Coding Level of Care Code 20704 SUB INP/OBS CARE MIN
[2025-01-10] MEDS ORDERED: Nursing to Pharmacy Communication SCH (19:00)
[2025-01-10] MEDS: FAMOTIDINE 20MG IV PUSH 20 MG/5 ML SYR IV SCH (21:25)
[2025-01-10] MEDS: PANTOprazole 40 MG/10 ML SYR IV SCH (21:26)
[2025-01-11 06:02] LABS: Hematocrit (blood only) 37.7 % (37.0-47.0); Hemoglobin 11.7 g/dl (12.0-16.0); Immature Granulocytes # (auto) 0.07 K/uL (0.01-0.20); Immature Granulocytes % (auto) 0.5 %; Mean Corpuscular Hemoglobin 27.5 pg (25.0-34.0); Mean Corpuscular Volume 88.7 fL (80.0-100.0); Platelet Count 288 K/uL (130-400); RDW Standard Deviation 63.6 fL (36.4-46.3); Red Blood Count 4.25 M/uL (4.20-5.40); White Blood Count 14.11 K/ul (4.8-10.8)
[2025-01-11 06:17] LABS: Anion Gap 7.0 (3-11); Blood Urea Nitrogen 10.0 mg/dl (6-23); Calcium 9.0 mg/dl (8.6-10.3); Carbon Dioxide 26.0 mmol/L (21-32); Chloride 109.0 mmol/L (98-107); Creatinine Clr Calc Pharmacy 129.8 ml/min; Glucose 86.0 mg/dl (70-99(Fasting)); Potassium 3.3 mmol/L (3.5-5.1); Sodium 142.0 mmol/L (136-145)
[2025-01-11] MEDS: POTASSIUM CHLORIDE / WTR 10 MEQ/100 ML PLCT IV SCH (07:47)
--- NOTE | 2025-01-11 07:58 | Hospitalist Progress Note ---
Date of Service January 11, 2025 Assessment & Plan (1) Acute diarrhea: (2) UTI (urinary tract infection): (3) [place]'s disease: (4) Suprapubic catheter: Plan This is a 39-year-old female with PMH [place] disease on chronic steroids, neurogenic bladder with suprapubic catheter, anxiety, chronic pain, GERD ,and obesity with BMI of 39.9 who presented on 12/26 for suprapubic pain , urinary symptoms and N/V. Condition overall improving but still multiple illnesses that are not yet resolved. #Irritable bowel Syndrome #Intractable nausea/vomiting #Gastritis -Gastroenterology on board -EGD (01/10) reveals normal esophagus; gastritis characterized by erythema and friability; normal jejunum -H pylori pending -RL 50ml/hr upto 1l q24hr - famotidine IV; Protonix BID; Sucralfate Scheduled QID #[place]'s disease -Continue Prednisone 3mg PO QID. Plan to switch to Prednisone 3mg TID after procedure -Continue Home Fludrocortisone 0.1mg qAM #Chronic pain -Has oxycodone q6hr PRN ordered #Possible EDEN -Consider Sleep study in the outpatient #UTI - Completed course of antibiotics for 10 days. Stop antibiotics -Repeated Urinalysis (01/07). Reveals trace Leucocyte esterase, negative nitrite, urine mucus and 3-5 hyaline cast #H/o recurrent suprapubic catheter infection # Candidiasis around catheter insertion site - A/P CT revealed no acute findings - suspect infections around suprapubic that are recurrent likely are fungal given pt BMI and the area around the cath gets very warm/moist instead of true bacterial infections around this site repeatedly -Fluconazole 150mg stat given(09/05) -Changed Suprapubic catheter on 01/07 #Chest pain - Clinically, patient endorses chest pain and intermittent palpitations - Troponin WNL on arrival - EKG NSR 98 bpm; QTc 446 - Continuous telemetry monitoring. Non concerning findings on tele #H/o gastric bypass - Patient reports that she has a hard time absorbing pills/nutrients - Port in place for iron infusions and IV access #POTS -Continue Propranolol 10mg TID PRN #Anxiety -Continue Clonazepam 1mg PO TID #Chronic back pain -Continue Flexeril and Pregabalin Admission and Anticipated Discharge Date Admission Date: December 28, 2024 Supervising Physician Co-Signing Physician Notes I personally examined the patient and verified all fallon points of history and exam, discussed case, and agree with decision making with Dr Carballo Still feels pretty lousy overall. Coughing up yellow-green sputum. Had w orsening of intertrigo changes around her suprapubic catheter site. In discussion of my open concerns that some of her symptoms would overlap whether the etiology is adrenal insufficiency, volume depletion, sepsis, or anxiety, she seems to simultaneously both except that anxiety could be driving some of her symptoms, but also spends quite a while trying to convince me that there have been times that she has been truly sickdespite my repeated reassurances that aI do not think this is purely psychogenic and I do believe she also has significant organic illness, and Bthat I do believe there have been times that she has been unstable, but rather that I worry that she may be labeled as acutely ill more often than she is which could lead to longer admissions, readmissions, a bit of "self-fulfilling prophecy" lines of treatment and probably at times need less time away from her family. Vitals noted, in general she is awake and alert no distress. HEENT normocephalic atraumatic mucous mem branes moist. Lungs are clear to auscultation bilaterally no rales (except for exceedingly quiet faint base rales c/w atelectasis) rhonchi or wheezes good effort. Her own pictures of her suprapubic site from earlier did show a little bit of a recurrence of intertrigo. Her pictures of her sputum show consistent with yellow-green mucus. She is 95% on room air. Cardio slightly tachycardic. Neuro without focal deficits. gastritis - H. pylori is negative, somewhat concerning that she has developed gastritis in spite of twice daily Pepcid, twice daily Protonix, and 4 times daily Carafate. given that she was throwing most medications up, changed to IV where possible. Appreciate ongoing GI assistance. Will have to ask? Bile acid reflux Alternating diarrhea and constipationagain, appreciate GI insights in thisit was a bit odd that her CT from admission did not show much of any fecal burden and then only a few days later on the KUB from her small bowel follow-through there was a decent amount of stool. At the bedside, her history seems most consistent with overflow diarrhea, but the imaging would suggest otherwise. I wondered if she has a baseline of constipation with intermittent dumping syndrome, but other etiologies such as just general motility issues or small bowel bacterial overgrowth certainly could be playing a rolewill have GI take the lead on this for the time being, and again greatly appreciate their assistance. Adrenal insufficiencyI think she is being adequately treated at this time. No hemodynamic compromise to suggest inadequate steroid replacement. For now given that she is vomiting medications keep her on IV hydrocortisone (to be clear, not due to anything that appears to be adrenal crisis as much is simply that it seems cruel to have her have a fairly sizable pill burden when she is vomiting when almost anything hits her stomach) skin rashthe weight appeared as well as its onset, peak, and resolution makes me wonder about something urticarial or mast cell related. Consider a tryptase level if it happens again, she is already set up to see immunology as an outpatient in regards to her somewhat low immunoglobulin levels, we will certainly appreciate their opinion on this as well. Status post gastric bypass, short gut syndrome.Discussed with her that it is reassuring she is able to maintain hydration with p.o. intake, but also whenever we tracked this it seems to be the better part of 140-150 ounces a day, which obviously led to a lot of GI bloating, and may also affect her bowel habitsin that respect, seems reasonable for now to assume she will need a liter of IV fluids a day as maintenance to make her p.o. intake much more reasonable. When she is well enough to get out of the hospital we will want to set this up for home. for now given her vomiting from gastritis, we will continue IV fluids [id number] Tachycardiaseems to be multifactorial see discussions above in subjective Bladder spasmswhenever we had her on an anticholinergic here it precipitated more tachycardia, discussed that she could take her bladder spasm medicine from home if her brings it in. DVT prophylaxisambulation Subjective Overnight events: Couldn't sleep well overnight, having chest pain, feels nauseated. Review of Systems Review of Systems: As per HPI Physical Exam Physical Exam: Constitutional: Well appearing, No acute distress, PILCCOD: Negative HEENT: Atraumatic, Normocephalic, No conjunctival injection CVS: S1 S2 no murmur, Regular Rhythm, no LE edema Respiratory: BL equal air entry with NVBS. No rhonchi, wheezes, or crackles. No increased work of breathing GI: Generalized abdominal tenderness, Normal Bowel sounds + MSK: No gross deformities noted Skin: Warm, Dry, No rashes Neuro: Alert, Oriented to TPP, No Focal deficit Results & Data Results & Data Vital Signs (Past 12 Hours) Vital Signs Temp Pulse Pulse Resp BP Pulse Ox O2 Del Method 01/11/25 07:43 36.5 C 120 H 18 115/80 100 Room Air 01/11/25 07:22 108 H 01/11/25 03:05 36.4 C L 81 18 117/84 96 Room Air 01/11/25 00:49 Room Air 01/10/25 22:38 36.4 C L 110 H 18 115/79 97 Room Air 01/10/25 21:45 112 H
[2025-01-11] MEDS: HYDROCORTISONE SOD 25 MG in SYRINGE 0 ML IV SCH (09:00)
--- NOTE | 2025-01-11 12:27 | Gastroenterology Progress Note ---
Date of Service January 11, 2025 Assessment & Plan (1) Vomiting: (2) History of gastric bypass: (3) Alternating constipation and diarrhea: Plan 39yowf with h/o POTS, GERD, Chronic low back pain, Neurogenic bladder with suprapubic catheter, [place]'s disease, Anxiety, dysmenorrhea, Endometriosis, IBS, HTN, anemia and Tanya en Y gastric bypass 2014 is seen today for initial GI consultation at [facility] where she is currently hospitalized for ongoing N/V/D. Today she reports ongoing issues with regurgitation of undigested food and food getting stuck in throat. Unable to swallow pills. (1) Nausea and Vomiting x 1-2 years with h/o Tanya en Y bypass - DDX - may include gastroparesis, PUD/gastritis, esophageal dysmotility amongst other conditions. - EGD 01/10/25 revealed diffuse erythema to stomach consistent with gastritis. Biopsies pending. Normal esophagus, jejunum and GJ anastomosis. - CT abd/pelvis, Small bowel Xray and KUB - non-diagnostic. - Continue with Pantoprazole and famotidine as directed by primary team. Switch Sucralfate to suspension 1G AC and HS. Orders entered. - Recommended Speech therapy evaluation for dysphagia. Orders entered. Records requested from previous GI facilities. - Start Reglan 5mg IV q8H to see if this improves with gastric motility and regurgitation. Would ideally transition to Reglan 5mg PO AC and HS. Monitor for potential side effects (ie, Tardive dyskinesia). Promethazine stopped. - Recommend checking Cortisol levels Re: Fredrick's. - Plan to f/u on rounds tomorrow for re-assessment and further recommendations. Over 50 minutes was spent in chart review, exam and documentation on date of service. Admission and Anticipated Discharge Date Admission Date: December 28, 2024 Supervising Physician Co-Signing Physician Notes I saw and examined this patient with our nurse practitioner and agree with her assessment and plan. Patient with persistent symptoms. The symptoms have been chronic with a recent exacerbation. Need to focus on symptomatic relief. Recommended trial of IV metoclopramide every 8 hours. If tolerated can start giving her it before meals and at bedtime. Will start at 5 mg. In addition we will try switching the Carafate tablets to suspension which will be easier for her to take. In addition in light of her oropharyngeal type dysphagia recommend having speech therapy see patient. She has habits video swallows in the past which reportedly have been abnormal. Subjective 39yowf with h/o POTS, GERD, Chronic low back pain, Neurogenic bladder with suprapubic catheter, [place]'s disease, Anxiety, dysmenorrhea, Endometriosis, IBS, HTN, anemia and Tanya en Y gastric bypass 2018 is seen today for initial GI consultation at [facility] where she is currently hospitalized for ongoing N/V/D and UTI. She reports that she's been struggling over the last 5 years. Over the last 1-2 hours she's been struggling with difficulty swallowing, regurgitation of food and vomiting. She reports that she vomits about 4 days a week. Severity varies. It's often undigested food product. Associated with chronic epigastric discomfort. She reports that she's had multiple EGDs in the past. Her bariatric surgeon has retired. She also struggles with alternating constipation and diarrhea. Her initial imaging study during this hospitalization suggested moderate fecal retention. She has since been treated with Miralax and Senna. Yesterday she reports she had 7 watery BMs by mid-morning so they have been holding her laxatives. She continues to report issues with regurgitation of food. We completed EGD 01/10/25 which revealed diffuse erythema to stomach consistent with gastritis. Biopsies pending. Normal esophagus, jejunum and GJ anastomosis. She denies any hematemesis, coffee ground emesis, melena or hematochezia. We discussed her past medical history. Previous Treatments - Zofran. - Dicyclomine. - Currently on Promethazine, Pantoprazole 40mg IV BID, Pepcid 20mg IV BID and Carafate 1G AC and HS. She reports she's unable to swallow the pills or carafate and it gets stuck in her throat. She underwent Tanya en Y gastric bypass [place] [address] Livia Bell Over the last several years she has followed with several GI doctors including Dr. L[facility], [place] [facility] (no longer there per patient), Dr Ozzy Rockwell, [facility] and Cami RODRÍGUEZ [facility]. She reports that [facility] and [facility] "made her sicker" and she's looking to transfer to [facility]. She reports that she was told she has a torturous esophagus that was noted on Barium swallow study. She also reports that she completed a gastric emptying study. I had our office reach out to these offices with reports of EGD in fall. Records requested. Per [facility] they didn't have any imaging studies ordered by Dr. Rockwell but they were going to forward his office notes and any other imaging studies that they had. EGD Dr. Mascorro 01/10/25. Indication - Chronic Nausea and Vomiting Findings: - The examined esophagus was normal. - Diffuse moderate inflammation characterized by erythema and friability was found in the entire examined stomach. Biopsies were taken with a cold forceps for Helicobacter pylori testing. - Evidence of a gastric bypass was found. A gastric pouch with a normal size was found. The gastrojejunal anastomosis was characterized by healthy appearing mucosa. This was traversed. The [id number] limb was characterized by healthy appearing mucosa. - The examined jejunum was normal. Impression: - Normal esophagus. - Gastritis, characterized by erythema and friability. Biopsied. - Biopsies were obtained. - Gastric bypass with a normal-sized pouch. Gastrojejunal anastomosis characterized by healthy appearing mucosa. - Normal examined jejunum. Recommendation: - Resume previous diet. - Patient has a contact number available for emergencies. The signs and symptoms of potential delayed complications were discussed with the patient. Return to normal activities tomorrow. Written discharge instructions were provided to the patient. KUB 01/05/25 - FINDINGS: There is moderate retained stool. No bowel obstruction seen. Stable right upper quadrant and left abdominal surgical clips. No gross free air seen. IMPRESSION: No acute findings. Small bowel xray 12/29/24 FINDINGS: Field Auto Appraiser view demonstrates moderate retained stool. There is prior gastric bypass. There is retained esophageal contrast on the initial view, reduced esophageal motility or gastroesophageal reflux. Initially, there is mildly dilated small bowel which resolves on the 60 minute view when the contrast has progressed to the colon. IMPRESSION: Contrast progresses to the colon within [address] abd/pelvis IV contrast only 12/26/24 - Impression: 1. No definite acute pathology 2. Small hiatal hernia and postsurgical findings Stool PCR testing completed 01/05/25 - Negative. Of note Cdiff was not tested. H/H stable. BMP and LFTs unremarkable. CBC and BMP 01/11/25 - Hgb 11.7g/dl, Hct 37.7%, Plt 288, WBC 14.11, ANC 11.31. BUN 10, Cr 0.78, Cl 109, CO2 26, Na 142, K 3.3, Glucose 86. Review of Systems Review of Systems: See HPI Physical Exam Physical Exam: Constitutional: NAD. Alert. Answering questions appropriately. Respiratory: Breathing is even, non-labored. Lungs [place] are clear to auscultation anteriorly. Cardiovascular: Regular Rate and Rhythm, no murmurs, rubs or gallops appreciated. Gastrointestinal (Abdomen): Normoactive bowel sounds x4, soft, non-distended, non-tender. Musculoskeletal: Lying in bed comfortably. No peripheral edema. Results & Data Results & Data Vital Signs (Past 12 Hours) Vital Signs Temp Pulse Pulse Resp BP Pulse Ox O2 Del Method 01/11/25 11:16 97.9 F 115 H 18 111/68 95 Room Air 01/11/25 07:43 97.7 F 120 H 18 115/80 100 Room Air 01/11/25 07:22 108 H 01/11/25 03:05 97.5 F L 81 18 117/84 96 Room Air 01/11/25 00:49 Room Air Laboratory Results Laboratory Results - last 48 hr 01/10/25 01/11/25 06:19 05:36 WBC 14.11 H RBC 4.25 Hgb 11.7 L Hct 37.7 MCV 88.7 MCH 27.5 MCHC 31.0 L RDW Std Deviation 63.6 H RDW Coeff of Los 19.3 H Plt Count 288 MPV 9.4 Immature Gran % (Auto) 0.5 Neut % (Auto) 80.1 Lymph % (Auto) 14.0 Glades % (Auto) 4.8 Eos % (Auto) 0.3 Baso % (Auto) 0.3 Neut # (Auto) 11.31 H Lymph # (Auto) 1.97 [place]ades # (Auto) 0.68 H Eos # (Auto) 0.04 Baso # (Auto) 0.04 Immature Gran # (Auto) 0.07 Sodium 142 142 Potassium 3.4 L 3.3 L Chloride 110 H 109 H Carbon Dioxide 26 26 Anion Gap 6 7 BUN 10 10 Creatinine 0.70 0.78 Est Cr Clr Drug Dosing 143.9 129.8 eGFR 112.05 98.41 BUN/Creatinine Ratio 14.3 12.8 Glucose 77 86 Calcium 8.5 L 9.0 PG Care Time/CCT Total # of Minutes Spent Total Time Spent with Patient: Total time spent is greater than 50% in coordination of care (as documented) at patient's floor/unit and/or counseling patient: Coding Level of Care Code 10689 SUB INP/OBS CARE 3/50MIN Diagnoses Vomiting R11.10 History of gastric bypass Z98.84 Alternating constipation and diarrhea R19.8
[2025-01-11] MEDS: METOCLOPRAMIDE HCL INJ 5 MG/ML 2 ML VIAL IV SCH (15:19)
--- NOTE | 2025-01-11 15:24 | Billing Data ---
Date of Service January 11, 2025 Coding Level of Care Code 34873 SUB INP/OBS CARE
[2025-01-11] MEDS: SUCRALFATE 1 GM/10 ML UDC PO SCH (16:40)
--- NOTE | 2025-01-12 07:15 | Hospitalist Progress Note ---
Date of Service January 12, 2025 Assessment & Plan (1) Acute diarrhea: (2) UTI (urinary tract infection): (3) [place]'s disease: (4) Suprapubic catheter: Plan This is a 39-year-old female with PMH [place] disease on chronic steroids, neurogenic bladder with suprapubic catheter, anxiety, chronic pain, GERD ,and obesity with BMI of 39.9 who presented on 12/26 for suprapubic pain , urinary symptoms and N/V. Condition overall improving but still multiple illnesses that are not yet resolved. #Irritable bowel Syndrome #Intractable nausea/vomiting #Gastritis -Gastroenterology on board -EGD (01/10) reveals normal esophagus; gastritis characterized by erythema and friability; normal jejunum -H pylori negative -RL 50ml/hr upto 1l q24hr - famotidine IV; Protonix BID; Sucralfate Scheduled QID -Add Metoclopramide for vomiting #[place]'s disease -Continue Prednisone 3mg PO QID. Plan to switch to Prednisone 3mg TID after procedure -Continue Home Fludrocortisone 0.1mg qAM #Chronic pain -Has oxycodone q6hr PRN ordered #Possible EDEN -Consider Sleep study in the outpatient #UTI - Completed course of antibiotics for 10 days. Stop antibiotics -Repeated Urinalysis (01/07). Reveals trace Leucocyte esterase, negative nitrite, urine mucus and 3-5 hyaline cast #H/o recurrent suprapubic catheter infection # Candidiasis around catheter insertion site - A/P CT revealed no acute findings - suspect infections around suprapubic that are recurrent likely are fungal given pt BMI and the area around the cath gets very warm/moist instead of true bacterial infections around this site repeatedly -Fluconazole 150mg stat given(09/05) -Changed Suprapubic catheter on 01/07 #Chest pain - Clinically, patient endorses chest pain and intermittent palpitations - Troponin WNL on arrival - EKG NSR 98 bpm; QTc 446 - Continuous telemetry monitoring. Non concerning findings on tele #H/o gastric bypass - Patient reports that she has a hard time absorbing pills/nutrients - Port in place for iron infusions and IV access #POTS -Continue Propranolol 10mg TID PRN #Anxiety -Continue Clonazepam 1mg PO TID #Chronic back pain -Continue Flexeril and Pregabalin Admission and Anticipated Discharge Date Admission Date: December 28, 2024 Supervising Physician Co-Signing Physician Notes I personally examined the patient and verified all fallon points of history and exam, discussed case, and agree with decision making with Dr Carballo attempted to see patient multiple timeswas sleeping each time. Given that currently the plans for the gastritis as well as diarrhea/constipation (which are the main problems still keeping her in the hospital) are at a level I am requiring GI assistance and expertise (greatly appreciated!), and given that the patient did appear comfortable/resting, I allowed her to sleep. Vitals noted, sleeping, appearing peaceful breathing unlabored no signs of distress. Skin without rashes pallor or icterus. gastritis - H. pylori is negative, somewhat concerning that she has developed gastritis in spite of twice daily Pepcid, twice daily Protonix, and 4 times daily Carafate. given that she was throwing most medications up, changed to IV where possible. Appreciate ongoing GI assistance. by documentation consultant appears hopefully to be eating a little better Alternating diarrhea and constipationagain, appreciate GI insights in thisit was a bit odd that her CT from admission did not show much of any fecal burden and then only a few days later on the KUB from her small bowel follow-through there was a decent amount of stool. At the bedside, her history seems most consistent with overflow diarrhea, but the imaging would suggest otherwise. I wondered if she has a baseline of constipation with intermittent dumping syndrome, but other etiologies such as just general motility issues or small bowel bacterial overgrowth certainly could be playing a rolewill have GI take the lead on this for the time being, and again greatly appreciate their assistance. (right now considering rifaxamin) Adrenal insufficiencyI think she is being adequately treated at this time. No hemodynamic compromise to suggest inadequate steroid replacement. For now given that she is vomiting medications keep her on IV hydrocortisone (to be clear, not due to anything that appears to be adrenal crisis as much is simply that it seems cruel to have her have a fairly sizable pill burden when she is vomiting when almost anything hits her stomach) process for outpt endocrine f/u has been initiated skin rashthe weight appeared as well as its onset, peak, and resolution makes me wonder about something urticarial or mast cell related. Consider a tryptase level if it happens again, she is already set up to see immunology as an outpatient in regards to her somewhat low immunoglobulin levels, we will certainly appreciate their opinion on this as well. Status post gastric bypass, short gut syndrome.Discussed with her that it is reassuring she is able to maintain hydration with p.o. intake, but also whenever we tracked this it seems to be the better part of 140-150 ounces a day, which obviously led to a lot of GI bloating, and may also affect her bowel habitsin that respect, seems reasonable for now to assume she will need a liter of IV fluids a day as maintenance to make her p.o. intake much more reasonable. When she is well enough to get out of the hospital we will want to set this up for home. for now given her vomiting from gastritis, we will continue IV fluids [id number] Tachycardiaseems to be multifactorial see discussions above in subjective Bladder spasmswhenever we had her on an anticholinergic here it precipitated more tachycardia, discussed that she could take her bladder spasm medicine from home if her brings it in. DVT prophylaxisambulation Subjective Still continues to have multiple symptoms. Not slept well . Continues to feel nauseated and have episodes of diarrhea. Review of Systems Review of Systems: As per HPI Physical Exam Physical Exam: Constitutional: Well appearing, No acute distress, PILCCOD: Negative HEENT: Atraumatic, Normocephalic, No conjunctival injection CVS: S1 S2 no murmur, Regular Rhythm, no LE edema Respiratory: BL equal air entry with NVBS. No rhonchi, wheezes, or crackles. No increased work of breathing GI: Generalized abdominal tenderness, Normal Bowel sounds + MSK: No gross deformities noted Skin: Warm, Dry, No rashes Neuro: Alert, Oriented to TPP, No Focal deficit Results & Data Results & Data Vital Signs (Past 12 Hours) Vital Signs Temp Pulse Pulse Resp BP BP Pulse Ox 01/12/25 03:54 36.6 C 96 H 16 94/56 L 94 01/11/25 23:14 36.3 C L 80 16 95/63 L 94 01/11/25 21:56 86 01/11/25 20:02 108 H 114/77 01/11/25 20:00 01/11/25 19:42 36.9 C 102 H 18 99/60 L 99 O2 Del Method 01/12/25 03:54 Room Air 01/11/25 23:14 Room Air 01/11/25 21:56 01/11/25 20:02 01/11/25 20:00 Room Air 01/11/25 19:42 Room Air
--- NOTE | 2025-01-12 08:01 | Gastroenterology Progress Note ---
Date of Service January 12, 2025 Assessment & Plan (1) Vomiting: (2) History of gastric bypass: (3) Alternating constipation and diarrhea: Plan 39yowf with h/o POTS, GERD, Chronic low back pain, Neurogenic bladder with suprapubic catheter, Freeman's disease, Anxiety, dysmenorrhea, Endometriosis, IBS, HTN, anemia and Tanya en Y gastric bypass 2014 is seen today for initial GI consultation at [facility] where she is currently hospitalized for ongoing N/V/D. Today she reports ongoing issues with regurgitation of undigested food and food getting stuck in throat. Unable to swallow pills. (1) Nausea and Vomiting x 1-2 years with h/o Tanya en Y bypass - DDX - may include gastroparesis, PUD/gastritis, esophageal dysmotility amongst other conditions. - EGD 01/10/25 revealed diffuse erythema to stomach consistent with gastritis. Biopsies pending. Normal esophagus, jejunum and GJ anastomosis. - CT abd/pelvis, Small bowel Xray and KUB - non-diagnostic. - Continue with Pantoprazole and famotidine as directed by primary team. Switch Sucralfate to suspension 1G AC and HS. Orders entered. - Change dicyclomine from 10mg TID PRN to AC 30m prior to meals. - Awaiting Speech therapy evaluation for dysphagia. Orders entered. Records requested from previous GI facilities. - Continue with Reglan 5mg IV q8H to see if this improves with gastric motility and regurgitation. Would ideally transition to Reglan 5mg PO AC and HS. Monitor for potential side effects (ie, Tardive dyskinesia). Promethazine stopped. - Check AM fasting cortisol levels. - Plan to f/u on rounds tomorrow for re-assessment and further recommendations. Over 50 minutes was spent in chart review, exam and documentation on date of service. Admission and Anticipated Discharge Date Admission Date: December 28, 2024 Supervising Physician Co-Signing Physician Notes I saw and examined this patient with our nurse practitioner and agree with her assessment and plan. Still complaining of nausea and vomiting difficulty eating solid food aggravated by postprandial diarrhea. Will switch dicyclomine to before meals to help reduce diarrhea. Recent C. difficile was negative. Await trial of metoclopramide for upper GI symptoms. Needs to be on a lactose-free diet. Persistent diarrhea would consider a trial of rifaximin mean as she is at risk for bacterial overgrowth in light of her gastric bypass. Subjective 39yowf with h/o POTS, GERD, Chronic low back pain, Neurogenic bladder with suprapubic catheter, Freeman's disease, Anxiety, dysmenorrhea, Endometriosis, IBS, HTN, anemia and Tanya en Y gastric bypass 2018 is seen today for initial GI consultation at [facility] where she is currently hospitalized for ongoing N/V/D and UTI. Patient is seen this morning with Dr. Mascorro who conducted interview and exam. She reports that she's been struggling over the last 5 years. Over the last 1-2 hours she's been struggling with difficulty swallowing, regurgitation of food and vomiting. She reports that she vomits about 4 days a week. Severity varies. It's often undigested food product. Associated with chronic epigastric discomfort. She reports that she's had multiple EGDs in the past. Her bariatric surgeon has retired. She also struggles with alternating constipation and diarrhea. Her initial imaging study during this hospitalization suggested moderate fecal retention. She has since been treated with Miralax and Senna. A couple days ago she reports she had 7 watery BMs by mid-morning so they have been holding her laxatives. Since then she's had no bowel movements if she doesn't eat and when she does eat this is followed by cramping, urgency and watery bowel movement. She continues to report issues with regurgitation of food. We completed EGD 01/10/25 which revealed diffuse erythema to stomach consistent with gastritis. Biopsies pending. Normal esophagus, jejunum and GJ anastomosis. Last night we switched her from Promethazine to Reglan 5mg IV Q8h, Sucralfate tab was switched to suspension. She reports today that she was able to eat beef broth and chicken and kept this down this morning, but then it was followed by cramping and diarrhea. She is also asking for fasting AM cortisol levels. She denies any hematemesis, coffee ground emesis, melena or hematochezia. We discussed her past medical history. Previous Treatments - Zofran. - Dicyclomine. - Currently on Promethazine, Pantoprazole 40mg IV BID, Pepcid 20mg IV BID and Carafate 1G AC and HS. She reports she's unable to swallow the pills or carafate and it gets stuck in her throat. She underwent Tanya en Y gastric bypass in [address] Livia Bell Over the last several years she has followed with several GI doctors including Dr. Lima Russell [facility], [facility] [place] (no longer there per patient), Dr Ozzy Rockwell, [facility] and Cami RODRÍGUEZ [facility]. She reports that [facility] and [facility] "made her sicker" and she's looking to transfer to [facility] GI. She reports that she was told she has a torturous esophagus that was noted on Barium swallow study. She also reports that she completed a gastric emptying study. I had our office reach out to these offices with reports of EGD in fall. Records requested. Per [facility] they didn't have any imaging studies ordered by Dr. Rockwell but they were going to forward his office notes and any other imaging studies that they had. EGD Dr. Mascorro 01/10/25. Indication - Chronic Nausea and Vomiting Findings: - The examined esophagus was normal. - Diffuse moderate inflammation characterized by erythema and friability was found in the entire examined stomach. Biopsies were taken with a cold forceps for Helicobacter pylori testing. - Evidence of a gastric bypass was found. A gastric pouch with a normal size was found. The gastrojejunal anastomosis was characterized by healthy appearing mucosa. This was traversed. The [id number] limb was characterized by healthy appearing mucosa. - The examined jejunum was normal. Impression: - Normal esophagus. - Gastritis, characterized by erythema and friability. Biopsied. - Biopsies were obtained. - Gastric bypass with a normal-sized pouch. Gastrojejunal anastomosis characterized by healthy appearing mucosa. - Normal examined jejunum. Recommendation: - Resume previous diet. - Patient has a contact number available for emergencies. The signs and symptoms of potential delayed complications were discussed with the patient. Return to normal activities tomorrow. Written discharge instructions were provided to the patient. KUB 01/05/25 - FINDINGS: There is moderate retained stool. No bowel obstruction seen. Stable right upper quadrant and left abdominal surgical clips. No gross free air seen. IMPRESSION: No acute findings. Small bowel xray 12/29/24 FINDINGS: Gin Feeder view demonstrates moderate retained stool. There is prior gastric bypass. There is retained esophageal contrast on the initial view, reduced esophageal motility or gastroesophageal reflux. Initially, there is mildly dilated small bowel which resolves on the 60 minute view when the contrast has progressed to the colon. IMPRESSION: Contrast progresses to the colon within [address] abd/pelvis IV contrast only 12/26/24 - Impression: 1. No definite acute pathology 2. Small hiatal hernia and postsurgical findings Stool PCR testing completed 01/05/25 - Negative. C-diff negative 01/04/25. H/H stable. BMP and LFTs unremarkable. CBC and BMP 01/11/25 - Hgb 11.7g/dl, Hct 37.7%, Plt 288, WBC 14.11, ANC 11.31. BUN 10, Cr 0.78, Cl 109, CO2 26, Na 142, K 3.3, Glucose 86. Review of Systems Review of Systems: See HPI Physical Exam Physical Exam: Patient is seen this morning with Dr. Mascorro who conducted interview and exam. Constitutional: NAD. Alert. Answering questions appropriately. Respiratory: Breathing is even, non-labored. Gastrointestinal (Abdomen): Soft, non-distended, non-tender. Results & Data Results & Data Vital Signs (Past 12 Hours) Vital Signs Temp Pulse Pulse Resp BP BP Pulse Ox 01/12/25 03:54 97.9 F 96 H 16 94/56 L 94 01/11/25 23:14 97.3 F L 80 16 95/63 L 94 01/11/25 21:56 86 01/11/25 20:02 108 H 114/77 01/11/25 20:00 O2 Del Method 01/12/25 03:54 Room Air 01/11/25 23:14 Room Air 01/11/25 21:56 01/11/25 20:02 01/11/25 20:00 Room Air PG Care Time/CCT Total # of Minutes Spent Total Time Spent with Patient: Total time spent is greater than 50% in coordination of care (as documented) at patient's floor/unit and/or counseling patient: Coding Level of Care Code 39728 SUB INP/OBS CARE 2/35MIN Diagnoses Vomiting R11.10 History of gastric bypass Z98.84 Alternating constipation and diarrhea R19.8
[2025-01-12 09:28] LABS: Hematocrit (blood only) 35.7 % (37.0-47.0); Hemoglobin 10.9 g/dl (12.0-16.0); Immature Granulocytes # (auto) 0.06 K/uL (0.01-0.20); Immature Granulocytes % (auto) 0.7 %; Mean Corpuscular Hemoglobin 27.7 pg (25.0-34.0); Mean Corpuscular Volume 90.6 fL (80.0-100.0); Platelet Count 274 K/uL (130-400); RDW Standard Deviation 64.2 fL (36.4-46.3); Red Blood Count 3.94 M/uL (4.20-5.40); White Blood Count 8.14 K/ul (4.8-10.8)
[2025-01-12 09:46] LABS: Anion Gap 7.0 (3-11); Blood Urea Nitrogen 10.0 mg/dl (6-23); Calcium 8.4 mg/dl (8.6-10.3); Carbon Dioxide 26.0 mmol/L (21-32); Chloride 110.0 mmol/L (98-107); Creatinine Clr Calc Pharmacy 132.5 ml/min; Glucose 87.0 mg/dl (70-99(Fasting)); Potassium 3.3 mmol/L (3.5-5.1); Sodium 143.0 mmol/L (136-145)
[2025-01-12] MEDS: DICYCLOMINE HCL 10 MG CAP PO SCH (12:00)
--- NOTE | 2025-01-12 15:09 | Fluoroscopy Report ---
FL video swallow CLINICAL HISTORY: assess for aspiration. TECHNIQUE: Video fluoroscopic evaluation of swallowing was performed in the AP and lateral projection s by the speech pathology staff. The patient is fed nectar-thick and thin liquid barium, a barium coa sondra wafer, and barium pudding. FLUOROSCOPY TIME: 1 minute 7 seconds. COMPARISON: None FINDINGS: No aspiration seen with any barium consistency. There is reduced esophageal motility and re flux. IMPRESSION: No aspiration seen. ACT 112: Negative or not required by law. Electronically signed by: Ulices Elizabeth M.D. 01/12/2025 3:08 PM
--- NOTE | 2025-01-12 19:37 | Billing Data ---
Date of Service January 12, 2025 Coding Level of Care Code 63845 SUB INP/OBS CARE
--- NOTE | 2025-01-13 08:16 | Hospitalist Progress Note ---
Date of Service January 13, 2025 Assessment & Plan (1) Acute diarrhea: (2) UTI (urinary tract infection): (3) [place]'s disease: (4) Suprapubic catheter: Plan This is a 39-year-old female with PMH [place] disease on chronic steroids, neurogenic bladder with suprapubic catheter, anxiety, chronic pain, GERD ,and obesity with BMI of 39.9 who presented on 12/26 for suprapubic pain , urinary symptoms and N/V. Condition overall improving but still multiple illnesses that are not yet resolved. #Irritable bowel Syndrome #Intractable nausea/vomiting #Gastritis -Gastroenterology on board. Appreciate GI recommendattions -EGD (01/10) reveals normal esophagus; gastritis characterized by erythema and friability; normal jejunum -H pylori negative -RL 50ml/hr upto 1l q24hr - famotidine IV; Protonix BID; Sucralfate Scheduled QID #[place]'s disease -Continue Prednisone 3mg PO QID. Plan to switch to Prednisone 3mg TID after procedure -Continue Home Fludrocortisone 0.1mg qAM #Chronic pain -Has oxycodone q6hr PRN ordered #Possible EDEN -Consider Sleep study in the outpatient #UTI - Completed course of antibiotics for 10 days. Stop antibiotics -Repeated Urinalysis (01/07). Reveals trace Leucocyte esterase, negative nitrite, urine mucus and 3-5 hyaline cast #H/o recurrent suprapubic catheter infection # Candidiasis around catheter insertion site - A/P CT revealed no acute findings - suspect infections around suprapubic that are recurrent likely are fungal given pt BMI and the area around the cath gets very warm/moist instead of true bacterial infections around this site repeatedly -Fluconazole 150mg stat given(09/05) -Changed Suprapubic catheter on 01/07 #Chest pain - Clinically, patient endorses chest pain and intermittent palpitations - Troponin WNL on arrival - EKG NSR 98 bpm; QTc 446 - Continuous telemetry monitoring. Non concerning findings on tele #H/o gastric bypass - Patient reports that she has a hard time absorbing pills/nutrients - Port in place for iron infusions and IV access #POTS -Continue Propranolol 10mg TID PRN #Anxiety -Continue Clonazepam 1mg PO TID #Chronic back pain -Continue Flexeril and Pregabalin Admission and Anticipated Discharge Date Admission Date: December 28, 2024 Supervising Physician Co-Signing Physician Notes I personally examined the patient and verified all fallon points of history and exam, discussed case, and agree with decision making with Dr Carballo Still with some nausea and vomiting. Nursing notesit notes that she is taking p.o. better, which she does seem to loosely endorse. She is still vomiting, but it seems like she is getting more food down. She is very worried about her co rtisol level of 1 discussed that given that she is on exogenous corticosteroids a suppressed cortisol level is expected. Vitals noted, No acute distress. HEENT normocephalic atraumatic mucous membranes moist. Breathing unlabored no accessory muscle use good effort. Skin without rashes pallor or icterus. gastritis - H. pylori is negative, somewhat concerning that she has developed gastritis in spite of twice daily Pepcid, twice daily Protonix, and 4 times daily Carafate. given that she was throwing most medications up, changed to IV where possible. Appreciate ongoing GI assistance. Appears that she is slowly eating better. Obviously would like to see adequate p.o. intake for her to be able to be okay at home. Alternating diarrhea and constipationagain, appreciate GI insights in thisit was a bit odd that her CT from admission did not show much of any fecal burden and then only a few days later on the KUB from her small bowel follow-through there was a decent amount of stool. At the bedside, her history seems most consistent with overflow diarrhea, but the imaging would suggest otherwise. I wondered if she has a baseline of constipation with intermittent dumping syndrome, but other etiologies such as just general motility issues or small bowel bacterial overgrowth certainly could be playing a rolewill have GI take the lead on this for the time being, and again greatly appreciate their assistance. (right now considering rifaxamin). No overt complaints of diarrhea today. Continue to monitor. Adrenal insufficiencyI think she is being adequately treated at this time. No hemodynamic compromise to suggest inadequate steroid replacement. For now given that she is vomiting medications keep her on IV hydrocortisone (to be clear, not due to anything that appears to be adrenal crisis as much is simply that it seems cruel to have her have a fairly sizable pill burden when she is vomiting when almost anything hits her stomach) process for outpt endocrine f/u has been initiated. Discussed with patient that suppressed cortisol is expected whenever she is on exogenous corticosteroids, and the fact that she has been hemodynamically stable makes me confident that she is on adequate dosing of steroids; and she was worried about her vomiting being addisonianbut I discussed that we certainly have a much more plausible diagnosis right now with the gastritis and esophageal dysmotilityand again with stable hemodynamics, I doubt that the vomiting is addisonian at this time. skin rashthe weight appeared as well as its onset, peak, and resolution makes me wonder about something urticarial or mast cell related. Consider a tryptase level if it happens again, she is already set up to see immunology as an outpatient in regards to her somewhat low immunoglobulin levels, we will certainly appreciate their opinion on this as well. Status post gastric bypass, short gut syndrome.Discussed with her that it is reassuring she is able to maintain hydration with p.o. intake, but also whenever we tracked this it seems to be the better part of 140-150 ounces a day, which obviously led to a lot of GI bloating, and may also affect her bowel habitsin that respect, seems reasonable for now to assume she will need a liter of IV fluids a day as maintenance to make her p.o. intake much more reasonable. When she is well enough to get out of the hospital we will want to set this up for home. for now given her vomiting from gastritis, until p.o. intake improves we will continue IV fluids [id number] Tachycardiaseems to be multifactorial see discussions above in subjective Bladder spasmswhenever we had her on an anticholinergic here it precipitated more tachycardia, discussed that she could take her bladder spasm medicine from home if her brings it in. DVT prophylaxisambulation (pharmocologic concerning due to gastritis) Subjective Still continues to have multiple symptoms. Not slept well . Continues to feel nauseated . And she was very tired overnight. Review of Systems Review of Systems: As per HPI Physical Exam Physical Exam: Constitutional: Well appearing, No acute distress, PILCCOD: Negative HEENT: Atraumatic, Normocephalic, No conjunctival injection CVS: S1 S2 no murmur, Regular Rhythm, no LE edema Respiratory: BL equal air entry with NVBS. No rhonchi, wheezes, or crackles. No increased work of breathing GI: Generalized abdominal tenderness, Normal Bowel sounds + MSK: No gross deformities noted Skin: Warm, Dry, No rashes Neuro: Alert, Oriented to TPP, No Focal deficit Results & Data Results & Data Vital Signs (Past 12 Hours) Vital Signs Temp Pulse Pulse Resp BP Pulse Ox O2 Del Method 01/13/25 07:46 36.5 C 98 H 16 116/79 97 Room Air 01/13/25 07:10 89 01/13/25 02:37 36.4 C L 72 16 100/69 96 Room Air 01/12/25 23:22 36.4 C L 97 H 16 105/72 96 Room Air 01/12/25 22:05 100 H
--- NOTE | 2025-01-13 14:07 | Billing Data ---
Date of Service January 13, 2025 Coding Level of Care Code 25797 SUB INP/OBS CARE
--- NOTE | 2025-01-13 14:08 | Billing Data ---
Date of Service January 13, 2025 Coding Level of Care Code 45702 SUB INP/OBS CARE
[2025-01-13] MEDS: LACTATED RINGER'S 1,000 ML IV SCH (14:25)
[2025-01-14] MEDS: LOPERAMIDE HCL 2 MG CAP PO STA (03:29)
--- NOTE | 2025-01-14 07:05 | Gastroenterology Progress Note ---
Date of Service January 14, 2025 Assessment & Plan (1) Nausea & vomiting: Plan: Persistent symptoms multifactorial suspect functional as well as related to prior abdominal surgery for gastric bypass suspect West[place]'s disease also plays a role. Continue trial of metoclopramide for nausea and vomiting as well as Carafate slurry. Recommend consulting endocrinology regarding low cortisol levels. (2) Diarrhea: Plan: Suspect multi factorial related to prior gastric bypass, West[place]'s disease, as well as functional disorder. Continue with dicyclomine before meals can add Imodium once daily. 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 He to also consider bile salt malabsorption as well as possible bacterial overgrowth. Can add cholestyramine 4 g at bedtime for bile salt malabsorption.. (3) [place]'s disease: Plan: Low cortisol level. Recommend consulting endocrinology for management. Admission and Anticipated Discharge Date Admission Date: December 28, 2024 Subjective Continues to complain of multiple GI symptoms including nausea vomiting inability to eat and diarrhea. Physical Exam Physical Exam: No acute distress Respiratory rate regular Cardiac rhythm regular Abdomen soft nontender Results & Data Results & Data Vital Signs (Past 12 Hours) Vital Signs Temp Pulse Pulse Resp BP BP Pulse Ox 01/14/25 04:04 36.4 C L 86 18 126/87 99 01/13/25 22:14 103 H 01/13/25 21:03 36.8 C 114 H 16 102/70 94 O2 Del Method 01/14/25 04:04 Room Air 01/13/25 22:14 01/13/25 21:03 Room Air Laboratory Results Laboratory Results - last 48 hr 01/12/25 01/13/25 08:38 07:19 WBC 8.14 RBC 3.94 L Hgb 10.9 L Hct 35.7 L MCV 90.6 MCH 27.7 MCHC 30.5 L RDW Std Deviation 64.2 H RDW Coeff of Los 19.0 H Plt Count 274 MPV 9.8 Immature Gran % (Auto) 0.7 Neut % (Auto) 59.1 Lymph % (Auto) 30.8 Evangeline % (Auto) 7.2 Eos % (Auto) 1.7 Baso % (Auto) 0.5 Neut # (Auto) 4.80 Lymph # (Auto) 2.51 Evangeline # (Auto) 0.59 Eos # (Auto) 0.14 Baso # (Auto) 0.04 Immature Gran # (Auto) 0.06 Sodium 143 Potassium 3.3 L Chloride 110 H Carbon Dioxide 26 Anion Gap 7 BUN 10 Creatinine 0.77 Est Cr Clr Drug Dosing 132.5 eGFR 99.94 BUN/Creatinine Ratio 13.0 Glucose 87 Calcium 8.4 L Cortisol AM Sample 1.07 L PG Care Time/CCT Total # of Minutes Spent Total Time Spent with Patient: Total time spent is greater than 50% in coordination of care (as documented) at patient's floor/unit and/or counseling patient: Coding Level of Care Code 97866 SUB INP/OBS CARE 2/35MIN Diagnoses Nausea & vomiting R11.2 Diarrhea R19.7 [place]'s disease E27.1
[2025-01-14] MEDS: FAMOTIDINE 20 MG TAB PO SCH (08:26)
[2025-01-14] MEDS: POTASSIUM CHLORIDE 10 MEQ TABCR PO STA (08:26)
[2025-01-14] MEDS: CHOLESTYRAMINE LIGHT 4 GM PKT PO ONE (11:42)
--- NOTE | 2025-01-14 11:52 | Hospitalist Progress Note ---
Date of Service January 14, 2025 Assessment & Plan (1) Acute diarrhea: (2) UTI (urinary tract infection): (3) [place]'s disease: (4) Suprapubic catheter: Plan Benny is a 39-year-old female with [place]'s disease on chronic steroids, neurogenic bladder with suprapubic catheter, anxiety, chronic pain, GERD ,and obesity with BMI of 39.9 who presented on 12/26 for suprapubic pain, urinary symptoms and N/V. EGD 01/10 showing likely contributory gastritis. Condition overall improving, though requires continued admission for IV medications while we continue to wean to oral prior to discharge. #Irritable bowel Syndrome #Intractable nausea/vomiting #Gastritis -Gastroenterology on board, appreciate recs -EGD 01/10 reveals normal esophagus; gastritis characterized by erythema and friability; normal jejunum Chronic steroid use likely contributory to gastritis -H pylori negative - Continue famotidine 20mg PO BID; Protonix BID, starting 40mg PO tonight; Sucralfate PO ACHS; reglan 5mg IV q8, consider switch to PO tomorrow - Started on cholestyramine 4g nightly - CBC AM #Fredrick's disease -Continue hydrocortisone 25mg IV BID17, plan to switch to PO tomorrow 01/15 based on improving n/v -Continue home Fludrocortisone 0.1mg qAM - BMP AM #Chronic pain -Has oxycodone q8h prn and acetaminophen-codeine q6hr prn ordered - continue flexeril 10mg qAM, robaxin 750mg TID prn #UTI/dysuria - Completed course of antibiotics for 10 days. -Repeated Urinalysis (01/07). Reveals trace Leucocyte esterase, negative nitrite, urine mucus and 3-5 hyaline cast - continue prn pyridium for dysuria Ordered new UA for new dysuria 01/14 #Possible EDEN -Consider Sleep study in the outpatient #H/o recurrent suprapubic catheter infection # Candidiasis around catheter insertion site - A/P CT revealed no acute findings - Changed Suprapubic catheter on 01/07 - suspect infections around suprapubic that are recurrent likely are fungal given pt BMI and the area around the cath gets very warm/moist instead of true bacterial infections around this site repeatedly continue nystatin to affected area ordered wound care nurse consult #Chest pain - Clinically, patient endorses chest pain and intermittent palpitations - Troponin WNL on arrival - EKG NSR 98 bpm; QTc 446 - Continuous telemetry monitoring. Non concerning findings on tele #H/o gastric bypass - Patient reports that she has a hard time absorbing pills/nutrients - Port in place for iron infusions and IV access #POTS -Continue Propranolol 10mg TID PRN #Anxiety -Continue Clonazepam 1mg PO TID #Chronic back pain -Continue Flexeril and Pregabalin Admission and Anticipated Discharge Date Admission Date: December 28, 2024 Supervising Physician Co-Signing Physician Notes I personally examined the patient and verified all fallon points of history and exam, discussed case, and agree with decision making with Dr Ozuna still w nausea and vomiting but eating more and vomiting less. diarrhea ongoing. Vitals noted, No acute distress. HEENT normocephalic atraumatic mucous membranes moist. Breathing unlabored no accessory muscle use good effort. lungs without r/r/w good effort. Skin without rashes pallor or icterus. gastritis - H. pylori is negative, somewhat concerning that she has developed gastritis in spite of twice daily Pepcid, twice daily Protonix, and 4 times daily Carafate. improving w reglan. add cholestyramine for bile acid binding. start to slowly transition IV meds back to PO Alternating diarrhea and constipationagain, appreciate GI insights in thisContinue current care, add cholestyramine as suggested by GI. Consider small intestinal bacterial overgrowthappreciate GI in this. Adrenal insufficiencyI think she is being adequately treated at this time. No hemodynamic compromise to suggest inadequate steroid replacement. Low cortisol is because of exogenous steroids. Outpatient endocrine referral underway for longitudinal management. Tomorrow anticipate transitioning back to p.o. steroids as long as the vomiting seems to continue to be improving skin rashthe weight appeared as well as its onset, peak, and resolution makes me wonder about something urticarial or mast cell related. Consider a tryptase level if it happens again, she is already set up to see immunology as an outpatient in regards to her somewhat low immunoglobulin levels, we will certainly appreciate their opinion on this as well. Status post gastric bypass, short gut syndrome. appreciate GI assistance with this, as well as speech assistance with esophageal dysmotility Tachycardiaseems to be multifactorial continue to follow Bladder spasmswhenever we had her on an anticholinergic here it precipitated more tachycardia, discussed that she could take her bladder spasm medicine from home if her brings it in. DVT prophylaxisambulation (pharmocologic concerning due to gastritis) Subjective Benny was seen and evaluated at bedside this AM, endorses feeling weak and with persisting nausea, vomiting, and diarrhea, although notes she has been able to eat more and vomiting is improving. Expresses worry that she is not getting enough steroid due to keep her Fredrick's disease in control, however it was explained that her BP and sodium/potassium have been stable, so she likely would not significantly benefit from increased steroids. She was able to get out of bed and walk down hallway with her IV pole to show Julia RN how much improved she is from prior hospitalization. Denies any significant SOB, body aches, or chills. Review of Systems 2 Review of Systems: As per HPI Physical Exam Physical Exam: Constitutional: A&Ox3, no acute distress HEENT: EOM intact, anicteric sclerae CV: RRR, +s1/s2, no m/r/g Resp: BL equal air entry with NVBS. No rhonchi, wheezes, or crackles. No increased work of breathing GI/Abd: +BS, abdomen soft, generalized mild abdominal tenderness to palpation, mild suprapubic tenderness to palpation around site of suprapubic cath MSK: 5/5 strength in b/l UE and LE; no gross deformities noted; scattered mild ecchymosis on b/l LE Skin: Warm, Dry, No rashes Neuro: no facial droop, speech intact, symmetric gait Results & Data Results & Data Vital Signs (Past 12 Hours) Vital Signs Temp Pulse Pulse Resp BP BP Pulse Ox 01/14/25 11:18 36.4 C L 99 H 20 95/67 L 98 01/14/25 08:03 36.4 C L 103 H 20 120/86 99 01/14/25 07:16 85 01/14/25 04:04 36.4 C L 86 18 126/87 99 O2 Del Method 01/14/25 11:18 Room Air 01/14/25 08:03 Room Air 01/14/25 07:16 01/14/25 04:04 Room Air Resident Activity Tracking Resident Involvement: Resident Care Provided Care Provided: Adult Hospital Medicine
--- NOTE | 2025-01-14 16:13 | Billing Data ---
Date of Service January 14, 2025 Coding Level of Care Code 54066 SUB INP/OBS CARE MIN
[2025-01-14] MEDS: CHOLESTYRAMINE LIGHT 4 GM PKT PO SCH (21:40)
[2025-01-15 04:40] LABS: Appearance Urine Clear (Clear); Bacteria Urine Automated 2+ (None Seen); Cast Urine Automated 0-2 /lpf (0-2); Epithelial Cell Urine Auto 0-2 /hpf (0-2); Glucose Urine UA Negative (Negative); RBC Urine Automated 0-2 /hpf (0-2); WBC Urine Automated 0-5 /hpf (0-5)
[2025-01-15 06:01] LABS: Hematocrit (blood only) 35.2 % (37.0-47.0); Hemoglobin 10.6 g/dl (12.0-16.0); Mean Corpuscular Hemoglobin 27.7 pg (25.0-34.0); Mean Corpuscular Volume 92.1 fL (80.0-100.0); Platelet Count 282 K/uL (130-400); RDW Standard Deviation 62.1 fL (36.4-46.3); Red Blood Count 3.82 M/uL (4.20-5.40); White Blood Count 7.50 K/ul (4.8-10.8)
[2025-01-15 06:15] LABS: Anion Gap 7.0 (3-11); Blood Urea Nitrogen 12.0 mg/dl (6-23); Calcium 8.1 mg/dl (8.6-10.3); Carbon Dioxide 26.0 mmol/L (21-32); Chloride 111.0 mmol/L (98-107); Creatinine Clr Calc Pharmacy 146.3 ml/min; Glucose 108.0 mg/dl (70-99(Fasting)); Potassium 2.9 mmol/L (3.5-5.1); Sodium 144.0 mmol/L (136-145)
--- NOTE | 2025-01-15 06:46 | Hospitalist Progress Note ---
Date of Service January 15, 2025 Assessment & Plan (1) Acute diarrhea: (2) UTI (urinary tract infection): (3) [place]'s disease: (4) Suprapubic catheter: Plan Benny is a 39-year-old female with [place]'s disease on chronic steroids, neurogenic bladder with suprapubic catheter, anxiety, chronic pain, GERD ,and obesity with BMI of 39.9 who presented on 12/26 for suprapubic pain, urinary symptoms and N/V. EGD 01/10 showing likely contributory gastritis. Condition overall improving, though requires continued admission for IV medications while we continue to wean to oral prior to discharge. #Irritable bowel Syndrome #Intractable nausea/vomiting #Gastritis -Gastroenterology on board, appreciate recs -EGD 01/10 reveals normal esophagus; gastritis characterized by erythema and friability; normal jejunum Chronic steroid use likely contributory to gastritis -H pylori negative - Continue famotidine 20mg PO BID; Protonix BID, starting 40mg PO tonight; Sucralfate PO ACHS; metoclopramide 5mg PO TID - Continue cholestyramine 4g nightly - CBC AM #[place]'s disease -Continue hydrocortisone 25mg IV BID17, plan to switch to PO tomorrow 01/16 as patient is most concerned about not getting enough of her steroids Consider stress dose to get patient over the hump of feeling fatigued -Continue home Fludrocortisone 0.1mg qAM - BMP AM #UTI/dysuria - Completed course of antibiotics for 10 days. -Repeated Urinalysis (01/07). Reveals trace Leucocyte esterase, negative nitrite, urine mucus and 3-5 hyaline cast - continue prn pyridium for dysuria UA 01/14 showing 2+ bacteria, starting on Augmentin 875mg BID total of 7 days for empiric therapy while culture results No reflex culture initially but ordered 01/15 #Hypokalemia 01/15: 2.9 -> given 40meq liquid due to potential for lack of absorption in tablet formulation BMP AM #Chronic pain - continue oxycodone q8h prn and acetaminophen-codeine q6hr prn ordered - continue flexeril 10mg qAM, robaxin 750mg TID prn #Possible EDEN -Consider Sleep study outpatient #H/o recurrent suprapubic catheter infection # Candidiasis around catheter insertion site - A/P CT revealed no acute findings - Changed Suprapubic catheter on 01/07 - suspect infections around suprapubic that are recurrent likely are fungal given pt BMI and the area around the cath gets very warm/moist instead of true bacterial infections around this site repeatedly continue nystatin to affected area ordered wound care nurse consult #Chest pain - Clinically, patient endorses chest pain and intermittent palpitations - Troponin WNL on arrival - EKG NSR 98 bpm; QTc 446 - Continuous telemetry monitoring. Non concerning findings on tele #H/o gastric bypass - Patient reports that she has a hard time absorbing pills/nutrients - Port in place for iron infusions and IV access #POTS -Continue Propranolol 10mg TID PRN #Anxiety -Continue Clonazepam 1mg PO TID #Chronic back pain -Continue Flexeril and Pregabalin Admission and Anticipated Discharge Date Admission Date: December 28, 2024 Supervising Physician Co-Signing Physician Notes I personally examined the patient and verified all fallon points of history and exam, discussed case, and agree with decision making with Dr Ozuna Eating better, still vomiting, but less. Frequent large-volume bowel movements. Fatigued. Does feel like she is making progress.. Vitals noted, No acute distress. HEENT normocephalic atraumatic mucous membranes moist. Breathing u nlabored no accessory muscle use good effort. lungs without r/r/w good effort. Skin without rashes pallor or icterus. gastritis - H. pylori is negative, somewhat concerning that she has developed gastritis in spite of twice daily Pepcid, twice daily Protonix, and 4 times daily Carafate. improving w reglan. added cholestyramine for bile acid binding. Meds are now all transitioned back to p.o. While it would be nice to see 0 vomiting, the fact that her p.o. intake has improved in the amount of the vomitus has drastically decreased, I think she is getting pretty close to being safe for home. Obviously will need to continuously consider the risk/benefit of being on metoclopramide versus tardive dyskinesia riskbut currently she has not been on it for very long and is at essentially medium dosing and it seems to be largely benefiting. Alternating diarrhea and constipationagain, appreciate GI insights in thisContinue current care, added cholestyramine as suggested by GI. Consider small intestinal bacterial overgrowthappreciate GI in this. I do wonder if her larger volume bowel movements over the last day or 2 are due to chronic constipation being cleared by prokinetic effect from metoclopramide Adrenal insufficiencyI think she is being adequately treated at this time. No hemodynamic compromise to suggest inadequate steroid replacement. Low cortisol is because of exogenous steroids. Outpatient endocrine referral underway for longitudinal management. Transition back to prior p.o. dosing of prednisone 3 mg 3 times daily. Again to be clear, the only reason I had switched her to IV a few days ago was because she was vomiting up her pills, not because of anything that looked like instability due to adrenal insufficiency fatiguediscussed with patient that given I am not seeing anything looking like hemodynamic instability from adrenal insufficiency, and given that she is having frequent fairly large bowel movements, as well as the fact that the broken sleep that comes with a hospitalization can be fatiguing, I feel we have multiple plausible explanations for her fatigue separate from anything adrenal dysuriawith some bacteria on urinalysisaugmentin skin rashthe weight appeared as well as its onset, peak, and resolution makes me wonder about something urticarial or mast cell related. Consider a tryptase level if it happens again, she is already set up to see immunology as an outpatient in regards to her somewhat low immunoglobulin levels, we will certainly appreciate their opinion on this as well. Status post gastric bypass, short gut syndrome. appreciate GI assistance with this, as well as speech assistance with esophageal dysmotility Tachycardiaseems to be multifactorial continue to follow Bladder spasmswhenever we had her on an anticholinergic here it precipitated more tachycardia, discussed that she could take her bladder spasm medicine from home if her brings it in. DVT prophylaxisambulation (pharmacologic concerning due to gastritis) hopefully home in the next few days as she shows ipmroving PO intake; given short gut and hydration needs, ~2wks ago case management had orders for 1L LR daily at home - would just want to ensure this is set up prior to dc once she is able to go home Subjective Benny was seen and evaluated at bedside this AM, endorses again feeling weak and with persisting nausea, vomiting, and diarrhea, although notes she has been able to eat more than in days prior. Continues to express worry that she is not getting enough steroid due to keep her [place]'s disease in control, however it was reiterated that her BP and sodium/potassium have been stable. Does note having brainfog and needing to take naps during the day due to fatigue. Review of Systems Review of Systems: As per HPI Physical Exam Physical Exam: Constitutional: A&Ox3, appearing tired but in no acute distress HEENT: EOM intact, anicteric sclerae CV: RRR, +s1/s2, no m/r/g Resp: b/l clear to auscultation. No w/r/R, no increased work of breathing GI/Abd: +BS, abdomen soft, generalized mild abdominal tenderness to palpation, mild suprapubic tenderness to palpation around site of suprapubic cath MSK: 5/5 strength in b/l UE and LE; no gross deformities noted; scattered mild ecchymosis on b/l LE Skin: Warm, Dry, No rashes Neuro: no facial droop, speech intact, moves all extremities Results & Data Results & Data Vital Signs (Past 12 Hours) Vital Signs Temp Pulse Pulse Resp BP Pulse Ox O2 Del Method 01/15/25 03:39 36.4 C L 99 H 16 102/86 99 Room Air 01/14/25 23:33 36.6 C 99 H 18 110/72 97 Room Air 01/14/25 21:46 96 H 01/14/25 20:32 36.6 C 106 H 18 107/69 96 Room Air Resident Activity Tracking Resident Involvement: Resident Care Provided Care Provided: Adult Hospital Medicine
[2025-01-15] MEDS: POTASSIUM CHLORIDE 20 MEQ/15 ML UDC PO ONE (08:06)
[2025-01-15] MEDS: METOCLOPRAMIDE HCL 5 MG TABLET PO SCH (08:55)
[2025-01-15] MEDS ORDERED: CIPROFLOXACIN 500 MG TAB PO SCH (12:45)
--- NOTE | 2025-01-15 13:17 | Billing Data ---
Date of Service January 15, 2025 Coding Level of Care Code 50328 SUB INP/OBS CARE MIN
[2025-01-15] MEDS: AMOXICILLIN/CLAVULANATE 875 MG TAB PO SCH (17:25)
--- NOTE | 2025-01-15 20:50 | Ultrasound Report ---
DVT ULTRASOUND LEFT LOWER EXTREMITY INDICATION: Pain TECHNIQUE: Grayscale and color Doppler evaluation of the LEFT femoral-popliteal venous system was performed. A duplex Doppler study was performed, consisting of integrated two-dimensional (2D) real-time imaging: Color flow Doppler and Doppler spectral analysis. COMPARISON: None FINDINGS: LEFT common femoral, femoral and popliteal veins: Normal compressibility, color flow, respiratory variation. No intraluminal echogenic material. IMPRESSION: No evidence of deep venous thrombus in the left femoral-popliteal venous system. Electronically signed by Nima Briggs 01-15-2025 8:50 PM
[2025-01-16 06:20] LABS: Hematocrit (blood only) 33.6 % (37.0-47.0); Hemoglobin 9.9 g/dl (12.0-16.0); Mean Corpuscular Hemoglobin 27.3 pg (25.0-34.0); Mean Corpuscular Volume 92.6 fL (80.0-100.0); Platelet Count 263 K/uL (130-400); RDW Standard Deviation 63.8 fL (36.4-46.3); Red Blood Count 3.63 M/uL (4.20-5.40); White Blood Count 9.50 K/ul (4.8-10.8)
[2025-01-16 06:53] LABS: Anion Gap 4.0 (3-11); Blood Urea Nitrogen 11.0 mg/dl (6-23); Calcium 8.1 mg/dl (8.6-10.3); Carbon Dioxide 28.0 mmol/L (21-32); Chloride 110.0 mmol/L (98-107); Creatinine Clr Calc Pharmacy 163.2 ml/min; Glucose 76.0 mg/dl (70-99(Fasting)); Potassium 3.6 mmol/L (3.5-5.1); Sodium 142.0 mmol/L (136-145)
--- NOTE | 2025-01-16 07:14 | Hospitalist Progress Note ---
Date of Service January 16, 2025 Assessment & Plan (1) UTI (urinary tract infection): (2) [place]'s disease: (3) Suprapubic catheter: Plan Benny is a 39-year-old female with [place]'s disease on chronic steroids, neurogenic bladder with suprapubic catheter, anxiety, chronic pain, GERD ,and obesity with BMI of 39.9 who presented on 12/26 for suprapubic pain, urinary symptoms and N/V. EGD 01/10 showing likely contributory gastritis. Condition overall improving. #Irritable bowel Syndrome #Intractable nausea/vomiting #Gastritis -Gastroenterology on board, appreciate recs -EGD 01/10 reveals normal esophagus; gastritis characterized by erythema and friability; normal jejunum Chronic steroid use likely contributory to gastritis -H pylori negative - Continue famotidine 20mg PO BID; Protonix BID, starting 40mg PO tonight; Sucralfate PO ACHS; metoclopramide 5mg PO TID - Continue cholestyramine 4g nightly - CBC AM #[place]'s disease -Started PO Prednisone 3 mg TID -Continue home Fludrocortisone 0.1mg qAM - BMP AM #UTI/dysuria Completed course of antibiotics for 10 days. Repeat Urinalysis (01/07). Reveals trace Leucocyte esterase, negative nitrite, urine mucus and 3-5 hyaline cast. - UA 01/14 showing 2+ bacteria started on Augmentin 875mg BID total of 7 days for empiric therapy pending culture results - continue prn pyridium for dysuria #Hypokalemia K improved 2.9 --> 3.6 after PO 40meq liquid K+ on 01/15 - continue to monitor BMP AM #Chronic pain - continue oxycodone q8h prn and acetaminophen-codeine q6hr prn ordered - continue flexeril 10mg qAM, robaxin 750mg TID prn #Possible EDEN -Consider Sleep study outpatient #H/o recurrent suprapubic catheter infection # Candidiasis around catheter insertion site - A/P CT revealed no acute findings - Changed Suprapubic catheter on 01/07 - suspect infections around suprapubic that are recurrent likely are fungal given pt BMI and the area around the cath gets very warm/moist instead of true bacterial infections around this site repeatedly - No drainage or signs of skin infection noted today continue nystatin to affected area ordered wound care nurse consult on 01/14 #Chest pain - Clinically, patient endorses chest pain and intermittent palpitations - Troponin WNL on arrival - EKG NSR 98 bpm; QTc 446 - Continuous telemetry monitoring. No concerning findings on tele #H/o gastric bypass - Patient reports that she has a hard time absorbing pills/nutrients - Port in place for iron infusions and IV access #POTS -Continue Propranolol 10mg TID PRN #Anxiety -Continue Clonazepam 1mg PO TID #Chronic back pain -Continue Flexeril and Pregabalin Admission and Anticipated Discharge Date Admission Date: December 28, 2024 Supervising Physician Co-Signing Physician Notes Attending attestation Pt seen and examined in concert with Dr. Serrano. In agreement with the documented findings as noted in the resident documentation with any exceptions or additions as noted here. SIgnificantly improved energy level and diminished symptoms including loose bowel movements from previous per patient. VS as noted. On examination, S1/S2 nl RRR no MCG. CTAB. Abd NT/ND BS+ve IBS in the setting of acute gastroenteritis - GI consult - symptoms improving on symptomatic regimen as noted. Agree w/ outpatient follow up for same. [place]'s disease - considerable improvement comparative to previous admission. Continue prednisone 3mg TID and fludocortisone UTI - UCx pending, continue augmentin empirically and encourage d/c if Cx negative Else see resident documentation as noted. Total attending physician time spent with this patient's care on the day of evaluation: 40 minutes. Subjective Pt reports being very fatigued today. She states she has been waking at night due to having bowel movements and nausea, and then she is sleepy during the day. Pt denies CP, SOB, V/C, pain or drainage at catheter site Pt endorses intermittent JOY, dysuria, and N/V Review of Systems Review of Systems: As per HPI Physical Exam Physical Exam: Constitutional: A&Ox3, appearing tired but in no acute distress HEENT: EOM intact, anicteric sclerae CV: RRR, +s1/s2, no murmurs appreciated. No LE edema Resp: b/l clear to auscultation. No wheezing or crackles appreciated, no increased work of breathing GI/Abd: +BS, abdomen soft, generalized mild abdominal tenderness to palpation, mild suprapubic tenderness to palpation around site of suprapubic cath. No drainage at catheter site MSK: strength in b/l UE and LE is WNL; no gross deformities noted; mild ecchymosis at L lateral calf. Skin: Warm, Dry, No rashes Neuro: no facial droop, speech intact, moves all extremities Results & Data Results & Data Vital Signs (Past 12 Hours) Vital Signs Temp Pulse Resp BP Pulse Ox O2 Del Method 01/16/25 04:33 36.5 C 91 H 18 102/71 97 Room Air 01/15/25 23:46 Room Air 01/15/25 23:30 36.7 C 86 18 105/72 96 Room Air 01/15/25 20:09 36.8 C 106 H 18 107/67 96 Room Air Resident Activity Tracking Resident Involvement: Resident Care Provided Care Provided: Adult Hospital Medicine
--- NOTE | 2025-01-16 10:00 | Gastroenterology Progress Note ---
Date of Service January 16, 2025 Assessment & Plan (1) Nausea & vomiting: (2) Diarrhea: (3) GERD without esophagitis: Plan -Continue with Famotidine 20mg PO BID, Protonix 40 mg BID, Sucralfate PO ACHS, Imodium once daily, & metoclopramide 5mg PO TID -It does not seem as though there are any acute unanswered GI concerns at present. Symptoms appear chronic in nature without an easy solution. Patient will need ongoing outpatient treatment with her GI team. Would benefit from a mu ltidisciplinary approach at a tertiary level. Admission and Anticipated Discharge Date Admission Date: December 28, 2024 Supervising Physician Co-Signing Physician Notes I saw and examined this patient with our nurse practitioner and agree with her assessment and plan. Still with multiple GI issues that have been chronic. Have started her on a regimen that may take some time to resolve her symptoms. Continue present plan for management of acid reflux nausea and vomiting with metoclopramide famotidine and Protonix as well as Carafate suspension. Gastric biopsies were negative on recent endoscopy. We have started cholestyramine at bedtime for her chronic diarrhea and would start Imodium once daily to help with the symptoms as well. I recommended that she follow-up with an academic institution such as [facility] for management of her multiple GI and other medical conditions. I suspect they may have a center for functional bowel disorder which may be the best place to center. Subjective Patient is a 39 yo female with n/v/d. She is currently being treated supportively with Famotidine, Protonix, Carafate, Questran, Reglan, & Imodium. Overall her clinical course has demonstrated improved symptoms from presentation. She is sleeping soundly this morning. Will return on afternoon rounds to discuss symptoms further. Review of Systems Gastrointestinal: unchanged Physical Exam Constitutional: no acute distress Respiratory: normal respiratory effort Gastrointestinal (Abdomen): Inspection/Auscultation: abdomen normal to inspection Results & Data Results & Data Vital Signs (Past 12 Hours) Vital Signs Temp Pulse Resp BP Pulse Ox O2 Del Method 01/16/25 08:12 36.5 C 95 H 20 103/70 95 Room Air 01/16/25 04:33 36.5 C 91 H 18 102/71 97 Room Air 01/15/25 23:46 Room Air 01/15/25 23:30 36.7 C 86 18 105/72 96 Room Air Laboratory Results Laboratory Results - last 48 hr 01/15/25 01/15/25 01/16/25 04:26 05:28 05:56 WBC 7.50 9.50 RBC 3.82 L 3.63 L Hgb 10.6 L 9.9 L Hct 35.2 L 33.6 L MCV 92.1 92.6 MCH 27.7 27.3 MCHC 30.1 L 29.5 L RDW Std Deviation 62.1 H 63.8 H RDW Coeff of [place] 18.6 H 18.5 H Plt Count 282 263 MPV 9.5 9.1 L Sodium 144 142 Potassium 2.9 L 3.6 D Chloride 111 H 110 H Carbon Dioxide 26 28 Anion Gap 7 4 BUN 12 11 Creatinine 0.71 0.64 Est Cr Clr Drug Dosing 146.3 163.2 eGFR 110.16 114.50 BUN/Creatinine Ratio 16.9 17.2 Glucose 108 H 76 Calcium 8.1 L 8.1 L Urine Color Yellow Urine Appearance Clear Urine pH 7.5 Ur Specific [place] 1.004 Urine Protein Negative Urine Glucose (UA) Negative Urine Ketones Negative Urine Blood Negative Urine Nitrite Negative Urine Bilirubin Negative Urine Urobilinogen Negative Ur Leukocyte Esterase Trace H Urine WBC (Auto) 0-5 Urine RBC (Auto) 0-2 U Hyaline Cast (Auto) 0-2 U Epithel Cells (Auto) 0-2 Urine Bacteria (Auto) 2+ H Urine Comment PG Care Time/CCT Total # of Minutes Spent Total Time Spent with Patient: Total time spent is greater than 50% in coordination of care (as documented) at patient's floor/unit and/or counseling patient: Coding Level of Care Code 05944 SUB INP/OBS CARE 2/35MIN Diagnoses Nausea & vomiting R11.2 Diarrhea R19.7 GERD without esophagitis K21.9
--- NOTE | 2025-01-17 06:46 | Discharge Summary ---
Date of Service January 17, 2025 Admission HPI Per Admitting Provider Mrs. Weldon is a 39-year-old female who presented on 12/26 for bilateral flank pain, pain at her suprapubic catheter site, and mucus/bloody drainage from her urethra. Patient reports that she has been sick with flulike symptoms that began on 12/22. Originally, her children were sick last week, then she and her developed nausea, vomiting, and diarrhea. Over the past 40 hours, she reports that she has had constant 9/10 pain in her urethra. She reports it feels like there are "razor blades and knives" cutting into your urethra. She also endorses increased urinary frequency, mucus in her suprapubic catheter, and bloody drainage from her bag. Patient reports her last period was 2 weeks ago, however she had bright red blood in the toilet this morning. Patient reports that she has a port due to her gastric bypass and inability to retain fluids/vitamins; she also reports that she has poor IV access with her veins, and has required iron infusions through her port in the past. She is requesting a urology consult, she would like to establish care with [facility] urology. Patient reports her Lou gets changed by home health every Thursday; last changed on 12/19. She normally changes the dressing daily, but forgot to change it, and reports that when she went to change it this morning it smelled "rotten", and there was dark red/brown drainage from the site. Additionally, she reports that she is having significant lower back pain like her back is "seizing". She denies any allergies to antibiotics. She reports she has a history of "silent sepsis" requiring multiple transfers from [place] to [place], even when she has had a white blood cell count of 6. She also reports she has a history of multidrug-resistant UTI infections. Patient took "most of her" regular morning medications today at 7 AM, including Tylenol, promethazine, and propranolol. She was recently changed to prednisone and fludrocortisone for her [place]'s disease, and reports that she had difficulty keeping down her prednisone yesterday; throughout the pills. She is currently unsure how to stress dose prednisone, and was hoping to establish with Dr. Beckett ([place] [facility]). Patient denies smoking, tobacco use, recent alcohol use. Vital stable time admission. ED course: Hydrocortisone 100 mg IV NSS 1000 mL IV Zofran 4 mg IV Morphine 4 mg IV ROS: Patient endorses fever, chills, headaches, blurry vision, lower back pain, chest pain, chest palpitations (which she attributes to anxiety), nausea, vomiting, diarrhea, blood in urine, dysuria, and pain when bearing down. Patient denies SOB at rest, cough, or saddle anesthesia. Principal Diagnosis Intractable nausea and vomiting Discharge Exam Constitutional: A&Ox3, appearing tired but in no acute distress HEENT: EOM intact, anicteric sclerae CV: RRR, +s1/s2, no murmurs appreciated. No LE edema Resp: b/l clear to auscultation. No wheezing or crackles appreciated, no increased work of breathing GI/Abd: +BS, abdomen soft, generalized mild abdominal tenderness to palpation, mild suprapubic tenderness to palpation around site of suprapubic cath. No drainage at catheter site MSK: strength in b/l UE and LE is WNL; no gross deformities noted; mild ecchymosis at L lateral calf. Skin: Warm, Dry, No rashes Neuro: no facial droop, speech intact, moves all extremities Discharge Data Allergies Allergy/AdvReac Type Severity Reaction Status Date / Time adhesive tape Allergy Intermediate SKIN Verified 12/26/24 17:00 REDDENED, ITCHY scopolamine Allergy Intermediate SKIN Verified 12/26/24 17:00 REDDENED, ITCHY escitalopram [From Lexapro] AdvReac Intermediate VERY Verified 12/26/24 17:00 EMOTIONAL, OPPOSITE EFFECT haloperidol [From Haldol] AdvReac Intermediate LOCKED JAW Verified 12/26/24 17:00 Consultations 12/26/24 17:01 ED Decision to Admit Stat 12/29/24 12:03 Consult Urology Routine 01/09/25 12:43 Consult Gastroenterology Routine Procedures Performed Operation Date: 01/10/25 18:05 Actual Procedures p EGD Biopsy Cytology - Enzo Mascorro MD Ordered Studies 12/26/24 14:31 CT abd pelvis IV con only Stat 12/29/24 11:30 FL small bowel follow through Urgent 01/12/25 13:45 FL video swallow Routine 01/15/25 18:21 US venous doppler LE LT Routine Hospital Course (1) UTI (urinary tract infection): (2) Fredrick's disease: (3) Suprapubic catheter: (4) Chronic back pain: Lenny Zapata is a 39-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 EGD 01/10 showing likely contributory gastritis. Condition ove rall improving. #Irritable bowel Syndrome #Intractable nausea/vomiting #Gastritis -Gastroenterology on board, appreciate recs -EGD 01/10 reveals normal esophagus; gastritis characterized by erythema and friability; normal jejunum Chronic steroid use likely contributory to gastritis -H pylori negative - Continue famotidine 20mg PO BID; Protonix BID, starting 40mg PO tonight; Sucralfate PO ACHS; metoclopramide 5mg PO TID - Continue cholestyramine 4g nightly - CBC AM #Fredrick's disease -Continued PO Prednisone 3 mg TID -Continue home Fludrocortisone 0.1mg qAM - BMP AM #UTI/dysuria Completed course of antibiotics for 10 days. Repeat Urinalysis (01/07). Reveals trace Leucocyte esterase, negative nitrite, urine mucus and 3-5 hyaline cast. - UA 01/14 showing 2+ bacteria, culture pos for S. epidermidis and E. faecalis Started on Augmentin 875mg BID total of 7 days, ending 01/21 - continue prn pyridium for dysuria #Hypokalemia K is 3.4 -Continue to monitor BMP AM #Chronic pain - continue oxycodone q8h prn and acetaminophen-codeine q6hr prn ordered - continue flexeril 10mg qAM, robaxin 750mg TID prn #Possible EDEN -Consider Sleep study outpatient #H/o recurrent suprapubic catheter infection # Candidiasis around catheter insertion site - A/P CT revealed no acute findings - Changed Suprapubic catheter on 01/07 - suspect infections around suprapubic that are recurrent likely are fungal given pt BMI and the area around the cath gets very warm/moist instead of true bacterial infections around this site repeatedly - No drainage or signs of skin infection noted today continue nystatin to affected area ordered wound care nurse consult on 01/14 #Chest pain - Clinically, patient endorses chest pain and intermittent palpitations - Troponin WNL on arrival - EKG NSR 98 bpm; QTc 446 - Continuous telemetry monitoring. No concerning findings on tele #H/o gastric bypass - Patient reports that she has a hard time absorbing pills/nutrients - Port in place for iron infusions and IV access #POTS -Continue Propranolol 10mg TID PRN #Anxiety -Continue Clonazepam 1mg PO TID #Chronic back pain -Continue Flexeril and Pregabalin Total Time Total Time Spent Total Time Spent (In Minutes): As per attending attestation Discharge Plan Discharge Items Patient Disposition: Home - Self-Care Reason For Visit: RECURRENT SUPRAPUBIC CATHETER INFECTIONS Discharge Diagnosis: Recurrent catheter infections Condition on Discharge: Fair Activity: Resume your previous activity Non-emergency contact: Primary Care Provider Call non-emergency contact if: your symptoms worsen Follow-up/Referrals: Giovanni Mclean DO [Primary Care Provider] - 01/27/25 8:20 am Diet: Regular Addtl Attending Provider Instructions: We have sent a prescription for Augmentin to treat the bacteria found in urine culture on 01/15. It is to be taken twice daily for 4 more days, last dose should be on 01/21 in the evening. Continue taking your Famotidine 20mg twice daily, pantoprazole 40mg twice daily, and sucralfate 1 gm before meals and before bedtime. Also, please take Metoclopramide (Reglan) 5 mg every 8 hours. Resume prednisone 3 mg taken three times daily at the times 9am, 12 noon, and 5 pm. Please follow up with your primary care physician in the next 1-2 weeks as well as schedule an initial visit with Endocrinology for first available appointment. Please call the pump operator office mentioned to you by Dr. Mascorro (Dr. Tompkins at [facility]) to schedule a follow up visit with them as well. Below we have a guideline for stress dosing your steroid therapy should you need at home. Steroid Stress Dosing When you have an illness, you will need to stress dose your steroid dose to compensate for the illness with [place]'s disease to avoid adrenal crisis. If you have fever of 38C (100.4F) to 39C (102.2F), you should double your steroid doses for up to 3 days. If you still have a fever by day 4, or have symptoms such as tachycardia with hypotension, you should return to the ER immediately or contact your primary care doctor. If you have symptoms of persistent nausea or vomiting or fever >39C (>102.2F), you may triple your doses for up to 3 days. If symptoms persist, please return to the ER immediately. Pending Studies at Discharge: No Stand-Alone Forms: My [facility] [place], Smoking Cessation Medications and DC Order Prescriptions: New amoxicillin-pot clavulanate 875-125 mg Tablet 1 tab PO BIDM 4 Days Qty: 8 0RF Prevalite 4 gram Powder In Packet 4 g PO 2200 Qty: 30 0RF sucralfate 100 mg/mL Suspension 1 g PO ACHS Qty: 420 0RF phenazopyridine [Pyridium] 200 mg Tablet 200 mg PO TID PRN (Reason: pain) Qty: 30 0RF famotidine 20 mg Tablet 20 mg PO BID Qty: 60 0RF metoclopramide HCl 5 mg Tablet 5 mg PO TID Qty: 90 0RF oxycodone 5 mg Tablet 5 mg PO Q8 PRN (Reason: pain) 10 Days Qty: 30 0RF Continued cyclobenzaprine 10 mg Tablet 10 mg PO QAM clotrimazole 10 mg E[place]ch 10 mg PO DIRECTED PRN (Reason: Flare) Rx Instructions: BID - TID as needed sennosides [senna] 8.6 mg Tablet 17.2 mg PO HS PRN (Reason: Constipation) ascorbic acid (vitamin C) [Vitamin C] 1,000 mg Tablet 1,000 mg PO DAILY zinc acetate 50 mg (zinc) Capsule 50 mg PO DAILY Rx Instructions: TAKE 1 HR PRIOR TO EATING OR 2 HR AFTER EATING sucralfate [Carafate] 1 gram Tablet 1 g PO ACHS Rx Instructions: PER PT "ONLY 2-3 TIMES A DAY" clonazepam 1 mg Tablet 1 mg PO TID thiamine HCl (vitamin B1) [Vitamin B-1] 100 mg Tablet 100 mg PO DAILY topiramate 25 mg Tablet 25 mg PO BID Rx Instructions: TOTAL DOSE 125 MG--TAKES WITH 100 MG TAB. propranolol 10 mg Tablet 10 mg PO TID PRN (Reason: NEEDED) Rx Instructions: HOLD FOR LOW B/P potassium chloride 20 mEq Tablet,Er Particles/Crystals 20 meq PO DAILY cyanocobalamin (vitamin B-12) 1,000 mcg/mL Solution 1,000 mcg IM WK ferrous sulfate 325 mg (65 mg iron) Tablet 650 mg PO DAILY lidocaine 5 % Adhesive Patch,Medicated 1 patch TOPICAL DAILY Rx Instructions: leave on most painful area for up to 12 hrs promethazine 25 mg Tablet 25 mg PO Q6H PRN (Reason: NAUSEA/VOMITING) multivitamin with minerals Tablet 1 tab PO DAILY polyethylene glycol 3350 [Miralax] 17 gram/dose Powder 17 g PO DAILY PRN (Reason: Constipation) topiramate 100 mg Tablet 100 mg PO BID Rx Instructions: TOTAL DOSE 125 MG--TAKES WITH 25 MG TAB. dicyclomine 10 mg Capsule 10 mg PO TID PRN (Reason: IRRITABLE BOWEL SYMPTOMS) B-complex with vitamin C Capsule 1 cap PO DAILY pregabalin 50 mg capsule 50 mg PO QPM Rx Instructions: TAKES Q AFTERNOON pregabalin 100 mg capsule 100 mg PO AMHS calcium citrate-vitamin D3 250 mg-5 mcg (200 unit) Tablet 2 tab PO DAILY zolpidem [Ambien] 10 mg tablet 10 mg PO HS PRN (Reason: Sleep) acetaminophen 500 mg Tablet 500 mg PO Q6H PRN (Reason: Pain) pantoprazole 40 mg Tablet,Delayed Release (Dr/Ec) 40 mg PO BID Qty: 60 0RF fludrocortisone 0.1 mg Tablet 0.1 mg PO QAM Qty: 30 0RF Changed prednisone 1 mg tablet 3 mg PO TID Qty: 270 0RF Discharge Orders: Discharge Order (Routine); Ordered 01/17/25 Ordered By: Chuyita Vaughn Admission Data Admit Date/Time: 12/28/24 09:06 Attending Provider: Eleazar Lowery Admit Provider: Charli Montana Primary Care Provider: Giovanni Mclean Other Providers: Emili Gr; Enzo Mascorro I Other Interventions: Discharge Summary Assessment (RN) Last Done: 01/17/25 14:45 Supervising Physician Co-Signing Physician Notes Attending attestation Pt seen and examined in concert with Dr. Serrano. In agreement with the documented findings as noted in the resident documentation with any exceptions or additions as noted here. Patient reports on day of discharge ongoing complaints of fatigue, intermittent tachycardia worse with standing, waxing and waning nausea, all of which have been present throughout the admission, and expresses anxiety/concern regarding her disposition. VS as noted. On examination, S1/S2 nl RRR no MCG. CTAB. Abd NT/ND BS+ve. Telemetry reviewed: waxing and waning HR between approx 70 and 130 which has been consistent from this and previous hospitalizations. IBS in the setting of acute gastroenteritis - GI consult - discussed with GI on day of discharge and encourage continuation of present symptom management with oral medications with recommendation for establish with outpatient tertiary GI evaluation through Dr. Tompkins at [facility] in [place]. Tachycardia, POTS - HR within range and responding very well to oral hydration (approx 4 L per day) with good urine output. Counseling and precautions re: activity, hydration and importance for outpatient follow up Addision's disease - considerable improvement comparative to previous admission. Continue prednisone 3mg TID and fludocortisone Else see resident documentation as noted. Total attending physician time spent with this patient's care on the day of discharge: 50 minutes. Resident Activity Tracking Resident Involvement: Resident Care Provided Care Provided: Adult Hospital Medicine
[2025-01-17 08:03] VITALS: RESP 18
[2025-01-17 08:24] LABS: Hematocrit (blood only) 36.3 % (37.0-47.0); Hemoglobin 11.0 g/dl (12.0-16.0); Mean Corpuscular Hemoglobin 27.5 pg (25.0-34.0); Mean Corpuscular Volume 90.8 fL (80.0-100.0); Platelet Count 305 K/uL (130-400); RDW Standard Deviation 61.3 fL (36.4-46.3); Red Blood Count 4.00 M/uL (4.20-5.40); White Blood Count 7.16 K/ul (4.8-10.8)
[2025-01-17 08:59] LABS: Alanine Aminotransferase 10.0 U/L (7-52); Albumin Globulin Ratio 1.6 (0.9-2); Alkaline Phosphatase 55.0 U/L (34-104); Anion Gap 6.0 (3-11); Bilirubin,Total 0.1 mg/dl (0.2-1.0); Blood Urea Nitrogen 10.0 mg/dl (6-23); Calcium 8.5 mg/dl (8.6-10.3); Carbon Dioxide 26.0 mmol/L (21-32); Chloride 110.0 mmol/L (98-107); Creatinine Clr Calc Pharmacy 158.3 ml/min; Globulin 2.4 gm/dl (2.5-4.0); Glucose 106.0 mg/dl (70-99(Fasting)); Potassium 3.4 mmol/L (3.5-5.1); Sodium 142.0 mmol/L (136-145); Total Protein 6.3 gm/dl (6.0-8.3)
[2025-01-17 11:33] VITALS: TEMP 97.7; O2SAT 96
--- NOTE | 2025-01-17 13:08 | Gastroenterology Progress Note ---
Date of Service January 17, 2025 Assessment & Plan (1) Nausea & vomiting: Plan: -Continue current meds as scheduled. -Discussed that Dr. Mascorro and I recommend evaluation at an academic institution with a multi-disciplinary approach with GI, psych, bariatric surgery, etc given she has not had any significant despite extensive work-up and treatment thus far. She is frustrated that nothing changes when she comes to the ED here. We did discuss the limitations and expectations of acute evaluation for chronic symptoms. We did discuss that [facility] in [place] may be a good option moving forward. Discussed th Dr. Tompkins at [facility] may be a good recommendation for her situation. Admission and Anticipated Discharge Date Admission Date: December 28, 2024 Supervising Physician Co-Signing Physician Notes I saw and examined this patient with our nurse practitioner and agree with her assessment and plan. Patient was discharged prior to my seeing her today. Plan outlined by physicians physician assistant as above. Subjective Patient is a 39 yo female with chronic functional GI symptoms. Patient is to be discharged today. She notes continuation of her chronic symptoms and is seeking a recommendation for outpatient GI evaluation at a tertiary center. Review of Systems Gastrointestinal: + nausea Physical Exam Constitutional: no acute distress Respiratory: normal respiratory effort, lungs clear to auscultation Gastrointestinal (Abdomen): normal bowel sounds, soft, nontender, no hepatosplenomegaly Psychiatric: Orientation: alert and oriented x 3 Results & Data Results & Data Vital Signs (Past 12 Hours) Vital Signs Temp Pulse Pulse Resp BP Pulse Ox O2 Del Method 01/17/25 11:32 36.5 C 119 H 18 126/81 96 Room Air 01/17/25 08:02 36.4 C L 110 H 18 104/68 99 Room Air 01/17/25 05:41 81 01/17/25 03:31 36.5 C 76 16 114/76 98 Room Air PG Care Time/CCT Total # of Minutes Spent Total Time Spent with Patient: Total time spent is greater than 50% in coordination of care (as documented) at patient's floor/unit and/or counseling patient: Coding Level of Care Code 27759 SUB INP/OBS CARE 3/50MIN Diagnoses Nausea & vomiting R11.2
[2025-01-17 14:46] VITALS: BP 95/67; PULSE 119
== END 2025-01-17 16:37 | disposition home or self-care (01) | DRG 392 ==
LOC: ED 13:48 → EDINP 13:48 → SUATTDRO 18:05 → 2N 20:28 → SUATTDRO 12-28 09:06

== ENCOUNTER 2025-02-07 12:32 | Observation (INO) ==
[2025-02-07 13:58] LABS: Hematocrit (blood only) 41.6 % (37.0-47.0); Hemoglobin 12.9 g/dl (12.0-16.0); Immature Granulocytes # (auto) 0.03 K/uL (0.01-0.20); Immature Granulocytes % (auto) 0.3 %; Mean Corpuscular Hemoglobin 26.6 pg (25.0-34.0); Mean Corpuscular Volume 85.8 fL (80.0-100.0); Platelet Count 303 K/uL (130-400); RDW Standard Deviation 47.1 fL (36.4-46.3); Red Blood Count 4.85 M/uL (4.20-5.40); White Blood Count 9.21 K/ul (4.8-10.8)
[2025-02-07 14:21] LABS: Alanine Aminotransferase 12 U/L (7-52); Albumin Globulin Ratio 1.4 (0.9-2); Alkaline Phosphatase 59 U/L (34-104); Anion Gap 10 (3-11); Bilirubin,Total 0.3 mg/dl (0.2-1.0); Blood Urea Nitrogen 7 mg/dl (6-23); Calcium 9.1 mg/dl (8.6-10.3); Carbon Dioxide 23 mmol/L (21-32); Chloride 106 mmol/L (98-107); Creatinine Clr Calc Pharmacy 185.0 ml/min; Globulin 3.1 gm/dl (2.5-4.0); Glucose 93 mg/dl (70-99(Fasting)); Potassium 3.1 mmol/L (3.5-5.1); Sodium 139 mmol/L (136-145); Total Protein 7.3 gm/dl (6.0-8.3)
[2025-02-07] MEDS: ONDANSETRON INJ 2 MG/ML 2 ML VIAL IV STA (14:45)
[2025-02-07] MEDS: HYDROCORTISONE SOD SUCCINATE 100 MG/2 ML VIAL IV STA (14:45)
[2025-02-07] MEDS: SODIUM CHLORIDE 0.9% 1,000 ML IV SCH (14:46)
[2025-02-07 15:06] LABS: Magnesium 1.8 mg/dl (1.7-2.4)
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
[2025-02-07 16:08] LABS: Appearance Urine Clear (Clear); Bacteria Urine Automated None Seen (None Seen); Cast Urine Automated 0-2 /lpf (0-2); Epithelial Cell Urine Auto 0-2 /hpf (0-2); Glucose Urine UA Negative (Negative); RBC Urine Automated 0-2 /hpf (0-2)
--- NOTE | 2025-02-07 16:26 | Emergency Department Note ---
Impression & Plan Hypokalemia, Suprapubic catheter, Diarrhea, Acute dehydration ED Provider Note NAME: FRANNIE BLANKENSHIP AGE: 39 SEX: F : 1985 ARRIVES VIA: Walk-In INFORMANT: Patient, ED PROVIDER(S): Duy Ochoa MD CHIEF COMPLAINT: Abdominal cramping, low-grade fever, tachycardia, outpatient referral MEDICAL DECISION MAKING: Patient presents due to concern for multiple complaints clinically likely dehydrated. IV was established and blood work was obtained. Patient was ordered IV fluids. Patient also did receive IV Zofran. I did speak with the on-call hospital service Dr. [place]. The patient did have mild hyperkalemia. Initially hydrocortisone was ordered but this was advised not to give until being seen by the inpatient service. Patient was subsequently admitted to the inpatient service. Discussion w/ other healthcare providers: Dr. Montana inpatient medicine service Prior /Outside records reviewed: None Differential diagnosis: Infection, dehydration, metabolic abnormality, hypo/hyperglycemia, electrolyte imbalance, anemia, UTI, pneumonia, thyroid dysfunction among others were considered. Diagnostics, as interpreted by me: ECG: None Cardiac monitoring: An order was placed for continuous cardiac monitoring. The monitor shows a rate of 102 with tachycardic and regular rhythm. Patient was placed on pulse oximetry Medical decision rules: None Imaging studies: None HPI: Patient presents with multiple complaints. The patient is concerned that she might be an addisonian crisis with associated diarrhea and increased stool output. The patient was seen at her previous [facility] office today and was referred here for further evaluation treatment. She reports that she does take chronic steroids and has been increasing them recently. Patient did have a recent admission for somewhat similar symptoms. Patient denies any chest pains. No shortness of breath. The patient has had nausea and abdominal cramping. No known sick contacts or any recent travel. Patient does have a suprapubic catheter and was concerned that she was having purulent discharge. Patient states he does have low-grade temperatures of 99. The patient has also noticed intermittently elevated heart rates including this morning it was in the 140s. PAST MEDICAL HISTORY: See Below PAST SURGICAL HISTORY: See Below SOCIAL HISTORY: See Below HOME MEDICATIONS: See Below ALLERGIES: See Below VITALS: See Below PHYSICAL EXAMINATION: GENERAL: NA mildly ill but nontoxic in appearance. EYE EXAM: Normal conjunctiva. PERRL, no anisocoria and EOM's grossly intact w/o pain. OROPHARYNX: Dry mucus membranes, grossly normal dentition. NECK: Trachea midline, no stridor. LUNGS: Clear to auscultation. Normal chest wall mechanics. HEART: Tachycardic and regular, no MRG. ABDOMEN: Abdomen soft, non-tender, no masses, no rebound or guarding. Suprapubic catheter in place without obvious surrounding erythema fluctuance or drainage. BACK: No CVA TTP. SKIN: No rashes and no bruising. UPPER EXTREMITIES: Upper extremities are grossly normal. LOWER EXTREMITIES: Grossly normal, no edema. NEURO EXAM: Awake and alert, follows commands, no obvious facial asymmetry, normal speech, moves all 4 extremities. Past Med/Surg History Problem List (Updated 02/08/25 @ 20:06 by Duy Ochoa MD) Acute dehydration (Acute) Febrile illness Diarrhea (Acute) Nausea & vomiting UTI (urinary tract infection) Suprapubic catheter (Acute) POTS (postural orthostatic tachycardia syndrome) Anemia HTN (hypertension) Hypokalemia (Acute) Neurogenic bladder (Acute) GERD without esophagitis Chronic back pain Tachycardia Anxiety Mckenzie's disease (Acute) Medical History Vulvovaginal candidiasis Difficult intravenous access Alternating constipation and diarrhea Vomiting Surgical History History of lumbar fusion History of gastric bypass Family History Grandfather (Paternal) Colorectal cancer Grandmother (Paternal) Myocardial infarction Denies family history of Ovarian cancer Prostate cancer Breast cancer Social History Smoking Status: Never smoker Second Hand Exposure: No; Do You Dip or Chew Tobacco: No; Hx Alcohol Use: No Hx Substance Use: No Preferred Language: Citizen Of [place] Communication Ability: Effective Visual Impairment: No Limitations Hearing Ability: Normal Hatchery Attendant Required: No Beliefs That Will Affect Care: None marital status: Current Living Situation: Spouse current occupational status: disabled How many Children do You have: 2 Feels Safe at Home: Yes Childhood Exposure to Second-Hand Smoke: No Diet: other Diet Comment: protein, Bypass diet caffeine: Yes during the past year weight has: increased > 10 lbs Dental Care, Regularly: No Physical Activity Frequency: 3-4 Times per Week Physical Activity Frequency Comment: PT/OT Seatbelt Use: always Sunscreen Use: Yes Assistive Devices: Walker and Wheelchair Allergies Allergies Allergy/AdvReac Type Severity Reaction Status Date / Time adhesive tape Allergy Intermediate SKIN Verified 02/07/25 15:01 REDDENED, ITCHY scopolamine Allergy Intermediate SKIN Verified 02/07/25 15:01 REDDENED, ITCHY escitalopram [From Lexapro] AdvReac Intermediate VERY Verified 02/07/25 15:01 EMOTIONAL, OPPOSITE EFFECT haloperidol [From Haldol] AdvReac Intermediate LOCKED JAW Verified 02/07/25 15:01 [email or web address] AdvReac Uncoded 02/08/25 12:56 Home Meds Home Medications Medication Instructions Recorded Confirmed B-complex with vitamin C 1 cap PO DAILY 11/29/24 02/07/25 ascorbic acid (vitamin C) 1,000 mg 1,000 mg PO DAILY 11/29/24 02/07/25 tablet (Vitamin C) calcium 250 mg (as 2 tab PO DAILY 11/29/24 02/07/25 citrate)-vitamin D3 5 mcg (200 unit) tablet clonazepam 1 mg tablet 1 mg PO TID 11/29/24 02/07/25 clotrimazole 10 mg ludwig 10 mg PO DIRECTED PRN Flare 11/29/24 02/07/25 cyanocobalamin (vitamin B-12) 1,000 mcg IM WK 11/29/24 02/07/25 1,000 mcg/mL injection solution dicyclomine 10 mg capsule 10 mg PO TID PRN IRRITABLE BOWEL 11/29/24 02/07/25 SYMPTOMS ferrous sulfate 325 mg (65 mg 650 mg PO DAILY 11/29/24 02/07/25 iron) tablet lidocaine 5 % topical patch 1 patch topical DAILY 11/29/24 02/07/25 multivitamin with minerals 1 tab PO DAILY 11/29/24 02/07/25 polyethylene glycol 3350 17 17 g PO DAILY PRN Constipation 11/29/24 02/07/25 gram/dose oral powder (Miralax) potassium chloride 20 mEq 20 meq PO DAILY 11/29/24 02/07/25 tablet,extended release(part/cryst) pregabalin 100 mg capsule 100 mg PO AMHS 11/29/24 02/07/25 pregabalin 50 mg capsule 50 mg PO QPM 11/29/24 02/07/25 propranolol 10 mg tablet 10 mg PO TID PRN NEEDED 11/29/24 02/07/25 sennosides 8.6 mg tablet (senna) 17.2 mg PO HS PRN Constipation 11/29/24 02/07/25 sucralfate 1 gram tablet (Carafate) 1 g PO ACHS 11/29/24 02/07/25 thiamine HCl (vitamin B1) 100 mg 100 mg PO DAILY 11/29/24 02/07/25 tablet (Vitamin B-1) topiramate 100 mg tablet 100 mg PO BID 11/29/24 02/07/25 topiramate 25 mg tablet 25 mg PO BID 11/29/24 02/07/25 zinc acetate 50 mg (zinc) capsule 50 mg PO DAILY 11/29/24 02/07/25 zolpidem 10 mg tablet (Ambien) 10 mg PO HS PRN Sleep 12/12/24 02/07/25 acetaminophen 500 mg tablet 500 mg PO Q6H PRN Pain 12/26/24 02/07/25 Previous Rx's Medication Instructions Recorded cholestyramine 4 gram oral powder 4 g PO 2200 #30 ea 01/17/25 for suspension in a packet (Prevalite) famotidine 20 mg tablet 20 mg PO BID #60 tabs 01/17/25 fludrocortisone 0.1 mg tablet 0.1 mg PO QAM #30 tabs 01/17/25 pantoprazole 40 mg tablet,delayed 40 mg PO BID #60 tabs 01/17/25 release phenazopyridine 200 mg tablet 200 mg PO TID PRN pain #30 tabs 01/17/25 (Pyridium) prednisone 1 mg tablet 3 mg (3 x 1 mg) PO TID #270 tabs 01/17/25 sucralfate 100 mg/mL oral 1 g (10 mL) PO ACHS #420 mL 01/17/25 suspension cyclobenzaprine 10 mg tablet 10 mg PO QAM #90 tabs 02/07/25 oxycodone 5 mg tablet 5 mg PO DAILY PRN pain #5 tabs 02/07/25 promethazine 25 mg tablet 25 mg PO Q6H PRN NAUSEA/VOMITING 02/07/25 #120 tabs Results & Data (ED) Vital Signs Vital Signs - 24 hr 02/07/25 12:54 02/07/25 13:32 02/07/25 14:35 Temperature 37.3 C Temperature Source Oral Pulse Rate 128 H 57 L Pulse Rate [Apical] 98 H Respiratory Rate 20 16 Respiratory Effort / Characteristics Non-Labored Spontaneous Non-Labored Spontaneous Respiratory Depth Normal Normal Blood Pressure 123/86 Blood Pressure [Right Arm] 131/94 Blood Pressure Mean 98 Blood Pressure Mean [Right Arm] 106 Pulse Oximetry 97 95 Oxygen Delivery Method Room Air Room Air Sepsis Recent Fever Within 48 Hours No Sepsis New/Unexplained Change in Mental Status N/A Sepsis Action Taken by Nursing No Action Required Home Medications Current Medication List: was personally reviewed by me Laboratory Data Attestation: I reviewed the patient's lab results. 02/07/25 13:31 02/07/25 13:31 Lab Results 02/07/25 02/07/25 Range/Units 13:31 13:38 WBC 9.21 (4.8-10.8) K/ul RBC 4.85 (4.20-5.40) M/uL Hgb 12.9 (12.0-16.0) g/dl POC Hgb 14.6 (12.0-16.0) g/dl Hct 41.6 (37.0-47.0) % POC Hct 43 (37-47) % MCV 85.8 (80.0-100.0) fL MCH 26.6 (25.0-34.0) pg MCHC 31.0 L (32.0-36.0) g/dL RDW Std Deviation 47.1 H (36.4-46.3) fL RDW Coeff of [place] 15.3 H (11.5-14.5) % Plt Count 303 (130-400) K/uL MPV 9.7 (9.4-12.4) fL Immature Gran % (Auto) 0.3 % Neut % (Auto) 73.7 % Lymph % (Auto) 18.7 % [place] % (Auto) 6.7 % Eos % (Auto) 0.2 % Baso % (Auto) 0.4 % Neut # (Auto) 6.78 H (1.40-6.50) K/uL Lymph # (Auto) 1.72 (1.20-3.40) K/uL [place] # (Auto) 0.62 H (0.11-0.59) K/uL Eos # (Auto) 0.02 (0.00-0.50) K/uL Baso # (Auto) 0.04 (0.00-0.20) K/uL Immature Gran # (Auto) 0.03 (0.01-0.20) K/uL POC Sodium 140 (135-144) mmol/L Sodium 139 (136-145) mmol/L POC Potassium 3.0 L (3.3-5.0) mmol/L Potassium 3.1 L (3.5-5.1) mmol/L POC Chloride 106 (101-112) mmol/L Chloride 106 (98-107) mmol/L Carbon Dioxide 23 (21-32) mmol/L POC Total CO2 21 L (24-31) mmol/L Anion Gap 10 (3-11) POC Anion Gap 17.0 (16-25) mmol/L POC BUN 5 L (7-18) mg/dl BUN 7 (6-23) mg/dl Creatinine 0.55 L (0.6-1.2) mg/dl POC Creatinine 0.6 (0.6-1.3) mg/dl Est Cr Clr Drug Dosing 185.0 ml/min eGFR 118.76 BUN/Creatinine Ratio 12.7 (10-20) Glucose 93 (70-99(Fasting)) mg/dl POC Glucose (other) 93 (70-99) mg/dl Calcium 9.1 (8.6-10.3) mg/dl POC Ioniz Calcium Merrill 1.16 (1.12-1.32) mmol/l Magnesium 1.8 (1.7-2.4) mg/dl Total Bilirubin 0.3 (0.2-1.0) mg/dl AST 13 (13-39) U/L ALT 12 (7-52) U/L Alkaline Phosphatase 59 (34-104) U/L C-Reactive Protein < 0.50 (0-0.5) mg/dl Total Protein 7.3 (6.0-8.3) gm/dl Albumin 4.2 (3.4-5.0) gm/dl Globulin 3.1 (2.5-4.0) gm/dl Albumin/Globulin Ratio 1.4 (0.9-2) Staphylococcus sp PCR DETECTED A (NotDetected) mecA/C-Methicil Resis Gene DETECTED A (NotDetected) Staph epidermidis (PCR) DETECTED A (NotDetected) Bld Cult ID Panel PCR See PCR Comment (NotDetected) Administered Medications Acetaminophen (Acetaminophen 500 Mg Tab) 500 mg PO Q6H PRN PRN Reason: Pain Stop: 03/09/25 18:20 Last Admin: 02/08/25 16:54 Dose: 500 mg Documented By: Admin: 02/08/25 05:39 Dose: 500 mg Documented By: Admin: 02/07/25 20:08 Dose: 500 mg Documented By: CHEN Al Hydrox/Mg Hydrox/Simethicone (Aluminum/Magnesium Susp 30 Ml Udc) 30 ml PO Q6H PRN PRN Reason: Dyspepsia Stop: 03/09/25 18:20 Last Admin: 02/08/25 05:36 Dose: 30 ml Documented By: CHEN Ascorbic Acid (Ascorbic Acid 500 Mg Tab) 1,000 mg PO DAILY [facility] Stop: 03/10/25 08:59 Last Admin: 02/08/25 08:13 Dose: 1,000 mg Documented By: SHARON Calcium/Vitamin D (Calcium 600mg + Vit D 400 Iu Tab) 1 tab PO DAILY ASHOK Stop: 03/10/25 08:59 Last Admin: 02/08/25 08:16 Dose: 1 tab Documented By: SHARON Cholestyramine Resin (Cholestyramine Light 4 Gm Pkt) 4 gm PO 2200 ASHOK Stop: 03/09/25 21:59 Last Admin: 02/07/25 20:11 Dose: 4 gm Documented By: CHEN Clonazepam (Clonazepam 1 Mg Tab) 1 mg PO TID ASHOK Stop: 03/09/25 20:59 Last Admin: 02/08/25 14:00 Dose: 1 mg Documented By: Admin: 02/08/25 08:27 Dose: 1 mg Documented By: Admin: 02/07/25 20:06 Dose: 1 mg Documented By: CHEN Cyclobenzaprine HCl (Cyclobenzaprine Hcl 10 Mg Tab) 10 mg PO QAM ASHOK Stop: 03/10/25 08:59 Last Admin: 02/08/25 08:15 Dose: 10 mg Documented By: SHARON Enoxaparin Sodium (Enoxaparin Inj 40 Mg/0.4 Ml Syr) 40 mg SQ Q24H ASHOK Stop: 03/09/25 18:59 Last Admin: 02/08/25 18:23 Dose: 40 mg Documented By: Admin: 02/07/25 19:29 Dose: 40 mg Documented By: [facility] [place] Famotidine (Famotidine 20 Mg Tab) 20 mg PO BID ASHOK Stop: 03/09/25 20:59 Last Admin: 02/08/25 08:28 Dose: 20 mg Documented By: Admin: 02/07/25 20:06 Dose: 20 mg Documented By: [facility] [place] Ferrous Sulfate (Ferrous Sulfate 325 Mg Tab) 650 mg PO DAILY ASHOK Stop: 03/10/25 08:59 Last Admin: 02/08/25 08:13 Dose: 650 mg Documented By: SHARON Fludrocortisone Acetate (Fludrocortisone Acetate 0.1 Mg Tab) 0.1 mg PO QAM A[facility]OK Stop: 03/10/25 08:59 Last Admin: 02/08/25 08:14 Dose: 0.1 mg Documented By: SHARON Lactated Ringer's (Lr) 1,000 mls @ 100 mls/hr IV .Q10H [facility]SHOK Stop: 02/11/25 14:14 Last Admin: 02/08/25 14:41 Dose: 100 mls/hr Documented By: SHARON Lidocaine (Lidocaine 5% 1 Patch) 1 patch TD DAILY [facility]OK Stop: 03/10/25 08:59 Last Admin: 02/08/25 08:29 Dose: 1 patch Documented By: SHARON Miscellaneous (Remove Lidoderm Patch) 1 each N/A DAILY@2100 A[facility]OK Stop: 03/09/25 20:59 Last Admin: 02/07/25 20:07 Dose: Not Given Documented By: LUIS Multivitamins (Multivitamin Tab) 1 tab PO DAILY ASHOK Stop: 03/10/25 08:59 Last Admin: 02/08/25 08:13 Dose: 1 tab Documented By: SHARON Ondansetron HCl (Ondansetron Inj 2 Mg/Ml 2 Ml Vial) 4 mg IV Q6H PRN PRN Reason: Nausea Stop: 03/09/25 18:20 Last Admin: 02/08/25 16:43 Dose: 4 mg Documented By: Admin: 02/08/25 05:36 Dose: 4 mg Documented By: CHEN Oxycodone HCl (Oxycodone Hcl Ir 5 Mg Tab (Immediate Release)) 5 mg PO Q6H PRN PRN Reason: Pain Stop: 02/22/25 00:00 Last Admin: 02/08/25 13:40 Dose: 5 mg Documented By: Admin: 02/08/25 05:36 Dose: 5 mg Documented By: CHEN Pantoprazole Sodium (Pantoprazole 40 Mg Tab) 40 mg PO BID ASHOK Stop: 03/09/25 20:59 Last Admin: 02/08/25 08:15 Dose: 40 mg Documented By: Admin: 02/07/25 20:06 Dose: 40 mg Documented By: CHEN Phenazopyridine HCl (Phenazopyridine Hcl 200 Mg Tab) 200 mg PO TID PRN PRN Reason: pain Stop: 03/09/25 18:20 Last Admin: 02/07/25 22:17 Dose: 200 mg Documented By: CHEN Potassium Chloride (Potassium Chloride Crtab 20 Meq Tabcr) 20 meq PO DAILY [facility]OK Stop: 03/10/25 08:59 Last Admin: 02/08/25 08:28 Dose: 20 meq Documented By: SHARON Pregabalin (Pregabalin 50 Mg Cap) 50 mg PO QPM [facility]OK Stop: 03/09/25 20:59 Last Admin: 02/07/25 20:06 Dose: 50 mg Documented By: CHEN Pregabalin (Pregabalin 100 Mg Cap) 100 mg PO AMHS [facility]OK Stop: 03/09/25 20:59 Last Admin: 02/08/25 08:27 Dose: 100 mg Documented By: Admin: 02/07/25 20:06 Dose: 100 mg Documented By: CHEN Promethazine HCl (Promethazine Hcl 25 Mg Tab) 25 mg PO Q6H PRN PRN Reason: NAUSEA/VOMITING Stop: 03/09/25 18:20 Last Admin: 02/07/25 19:33 Dose: 25 mg Documented By: CHEN Sucralfate (Sucralfate 1 Gm Tab) 1 gm PO ACHS ASHOK Stop: 03/09/25 18:20 Last Admin: 02/08/25 16:55 Dose: 1 gm Documented By: Admin: 02/08/25 12:02 Dose: 1 gm Documented By: Admin: 02/08/25 08:12 Dose: 1 gm Documented By: Admin: 02/07/25 20:11 Dose: Not Given Documented By: Admin: 02/07/25 19:34 Dose: 1 gm Documented By: CHEN Thiamine HCl (Thiamine Hcl 100 Mg Tab) 100 mg PO DAILY ASHOK Stop: 03/10/25 08:59 Last Admin: 02/08/25 08:15 Dose: 100 mg Documented By: SHARON Topiramate (Topiramate 25 Mg Tab) 25 mg PO BID ASHOK Stop: 03/09/25 20:59 Last Admin: 02/08/25 08:17 Dose: 25 mg Documented By: Admin: 02/07/25 20:06 Dose: 25 mg Documented By: CHEN Topiramate (Topiramate 100 Mg Tab) 100 mg PO BID ASHOK Stop: 03/09/25 20:59 Last Admin: 02/08/25 08:16 Dose: 100 mg Documented By: Admin: 02/07/25 20:06 Dose: 100 mg Documented By: CHEN Vitamin B Complex (Vitamin B Complex Tab) 1 tab PO DAILY ASHOK Stop: 03/10/25 08:59 Last Admin: 02/08/25 08:13 Dose: 1 tab Documented By: SHARON Zinc Sulfate (Zinc Sulfate 220 Mg Capsule) 220 mg PO DAILY A[facility]OK Stop: 03/10/25 08:59 Last Admin: 02/08/25 08:17 Dose: 220 mg Documented By: SHARON Zolpidem Tartrate (Zolpidem Tartrate 5 Mg Tab) 10 mg PO HS PRN PRN Reason: Sleep Stop: 03/09/25 18:20 Last Admin: 02/07/25 23:02 Dose: 10 mg Documented By: CHEN Discontinued Medications Fluconazole (Fluconazole 50 Mg Tab) 150 mg PO NOW ONE Stop: 02/08/25 18:07 Last Admin: 02/08/25 18:30 Dose: 150 mg Documented By: SHARON Hydrocortisone Sodium Succinate (Hydrocortisone Sod Succinate 100 Mg/2 Ml Vial) 50 mg IV NOW STA Stop: 02/07/25 14:23 Last Admin: 02/07/25 15:57 Dose: Not Given Documented By: QGV Sodium Chloride (Nss) 1,000 mls @ 999 mls/hr IV .Q1H1M ASHOK Stop: 02/07/25 16:30 Last Infusion: 02/07/25 17:57 Dose: Infused Documented By: Admin: 02/07/25 15:51 Dose: 999 mls/hr Documented By: Infusion: 02/07/25 15:47 Dose: Infused Documented By: Admin: 02/07/25 14:46 Dose: 999 mls/hr Documented By: QGV Lactated Ringer's (Lr) 1,000 mls @ 125 mls/hr IV .Q8H ASHOK Stop: 02/08/25 13:14 Last Infusion: 02/08/25 13:55 Dose: Infused Documented By: Admin: 02/08/25 05:35 Dose: 125 mls/hr Documented By: Infusion: 02/08/25 05:35 Dose: Infused Documented By: KSZafar Admin: 02/07/25 21:57 Dose: 125 mls/hr Documented By: CHEN Ondansetron HCl (Ondansetron Inj 2 Mg/Ml 2 Ml Vial) 4 mg IV NOW STA Stop: 02/07/25 14:23 Last Admin: 02/07/25 14:45 Dose: 4 mg Documented By: QGV Oxycodone HCl (Oxycodone Hcl Ir 5 Mg Tab (Immediate Release)) 5 mg PO DAILY PRN PRN Reason: Pain Stop: 02/21/25 17:14 Last Admin: 02/07/25 17:32 Dose: 5 mg Documented By: QGV Oxycodone HCl (Oxycodone Hcl Ir 5 Mg Tab (Immediate Release)) 5 mg PO NOW STA Stop: 02/07/25 19:45 Last Admin: 02/07/25 20:06 Dose: 5 mg Documented By: CHEN Prednisone (Prednisone 1 Mg Tab) 1 mg PO TID ASHOK Stop: 03/09/25 20:59 Last Admin: 02/08/25 08:14 Dose: 1 mg Documented By: Admin: 02/07/25 20:06 Dose: 1 mg Documented By: CHEN Prednisone (Prednisone 5 Mg Tab) 5 mg PO TID ASHOK Stop: 03/09/25 20:59 Last Admin: 02/08/25 08:15 Dose: 5 mg Documented By: Admin: 02/07/25 20:06 Dose: 5 mg Documented By: CHEN Prednisone (Prednisone 1 Mg Tab) 3 mg PO TID [facility] Stop: 03/10/25 13:59 Last Admin: 02/08/25 14:01 Dose: 3 mg Documented By: CS Sucralfate (Sucralfate 1 Gm/10 Ml Udc) 1 gm PO ACHS [facility] Stop: 03/09/25 18:20 Last Admin: 02/07/25 18:44 Dose: Not Given Documented By: CS Discharge Plan Visit Data Chief Complaint: Abdominal Pain Stated Complaint: DOC SENT, ADDISONS CRISIS ABD PAIN NAUSEA ED Provider: Duy Ochoa Discharge Problem: Hypokalemia, Suprapubic catheter, Diarrhea, Acute dehydration Patient Disposition: Admitted As Inpatient Condition: Fair Discharge Instructions Interventions: ED Discharge Assessment Last Done: 02/07/25 17:45 Discharge Problem: Diarrhea Qualifiers: Diarrhea type: unspecified type Qualified Code(s): R19.7 - Diarrhea, unspecified
[2025-02-07 16:52] LABS: Chlamydia pneumoniae PCR Not Detected (NotDetected); Coronavirus 229E PCR Not Detected (NotDetected); Coronavirus CoV-2 (COVID19)PCR Not Detected (NotDetected); Coronavirus HKU1 PCR Not Detected (NotDetected); Coronavirus NL63 PCR Not Detected (NotDetected); Coronavirus OC43PCR Not Detected (NotDetected); Human Metapneumovirus PCR Not Detected (NotDetected); Parainfluenza Virus 1 PCR Not Detected (NotDetected); Parainfluenza Virus 2 PCR Not Detected (NotDetected); Parainfluenza Virus 3 PCR Not Detected (NotDetected); Parainfluenza Virus 4 PCR Not Detected (NotDetected); Respiratory Syncytial VirusPCR Not Detected (NotDetected); Rhinovirus/Enterovirus PCR Not Detected (NotDetected)
[2025-02-07] MEDS ORDERED: DICYCLOMINE HCL 10 MG CAP PO PRN (18:21)
[2025-02-07] MEDS ORDERED: POLYETHYLENE (MIRALAX) 17 GM PACK PO PRN (18:21)
[2025-02-07] MEDS ORDERED: MAGNESIUM HYDROXIDE SUSP 30 ML UDC PO PRN (18:21)
[2025-02-07] MEDS ORDERED: SENNA 8.6 MG TAB PO PRN (18:21)
[2025-02-07] MEDS ORDERED: CYANOCOBALAMIN 1000 MCG/ML VIAL IM SCH (18:21)
[2025-02-07] MEDS: SUCRALFATE 1 GM/10 ML UDC PO SCH (18:44)
[2025-02-07] MEDS: ENOXAPARIN INJ 40 MG/0.4 ML SYR SQ SCH (19:29)
[2025-02-07] MEDS: PROMETHAZINE HCL 25 MG TAB PO PRN (19:33)
[2025-02-07] MEDS: SUCRALFATE 1 GM TAB PO SCH (19:34)
[2025-02-07 19:49] LABS: Adenovirus F 40/41 PCR Not Detected (NotDetected); Campylobacter PCR Not Detected (NotDetected); Enteroaggregative E.coli(EAEC) Not Detected (NotDetected); Shiga-like Toxin E.coli (STEC) Not Detected (NotDetected); Vibrio species PCR Not Detected (NotDetected)
[2025-02-07] MEDS: PREGABALIN 50 MG CAP PO SCH (20:06)
[2025-02-07] MEDS: TOPIRAMATE 100 MG TAB PO SCH (20:06)
[2025-02-07] MEDS: FAMOTIDINE 20 MG TAB PO SCH (20:06)
[2025-02-07] MEDS: TOPIRAMATE 25 MG TAB PO SCH (20:06)
[2025-02-07] MEDS: PREGABALIN 100 MG CAP PO SCH (20:06)
[2025-02-07] MEDS: clonazePAM 1 MG TAB PO SCH (20:06)
[2025-02-07] MEDS: REMOVE LIDODERM PATCH SCH (20:07)
[2025-02-07] MEDS: ACETAMINOPHEN 500 MG TAB PO PRN (20:08)
[2025-02-07] MEDS: CHOLESTYRAMINE LIGHT 4 GM PKT PO SCH (20:11)
[2025-02-07] MEDS: LACTATED RINGER'S 1,000 ML IV SCH (21:57)
[2025-02-07] MEDS: PHENAZOPYRIDINE HCL 200 MG TAB PO PRN (22:17)
[2025-02-07] MEDS: ZOLPIDEM TARTRATE 5 MG TAB PO PRN (23:02)
[2025-02-08] MEDS ORDERED: HEPARIN 100 UNIT/ML 5ML FLUSH FLUSH PRN (03:27)
[2025-02-08] MEDS: ALUMINUM/MAGNESIUM SUSP 30 ML UDC PO PRN (05:36)
[2025-02-08] MEDS: ONDANSETRON INJ 2 MG/ML 2 ML VIAL IV PRN (05:36)
[2025-02-08] MEDS: VITAMIN B COMPLEX TAB PO SCH (08:13)
[2025-02-08] MEDS: FERROUS SULFATE 325 MG TAB PO SCH (08:13)
[2025-02-08] MEDS: ASCORBIC ACID 500 MG TAB PO SCH (08:13)
[2025-02-08] MEDS: MULTIVITAMIN TAB PO SCH (08:13)
[2025-02-08] MEDS: FLUDROCORTISONE ACETATE 0.1 MG TAB PO SCH (08:14)
[2025-02-08] MEDS: CYCLOBENZAPRINE HCL 10 MG TAB PO SCH (08:15)
[2025-02-08] MEDS: THIAMINE HCL 100 MG TAB PO SCH (08:15)
[2025-02-08] MEDS: CALCIUM 600MG + VIT D 400 IU TAB PO SCH (08:16)
[2025-02-08] MEDS: ZINC SULFATE 220 MG CAPSULE PO SCH (08:17)
[2025-02-08] MEDS: POTASSIUM CHLORIDE CRTAB 20 MEQ TABCR PO SCH (08:28)
[2025-02-08] MEDS: LIDOCAINE 5% 1 PATCH TD SCH (08:29)
--- NOTE | 2025-02-08 08:46 | Hospitalist Progress Note ---
Date of Service February 08, 2025 Assessment & Plan (1) Febrile illness: (2) Diarrhea: (3) Suprapubic catheter: (4) POTS (postural orthostatic tachycardia syndrome): (5) Anemia: (6) GERD without esophagitis: (7) Fredrick's disease: Plan #febrile illness - etiology not entirely clear, hemodynamically stable, no urgent intervention appears to be needed, likely viral illness - negative respiratory and stool BioFire panels, CRP negative, procalitonin negative - hold off on empiric antibiotics - blood cultures + for Staph Epi, likely contaminant #Cidra's disease - stable BPs, do not plan on having her on IV dosing of steroidsshe has been stress dosing at home - previously on 6mg TID steroid dose, deescalated to 3mg TID #Short gut syndrome - Diarrhea likely related to febrile illness/related to motility and absorption issues - Continue home medications and follow symptoms - Low threshold to reimage abdomen, will hold off at this time - Will attempt reaching out to GI at motility clinic in [facility] to help schedule appointment #Anxiety - Active reassurance and open discussions #intertrigo around her suprapubic catheter - Wound nurse to follow VTE Prophylaxis: Lovenox Code: Full Diet: Regular Dispo: admit Admission and Anticipated Discharge Date Admission Date: February 07, 2025 Supervising Physician Co-Signing Physician Notes I personally examined the patient and verified all fallon points of history and exam, discussed case, and agree with decision making with Dr Gomez abdominal pain, food sticking. less diarrhea. later revisited - panic attack when she realized steroids were reduced but did not have any hemodynamic instability. bladder irritability. no f/c/s. vitals noted nad heent nc at mmm breathing unlabored tearful abd soft mild distention mild diffuse tenderness. on revisit several trigger points exquisitely tender abdominal pain - appears to be both motility issues and trigger points -will need motility assistance for the motility - working on coordinating -explained trigger points - will start voltaren gel. inject once able. ?bladder pain possibly lower trigger points too addisons - does not appear to need stress dosing short gut - continue ivf. can maintain hydration PO but takes excessive amounts, IV to assist especially in light of motility issues (gets at home as well) DVT proph - lovenox Subjective Patient reports difficulty keeping food down. States she continues to have diffuse abdominal pain, specifically in middle of her stomach as well as LLQ. Reports she is having trouble swallowing her pills and food. Last BM was yesterday night. Denies recent vomiting episodes. Review of Systems Constitutional: as per Subjective / HPI Physical Exam Constitutional: WD/WN, vitals as above Respiratory: normal respiratory effort, lungs clear to auscultation Cardiovascular: RRR, no murmur, no edema Gastrointestinal (Abdomen): Inspection/Auscultation: normal bowel sounds Percussion/Palpation: + abdomen tender (LLQ) Skin: no rashes, warm and dry Psychiatric: A+Ox3, euthymic affect Results & Data Results & Data Vital Signs (Past 12 Hours) Vital Signs Temp Pulse Pulse Resp BP Pulse Ox O2 Del Method 02/08/25 08:17 37.2 C 70 17 122/84 97 Room Air 02/07/25 23:03 36.9 C 78 16 123/90 98 Room Air 02/07/25 21:07 36.7 C 89 18 116/82 96 Room Air Resident Activity Tracking Resident Involvement: Resident Care Provided Care Provided: Adult Hospital Medicine
[2025-02-08] MEDS: LACTATED RINGER'S 1,000 ML IV SCH (14:41)
[2025-02-08 15:36] LABS: A calco-baum cmplx NotReported Not Detected (NotDetected); Bact fragilis Not Reported Not Detected (NotDetected); Blood Culture Id Panel See PCR Comment (NotDetected); C auris Not Reported Not Detected (NotDetected); Calbicans Not Reported Not Detected (NotDetected); Candida glabrata Not Reported Not Detected (NotDetected); Candida krusei Not Reported Not Detected (NotDetected); Cneoformans/gatti Not Reported Not Detected (NotDetected); Cparapsilosis Not Reported Not Detected (NotDetected); Ctropicalis Not Reported Not Detected (NotDetected); E cloacae compx Not Reported Not Detected (NotDetected); Efaecalis Not Reported Not Detected (NotDetected); Efaecium Not Reported Not Detected (NotDetected); Enterobacterales Not Reported Not Detected (NotDetected); Escherichia coli Not Reported Not Detected (NotDetected); H influenzae Not Reported Not Detected (NotDetected); K aerogenes Not Reported Not Detected (NotDetected); Koxytoca Not Reported Not Detected (NotDetected); Kpneumoniae grp Not Reported Not Detected (NotDetected); Lmonocyt Not Reported Not Detected (NotDetected); N meningitidis Not Reported Not Detected (NotDetected); P aeruginosa Not Reported Not Detected (NotDetected); Proteus spp Not Reported Not Detected (NotDetected); Salmonella spp Not Reported Not Detected (NotDetected); Staph lugdunensis Not Reported Not Detected (NotDetected); Staph spp. Not Reported DETECTED (NotDetected); Staphaureus Not Reported Not Detected (NotDetected); Staphepi Not Reported DETECTED (NotDetected); Stenmaltophilia Not Reported Not Detected (NotDetected); Strep agal(GrpB) Not Reported Not Detected (NotDetected); Strep pneum Not Reported Not Detected (NotDetected); Strep pyog (GrpA) Not Reported Not Detected (NotDetected); Strep spp Not Reported Not Detected (NotDetected)
[2025-02-08 16:09] LABS: Staphylococcus epidermidis DETECTED (NotDetected); Staphylococcus spp. DETECTED (NotDetected); mecAC Resistant Gene DETECTED (NotDetected)
[2025-02-08] MEDS: FLUCONAZOLE 50 MG TAB PO ONE (18:30)
--- NOTE | 2025-02-08 19:24 | Billing Data ---
Date of Service February 08, 2025 Coding Level of Care Code 51133 SUB INP/OBS CARE MIN
[2025-02-08] MEDS: DICLOFENAC SOD 1% GEL 100 GM TUBE EXT SCH (20:27)
--- NOTE | 2025-02-09 09:25 | Hospitalist Progress Note ---
Date of Service February 09, 2025 Assessment & Plan (1) Febrile illness: (2) Diarrhea: (3) Suprapubic catheter: (4) POTS (postural orthostatic tachycardia syndrome): (5) Anemia: (6) GERD without esophagitis: (7) Fredrick's disease: Plan #Febrile illness - etiology not entirely clear, hemodynamically stable, no urgent intervention appears to be needed, likely viral illness - negative respiratory and stool BioFire panels, CRP negative, procalitonin negative - hold off on empiric antibiotics - blood cultures + for Staph Epi, likely contaminant #Flippin's disease - stable BPs, do not plan on having her on IV dosing of steroidsshe has been stress dosing at home - previously on 6mg TID steroid dose, deescalated to 3mg TID #Short Gut syndrome - Diarrhea likely related to febrile illness/related to motility and absorption issues - Continue home medications and follow symptoms - Low threshold to reimage abdomen, will hold off at this time - Will attempt reaching out to GI at motility clinic in [facility] to help schedule appointment, in progress - Encircled 3 trigger point injection spots in anterior abdominal area, plan to apply lidocaine gel in AM and perform trigger point injections - Lidocaine Viscous 2% solution to assist with esophageal irritation #Anxiety - Active reassurance and open discussions - EKG 02/09 due to increased SOB and chest pain, likely related to combination of GI symptoms + anxiety #Intertrigo around her suprapubic catheter - Wound nurse to follow VTE Prophylaxis: Lovenox Code: Full Diet: Regular Dispo: admit Admission and Anticipated Discharge Date Admission Date: February 07, 2025 Supervising Physician Co-Signing Physician Notes I personally examined the patient and verified all fallon points of history and exam, discussed case, and agree with decision making with Dr Gomez when i enter the room she appears nauseated and has vomited some, but her first words were essentially "i need more steroids" - then notes that she's feeling nauseated and vomiting and short of breath and has chest pain. vitals noted initially sitting on the side of the bed holding emesis bag with a small amount ~3oz of clear yellow vomit no blood, she does have some small amount of vomiting initially which actually lessens the longer we talk. initially vitals w HR ~170 --> over the time of conversation drops to about 130 before i take the monitor off; BP 140/95; RR ~20-25 but then slows to ~12 over the course of conversation. lungs cta b/l no r/r/w good effort no accessory muscles. cardio tachy but slows over time during conversation and is reg no r/m/g. abd - 3 discrete trigger points found that are reproducibly tender - all circled to facilitate injection later with less need for palpation since they're uncomfortable to her to palpate abdominal pain - appears to be both motility issues and trigger points -will need motility assistance for the motility - working on coordinating (case management having some difficulties due to scarcity of motility GI, but it sounds like we're going to be able to get her scheduled) -again explained trigger points - continue voltaren gel. inject once able. ?bladder pain possibly lower trigger points too given that she does have a fa irly tender trigger point in about a ~T11-12 area (sharing where sympathetic innervation of bladder returns) -while i suspect the bulk of her sx do relate to her functional (and structural) GI issues, it was quite remarkable to note how even her nausea and vomiting settled down as we talked about things further - when i first entered the room she was actively vomiting, looked a bit pale as one often does when quite nauseated, and appeared ill --> but with no medical intervention, as we discussed her situation further, not only did her HR/breathing slow noticeably, but also her vomiting slowed down considerably raising the question of stress as an exacerbator of her motility issues) CP/SOB/tachycardia - strongly suspect anxiety related. pulse ox 98-99 on RA, lungs clear, breathing markedly slowed with conversation; suspect CP also esophageal dysmotility/vomiting related - gave GI cocktail and zofran. EKG for completeness addisons - does not appear to need stress dosing; discussing repeatedly and firmly that with good hemodynamics there's not an urgent need for stress dosing - and that, while her sx of GI malaise/feeling unwell certainly can be sx that occur more subtly with addisons that is undermanaged but not in full crisis, her functional and structural GI issues as well as anxiety seem to be a far more ready explanation for these sx (and that as i'm getting to know her situation better i worry that she may have had the gastritis prior admission due to stress dosing of steroids that she might not have needed) short gut - continue ivf. can maintain hydration PO but takes excessive amounts, IV to assist especially in light of motility issues (gets IV fluids at home as well) DVT proph - lovenox Subjective Patient reports difficulty keeping food down. States she continues to have diffuse abdominal pain, specifically in middle of her stomach as well as LLQ. She feels nauseous and states she has flank pain. She is feeling very anxious that her steroid dose was decreased back to home dose. Had a few vomiting episodes in afternoon. Review of Systems Constitutional: as per Subjective / HPI Physical Exam Constitutional: + ill appearing Respiratory: normal respiratory effort, lungs clear to auscultation Cardiovascular: RRR, no murmur, no edema Gastrointestinal (Abdomen): Inspection/Auscultation: normal bowel sounds Percussion/Palpation: + abdomen tender (diffuse, worse in LLQ + LUQ) Skin: no rashes, warm and dry Psychiatric: A+Ox3, euthymic affect Results & Data Results & Data Vital Signs (Past 12 Hours) Vital Signs Temp Pulse Resp BP Pulse Ox O2 Del Method 02/09/25 07:27 36.4 C L 93 H 20 125/84 98 Room Air Resident Activity Tracking Resident Involvement: Resident Care Provided Care Provided: Adult Hospital Medicine (2) Diarrhea Diarrhea type: unspecified type Qualified Code(s): R19.7 - Diarrhea, unspecified
[2025-02-09 12:00] LABS: Hematocrit (blood only) 44.1 % (37.0-47.0); Hemoglobin 13.8 g/dl (12.0-16.0); Immature Granulocytes # (auto) 0.07 K/uL (0.01-0.20); Immature Granulocytes % (auto) 0.5 %; Mean Corpuscular Hemoglobin 26.8 pg (25.0-34.0); Mean Corpuscular Volume 85.6 fL (80.0-100.0); Platelet Count 349 K/uL (130-400); RDW Standard Deviation 47.2 fL (36.4-46.3); Red Blood Count 5.15 M/uL (4.20-5.40); White Blood Count 12.89 K/ul (4.8-10.8)
[2025-02-09] MEDS ORDERED: ONDANSETRON INJ 2 MG/ML 2 ML VIAL IV PRN (14:26)
[2025-02-09] MEDS: ONDANSETRON INJ 2 MG/ML 2 ML VIAL IV STA (15:04)
[2025-02-09] MEDS: ALUMINUM/MAGNESIUM SUSP 30 ML UDC PO STA (15:06)
[2025-02-09] MEDS: LIDOCAINE VISCOUS 2% 15 ML UDC PO ONE (16:25)
--- NOTE | 2025-02-09 17:32 | Billing Data ---
Date of Service February 09, 2025 Coding Level of Care Code 38494 SUB INP/OBS CARE MIN
[2025-02-10] MEDS: LIDOCAINE 4% CREAM 15 GM TUBE EXT ONE (07:52)
[2025-02-10] MEDS ORDERED: LIDOCAINE 2% LOCAL 20 ML VIAL INFIL ONE (08:00)
--- NOTE | 2025-02-10 09:39 | Hospitalist Progress Note ---
Date of Service February 10, 2025 Assessment & Plan (1) Febrile illness: (2) Diarrhea: (3) Suprapubic catheter: (4) POTS (postural orthostatic tachycardia syndrome): (5) Anemia: (6) GERD without esophagitis: (7) Curran's disease: Plan #Febrile illness - etiology not entirely clear, hemodynamically stable, no urgent intervention appears to be needed, likely viral illness - negative respiratory and stool BioFire panels, CRP negative, procalitonin negative - hold off on empiric antibiotics - blood cultures + for Staph Epi, likely contaminant - CBC, CRP, BMP in AM to evaluate for infection and electrolyte imbalance #Curran's disease - stable BPs, do not plan on having her on IV dosing of steroidsshe has been stress dosing at home - previously on 6mg TID steroid dose, deescalated to 3mg TID #Short Gut syndrome - Diarrhea likely related to febrile illness/related to motility and absorption issues - Continue home medications and follow symptoms - Low threshold to reimage abdomen, will hold off at this time - Will attempt reaching out to GI at motility clinic in [facility] to help schedule appointment, in progress - Encircled 3 trigger point injection spots in anterior abdominal area, previously planned to perform trigger point injections but will hold off as patient isn't feeling well this morning - Lidocaine Viscous 2% solution to assist with esophageal irritation #Anxiety - Active reassurance and open discussions - EKG ordered 02/09 due to increased SOB and chest pain, likely related to combination of GI symptoms + anxiety #Intertrigo around her suprapubic catheter - Wound nurse to follow VTE Prophylaxis: Lovenox Code: Full Diet: Regular Dispo: admit Admission and Anticipated Discharge Date Admission Date: February 10, 2025 Supervising Physician Co-Signing Physician Notes I personally examined the patient and verified all fallon points of history and exam, discussed case, and agree with decision making with Dr Gomez feeling worse more vomiting throwing up pills can't really keep much of anything down. belly hurts. lots of vomiting. believes she vomited her prednisone vitals noted initially tearful and breathing rapidly, but as conversation progresses she calms significantly, breathing slows, appears more alert. during orthostatics (done by myself, ~150/95 -> 140/100 -> 120/113) she does well and does not convey sensation of lightheadedness. does have lots of belching during that time although no vomiting. pulse tachy but regular. abd soft mild distention mild/mod diffuse tenderness. no focal neuro deficits nausea/vomiting -lead ddx is motility problems (esophageal dysmotility as well short gut/lower GI motility issues as well) compounded by anxiety --> with that in mind, the worsening she's experienced the last ~2 days while in the hospital could either just be waxing and waning of symptoms in the range of chronic illness, or, worsened by anxiety given that prior hospitalizations have her her treated with aggressive to very aggressive treatment that she has grown to expect, but as we have gotten to know her situation better do not appear to be warranted. given her "cc" more often that not has been to declare that she believes she needs stress dosing, or has a UTI due to her WBC ~12, rather than a "cc" of true physical/emotional complaints it would definitely fit that not treating her to fit her expectations of what is needed (and rather to treat as it appears medically warranted) could easily drive anxiety and then, in turn, the anxiety could easily worsen motility and/or cause n/v by itself. GI is correct that managing this would be best done with a mutlidisciplinary approach w GI (especially motility GI) GI psychology, probably PT/OT, etc -> which is not an approach we have the ability to offer here. working on setting this up -> case management was at least able to close the loop in getting in contact w motility GI and are expecting to be able to get her scheduled ---her leading ddx seems to be that her adrenal insufficiency is being under- managed. this seems unlikely given that her BP has been so stable (orthostatics were a little suboptimal conditions given the nausea and emotional distress at the time creating some variability in her "stress status" even during the short time of laying/sitting/standing -> but despite this her DBP blair and she did not show any overt orthostatic symptoms). as i have been discussing with her, i am not discounting her addisons as a part of her medical hx, i am instead trying to make sure that it does not dominate the treatment plan when stress dosing of steroids is not warranted, but to explore her concerns further (beyond stable hemodynamics (HR seems better explained by her nausea and anxiety) i checked BMP today which showed normal Na and hypokalemia - both reassuring of an adequately supplemented adrenal status. i have been discussing with pt openly and repeatedly that stress dosing is critical when it is necessary, but that the consequences to her if she has grown to believe she needs stress dosed at a multitude of times when it was not necessary are (a) most critically an inability to stay out of the hospital due to vague sx (which, in her justification, certainly can be indicative of adrenal insufficiency) leading to getting stress dosing / IV steroids creating the "self fulfilling prophecy" that every time she feels any of these nonspecific sx she ends up in a hospital in stress dosing even if not necessary (and also then neglecting actual dx and management of the root cause of the sx) (b) side effects of excess steroids when not necessary (her recent gastritis in spite of being on bid pepcid, bid protonix, QID carafate most likely was steroid related, and she has mentioned weight gain concerns) ---she also harbors significant concerns about infections - she largely expresses the same bladder sx (spasms, as well as burning/stabbing urethral pain when she voids through her urethra) any time she is asked - and with no new or different sx, with these sx quite persistent (and persistent/quickly recurrent despite antibiotics during a prior recent hospital stay) and with no other s/s infection and reassuring labs -> highly doubt any infection. bladder sx seem potentially c/w interstitial cystitis (and given that she has lower abdominal trigger point potentially that could create somatovisceral reflex pain perpetuating or creating the bladder pain) -does have left sided anterior abdominal wall trigger points in areas often associated with somatovisceral nausea -> have started voltaren gel and those were outlined with intent to inject; however, given that doing so can be uncomfortable (and while it can affect improvement in the nausea commesurate to the degree by which the trigger points are causing the somatovisceral reflex) any improvement is slow, and we've discussed in her situation the motility issues are more likely a far bigger part of the nausea - because of all of this, will hold on trigger point injections for now Subjective Patient was actively vomiting when I walked in the room this morning. States she threw up all her pills and would like to take her steroids. States her cramping has worsened. She is tearful and frustrated. Review of Systems Constitutional: as per Subjective / HPI Physical Exam Constitutional: + ill appearing Respiratory: normal respiratory effort, lungs clear to auscultation Cardiovascular: RRR, no murmur, no edema Gastrointestinal (Abdomen): Inspection/Auscultation: normal bowel sounds Percussion/Palpation: + abdomen tender (diffuse, worse in LLQ + LUQ) Skin: no rashes, warm and dry Psychiatric: A+Ox3, euthymic affect Results & Data Results & Data Vital Signs (Past 12 Hours) Vital Signs Temp Pulse Resp BP Pulse Ox O2 Del Method 02/10/25 07:21 36.7 C 124 H 18 141/97 H 98 Room Air Resident Activity Tracking Resident Involvement: Resident Care Provided Care Provided: Adult Hospital Medicine (2) Diarrhea Diarrhea type: unspecified type Qualified Code(s): R19.7 - Diarrhea, unspecified
[2025-02-10 13:19] VITALS: BP 128/83; RESP 20; TEMP 97.5; O2SAT 96
--- NOTE | 2025-02-10 13:37 | Gastrointestinal Consultation ---
Date of Consultation February 10, 2025 Assessment & Plan (1) Nausea & vomiting: Plan Patient with ongoing issue with nausea and vomiting. she is quite tearful today and also endorses diffuse abdominal pain. - As recommended on previous admission, she would be better [facility] at an [facility] with a multi-disciplinary approach with GI, psych, bariatric surgery, etc given she has not had any significant improvement in symptoms despite extensive work-up and treatment thus far. I am having our office check to see if the appointment with Dr. Tompkins at [facility] can be set up and to check the status on this. - continue with zofran and promethazine as needed for nausea/vomiting. - continue with protonix 40mg bid, famotidine 20mg bid, and carafate 1 gm qid. -Further recommendations to come with Supervising GI provider on medical rounds. Please see co-signature comments. Supervising Physician Co-Signing Physician Notes I saw and examined this patient with our nurse practitioner and agree with her assessment and plan. Patient to be admitted with persistent chronic GI symptoms characterized by nausea and vomiting with and without eating and chronic diarrhea. Last admission she had an endoscopy that was unrevealing. She had been improving on metoclopramide but says that she was unable to tolerate it at home. Cholestyramine has seemed to help her. Will consider titrating to 2 or 3 times a day if once a day is not helpful. Continue with antiemetic therapy. Ultimately she needs to be followed at a multidisciplinary functional bowel center for further investigation and management. Would exclude any potential precipitating factors such as electrolyte abnormalities or occult infection. History of Present Illness Reason for Consultation: nausea and vomiting, motility problems. Requesting Physician: Charli Montana DO Attending Physician: Charli Montana DO History of Present Illness Patient is a 39 year old female who presented to the ED on 02/07/25 with complaints of abdominal cramping, low grade fever, tachycardia, who was sent to the ED from her PCP with concern for dehydration. she was admitted with febrile illness, diarrhea, addision disease, POTS. GI was consulted for nausea and vomiting as well as motility problems. The patient was crying profusely and notes she has not eaten or drank anything without vomiting in 3 weeks. she tells me that she has not been moving her bowels much other than liquid given her poor oral intake. She also notes diffuse abdominal pain that she tells me feels like knives. she was recommended to see Dr. Tompkins at [facility], but has not had an appointment yet. EGD 01/10/25 normal esophagus, gastritis, gastric bypass with a normal sized pouch. gastrojejunal anastamosis characterized by healthy appearing mucosa. normal examined jejunem. Pathology: Stomach, biopsy: - Gastric mucosa with reactive changes. 02/09/25 wbc 12.89, hgb 13.8, hct 44.1, plts 349. 02/08/25 Na 139, K 3.1, LFTs unremarkable. CRP <0.50. stool biofire panel unremarkable. Allergies Allergy/AdvReac Type Severity Reaction Status Date / Time adhesive tape Allergy Intermediate SKIN Verified 02/07/25 15:01 REDDENED, ITCHY scopolamine Allergy Intermediate SKIN Verified 02/07/25 15:01 REDDENED, ITCHY escitalopram [From Lexapro] AdvReac Intermediate VERY Verified 02/07/25 15:01 EMOTIONAL, OPPOSITE EFFECT haloperidol [From Haldol] AdvReac Intermediate LOCKED JAW Verified 02/07/25 15:01 [email or web address] AdvReac Uncoded 02/08/25 12:56 Home Medications Medication Instructions Recorded Confirmed Type B-complex with vitamin C 1 cap PO DAILY 11/29/24 02/07/25 History ascorbic acid (vitamin C) 1,000 mg 1,000 mg PO DAILY 11/29/24 02/07/25 History tablet (Vitamin C) calcium 250 mg (as 2 tab PO DAILY 11/29/24 02/07/25 History citrate)-vitamin D3 5 mcg (200 unit) tablet clonazepam 1 mg tablet 1 mg PO TID 11/29/24 02/07/25 History clotrimazole 10 mg ludwig 10 mg PO DIRECTED PRN Flare 11/29/24 02/07/25 History cyanocobalamin (vitamin B-12) 1,000 mcg IM WK 11/29/24 02/07/25 History 1,000 mcg/mL injection solution dicyclomine 10 mg capsule 10 mg PO TID PRN IRRITABLE BOWEL 11/29/24 02/07/25 History SYMPTOMS ferrous sulfate 325 mg (65 mg 650 mg PO DAILY 11/29/24 02/07/25 History iron) tablet lidocaine 5 % topical patch 1 patch topical DAILY 11/29/24 02/07/25 History multivitamin with minerals 1 tab PO DAILY 11/29/24 02/07/25 History polyethylene glycol 3350 17 17 g PO DAILY PRN Constipation 11/29/24 02/07/25 History gram/dose oral powder (Miralax) potassium chloride 20 mEq 20 meq PO DAILY 11/29/24 02/07/25 History tablet,extended release(part/cryst) pregabalin 100 mg capsule 100 mg PO AMHS 11/29/24 02/07/25 History pregabalin 50 mg capsule 50 mg PO QPM 11/29/24 02/07/25 History propranolol 10 mg tablet 10 mg PO TID PRN NEEDED 11/29/24 02/07/25 History sennosides 8.6 mg tablet (senna) 17.2 mg PO HS PRN Constipation 11/29/24 02/07/25 History sucralfate 1 gram tablet (Carafate) 1 g PO ACHS 11/29/24 02/07/25 History thiamine HCl (vitamin B1) 100 mg 100 mg PO DAILY 11/29/24 02/07/25 History tablet (Vitamin B-1) topiramate 100 mg tablet 100 mg PO BID 11/29/24 02/07/25 History topiramate 25 mg tablet 25 mg PO BID 11/29/24 02/07/25 History zinc acetate 50 mg (zinc) capsule 50 mg PO DAILY 11/29/24 02/07/25 History zolpidem 10 mg tablet (Ambien) 10 mg PO HS PRN Sleep 12/12/24 02/07/25 History acetaminophen 500 mg tablet 500 mg PO Q6H PRN Pain 12/26/24 02/07/25 History cholestyramine 4 gram oral powder 4 g PO 2200 #30 ea 01/17/25 02/07/25 Rx for suspension in a packet (Prevalite) famotidine 20 mg tablet 20 mg PO BID #60 tabs 01/17/25 02/07/25 Rx fludrocortisone 0.1 mg tablet 0.1 mg PO QAM #30 tabs 01/17/25 02/07/25 Rx pantoprazole 40 mg tablet,delayed 40 mg PO BID #60 tabs 01/17/25 02/07/25 Rx release phenazopyridine 200 mg tablet 200 mg PO TID PRN pain #30 tabs 01/17/25 02/07/25 Rx (Pyridium) prednisone 1 mg tablet 3 mg (3 x 1 mg) PO TID #270 tabs 01/17/25 02/07/25 Rx sucralfate 100 mg/mL oral 1 g (10 mL) PO ACHS #420 mL 01/17/25 02/07/25 Rx suspension cyclobenzaprine 10 mg tablet 10 mg PO QAM #90 tabs 02/07/25 02/07/25 Rx oxycodone 5 mg tablet 5 mg PO DAILY PRN pain #5 tabs 02/07/25 02/07/25 Rx promethazine 25 mg tablet 25 mg PO Q6H PRN NAUSEA/VOMITING 02/07/25 02/07/25 Rx #120 tabs Patient History Medical History Vulvovaginal candidiasis Difficult intravenous access Alternating constipation and diarrhea Vomiting Surgical History History of lumbar fusion History of gastric bypass Family History Grandfather (Paternal) Colorectal cancer Grandmother (Paternal) Myocardial infarction Denies family history of Ovarian cancer Prostate cancer Breast cancer Social History Smoking Status: Never smoker Second Hand Exposure: No; Do You Dip or Chew Tobacco: No; Hx Alcohol Use: No Hx Substance Use: No Preferred Language: Lao Communication Ability: Effective Visual Impairment: No Limitations Hearing Ability: Normal [employer]os Tm1 Developer Required: No Beliefs That Will Affect Care: None marital status: Current Living Situation: Spouse current occupational status: disabled How many Children do You have: 2 Other Information That Helps Us Care for You: No Feels Safe at Home: Yes Childhood Exposure to Second-Hand Smoke: No Diet: other Diet Comment: protein, Bypass diet caffeine: Yes during the past year weight has: increased > 10 lbs Dental Care, Regularly: No Physical Activity Frequency: 3-4 Times per Week Physical Activity Frequency Comment: PT/OT Seatbelt Use: always Sunscreen Use: Yes Assistive Devices: Walker and Wheelchair Physical Exam Constitutional: WD/WN, vitals as above Respiratory: normal respiratory effort, lungs clear to auscultation Cardiovascular: tachycardic Gastrointestinal (Abdomen): diffuse tenderness to palpation. no guarding. normal bowel sounds, soft. Psychiatric: Orientation: alert and oriented x 3 tearful Results & Data Vital Signs (Past 12 Hours) Vital Signs Temp Pulse Resp BP Pulse Ox O2 Del Method 02/10/25 13:12 97.5 F L 140 H 20 128/83 96 Room Air 02/10/25 10:49 99.0 F 105 H 18 119/92 98 Room Air 02/10/25 07:21 98.1 F 124 H 18 141/97 H 98 Room Air Laboratory Results Laboratory Results - last 48 hr 02/07/25 02/09/25 02/10/25 13:31 11:39 14:28 WBC 12.89 H 8.75 RBC 5.15 4.85 Hgb 13.8 13.1 Hct 44.1 41.4 MCV 85.6 85.4 MCH 26.8 27.0 MCHC 31.3 L 31.6 L RDW Std Deviation 47.2 H 47.2 H RDW Coeff of Los 15.3 H 15.3 H Plt Count 349 321 MPV 9.3 L 9.6 Immature Gran % (Auto) 0.5 0.6 Neut % (Auto) 74.2 63.9 Lymph % (Auto) 17.5 26.5 [place]he % (Auto) 6.8 8.0 Eos % (Auto) 0.5 0.3 Baso % (Auto) 0.5 0.7 Neut # (Auto) 9.57 H 5.59 Lymph # (Auto) 2.25 2.32 [place]he # (Auto) 0.88 H 0.70 H Eos # (Auto) 0.06 0.03 Baso # (Auto) 0.06 0.06 Immature Gran # (Auto) 0.07 0.05 Sodium 140 Potassium 3.3 L Chloride 107 Carbon Dioxide 23 Anion Gap 10 BUN 4 L Creatinine 0.81 Est Cr Clr Drug Dosing 126.2 eGFR 94.05 BUN/Creatinine Ratio 4.9 L Glucose 95 Calcium 9.1 C-Reactive Protein 1.05 H Staphylococcus sp PCR DETECTED A mecA/C-Methicil Resis Gene DETECTED A Staph epidermidis (PCR) DETECTED A Bld Cult ID Panel PCR See PCR Comment Coding Level of Care Code 35886 IN/OBS CONSULT LVL 4,60M Diagnoses Nausea & vomiting R11.2
[2025-02-10] MEDS: HYDROCORTISONE SOD 25 MG in SYRINGE 0 ML IV STA (14:40)
[2025-02-10 14:44] LABS: Hematocrit (blood only) 41.4 % (37.0-47.0); Hemoglobin 13.1 g/dl (12.0-16.0); Immature Granulocytes # (auto) 0.05 K/uL (0.01-0.20); Immature Granulocytes % (auto) 0.6 %; Mean Corpuscular Hemoglobin 27.0 pg (25.0-34.0); Mean Corpuscular Volume 85.4 fL (80.0-100.0); Platelet Count 321 K/uL (130-400); RDW Standard Deviation 47.2 fL (36.4-46.3); Red Blood Count 4.85 M/uL (4.20-5.40); White Blood Count 8.75 K/ul (4.8-10.8)
[2025-02-10 14:59] LABS: Anion Gap 10.0 (3-11); Blood Urea Nitrogen 4.0 mg/dl (6-23); Calcium 9.1 mg/dl (8.6-10.3); Carbon Dioxide 23.0 mmol/L (21-32); Chloride 107.0 mmol/L (98-107); Creatinine Clr Calc Pharmacy 126.2 ml/min; Glucose 95.0 mg/dl (70-99(Fasting)); Potassium 3.3 mmol/L (3.5-5.1); Sodium 140.0 mmol/L (136-145)
--- NOTE | 2025-02-10 16:01 | Billing Data ---
Date of Service February 10, 2025 Coding Level of Care Code 83002 SUB INP/OBS CARE MIN
[2025-02-10] MEDS: SUCRALFATE 1 GM/10 ML UDC PO SCH (17:58)
--- NOTE | 2025-02-10 18:58 | Billing Data ---
Date of Service February 10, 2025 Coding Level of Care Code 53896 INP/OBS DISCH >30 MIN Comment disregard [id number]
--- NOTE | 2025-02-10 18:58 | Discharge Summary ---
Discharge Summary Date of Service February 10, 2025 Principal Dx & Hospital Course #1 = Principal Diagnosis (1) Febrile illness: (2) Diarrhea: (3) Suprapubic catheter: (4) POTS (postural orthostatic tachycardia syndrome): (5) Anemia: (6) GERD without esophagitis: (7) [place]'s disease: Plan #Febrile illness - initially concern on viral illness - but temps never truly reached fever, and no actual infection s/s ensued. while concern was high given low grade temps and evangelina's - fortunately this did not amount to a true problem this admission #[place]'s disease - stable BPs, do not plan on having her on IV dosing of steroidsshe has been stress dosing at home - previously on 6mg TID steroid dose, deescalated to 3mg TID --> would like to condense to more physiologic dosing #Short Gut syndrome - Diarrhea likely related to febrile illness/related to motility and absorption issues - Continue home medications and follow symptoms - Low threshold to reimage abdomen, will hold off at this time - Will attempt reaching out to GI at motility clinic in [facility] to help schedule appointment, in progress - Encircled 3 trigger point injection spots in anterior abdominal area, previously planned to perform trigger point injections but will hold off as patient isn't feeling well this morning - Lidocaine Viscous 2% solution to assist with esophageal irritation #Anxiety - Active reassurance and open discussions - EKG ordered 02/09 due to increased SOB and chest pain, likely related to combination of GI symptoms + anxiety #Intertrigo around her suprapubic catheter - Wound nurse to follow VTE Prophylaxis: Lovenox Code: Full Diet: Regular Dispo: admit Notes For Next Care Provider Medication Changes From Visit none Admission HPI Per Admitting Provider patient is a very pleasant 39-year-old female well-known to me. She came after seeing her PCP who directed her to the ER. She notes that she has had about a week of low-grade temperatures and feeling weak. She has had temps predominantly in the 99-99.5 range with some chills and abdominal pain/cramping/diarrhea. The diarrhea is bright green and frequent but appears to be fairly low-volumeshe relates probably about 5 episodes of diarrhea a day. Worse abdominal pain than she normally has, and then because of that poor p.o. intake. She also relates faster heart rate. She has been doing stress dosing of her home steroid since Thursday (6 mg 3 times daily instead of her prescribed 3 mg 3 times daily). Incidentally she also had a lot of redness and discharge around her suprapubic catheter site and her home nurse was able to clean this up fairly successfully. Updated Medication List Medication Instructions Recorded Confirmed Type B-complex with vitamin C 1 cap PO DAILY 11/29/24 02/07/25 History ascorbic acid (vitamin C) 1,000 mg 1,000 mg PO DAILY 11/29/24 02/07/25 History tablet (Vitamin C) calcium 250 mg (as 2 tab PO DAILY 11/29/24 02/07/25 History citrate)-vitamin D3 5 mcg (200 unit) tablet clonazepam 1 mg tablet 1 mg PO TID 11/29/24 02/07/25 History clotrimazole 10 mg ludwig 10 mg PO DIRECTED PRN Flare 11/29/24 02/07/25 History cyanocobalamin (vitamin B-12) 1,000 mcg IM WK 11/29/24 02/07/25 History 1,000 mcg/mL injection solution dicyclomine 10 mg capsule 10 mg PO TID PRN IRRITABLE BOWEL 11/29/24 02/07/25 History SYMPTOMS ferrous sulfate 325 mg (65 mg 650 mg PO DAILY 11/29/24 02/07/25 History iron) tablet lidocaine 5 % topical patch 1 patch topical DAILY 11/29/24 02/07/25 History multivitamin with minerals 1 tab PO DAILY 11/29/24 02/07/25 History polyethylene glycol 3350 17 17 g PO DAILY PRN Constipation 11/29/24 02/07/25 History gram/dose oral powder (Miralax) potassium chloride 20 mEq 20 meq PO DAILY 11/29/24 02/07/25 History tablet,extended release(part/cryst) pregabalin 100 mg capsule 100 mg PO AMHS 11/29/24 02/07/25 History pregabalin 50 mg capsule 50 mg PO QPM 11/29/24 02/07/25 History propranolol 10 mg tablet 10 mg PO TID PRN NEEDED 11/29/24 02/07/25 History sennosides 8.6 mg tablet (senna) 17.2 mg PO HS PRN Constipation 11/29/24 02/07/25 History sucralfate 1 gram tablet (Carafate) 1 g PO ACHS 11/29/24 02/07/25 History thiamine HCl (vitamin B1) 100 mg 100 mg PO DAILY 11/29/24 02/07/25 History tablet (Vitamin B-1) topiramate 100 mg tablet 100 mg PO BID 11/29/24 02/07/25 History topiramate 25 mg tablet 25 mg PO BID 11/29/24 02/07/25 History zinc acetate 50 mg (zinc) capsule 50 mg PO DAILY 11/29/24 02/07/25 History zolpidem 10 mg tablet (Ambien) 10 mg PO HS PRN Sleep 12/12/24 02/07/25 History acetaminophen 500 mg tablet 500 mg PO Q6H PRN Pain 12/26/24 02/07/25 History cholestyramine 4 gram oral powder 4 g PO 2200 #30 ea 01/17/25 02/07/25 Rx for suspension in a packet (Prevalite) famotidine 20 mg tablet 20 mg PO BID #60 tabs 01/17/25 02/07/25 Rx fludrocortisone 0.1 mg tablet 0.1 mg PO QAM #30 tabs 01/17/25 02/07/25 Rx pantoprazole 40 mg tablet,delayed 40 mg PO BID #60 tabs 01/17/25 02/07/25 Rx release phenazopyridine 200 mg tablet 200 mg PO TID PRN pain #30 tabs 01/17/25 02/07/25 Rx (Pyridium) prednisone 1 mg tablet 3 mg (3 x 1 mg) PO TID #270 tabs 01/17/25 02/07/25 Rx sucralfate 100 mg/mL oral 1 g (10 mL) PO ACHS #420 mL 01/17/25 02/07/25 Rx suspension cyclobenzaprine 10 mg tablet 10 mg PO QAM #90 tabs 02/07/25 02/07/25 Rx oxycodone 5 mg tablet 5 mg PO DAILY PRN pain #5 tabs 02/07/25 02/07/25 Rx promethazine 25 mg tablet 25 mg PO Q6H PRN NAUSEA/VOMITING 02/07/25 02/07/25 Rx #120 tabs Hospital Stay Data Consultations 02/07/25 14:39 ED Decision to Admit Stat 02/10/25 12:41 Consult Gastroenterology Routine Pending Results Patient Have Any Pending Studies at Discharge: No Discharge Instructions Given to Patient (Per Discharging Provider) follow up with GI motility as soon as possible Total Time Total Time Spent Total Time Spent (In Minutes): >30 Supervising Physician Co-Signing Physician Notes I personally examined the patient and verified all fallon points of history and exam, discussed case, and agree with decision making with Dr Gomez feeling worse more vomiting throwing up pills can't really keep much of anything down. belly hurts. lots of vomiting. believes she vomited her prednisone vitals noted initially tearful and breathing rapidly, but as conversation progresses she calms significantly, breathing slows, appears more alert. during orthostatics (done by myself, ~150/95 -> 140/100 -> 120/113) she does well and does not convey sensation of lightheadedness. does have lots of belching during that time although no vomiting. pulse tachy but regular. abd soft mild distention mild/mod diffuse tenderness. no focal neuro deficits nausea/vomiting -lead ddx is motility problems (esophageal dysmotility as well short gut/lower GI motility issues as well) compounded by anxiety --> with that in mind, the worsening she's experienced the last ~2 days while in the hospital could either just be waxing and waning of symptoms in the range of chronic illness, or, worsened by anxiety given that prior hospitalizations have her her treated with aggressive to very aggressive treatment that she has grown to expect, but as we have gotten to know her situation better do not appear to be warranted. given her "cc" more often that not has been to declare that she believes she needs stress dosing, or has a UTI due to her WBC ~12, rather than a "cc" of true physical/emotional complaints it would definitely fit that not treating her to fit her expectations of what is needed (and rather to treat as it appears medically warranted) could easily drive anxiety and then, in turn, the anxiety c ould easily worsen motility and/or cause n/v by itself. GI is correct that managing this would be best done with a mutlidisciplinary approach w GI (especially motility GI) GI psychology, probably PT/OT, etc -> which is not an approach we have the ability to offer here. working on setting this up -> case management was at least able to close the loop in getting in contact w motility GI and are expecting to be able to get her scheduled ---her leading ddx seems to be that her adrenal insufficiency is being under- managed. this seems unlikely given that her BP has been so stable (orthostatics were a little suboptimal conditions given the nausea and emotional distress at the time creating some variability in her "stress status" even during the short time of laying/sitting/standing -> but despite this her DBP blair and she did not show any overt orthostatic symptoms). as i have been discussing with her, i am not discounting her addisons as a part of her medical hx, i am instead trying to make sure that it does not dominate the treatment plan when stress dosing of steroids is not warranted, but to explore her concerns further (beyond stable hemodynamics (HR seems better explained by her nausea and anxiety) i checked BMP today which showed normal Na and hypokalemia - both reassuring of an adequately supplemented adrenal status. i have been discussing with pt openly and repeatedly that stress dosing is critical when it is necessary, but that the consequences to her if she has grown to believe she needs stress dosed at a multitude of times when it was not necessary are (a) most critically an inability to stay out of the hospital due to vague sx (which, in her justification, certainly can be indicative of adrenal insufficiency) leading to getting stress dosing / IV steroids creating the "self fulfilling prophecy" that every time she feels any of these nonspecific sx she ends up in a hospital in stress dosing even if not necessary (and also then neglecting actual dx and belgica gement of the root cause of the sx) (b) side effects of excess steroids when not necessary (her recent gastritis in spite of being on bid pepcid, bid protonix, QID carafate most likely was steroid related, and she has mentioned weight gain concerns) ---she also harbors significant concerns about infections - she largely expresses the same bladder sx (spasms, as well as burning/stabbing urethral pain when she voids through her urethra) any time she is asked - and with no new or different sx, with these sx quite persistent (and persistent/quickly recurrent despite antibiotics during a prior recent hospital stay) and with no other s/s infection and reassuring labs -> highly doubt any infection. bladder sx seem potentially c/w interstitial cystitis (and given that she has lower abdominal trigger point potentially that could create somatovisceral reflex pain perpetuating or creating the bladder pain) -does have left sided anterior abdominal wall trigger points in areas often associated with somatovisceral nausea -> have started voltaren gel and those were outlined with intent to inject; however, given that doing so can be uncomfortable (and while it can affect improvement in the nausea commesurate to the degree by which the trigger points are causing the somatovisceral reflex) any improvement is slow, and we've discussed in her situation the motility issues are more likely a far bigger part of the nausea - because of all of this, will hold on trigger point injections for now
[2025-02-10 19:41] VITALS: PULSE 101
[2025-02-11] MEDS ORDERED: HYDROCORTISONE SOD 25 MG in SYRINGE 0 ML IV SCH (09:00)
[2025-02-11] MEDS ORDERED: HYDROCORTISONE SOD 10 MG in SYRINGE 0 ML IV SCH (14:00)
== END 2025-02-10 21:43 | disposition home or self-care (01) ==
LOC: ED 12:32 → 3W 12:32

== ENCOUNTER 2025-02-24 18:05 | Observation (INO) ==
[2025-02-24] MEDS: SODIUM CHLORIDE 0.9% 1,000 ML IV SCH (18:46)
[2025-02-24 18:47] LABS: Base Excess VBG 1.0 mEq/L; HCO3 VBG 25 mmol/L; Oxygen Saturation VBG 87.6 %; PCO2 VBG 38 mmHg (38-50); PO2 VBG 58 mmHg; pH VBG 7.43 (7.36-7.41)
[2025-02-24] MEDS: HYDROCORTISONE SOD SUCCINATE 100 MG/2 ML VIAL IV STA (18:47)
[2025-02-24 18:49] LABS: Hematocrit (blood only) 37.4 % (37.0-47.0); Hemoglobin 11.5 g/dl (12.0-16.0); Immature Granulocytes # (auto) 0.20 K/uL (0.01-0.20); Immature Granulocytes % (auto) 1.9 %; Mean Corpuscular Hemoglobin 26.4 pg (25.0-34.0); Mean Corpuscular Volume 85.8 fL (80.0-100.0); Platelet Count 340 K/uL (130-400); RDW Standard Deviation 47.7 fL (36.4-46.3); Red Blood Count 4.36 M/uL (4.20-5.40); White Blood Count 10.48 K/ul (4.8-10.8)
--- NOTE | 2025-02-24 19:01 | Emergency Department Note ---
Impression & Plan Acute adrenal crisis, Tachycardia, Cystitis, Elevated lactic acid level ED Provider Note NAME: FRANNIE BLANKENSHIP AGE: 39 SEX: F : 1985 ARRIVES VIA: Walk-In INFORMANT: Patient, family ED PROVIDER(S): Parviz Manuel DO CHIEF COMPLAINT: adrenal crisis HPI: This is a 39-year-old female with the PMHx of adrenal insufficiency (Augusta's disease), GERd, neurogenic bladder s/p SPC, POTS, GERD and obesity s/p ?gastric bypass presenting to [facility] for further evaluation of mutliple complaints. Patient is accompanied by family who provide additional history. She reports that her condition and comorbidities were mismanaged at [facility]. She is reporting directly to [facility] for admission and treatment of her sepsis and adrenal crisis. She states that the OSH was not giving her the appropriate steroid doses. She states they were pushing multiple abx and medications on her. She is very anxious and frustrated with her care. She notes tachypnea, tachycardia and symptoms related to prior presentations with sepsis and adrenal crisis. She states that her SPC is infected. She reports prior wound culture that is positive at [facility]. No reported fever but endorses chills. No cough or congestion. She does have palpitations and mild SOB. She has lower abdominal pain and nausea. She states purulent drainage from SPC site. She states this was not exchanged at [facility]. She states that she has a UTI. No recent changes in bowel movements. Patient denies recent changes in medications or OTC supplements. Patient offers no other complaints, today. ADDITIONAL HISTORY OBTAINED: Per HPI Chronic Medical/Social Conditions Affecting Care: Per HPI PAST MEDICAL HISTORY: See Below PAST SURGICAL HISTORY: See Below FAMILY HISTORY: See Below SOCIAL HISTORY: See Below HOME MEDICATIONS: See Below ALLERGIES: See Below VITALS: See Below PHYSICAL EXAMINATION: GENERAL: Sitting up in bed, alert, well appearing, well nourished, no distress, non-toxic EYE EXAM: normal conjunctiva. PERRL and EOM's grossly intact. OROPHARYNX: no exudate, no erythema, lips, buccal mucosa, and tongue normal and mucous membranes are moist NECK: supple, no nuchal rigidity, no adenopathy, non-tender LUNGS: Severe tachypnea. No rhonchi or wheezing. HEART: no murmurs, tachycardiac rate, regular rhythm ABDOMEN: abdomen soft, non-tender, no masses, no rebound or guarding. BACK: Back is symmetrical on inspection and there is no deformity, no midline tenderness, no CVA tenderness. SKIN: no rashes and no bruising UPPER EXTREMITIES: upper extremities are grossly normal. LOWER EXTREMITIES: No pitting edema. NEURO EXAM: Extremely anxious with rapid speech, GCS 15, normal speech, no gross weakness of arms, no gross weakness of legs. MEDICAL DECISION MAKING: Differential diagnoses includes but not limited to adrenal crisis, sepsis, bacteremia, complicated UTI, pneumonia, viral, electrolyte derangements, dehydration, anxiety, ACS, dysrhythmia In summary, this is a 39 year old female who presented with multiple complaints. Differential as above. Nursing notes and pertinent past medical records reviewed. Vital signs reviewed and the patient is Tachycardic but otherwise afebrile and hemodynamically stable. Patient's tachycardia could be related to sepsis or adrenal crisis but do feel it is complicated by severe anxiety related to the patient's symptoms. History and presentation revealed recent admission at [facility]. She reports that she was being treated for sepsis, adrenal crisis and complicated UTI. Patient states that her SPC was not exchanged. This will be performed, today. I do feel her symptoms are largely related to an adrenal crisis likely 2/2 to possible infectious source. Physical examination revealed as above. As a result of my initial evaluation, we will plan for infectious workup as well as providing IV stress dose steroids and fluid resuscitation/antibiotics. She does have unstable vital signs with abdominal tenderness to palpation, plan for repeat CT abdomen/pelvis for further evaluation of intra-abdominal pathology. Diagnostics interpreted by me include EKG and cardiac monitoring as listed below: -Cardiac Monitoring: An order was placed for continuous cardiac monitoring. The monitor shows a rate of 80-180s with regular rhythm. -ECG: EKG independently interpreted by me reveals sinus tachycardia at a rate of [address] segment changes to suggest STEMI. Intervals are within normal limits otherwise. Patient completed laboratory studies and imaging. Results independently interpreted by me are no significant leukocytosis. She does have mild anemia that is stable as compared to prior. No significant electrolyte derangements besides hyperglycemia. She does have a lactic elevation at 4.4. No transaminitis. Calcium is normal. Magnesium was mildly low at 1.8 and IV replenishment ordered. Given concerns for possible adrenal crisis, the patient was ordered stress dose steroids with the 100 mg IV push of hydrocortisone. Patient was provided with IV fluid resuscitation. I also provided the patient pain control medications including IV fentanyl. I did offer her anxiolytics because I do believe some of her presentation is complicated by severe anxiety related to her medical conditions. The patient would like to focus on her pain control at this time. Do feel this is reasonable. We did obtain a CT abdomen/pelvis that showed inflammatory changes of the bladder likely from cystitis. Will cover the patient with antibiotics while in the emergency department. Patient was reevaluated multiple times. I did exchange the patient's suprapubic catheter with a pending urinalysis at the time of admission. Suspect likely complicated UTI. Her tachycardia improved with IVFR and pain control. The patient will need further evaluation of her adrenal crisis as well as significant tachycardia and lactic acidosis. Ultimately, the decision was made to admit the patient for []. I discussed the case with the hospitalist service via telephone/Tiger[employer] and they are agreeable to admit the patient to their services. Based on the above, including the patient's age, coexisting illnesses, labs, imaging, and exam findings the decision to treat as an inpatient. I discussed the patient with the hospitalist team who recommended admission to their services. They received the medications, treatments, interventions indicated above and their condition remained stable. I discussed my findings with the patient and their family and they understand and agree with the treatment plan. All patient / family questions were answered to their satisfaction. Consults/Care Managements Discussions: Per [facility] ER treatment provided: See above Procedures: Suprapubic catheter exchanged by me with patient's permission for indication of concern of UTI. Confirmed size is 20G with 30cc balloon. Sterile technique utilized to remove catheter. Found to have only 10cc in the balloon. Utilizing a sterile technique, new catheter was inserted without complication. Placement confirmed with clear urine in the collecting system. Patient tolerated the procedure without complication. Critical Care: None The chart was completed utilizing [employer] voice recognition software. Grammatical errors, random word insertions, pronoun errors, and incomplete sentences are an occasional consequence of this system due to software limitations, ambient noise, and hardware issues. Any formal questions or concerns about the content, text, or information contained within the body of this dictation should be directly addressed to the physician for clarification. Past Med/Surg History Problem List (Updated 02/25/25 @ 15:27 by Parviz Manuel DO) Elevated lactic acid level (Acute) Cystitis (Acute) Tachycardia (Acute) Acute adrenal crisis (Acute) Acute dehydration (Acute) Febrile illness Diarrhea (Acute) Nausea & vomiting POTS (postural orthostatic tachycardia syndrome) Anemia HTN (hypertension) Hypokalemia (Acute) Neurogenic bladder (Acute) GERD without esophagitis Chronic back pain Tachycardia Anxiety Fredrick's disease (Acute) Medical History Vulvovaginal candidiasis Difficult intravenous access Alternating constipation and diarrhea Vomiting Surgical History History of lumbar fusion History of gastric bypass Family History Grandfather (Paternal) Colorectal cancer Grandmother (Paternal) Myocardial infarction Denies family history of Ovarian cancer Prostate cancer Breast cancer Social History Smoking Status: Never smoker Second Hand Exposure: No; Do You Dip or Chew Tobacco: No; Hx Alcohol Use: No Hx Substance Use: No Preferred Language: Slovak Communication Ability: Effective Visual Impairment: No Limitations Hearing Ability: Normal 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 Beam 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 Tender Required: No Beliefs That Will Affect Care: None marital status: Current Living Situation: Spouse current occupational status: disabled How many Children do You have: 2 Other Information That Helps Us Care for You: No Feels Safe at Home: Yes Safety Concerns: Feels Safe At This Time Childhood Exposure to Second-Hand Smoke: No Diet: other Diet Comment: protein, Bypass diet caffeine: Yes during the past year weight has: increased > 10 lbs Dental Care, Regularly: No Physical Activity Frequency: 3-4 Times per Week Physical Activity Frequency Comment: PT/OT Seatbelt Use: always Sunscreen Use: Yes Assistive Devices: Walker, Wheelchair and Other Allergies Allergies Allergy/AdvReac Type Severity Reaction Status Date / Time adhesive tape Allergy Intermediate SKIN Verified 02/24/25 21:18 REDDENED, ITCHY scopolamine Allergy Intermediate SKIN Verified 02/24/25 21:18 REDDENED, ITCHY escitalopram [From Lexapro] AdvReac Intermediate VERY Verified 02/24/25 21:18 EMOTIONAL, OPPOSITE EFFECT haloperidol [From Haldol] AdvReac Intermediate LOCKED JAW Verified 02/24/25 21:18 [email or web address] AdvReac Unknown Uncoded 02/24/25 21:18 Home Meds Home Medications Medication Instructions Recorded Confirmed B-complex with vitamin C 1 cap PO DAILY 11/29/24 02/24/25 ascorbic acid (vitamin C) 1,000 mg 1,000 mg PO DAILY 11/29/24 02/24/25 tablet (Vitamin C) calcium 250 mg (as 2 tab PO DAILY 11/29/24 02/24/25 citrate)-vitamin D3 5 mcg (200 unit) tablet clonazepam 1 mg tablet 1 mg PO TID 11/29/24 02/24/25 clotrimazole 10 mg ludwig 10 mg PO DIRECTED PRN Flare 11/29/24 02/24/25 cyanocobalamin (vitamin B-12) 1,000 mcg IM WK 11/29/24 02/24/25 1,000 mcg/mL injection solution dicyclomine 10 mg capsule 10 mg PO TID PRN IRRITABLE BOWEL 11/29/24 02/24/25 SYMPTOMS ferrous sulfate 325 mg (65 mg 650 mg PO DAILY 11/29/24 02/24/25 iron) tablet lidocaine 5 % topical patch 1 patch topical DAILY 11/29/24 02/24/25 multivitamin with minerals 1 tab PO DAILY 11/29/24 02/24/25 polyethylene glycol 3350 17 17 g PO DAILY PRN Constipation 11/29/24 02/24/25 gram/dose oral powder (Miralax) potassium chloride 20 mEq 20 meq PO DAILY 11/29/24 02/24/25 tablet,extended release(part/cryst) pregabalin 100 mg capsule 100 mg PO AMHS 11/29/24 02/24/25 pregabalin 50 mg capsule 50 mg PO QPM 11/29/24 02/24/25 propranolol 10 mg tablet 10 mg PO TID PRN NEEDED 11/29/24 02/24/25 sennosides 8.6 mg tablet (senna) 17.2 mg PO HS PRN Constipation 11/29/24 02/24/25 sucralfate 1 gram tablet (Carafate) 1 g PO ACHS 11/29/24 02/24/25 thiamine HCl (vitamin B1) 100 mg 100 mg PO DAILY 11/29/24 02/24/25 tablet (Vitamin B-1) topiramate 100 mg tablet 100 mg PO BID 11/29/24 02/24/25 topiramate 25 mg tablet 25 mg PO BID 11/29/24 02/24/25 zinc acetate 50 mg (zinc) capsule 50 mg PO DAILY 11/29/24 02/24/25 zolpidem 10 mg tablet (Ambien) 10 mg PO HS PRN Sleep 12/12/24 02/24/25 acetaminophen 500 mg tablet 500 mg PO Q6H PRN Pain 12/26/24 02/24/25 prednisone 1 mg tablet See Rx Instructions .Route .COMPLEX 02/24/25 02/24/25 Previous Rx's Medication Instructions Recorded cholestyramine 4 gram oral powder 4 g PO 2200 #30 ea 01/17/25 for suspension in a packet (Prevalite) famotidine 20 mg tablet 20 mg PO BID #60 tabs 01/17/25 pantoprazole 40 mg tablet,delayed 40 mg PO BID #60 tabs 01/17/25 release phenazopyridine 200 mg tablet 200 mg PO TID PRN pain #30 tabs 01/17/25 (Pyridium) sucralfate 100 mg/mL oral 1 g (10 mL) PO ACHS #420 mL 01/17/25 suspension cyclobenzaprine 10 mg tablet 10 mg PO QAM #90 tabs 02/07/25 oxycodone 5 mg tablet 5 mg PO DAILY PRN pain #5 tabs 02/07/25 promethazine 25 mg tablet 25 mg PO Q6H PRN NAUSEA/VOMITING 02/07/25 #120 tabs Port care See Rx Instructions .Route 02/22/25 .COMPLEX #1 ea lactated Ringers 1,000 ml IV Q OTHER DAY 4 weeks 02/22/25 Results & Data (ED) Vital Signs Vital Signs - 24 hr 02/24/25 18:09 02/24/25 18:32 02/24/25 18:32 Temperature 36.6 C Temperature Source Temporal Artery Scan Pulse Rate 184 H Pulse Rate [Apical] 132 H Pulse Rate from SpO2 Sensor Respiratory Rate 45 H 26 H Respiratory Effort / Characteristics Short of Breath Respiratory Depth Shallow Respiratory Pattern Rapid/Shallow Tachypnea Regular Blood Pressure 146/99 H Blood Pressure [Right Arm] 128/104 H Blood Pressure Mean 114 Blood Pressure Mean [Right Arm] 112 Pulse Oximetry 100 94 94 Oxygen Delivery Method Room Air Room Air Room Air Sepsis Recent Fever Within 48 Hours No Sepsis New/Unexplained Change in Mental Status No Sepsis Action Taken by Nursing Physician Notified 02/24/25 18:46 02/24/25 19:42 02/24/25 19:48 Temperature Temperature Source Pulse Rate 141 H 109 H Pulse Rate [Apical] 101 H Pulse Rate from SpO2 Sensor Respiratory Rate 26 H 20 Respiratory Effort / Characteristics Respiratory Depth Respiratory Pattern Blood Pressure 134/105 H Blood Pressure [Right Arm] 134/105 H Blood Pressure Mean 114 Blood Pressure Mean [Right Arm] 114 Pulse Oximetry 97 98 Oxygen Delivery Method Room Air Sepsis Recent Fever Within 48 Hours Sepsis New/Unexplained Change in Mental Status Sepsis Action Taken by Nursing 02/24/25 20:00 02/24/25 20:40 02/24/25 21:00 Temperature Temperature Source Pulse Rate 99 H 94 H 93 H Pulse Rate [Apical] Pulse Rate from SpO2 Sensor 99 H 94 H 92 H Respiratory Rate 22 24 20 Respiratory Effort / Characteristics Respiratory Depth Respiratory Pattern Blood Pressure 161/113 H 154/102 H 125/85 Blood Pressure [Right Arm] Blood Pressure Mean 129 112 98 Blood Pressure Mean [Right Arm] Pulse Oximetry 98 97 97 Oxygen Delivery Method Sepsis Recent Fever Within 48 Hours Sepsis New/Unexplained Change in Mental Status Sepsis Action Taken by Nursing 02/24/25 21:30 02/24/25 22:06 Temperature Temperature Source Pulse Rate 98 H 89 Pulse Rate [Apical] Pulse Rate from SpO2 Sensor 98 H 92 H Respiratory Rate 23 22 Respiratory Effort / Characteristics Respiratory Depth Respiratory Pattern Blood Pressure 131/109 H 130/98 Blood Pressure [Right Arm] Blood Pressure Mean 116 108 Blood Pressure Mean [Right Arm] Pulse Oximetry 97 96 Oxygen Delivery Method Sepsis Recent Fever Within 48 Hours Sepsis New/Unexplained Change in Mental Status Sepsis Action Taken by Nursing Laboratory Data 02/25/25 05:56 02/25/25 05:56 Lab Results 02/24/25 02/24/25 02/24/25 Range/Units 18:29 18:33 20:11 WBC 10.48 (4.8-10.8) K/ul RBC 4.36 (4.20-5.40) M/uL Hgb 11.5 L (12.0-16.0) g/dl POC Hgb 12.9 (12.0-16.0) g/dl Hct 37.4 (37.0-47.0) % POC Hct 38 (37-47) % MCV 85.8 (80.0-100.0) fL MCH 26.4 (25.0-34.0) pg MCHC 30.7 L (32.0-36.0) g/dL RDW Std Deviation 47.7 H (36.4-46.3) fL RDW Coeff of Los 15.2 H (11.5-14.5) % Plt Count 340 (130-400) K/uL MPV 9.6 (9.4-12.4) fL Immature Gran % (Auto) 1.9 % Neut % (Auto) 86.5 % Lymph % (Auto) 7.7 % Hart % (Auto) 3.5 % Eos % (Auto) 0.1 % Baso % (Auto) 0.3 % Neut # (Auto) 9.06 H (1.40-6.50) K/uL Lymph # (Auto) 0.81 L (1.20-3.40) K/uL Hart # (Auto) 0.37 (0.11-0.59) K/uL Eos # (Auto) 0.01 (0.00-0.50) K/uL Baso # (Auto) 0.03 (0.00-0.20) K/uL Immature Gran # (Auto) 0.20 (0.01-0.20) K/uL PT 10.3 (9.0-12.0) Seconds INR 0.9 (0.9-1.1) VBG pH 7.43 H (7.36-7.41) VBG pCO2 38 (38-50) mmHg VBG pO2 58 mmHg VBG HCO3 25 mmol/L VBG O2 Saturation 87.6 % VBG Base Excess 1.0 mEq/L POC Sodium 139 (135-144) mmol/L Sodium 139 (136-145) mmol/L POC Potassium 3.6 (3.3-5.0) mmol/L Potassium 3.6 (3.5-5.1) mmol/L POC Chloride 104 (101-112) mmol/L Chloride 103 (98-107) mmol/L Carbon Dioxide 24 (21-32) mmol/L POC Total CO2 21 L (24-31) mmol/L Anion Gap 12 H (3-11) POC Anion Gap 18.0 (16-25) mmol/L POC BUN 6 L (7-18) mg/dl BUN 9 (6-23) mg/dl Creatinine 0.80 (0.6-1.2) mg/dl POC Creatinine 0.7 (0.6-1.3) mg/dl Est Cr Clr Drug Dosing Not Reportable eGFR 95.46 BUN/Creatinine Ratio 11.3 (10-20) Glucose 169 H (70-99(Fasting)) mg/dl POC Glucose (other) 165 H (70-99) mg/dl Lactate 4.4 H* (0.4-2.0) mmol/L Calcium 9.7 (8.6-10.3) mg/dl POC Ioniz Calcium Merrill 1.23 (1.12-1.32) mmol/l Magnesium 1.8 (1.7-2.4) mg/dl Total Bilirubin 0.2 (0.2-1.0) mg/dl Direct Bilirubin 0.1 (0-0.2) mg/dl AST 11 L (13-39) U/L ALT 15 (7-52) U/L Alkaline Phosphatase 53 (34-104) U/L Troponin I High Sens < 2.3 (0-14) pg/ml Total Protein 7.2 (6.0-8.3) gm/dl Albumin 4.2 (3.4-5.0) gm/dl Procalcitonin 0.04 (0-0.5) ng/ml Urine Color Yellow Urine Appearance Cloudy A (Clear) Urine pH >= 9.0 H (4.5-7.5) Ur Specific [place] 1.028 (1.000-1.030) Urine Protein Negative (Negative) Urine Glucose (UA) Negative (Negative) Urine Ketones Negative (Negative) Urine Blood 1+ H (Negative) Urine Nitrite Negative (Negative) Urine Bilirubin Negative (Negative) Urine Urobilinogen Negative (Negative) Ur Leukocyte Esterase Trace H (Negative) Urine WBC (Auto) 6-10 H (0-5) /hpf Urine RBC (Auto) 11-20 H (0-2) /hpf U Hyaline Cast (Auto) 0-2 (0-2) /lpf U Epithel Cells (Auto) 0-2 (0-2) /hpf Urine Bacteria (Auto) None Seen (None Seen) Urine Comment 02/24/25 Range/Units 20:35 WBC (4.8-10.8) K/ul RBC (4.20-5.40) M/uL Hgb (12.0-16.0) g/dl POC Hgb (12.0-16.0) g/dl Hct (37.0-47.0) % POC Hct (37-47) % MCV (80.0-100.0) fL MCH (25.0-34.0) pg MCHC (32.0-36.0) g/dL RDW Std Deviation (36.4-46.3) fL RDW Coeff of Los (11.5-14.5) % Plt Count (130-400) K/uL MPV (9.4-12.4) fL Immature Gran % (Auto) % Neut % (Auto) % Lymph % (Auto) % Hart % (Auto) % Eos % (Auto) % Baso % (Auto) % Neut # (Auto) (1.40-6.50) K/uL Lymph # (Auto) (1.20-3.40) K/uL Hart # (Auto) (0.11-0.59) K/uL Eos # (Auto) (0.00-0.50) K/uL Baso # (Auto) (0.00-0.20) K/uL Immature Gran # (Auto) (0.01-0.20) K/uL PT (9.0-12.0) Seconds INR (0.9-1.1) VBG pH (7.36-7.41) VBG pCO2 (38-50) mmHg VBG pO2 mmHg VBG HCO3 mmol/L VBG O2 Saturation % VBG Base Excess mEq/L POC Sodium (135-144) mmol/L Sodium (136-145) mmol/L POC Potassium (3.3-5.0) mmol/L Potassium (3.5-5.1) mmol/L POC Chloride (101-112) mmol/L Chloride (98-107) mmol/L Carbon Dioxide (21-32) mmol/L POC Total CO2 (24-31) mmol/L Anion Gap (3-11) POC Anion Gap (16-25) mmol/L POC BUN (7-18) mg/dl BUN (6-23) mg/dl Creatinine (0.6-1.2) mg/dl POC Creatinine (0.6-1.3) mg/dl Est Cr Clr Drug Dosing eGFR BUN/Creatinine Ratio (10-20) Glucose (70-99(Fasting)) mg/dl POC Glucose (other) (70-99) mg/dl Lactate 2.8 H* (0.4-2.0) mmol/L Calcium (8.6-10.3) mg/dl POC Ioniz Calcium Merrill (1.12-1.32) mmol/l Magnesium (1.7-2.4) mg/dl Total Bilirubin (0.2-1.0) mg/dl Direct Bilirubin (0-0.2) mg/dl AST (13-39) U/L ALT (7-52) U/L Alkaline Phosphatase (34-104) U/L Troponin I High Sens (0-14) pg/ml Total Protein (6.0-8.3) gm/dl Albumin (3.4-5.0) gm/dl Procalcitonin (0-0.5) ng/ml Urine Color Urine Appearance (Clear) Urine pH (4.5-7.5) Ur Specific [place] (1.000-1.030) Urine Protein (Negative) Urine Glucose (UA) (Negative) Urine Ketones (Negative) Urine Blood (Negative) Urine Nitrite (Negative) Urine Bilirubin (Negative) Urine Urobilinogen (Negative) Ur Leukocyte Esterase (Negative) Urine WBC (Auto) (0-5) /hpf Urine RBC (Auto) (0-2) /hpf U Hyaline Cast (Auto) (0-2) /lpf U Epithel Cells (Auto) (0-2) /hpf Urine Bacteria (Auto) (None Seen) Urine Comment Administered Medications Acetaminophen (Acetaminophen 325 Mg Tab) 650 mg PO Q4H PRN PRN Reason: Pain or Fever Stop: 03/26/25 23:06 Last Admin: 02/25/25 08:08 Dose: 650 mg Documented By: ROWAN Clonazepam (Clonazepam 1 Mg Tab) 1 mg PO TID [facility] Stop: 03/27/25 08:59 Last Admin: 02/25/25 13:26 Dose: 1 mg Documented By: Admin: 02/25/25 08:54 Dose: 1 mg Documented By: JF Cyclobenzaprine HCl (Cyclobenzaprine Hcl 10 Mg Tab) 10 mg PO QAM ASHOK Stop: 03/27/25 08:59 Last Admin: 02/25/25 08:46 Dose: 10 mg Documented By: JF Famotidine (Famotidine 20 Mg Tab) 20 mg PO BID ASHOK Stop: 03/27/25 08:59 Last Admin: 02/25/25 08:53 Dose: 20 mg Documented By: JF Ferrous Sulfate (Ferrous Sulfate 325 Mg Tab) 650 mg PO DAILY ASHOK Stop: 03/27/25 08:59 Last Admin: 02/25/25 08:46 Dose: 650 mg Documented By: JF Doxycycline Hyclate 100 mg/ (Dextrose) 100 mls @ 50 mls/hr IV Q12H ASHOK Stop: 03/07/25 00:00 Last Admin: 02/25/25 13:26 Dose: 50 mls/hr Documented By: Infusion: 02/25/25 02:08 Dose: Infused Documented By: Admin: 02/25/25 00:09 Dose: 50 mls/hr Documented By: OS Hydrocortisone Sodium (Succinate 50 mg/ Syringe) 1 mls @ 4 mls/min IV Q8H ASHOK Stop: 02/25/25 18:00 Last Admin: 02/25/25 10:31 Dose: 4 mls/min Documented By: Admin: 02/25/25 02:08 Dose: 4 mls/min Documented By: OS Ampicillin Sodium 2,000 mg/ (Sodium Chloride) 100 mls @ 200 mls/hr IV Q6H ASHOK Stop: 03/07/25 13:29 Last Admin: 02/25/25 15:04 Dose: 200 mls/hr Documented By: JF Lidocaine (Lidocaine 5% 1 Patch) 1 patch TD DAILY ASHOK Stop: 03/27/25 08:59 Last Admin: 02/25/25 08:56 Dose: 1 patch Documented By: JF Ondansetron HCl (Ondansetron Inj 2 Mg/Ml 2 Ml Vial) 4 mg IV Q6H PRN PRN Reason: Nausea Stop: 03/26/25 23:06 Last Admin: 02/25/25 08:08 Dose: 4 mg Documented By: ROWAN Oxycodone HCl (Oxycodone Hcl Ir 5 Mg Tab (Immediate Release)) 5 mg PO DAILY PRN PRN Reason: pain Stop: 03/10/25 23:06 Last Admin: 02/25/25 10:31 Dose: 5 mg Documented By: Admin: 02/25/25 06:01 Dose: 5 mg Documented By: OS Pantoprazole Sodium (Pantoprazole 40 Mg Tab) 40 mg PO BID ASHOK Stop: 03/27/25 08:59 Last Admin: 02/25/25 08:45 Dose: 40 mg Documented By: JF Phenazopyridine HCl (Phenazopyridine Hcl 200 Mg Tab) 200 mg PO TID PRN PRN Reason: pain Stop: 03/26/25 23:06 Last Admin: 02/25/25 08:45 Dose: 200 mg Documented By: JF Potassium Chloride (Potassium Chloride Crtab 20 Meq Tabcr) 20 meq PO DAILY ASHOK Stop: 03/27/25 08:59 Last Admin: 02/25/25 08:53 Dose: 20 meq Documented By: JF Pregabalin (Pregabalin 50 Mg Cap) 50 mg PO DAILY@1400 ASHOK Stop: 03/27/25 13:59 Last Admin: 02/25/25 13:29 Dose: 50 mg Documented By: JF Pregabalin (Pregabalin 100 Mg Cap) 100 mg PO BID ASHOK Stop: 03/27/25 08:59 Last Admin: 02/25/25 08:53 Dose: 100 mg Documented By: JF Sucralfate (Sucralfate 1 Gm/10 Ml Udc) 1 gm PO ACHS ASHOK Stop: 03/27/25 07:29 Last Admin: 02/25/25 10:31 Dose: 1 gm Documented By: Admin: 02/25/25 08:45 Dose: 1 gm Documented By: JF Thiamine HCl (Thiamine Hcl 100 Mg Tab) 100 mg PO DAILY ASHOK Stop: 03/27/25 08:59 Last Admin: 02/25/25 08:45 Dose: 100 mg Documented By: JF Topiramate (Topiramate 25 Mg Tab) 25 mg PO BID ASHOK Stop: 03/27/25 08:59 Last Admin: 02/25/25 08:45 Dose: 25 mg Documented By: JF Topiramate (Topiramate 100 Mg Tab) 100 mg PO BID ASHOK Stop: 03/27/25 08:59 Last Admin: 02/25/25 08:45 Dose: 100 mg Documented By: JF Zinc Sulfate (Zinc Sulfate 220 Mg Capsule) 220 mg PO DAILY ASHOK Stop: 03/27/25 08:59 Last Admin: 02/25/25 08:45 Dose: 220 mg Documented By: JF Discontinued Medications Fentanyl Citrate (Fentanyl Citrate Pf 100 Mcg/2 Ml Vial) 100 mcg IV NOW STA Stop: 02/24/25 19:24 Last Admin: 02/24/25 19:38 Dose: 100 mcg Documented By: ENIO Fentanyl Citrate (Fentanyl Citrate Pf 100 Mcg/2 Ml Vial) 50 mcg IV NOW ONE Stop: 02/24/25 21:22 Last Admin: 02/24/25 21:29 Dose: 50 mcg Documented By: FAB Hydrocortisone Sodium Succinate (Hydrocortisone Sod Succinate 100 Mg/2 Ml Vial) 100 mg IV NOW STA Stop: 02/24/25 18:20 Last Admin: 02/24/25 18:47 Dose: 100 mg Documented By: SKY Sodium Chloride (Nss) 1,000 mls @ 999 mls/hr IV .Q1H1M ASHOK Stop: 02/24/25 19:30 Last Infusion: 02/24/25 20:58 Dose: Infused Documented By: Admin: 02/24/25 18:46 Dose: 999 mls/hr Documented By: SKY Cefepime HCl (Maxipime 2000mg) 2,000 mg in 20 mls @ 5 mls/min IV NOW STA; Protocol Stop: 02/24/25 18:22 Last Admin: 02/24/25 19:38 Dose: 5 mls/min Documented By: ENIO Magnesium Sulfate/Dextrose (Magnesium Sulfate / D5w) 1 gm in 100 mls @ 100 mls/hr IV NOW STA Stop: 02/24/25 20:12 Last Infusion: 02/24/25 20:57 Dose: Infused Documented By: Admin: 02/24/25 19:38 Dose: 100 mls/hr Documented By: ENIO Lactated Ringer's (Lr) 1,000 mls @ 80 mls/hr IV .[id number] [facility] Stop: 02/25/25 11:36 Last Infusion: 02/25/25 11:59 Dose: Infused Documented By: Admin: 02/24/25 23:25 Dose: 80 mls/hr Documented By: OS Ioversol (Optiray 320 100ml) 93 ml IV ONCE ONE Stop: 02/24/25 19:32 Last Admin: 02/24/25 19:31 Dose: 93 ml Documented By: EDK Imaging Data Radiologist's Impression: Chest X-Ray 02/24/25 18:19 EXAM: XR chest 1V portable CLINICAL HISTORY: Sepsis TECHNIQUE: An X-ray image of the chest is obtained in AP projection. COMPARISON: CT 11/29/2024. FINDINGS: Pulmonary Parenchyma: Left basal linear atlectatic bands. Otherwise, lungs are clear bilaterally. No evidence of consolidation, collapse, or focal opacities. No pulmonary nodules are identified. No evidence of pleural effusion or pleural thickening. Heart and Mediastinum: Heart size and shape are normal. No mediastinal widening or masses. No hilar or mediastinal lymphadenopathy. Right central venous line seen with its tip at the distal SVC. Bony Thorax: Bony thorax appears intact without fractures or deformities. Soft Tissues: Soft tissues overlying the chest wall are unremarkable. IMPRESSION: No acute cardiopulmonary abnormalities are identified. No pneumonia. Electronically signed by Speedy Vela 02-24-2025 8:00 PM Abdomen/Pelvis CT 02/24/25 18:24 CT ABDOMEN and PELVIS with INTRAVENOUS CONTRAST HISTORY: Abdominal pain TECHNIQUE: CT abdomen and pelvis with contrast. IV CONTRAST: 100 mL of OMNIPAQUE 300 ENTERIC CONTRAST: Not Given COMPARISON: CT abdomen and pelvis December 26, 2024. FINDINGS: LOWER CHEST: Left basilar atelectasis. LIVER: No focal lesion identified. GALLBLADDER/BILIARY: Unremarkable gallbladder. No abnormal biliary dilatation. SPLEEN: Unremarkable. PANCREAS: Unremarkable. ADRENALS: The adrenal glands are atrophic. KIDNEYS: Excreted contrast limits evaluation for small stones. No hydronephrosis identified. PERITONEUM/RETROPERITONEUM. No lymphadenopathy by size criteria. No aortic aneurysm. GASTROINTESTINAL: No obstruction. Tanya-en-Y gastric bypass changes are again seen. The distention of the afferent limb of the bypass has improved from the previous examination. Small gastric diverticulum arising from the area from the afferent limb again seen. Small hiatal hernia. Normal appendix. Mild inflammatory changes of the loops of small bowel demonstrating wall thickening mild fluid filling. REPRODUCTIVE: URINARY BLADDER: Suprapubic catheter is in place. Intraluminal air likely related to current instrumentation. Moderate inflammatory changes to the urinary bladder with wall thickening and perivesical fat stranding. BONES: No acute findings. L5-S1 posterior and anterior instrumented fusion IMPRESSION: Atrophic adrenal glands. Correlate with laboratory markers for possible adrenal insufficiency. Inflammatory changes of the urinary bladder suggest cystitis. Mild enteritis may be also present. Electronically signed by Nima Briggs 02-24-2025 7:56 PM Discharge Plan Visit Data Chief Complaint: Hypertension Stated Complaint: ADDISONS CRISIS, PRESEPSIS HR 180 INFECTION DOC RE ED Provider: Parviz Manuel Discharge Problem: Acute adrenal crisis, Tachycardia, Cystitis, Elevated lactic acid level Patient Disposition: Admitted As Inpatient Condition: Serious Discharge Instructions Interventions: ED Discharge Assessment Last Done: 02/24/25 23:04
[2025-02-24 19:10] LABS: Alanine Aminotransferase 15 U/L (7-52); Alkaline Phosphatase 53 U/L (34-104); Anion Gap 12 (3-11); Bilirubin,Total 0.2 mg/dl (0.2-1.0); Blood Urea Nitrogen 9 mg/dl (6-23); Calcium 9.7 mg/dl (8.6-10.3); Carbon Dioxide 24 mmol/L (21-32); Chloride 103 mmol/L (98-107); Glucose 169 mg/dl (70-99(Fasting)); Magnesium 1.8 mg/dl (1.7-2.4); Potassium 3.6 mmol/L (3.5-5.1); Sodium 139 mmol/L (136-145); Total Protein 7.2 gm/dl (6.0-8.3)
[2025-02-24 19:21] LABS: INR 0.9 (0.9-1.1); Prothrombin Time 10.3 Seconds (9.0-12.0)
[2025-02-24] MEDS: OPTIRAY 320 100ml IV ONE (19:31)
[2025-02-24] MEDS: MAGNESIUM SULFATE / D5W 1 GM/100 ML BAG IV STA (19:38)
[2025-02-24] MEDS: CEFEPIME 2000MG 2,000 MG/20 ML SYR IV STA (19:38)
--- NOTE | 2025-02-24 19:56 | CT Scan Report ---
CT ABDOMEN and PELVIS with INTRAVENOUS CONTRAST HISTORY: Abdominal pain TECHNIQUE: CT abdomen and pelvis with contrast. IV CONTRAST: 100 mL of OMNIPAQUE 300 ENTERIC CONTRAST: Not Given COMPARISON: CT abdomen and pelvis December 26, 2024. FINDINGS: LOWER CHEST: Left basilar atelectasis. LIVER: No focal lesion identified. GALLBLADDER/BILIARY: Unremarkable gallbladder. No abnormal biliary dilatation. SPLEEN: Unremarkable. PANCREAS: Unremarkable. ADRENALS: The adrenal glands are atrophic. KIDNEYS: Excreted contrast limits evaluation for small stones. No hydronephrosis identified. PERITONEUM/RETROPERITONEUM. No lymphadenopathy by size criteria. No aortic aneurysm. GASTROINTESTINAL: No obstruction. Tanya-en-Y gastric bypass changes are again seen. The distention of the afferent limb of the bypass has improved from the previous examination. Small gastric diverticulum arising from the area from the afferent limb again seen. Small hiatal hernia. Normal appendix. Mild inflammatory changes of the loops of small bowel demonstrating wall thickening mild fluid filling. REPRODUCTIVE: URINARY BLADDER: Suprapubic catheter is in place. Intraluminal air likely related to current instrumentation. Moderate inflammatory changes to the urinary bladder with wall thickening and perivesical fat stranding. BONES: No acute findings. L5-S1 posterior and anterior instrumented fusion IMPRESSION: Atrophic adrenal glands. Correlate with laboratory markers for possible adrenal insufficiency. Inflammatory changes of the urinary bladder suggest cystitis. Mild enteritis may be also present. Electronically signed by Nima Briggs 02-24-2025 7:56 PM
--- NOTE | 2025-02-24 20:00 | XRay Report ---
EXAM: XR chest 1V portable CLINICAL HISTORY: Sepsis TECHNIQUE: An X-ray image of the chest is obtained in AP projection. COMPARISON: CT 11/29/2024. FINDINGS: Pulmonary Parenchyma: Left basal linear atlectatic bands. Otherwise, lungs are clear bilaterally. No evidence of consolidation, collapse, or focal opacities. No pulmonary nodules are identified. No evidence of pleural effusion or pleural thickening. Heart and Mediastinum: Heart size and shape are normal. No mediastinal widening or masses. No hilar or mediastinal lymphadenopathy. Right central venous line seen with its tip at the distal SVC. Bony Thorax: Bony thorax appears intact without fractures or deformities. Soft Tissues: Soft tissues overlying the chest wall are unremarkable. IMPRESSION: No acute cardiopulmonary abnormalities are identified. No pneumonia. Electronically signed by Speedy Vela 02-24-2025 8:00 PM
[2025-02-24 20:50] LABS: Appearance Urine Cloudy (Clear); Bacteria Urine Automated None Seen (None Seen); Cast Urine Automated 0-2 /lpf (0-2); Epithelial Cell Urine Auto 0-2 /hpf (0-2); Glucose Urine UA Negative (Negative)
--- NOTE | 2025-02-24 22:45 | History & Physical Report ---
Date of Service February 24, 2025 Assessment & Plan (1) Diarrhea: (2) Nausea & vomiting: (3) HTN (hypertension): (4) Suprapubic catheter: (5) UTI (urinary tract infection): (6) GERD without esophagitis: (7) Anxiety: (8) Cecil's disease: Plan Ms. Weldon is a 39 yo female with PMHx of HTN, POTS, GERD, Cecil's disease, Anxiety, who presents to the hospital due to catheter associated UTI. #CAUTI - Patient was recently admitted at [place], was treated for CAUTI. She was discharged today and presented here due to concern of adrenal crisis. Awaiting records from [facility] - Per records shown by patient, urine culture + for E. faecalis - UA shows +LE, 6-10 WBC, 1+ blood - Start on Doxycycline IV, as patient was new-sensitive during previous admission, can change depending on results from [place] - 80 ml/hr for 1 L LR fluids #Cecil's disease - stable BPs, labs WNL, mild tachycardia; low suspicion for active adrenal crisis - home regimen of 10mg hydrocortisone TID (7am, 2pm, 6pm) - 100 mg hydrocortisone IV in ED, will give 50mg IV q8 for next 24 hours, reevaluate after 24 hours - continue to monitor #Short Gut syndrome/Nausea - Diarrhea likely related to motility and absorption issues as well as anxiety - Continue home medications and follow symptoms #Anxiety - Active reassurance and open discussions - Likely contributory to mild tachycardia, nausea, diarrhea Dispo: med-surg tele Diet: heart healthy VTE Prophylaxis: Lovenox Code: full History of Present Illness Chief Complaint: CAUTI Primary Care Provider: Giovanni Mclean DO Ms. Weldon is a 39 yo female with PMHx of HTN, POTS, GERD, Cecil's disease, Anxiety, who presents to the hospital due to catheter associated UTI. Patient was previously at [facility] due to increased redness and pus drainage from her catheter site. States she was given a range of antibiotics at [place] including Rocephin, Vancomycin, Zosyn, and Cefazolin and was eventually discharged. She feels as if she "went into a crisis" due to her Cecil's disease after discharge. Reports she was not given steroids at [facility]. Today, she continues to have diffuse abdominal pain, mild SOB, L sided chest pain, and nausea. Denies cough, sore throat, vomiting episodes. States decreased urinary frequency but denies pain with urination. Allergies Allergy/AdvReac Type Severity Reaction Status Date / Time adhesive tape Allergy Intermediate SKIN Verified 02/24/25 21:18 REDDENED, ITCHY scopolamine Allergy Intermediate SKIN Verified 02/24/25 21:18 REDDENED, ITCHY escitalopram [From Lexapro] AdvReac Intermediate VERY Verified 02/24/25 21:18 EMOTIONAL, OPPOSITE EFFECT haloperidol [From Haldol] AdvReac Intermediate LOCKED JAW Verified 02/24/25 21:18 [email or web address] AdvReac Unknown Uncoded 02/24/25 21:18 Home Medications Medication Instructions Recorded Confirmed Type B-complex with vitamin C 1 cap PO DAILY 11/29/24 02/24/25 History ascorbic acid (vitamin C) 1,000 mg 1,000 mg PO DAILY 11/29/24 02/24/25 History tablet (Vitamin C) calcium 250 mg (as 2 tab PO DAILY 11/29/24 02/24/25 History citrate)-vitamin D3 5 mcg (200 unit) tablet clonazepam 1 mg tablet 1 mg PO TID 11/29/24 02/24/25 History clotrimazole 10 mg ludwig 10 mg PO DIRECTED PRN Flare 11/29/24 02/24/25 History cyanocobalamin (vitamin B-12) 1,000 mcg IM WK 11/29/24 02/24/25 History 1,000 mcg/mL injection solution dicyclomine 10 mg capsule 10 mg PO TID PRN IRRITABLE BOWEL 11/29/24 02/24/25 History SYMPTOMS ferrous sulfate 325 mg (65 mg 650 mg PO DAILY 11/29/24 02/24/25 History iron) tablet lidocaine 5 % topical patch 1 patch topical DAILY 11/29/24 02/24/25 History multivitamin with minerals 1 tab PO DAILY 11/29/24 02/24/25 History polyethylene glycol 3350 17 17 g PO DAILY PRN Constipation 11/29/24 02/24/25 History gram/dose oral powder (Miralax) potassium chloride 20 mEq 20 meq PO DAILY 11/29/24 02/24/25 History tablet,extended release(part/cryst) pregabalin 100 mg capsule 100 mg PO AMHS 11/29/24 02/24/25 History pregabalin 50 mg capsule 50 mg PO QPM 11/29/24 02/24/25 History propranolol 10 mg tablet 10 mg PO TID PRN NEEDED 11/29/24 02/24/25 History sennosides 8.6 mg tablet (senna) 17.2 mg PO HS PRN Constipation 11/29/24 02/24/25 History sucralfate 1 gram tablet (Carafate) 1 g PO ACHS 11/29/24 02/24/25 History thiamine HCl (vitamin B1) 100 mg 100 mg PO DAILY 11/29/24 02/24/25 History tablet (Vitamin B-1) topiramate 100 mg tablet 100 mg PO BID 11/29/24 02/24/25 History topiramate 25 mg tablet 25 mg PO BID 11/29/24 02/24/25 History zinc acetate 50 mg (zinc) capsule 50 mg PO DAILY 11/29/24 02/24/25 History zolpidem 10 mg tablet (Ambien) 10 mg PO HS PRN Sleep 12/12/24 02/24/25 History acetaminophen 500 mg tablet 500 mg PO Q6H PRN Pain 12/26/24 02/24/25 History cholestyramine 4 gram oral powder 4 g PO 2200 #30 ea 01/17/25 02/24/25 Rx for suspension in a packet (Prevalite) famotidine 20 mg tablet 20 mg PO BID #60 tabs 01/17/25 02/24/25 Rx pantoprazole 40 mg tablet,delayed 40 mg PO BID #60 tabs 01/17/25 02/24/25 Rx release phenazopyridine 200 mg tablet 200 mg PO TID PRN pain #30 tabs 01/17/25 02/24/25 Rx (Pyridium) sucralfate 100 mg/mL oral 1 g (10 mL) PO ACHS #420 mL 01/17/25 02/24/25 Rx suspension cyclobenzaprine 10 mg tablet 10 mg PO QAM #90 tabs 02/07/25 02/24/25 Rx oxycodone 5 mg tablet 5 mg PO DAILY PRN pain #5 tabs 02/07/25 02/24/25 Rx promethazine 25 mg tablet 25 mg PO Q6H PRN NAUSEA/VOMITING 02/07/25 02/24/25 Rx #120 tabs Port care See Rx Instructions .Route 02/22/25 Rx .COMPLEX #1 ea lactated Ringers 1,000 ml IV Q OTHER DAY 4 weeks 02/22/25 02/24/25 Rx prednisone 1 mg tablet See Rx Instructions .Route .COMPLEX 02/24/25 02/24/25 History Past Med/Surg History Problem List (Updated 02/17/25 @ 00:07 by Suzette Boyle) Acute dehydration (Acute) Febrile illness Diarrhea (Acute) Nausea & vomiting POTS (postural orthostatic tachycardia syndrome) Anemia HTN (hypertension) Hypokalemia (Acute) Neurogenic bladder (Acute) GERD without esophagitis Chronic back pain Tachycardia Anxiety Cecil's disease (Acute) Medical History Vulvovaginal candidiasis Difficult intravenous access Alternating constipation and diarrhea Vomiting Surgical History History of lumbar fusion History of gastric bypass Family History Grandfather (Paternal) Colorectal cancer Grandmother (Paternal) Myocardial infarction Denies family history of Ovarian cancer Prostate cancer Breast cancer Social History Smoking Status: Never smoker Second Hand Exposure: No; Do You Dip or Chew Tobacco: No; Hx Alcohol Use: No Hx Substance Use: No Preferred Language: Lithuanian Communication Ability: Effective Visual Impairment: No Limitations Hearing Ability: Normal Pulmonology Physician Required: No Beliefs That Will Affect Care: None marital status: Current Living Situation: Spouse current occupational status: disabled How many Children do You have: 2 Other Information That Helps Us Care for You: No Feels Safe at Home: Yes Safety Concerns: Feels Safe At This Time Childhood Exposure to Second-Hand Smoke: No Diet: other Diet Comment: protein, Bypass diet caffeine: Yes during the past year weight has: increased > 10 lbs Dental Care, Regularly: No Physical Activity Frequency: 3-4 Times per Week Physical Activity Frequency Comment: PT/OT Seatbelt Use: always Sunscreen Use: Yes Assistive Devices: Walker Review of Systems Constitutional: as per Subjective / HPI Physical Exam Constitutional: WD/WN, vitals as above Respiratory: normal respiratory effort, lungs clear to auscultation Cardiovascular: RRR, no murmur, no edema Gastrointestinal (Abdomen): Inspection/Auscultation: abdomen normal to inspection and normal bowel sounds Percussion/Palpation: + abdomen tender (diffuse) Skin: no rashes, warm and dry catheter site looks dry, non-erythematous, no active pus or drainage noted Psychiatric: A+Ox3, euthymic affect Mood: + anxious mood Results & Data Results & Data Vital Signs (Past 12 Hours) Vital Signs Temp Pulse Pulse Resp BP BP Pulse Ox 02/24/25 22:06 89 22 130/98 96 02/24/25 21:30 98 H 23 131/109 H 97 02/24/25 21:00 93 H 20 125/85 97 02/24/25 20:40 94 H 24 154/102 H 97 02/24/25 20:00 99 H 22 161/113 H 98 02/24/25 19:48 101 H 20 134/105 H 98 02/24/25 19:42 109 H 26 H 134/105 H 97 02/24/25 18:46 141 H 02/24/25 18:32 94 02/24/25 18:32 132 H 26 H 128/104 H 94 02/24/25 18:09 36.6 C 184 H 45 H 146/99 H 100 O2 Del Method 02/24/25 22:06 02/24/25 21:30 02/24/25 21:00 02/24/25 20:40 02/24/25 20:00 02/24/25 19:48 02/24/25 19:42 Room Air 02/24/25 18:46 02/24/25 18:32 Room Air 02/24/25 18:32 Room Air 02/24/25 18:09 Room Air Code Status & VTE Plan VTE Prophylaxis Plan VTE Prophylaxis will be ordered: Yes Supervising Physician Co-Signing Physician Notes Attending addendum: I have physically seen this patient, have supervised the medical residents activities, and agree with the H&P unless as otherwise noted. 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 Catheter associated urinary tract infection- Patient was recently admitted to [facility], she reports having been treated with several antibiotics including vancomycin IV. Her records have been requested from [place] Patient does have a report on her phone which shows that her urine culture was positive for Enterococcus faecalis, which she has had in this hospital before, along with Staph epidermidis Starting doxycycline 100 mg IV every 12 hours, with further management when records are here from [facility] IV fluid rehydration with LR at 80 mL/h x 1 L Cecil's disease- Patient has a tendency to go into adrenal crisis relatively easily when her system is stressed Resume home regimen of hydrocortisone 10 mg at 7 AM, 2 PM and 6 PM after completion of IV hydrocortisone She did receive hydrocortisone 100 mg IV in the ED Will place on hydrocortisone 50 mg IV every 8 hours for the next 24 hours, and then resume hydrocortisone orally as above Short gut syndrome/nausea- Continue usual medications Anxiety- Continue clonazepam GERD- Continue pantoprazole Continue other supportive medications Resident Activity Tracking Resident Involvement: Resident Care Provided Care Provided: Adult Hospital Medicine (1) Diarrhea Diarrhea type: unspecified type Qualified Code(s): R19.7 - Diarrhea, unspecified
[2025-02-24] MEDS ORDERED: ALUMINUM/MAGNESIUM SUSP 30 ML UDC PO PRN (23:07)
[2025-02-24] MEDS ORDERED: PROPRANOLOL HCL 10 MG TAB PO PRN (23:07)
[2025-02-24] MEDS ORDERED: MAGNESIUM HYDROXIDE SUSP 30 ML UDC PO PRN (23:07)
[2025-02-24] MEDS: LACTATED RINGER'S 1,000 ML IV SCH (23:25)
[2025-02-25] MEDS: DOXYCYCLINE HYCLATE 100 MG in DEXTROSE 5% MINI-B 100 ML IV SCH (00:09)
[2025-02-25] MEDS: HYDROCORTISONE SOD 50 MG in SYRINGE 0 ML IV SCH (02:08)
--- NOTE | 2025-02-25 02:12 | Billing Data ---
Date of Service February 25, 2025 Coding Level of Care Code 44669 INT INP/OBS CARE
[2025-02-25 06:39] LABS: Hematocrit (blood only) 32.5 % (37.0-47.0); Hemoglobin 10.4 g/dl (12.0-16.0); Immature Granulocytes # (auto) 0.12 K/uL (0.01-0.20); Immature Granulocytes % (auto) 1.2 %; Mean Corpuscular Hemoglobin 27.1 pg (25.0-34.0); Mean Corpuscular Volume 84.6 fL (80.0-100.0); Platelet Count 308 K/uL (130-400); RDW Standard Deviation 46.3 fL (36.4-46.3); Red Blood Count 3.84 M/uL (4.20-5.40); White Blood Count 9.74 K/ul (4.8-10.8)
[2025-02-25 07:07] LABS: INR 1.0 (0.9-1.1); Prothrombin Time 10.5 Seconds (9.0-12.0)
[2025-02-25 07:09] LABS: Alanine Aminotransferase 10.0 U/L (7-52); Albumin Globulin Ratio 1.5 (0.9-2); Alkaline Phosphatase 42.0 U/L (34-104); Anion Gap 7.0 (3-11); Bilirubin,Total 0.2 mg/dl (0.2-1.0); Blood Urea Nitrogen 8.0 mg/dl (6-23); Calcium 8.6 mg/dl (8.6-10.3); Carbon Dioxide 30.0 mmol/L (21-32); Chloride 105.0 mmol/L (98-107); Creatinine Clr Calc Pharmacy 149.8 ml/min; Globulin 2.4 gm/dl (2.5-4.0); Glucose 105.0 mg/dl (70-99(Fasting)); Potassium 3.4 mmol/L (3.5-5.1); Sodium 142.0 mmol/L (136-145); Total Protein 6.1 gm/dl (6.0-8.3)
[2025-02-25] MEDS ORDERED: SUCRALFATE 1 GM TAB PO SCH (07:30)
[2025-02-25] MEDS: ACETAMINOPHEN 325 MG TAB PO PRN (08:08)
[2025-02-25] MEDS: ONDANSETRON INJ 2 MG/ML 2 ML VIAL IV PRN (08:08)
[2025-02-25] MEDS: TOPIRAMATE 25 MG TAB PO SCH (08:45)
[2025-02-25] MEDS: TOPIRAMATE 100 MG TAB PO SCH (08:45)
[2025-02-25] MEDS: SUCRALFATE 1 GM/10 ML UDC PO SCH (08:45)
[2025-02-25] MEDS: THIAMINE HCL 100 MG TAB PO SCH (08:45)
[2025-02-25] MEDS: ZINC SULFATE 220 MG CAPSULE PO SCH (08:45)
[2025-02-25] MEDS: PHENAZOPYRIDINE HCL 200 MG TAB PO PRN (08:45)
[2025-02-25] MEDS: CYCLOBENZAPRINE HCL 10 MG TAB PO SCH (08:46)
[2025-02-25] MEDS: FERROUS SULFATE 325 MG TAB PO SCH (08:46)
[2025-02-25] MEDS: PREGABALIN 100 MG CAP PO SCH (08:53)
[2025-02-25] MEDS: POTASSIUM CHLORIDE CRTAB 20 MEQ TABCR PO SCH (08:53)
[2025-02-25] MEDS: FAMOTIDINE 20 MG TAB PO SCH (08:53)
[2025-02-25] MEDS: clonazePAM 1 MG TAB PO SCH (08:54)
[2025-02-25] MEDS: LIDOCAINE 5% 1 PATCH TD SCH (08:56)
--- NOTE | 2025-02-25 10:57 | Ultrasound Report ---
Clinical history: Nausea Technique: Sonography was performed of the right upper quadrant of the abdomen Findings: There is suspected mild fatty infiltration of the liver. The liver measures 19.1 cm. No definite liver mass is seen There is no evidence of cholelithiasis or cholecystitis. The gallbladder has a normal wall thickness and no adjacent fluid is seen. No definite sonographic Macdonald sign was detected. There is no intrahepatic or extrahepatic bile duct dilatation. The common bile duct measures 3 mm The right kidney appears unremarkable. There is no hydronephrosis. No definite renal calculus or mass is seen No ascites is seen Impression: 1. Normal appearing gallbladder 2. Mild fatty infiltration of the liver Electronically signed by Howie Jonhson 02-25-2025 10:56 AM
--- NOTE | 2025-02-25 13:05 | Hospitalist Progress Note ---
Date of Service February 25, 2025 Assessment & Plan (1) Diarrhea: (2) Nausea & vomiting: (3) HTN (hypertension): (4) Suprapubic catheter: (5) UTI (urinary tract infection): (6) GERD without esophagitis: (7) Anxiety: (8) Huntington's disease: Plan Ms. Weldon is a 39 yo female with PMHx of HTN, POTS, GERD, Huntington's disease, neurogenic bladder on suprapubic, Anxiety, who presents to the hospital due to catheter associated UTI. she have long standing abdominal issues and went to [facility] for evaluaton. she was recently at [facility] for CAUTI, per patient, [facility] did not changed the catheter. she did not want to stay in [facility] longer and came to our hospital for evaluaion, started on doxycycyline for UTI she is requesting that we ensure the IV stress dose steroid being maintain. #CAUTI, suprapuic catheter her urologist at [facility] recently relocated she is requesting urologist to be establish at [facility] system - Patient was recently admitted at [facility], was treated for CAUTI. She was discharged today and presented here due to concern of adrenal crisis. Awaiting records from [facility] - Per records shown by patient, urine culture + for E. 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 on IV hydrocortisone 50mg IV q8 hours for next 24 hours - home regimen of 10mg hydrocortisone TID (7am, 2pm, 6pm) - 100 mg hydrocortisone IV in ED, will give 50mg IV q8 for next 24 hours, reevaluate after 24 hours - continue to monitor #Short Gut syndrome/Nausea - Diarrhea likely related to motility and absorption issues as well as anxiety - Continue home medications and follow symptoms she trying to has f/u appointment with [facility] for outpatient GI evaluaiton #Anxiety - Active reassurance and open discussions - Likely contributory to mild tachycardia, nausea, diarrhea Dispo: med-surg tele Diet: heart healthy VTE Prophylaxis: Lovenox Code: full Admission and Anticipated Discharge Date Admission Date: February 24, 2025 Subjective she's is requesting urology to evaluate her she has supapubic for 2 years, her previous urologist at [facility] is leaving the practice in [facility], she's been having irrigation around the supapubic site has had recurrent GI issues, and plan for outpatient f/u with [facility] system in addition, she is requesting to remained on stress dose steroid. Review of Systems Review of Systems: Constitutional: No Weight Change, No Fever, No Chills, No Night Sweats, No Fatigue, No Malaise endocrine: + for Huntington diseae. Gastrointestinal: diarrhea resolved; no worsening abdominal discomfort Genitourinary: + for suprapubic catheter; + for dysuria; psych: denied bipolar history; + stress Physical Exam Physical Exam: VITALS: Reviewed. WEIGHT/BMI reviewed. GEN: non-toxic appearing -Head: NC/AT; NECK: Supple, with no masses. CV: RRR, no m/r/g. LUNGS: CTAB, no w/r/c. ABD: Soft, NT/ND, NBS, no masses or organomegaly. + for suprapubic catheter MSK: No deformities, Normal gait. EXT: No clubbing, cyanosis, or edema. NEURO: AAox3 Results & Data Results & Data Vital Signs (Past 12 Hours) Vital Signs Temp Pulse Pulse Resp BP Pulse Ox O2 Del Method 02/25/25 11:13 36.6 C 105 H 21 135/82 98 Room Air 02/25/25 07:22 79 02/25/25 07:20 36.5 C 105 H 19 144/85 H 98 Room Air 02/25/25 04:07 36.4 C L 75 16 120/83 98 Room Air Laboratory Results Laboratory Results - last 72 hr 02/24/25 02/24/25 02/24/25 18:29 18:33 20:11 WBC 10.48 RBC 4.36 Hgb 11.5 L POC Hgb 12.9 Hct 37.4 POC Hct 38 MCV 85.8 MCH 26.4 MCHC 30.7 L RDW Std Deviation 47.7 H RDW Coeff of Los 15.2 H Plt Count 340 MPV 9.6 Immature Gran % (Auto) 1.9 Neut % (Auto) 86.5 Lymph % (Auto) 7.7 Darke % (Auto) 3.5 Eos % (Auto) 0.1 Baso % (Auto) 0.3 Neut # (Auto) 9.06 H Lymph # (Auto) 0.81 L Darke # (Auto) 0.37 Eos # (Auto) 0.01 Baso # (Auto) 0.03 Immature Gran # (Auto) 0.20 PT 10.3 INR 0.9 VBG pH 7.43 H VBG pCO2 38 VBG pO2 58 VBG HCO3 25 VBG O2 Saturation 87.6 VBG Base Excess 1.0 POC Sodium 139 Sodium 139 POC Potassium 3.6 Potassium 3.6 POC Chloride 104 Chloride 103 Carbon Dioxide 24 POC Total CO2 21 L Anion Gap 12 H POC Anion Gap 18.0 POC BUN 6 L BUN 9 Creatinine 0.80 POC Creatinine 0.7 Est Cr Clr Drug Dosing Not Reportable eGFR 95.46 BUN/Creatinine Ratio 11.3 Glucose 169 H POC Glucose (other) 165 H Lactate 4.4 H* Calcium 9.7 POC Ioniz Calcium Merrill 1.23 Magnesium 1.8 Total Bilirubin 0.2 Direct Bilirubin 0.1 AST 11 L ALT 15 Alkaline Phosphatase 53 Troponin I High Sens < 2.3 Total Protein 7.2 Albumin 4.2 Globulin Albumin/Globulin Ratio Procalcitonin 0.04 Urine Color Yellow Urine Appearance Cloudy A Urine pH >= 9.0 H Ur Specific [place] 1.028 Urine Protein Negative Urine Glucose (UA) Negative Urine Ketones Negative Urine Blood 1+ H Urine Nitrite Negative Urine Bilirubin Negative Urine Urobilinogen Negative Ur Leukocyte Esterase Trace H Urine WBC (Auto) 6-10 H Urine RBC (Auto) 11-20 H U Hyaline Cast (Auto) 0-2 U Epithel Cells (Auto) 0-2 Urine Bacteria (Auto) None Seen Urine Comment 02/24/25 02/25/25 20:35 05:56 WBC 9.74 RBC 3.84 L Hgb 10.4 L POC Hgb Hct 32.5 L POC Hct MCV 84.6 MCH 27.1 MCHC 32.0 RDW Std Deviation 46.3 RDW Coeff of Los 15.0 H Plt Count 308 MPV 9.5 Immature Gran % (Auto) 1.2 Neut % (Auto) 82.9 Lymph % (Auto) 11.8 Darke % (Auto) 3.9 Eos % (Auto) 0.1 Baso % (Auto) 0.1 Neut # (Auto) 8.07 H Lymph # (Auto) 1.15 L Darke # (Auto) 0.38 Eos # (Auto) 0.01 Baso # (Auto) 0.01 Immature Gran # (Auto) 0.12 PT 10.5 INR 1.0 VBG pH VBG pCO2 VBG pO2 VBG HCO3 VBG O2 Saturation VBG Base Excess POC Sodium Sodium 142 POC Potassium Potassium 3.4 L POC Chloride Chloride 105 Carbon Dioxide 30 POC Total CO2 Anion Gap 7 POC Anion Gap POC BUN BUN 8 Creatinine 0.66 POC Creatinine Est Cr Clr Drug Dosing 149.8 eGFR 113.65 BUN/Creatinine Ratio 12.1 Glucose 105 H POC Glucose (other) Lactate 2.8 H* Calcium 8.6 POC Ioniz Calcium Merrill Magnesium Total Bilirubin 0.2 Direct Bilirubin AST 8 L ALT 10 Alkaline Phosphatase 42 Troponin I High Sens Total Protein 6.1 Albumin 3.7 Globulin 2.4 L Albumin/Globulin Ratio 1.5 Procalcitonin Urine Color Urine Appearance Urine pH Ur Specific [place] Urine Protein Urine Glucose (UA) Urine Ketones Urine Blood Urine Nitrite Urine Bilirubin Urine Urobilinogen Ur Leukocyte Esterase Urine WBC (Auto) Urine RBC (Auto) U Hyaline Cast (Auto) U Epithel Cells (Auto) Urine Bacteria (Auto) Urine Comment Medications Administered Current Inpatient Medications Acetaminophen (Acetaminophen 325 Mg Tab) 650 mg PO Q4H PRN PRN Reason: Pain or Fever Stop: 03/26/25 23:06 Last Admin: 02/25/25 08:08 Dose: 650 mg Al Hydrox/Mg Hydrox/Simethicone (Aluminum/Magnesium Susp 30 Ml Udc) 15 ml PO Q4H PRN PRN Reason: Dyspepsia Stop: 03/26/25 23:06 Clonazepam (Clonazepam 1 Mg Tab) 1 mg PO TID [facility] Stop: 03/27/25 08:59 Last Admin: 02/25/25 08:54 Dose: 1 mg Clotrimazole (Clotrimazole 10 Mg Enoch) 10 mg BUCCAL TID PRN PRN Reason: Flare Stop: 03/26/25 23:06 Cyclobenzaprine HCl (Cyclobenzaprine Hcl 10 Mg Tab) 10 mg PO QAM [facility] Stop: 03/27/25 08:59 Last Admin: 02/25/25 08:46 Dose: 10 mg Dicyclomine HCl (Dicyclomine Hcl 10 Mg Cap) 10 mg PO TID PRN PRN Reason: IRRITABLE BOWEL SYMPTOMS Stop: 03/26/25 23:06 Famotidine (Famotidine 20 Mg Tab) 20 mg PO BID [facility] Stop: 03/27/25 08:59 Last Admin: 02/25/25 08:53 Dose: 20 mg Ferrous Sulfate (Ferrous Sulfate 325 Mg Tab) 650 mg PO DAILY ASHOK Stop: 03/27/25 08:59 Last Admin: 02/25/25 08:46 Dose: 650 mg Heparin Sodium (Porcine) (Heparin 100 Unit/Ml 5ml Flush) 5 ml FLUSH PRN PRN PRN Reason: Flush Stop: 03/27/25 04:22 Doxycycline Hyclate 100 mg/ (Dextrose) 100 mls @ 50 mls/hr IV Q12H [facility] Stop: 03/07/25 00:00 Last Infusion: 02/25/25 02:08 Dose: Infused Hydrocortisone Sodium (Succinate 50 mg/ Syringe) 1 mls @ 4 mls/min IV Q8H [facility] Stop: 02/25/25 18:00 Last Admin: 02/25/25 10:31 Dose: 4 mls/min Lidocaine (Lidocaine 5% 1 Patch) 1 patch TD DAILY [facility] Stop: 03/27/25 08:59 Last Admin: 02/25/25 08:56 Dose: 1 patch Magnesium Hydroxide (Magnesium Hydroxide Susp 30 Ml Udc) 30 ml PO Q12H PRN PRN Reason: Constipation Stop: 03/26/25 23:06 Melatonin (Melatonin 3 Mg Tab) 3 mg PO HS PRN PRN Reason: Sleep Stop: 03/26/25 23:06 Miscellaneous (Remove Lidoderm Patch) 1 each N/A DAILY@2100 [facility] Stop: 03/27/25 20:59 Ondansetron HCl (Ondansetron Inj 2 Mg/Ml 2 Ml Vial) 4 mg IV Q6H PRN PRN Reason: Nausea Stop: 03/26/25 23:06 Last Admin: 02/25/25 08:08 Dose: 4 mg Oxycodone HCl (Oxycodone Hcl Ir 5 Mg Tab (Immediate Release)) 5 mg PO DAILY PRN PRN Reason: pain Stop: 03/10/25 23:06 Last Admin: 02/25/25 10:31 Dose: 5 mg Pantoprazole Sodium (Pantoprazole 40 Mg Tab) 40 mg PO BID [facility] Stop: 03/27/25 08:59 Last Admin: 02/25/25 08:45 Dose: 40 mg Phenazopyridine HCl (Phenazopyridine Hcl 200 Mg Tab) 200 mg PO TID PRN PRN Reason: pain Stop: 03/26/25 23:06 Last Admin: 02/25/25 08:45 Dose: 200 mg Polyethylene Glycol (Polyethylene (Miralax) 17 Gm Pack) 17 gm PO DAILY PRN PRN Reason: Constipation Stop: 03/26/25 23:06 Potassium Chloride (Potassium Chloride Crtab 20 Meq Tabcr) 20 meq PO DAILY ASHOK Stop: 03/27/25 08:59 Last Admin: 02/25/25 08:53 Dose: 20 meq Pregabalin (Pregabalin 50 Mg Cap) 50 mg PO DAILY@1400 [facility] Stop: 03/27/25 13:59 Pregabalin (Pregabalin 100 Mg Cap) 100 mg PO BID ASHOK Stop: 03/27/25 08:59 Last Admin: 02/25/25 08:53 Dose: 100 mg Promethazine HCl (Promethazine Hcl 25 Mg Tab) 25 mg PO Q6H PRN PRN Reason: NAUSEA/VOMITING Stop: 03/26/25 23:06 Propranolol HCl (Propranolol Hcl 10 Mg Tab) 10 mg PO TID PRN PRN Reason: Tachycardia - give if HR>120 Stop: 03/26/25 23:06 Sennosides (Senna 8.6 Mg Tab) 17.2 mg PO HS PRN PRN Reason: Constipation Stop: 03/26/25 23:06 Sucralfate (Sucralfate 1 Gm/10 Ml Udc) 1 gm PO ACHS ASHOK Stop: 03/27/25 07:29 Last Admin: 02/25/25 10:31 Dose: 1 gm Thiamine HCl (Thiamine Hcl 100 Mg Tab) 100 mg PO DAILY ASHOK Stop: 03/27/25 08:59 Last Admin: 02/25/25 08:45 Dose: 100 mg Topiramate (Topiramate 25 Mg Tab) 25 mg PO BID ASHOK Stop: 03/27/25 08:59 Last Admin: 02/25/25 08:45 Dose: 25 mg Topiramate (Topiramate 100 Mg Tab) 100 mg PO BID ASHOK Stop: 03/27/25 08:59 Last Admin: 02/25/25 08:45 Dose: 100 mg Zinc Sulfate (Zinc Sulfate 220 Mg Capsule) 220 mg PO DAILY ASHOK Stop: 03/27/25 08:59 Last Admin: 02/25/25 08:45 Dose: 220 mg Zolpidem Tartrate (Zolpidem Tartrate 5 Mg Tab) 10 mg PO HS PRN PRN Reason: Sleep Stop: 03/26/25 23:06 PG Care Time/CCT Total # of Minutes Spent Total Time Spent with Patient: Total time spent is greater than 50% in coordination of care (as documented) at patient's floor/unit and/or counseling patient: Coding Level of Care Code 32133 SUB INP/OBS CARE 2/35MIN Diagnoses Diarrhea R19.7 Diarrhea type: unspecified type Nausea & vomiting R11.2 HTN (hypertension) I10 Suprapubic catheter Z93.59 UTI (urinary tract infection) N39.0 GERD without esophagitis K21.9 Anxiety F41.9 Huntington's disease E27.1 Time Spent (min) 35 (1) Diarrhea Diarrhea type: unspecified type Qualified Code(s): R19.7 - Diarrhea, unspecified
--- NOTE | 2025-02-25 13:25 | Electrocardiogram Report ---
Test Reason : Blood Pressure : */* mmHG Vent. Rate : 154 BPM Atrial Rate : 154 BPM P-R Int : 140 ms QRS Dur : 72 ms QT Int : 246 ms P-R-T Axes : 53 7 24 degrees QTcB Int : 394 ms Sinus tachycardia Cannot rule out Inferior infarct (cited on or before 06-Jan-2025) Cannot rule out Anterior infarct , age undetermined Abnormal ECG When compared with ECG of 06-Jan-2025 00:09, Vent. rate has increased by 66 bpm Minimal criteria for Anterior infarct are now Present Confirmed by Barry Jimenez [id number]) on 02/25/2025 1:25:21 PM Referred By: REFERRED SELF Confirmed By: Barry Jimenez
[2025-02-25] MEDS: PREGABALIN 50 MG CAP PO SCH (13:29)
[2025-02-25] MEDS: AMPICILLIN 2,000 MG in SODIUM CHLOR 0.9% MINI-B 100 ML IV SCH (15:04)
[2025-02-25] MEDS: REMOVE LIDODERM PATCH SCH (20:25)
[2025-02-25] MEDS: ZOLPIDEM TARTRATE 5 MG TAB PO PRN (21:03)
[2025-02-25] MEDS: HYDROmorphone INJ 0.5 MG/0.5 ML SYR IV STA (21:04)
[2025-02-25 21:48] LABS: A calco-baum cmplx NotReported Not Detected (NotDetected); Bact fragilis Not Reported Not Detected (NotDetected); Blood Culture Id Panel See PCR Comment (NotDetected); C auris Not Reported Not Detected (NotDetected); Calbicans Not Reported Not Detected (NotDetected); Candida glabrata Not Reported Not Detected (NotDetected); Candida krusei Not Reported Not Detected (NotDetected); Cneoformans/gatti Not Reported Not Detected (NotDetected); Cparapsilosis Not Reported Not Detected (NotDetected); Ctropicalis Not Reported Not Detected (NotDetected); E cloacae compx Not Reported Not Detected (NotDetected); Efaecalis Not Reported Not Detected (NotDetected); Efaecium Not Reported Not Detected (NotDetected); Enterobacterales Not Reported Not Detected (NotDetected); Escherichia coli Not Reported Not Detected (NotDetected); H influenzae Not Reported Not Detected (NotDetected); K aerogenes Not Reported Not Detected (NotDetected); Koxytoca Not Reported Not Detected (NotDetected); Kpneumoniae grp Not Reported Not Detected (NotDetected); Lmonocyt Not Reported Not Detected (NotDetected); N meningitidis Not Reported Not Detected (NotDetected); P aeruginosa Not Reported Not Detected (NotDetected); Proteus spp Not Reported Not Detected (NotDetected); Salmonella spp Not Reported Not Detected (NotDetected); Staph lugdunensis Not Reported Not Detected (NotDetected); Staph spp. Not Reported DETECTED (NotDetected); Staphaureus Not Reported Not Detected (NotDetected); Staphepi Not Reported DETECTED (NotDetected); Staphylococcus spp. DETECTED (NotDetected); Stenmaltophilia Not Reported Not Detected (NotDetected); Strep agal(GrpB) Not Reported Not Detected (NotDetected); Strep pneum Not Reported Not Detected (NotDetected); Strep pyog (GrpA) Not Reported Not Detected (NotDetected); Strep spp Not Reported Not Detected (NotDetected)
[2025-02-25 21:52] LABS: Staphylococcus epidermidis DETECTED (NotDetected); mecAC Resistant Gene DETECTED (NotDetected)
[2025-02-25] MEDS: PROMETHAZINE HCL 25 MG TAB PO PRN (23:41)
[2025-02-26] MEDS: LACTATED RINGER'S 1,000 ML IV SCH (00:32)
[2025-02-26 07:14] LABS: Hematocrit (blood only) 33.2 % (37.0-47.0); Hemoglobin 9.9 g/dl (12.0-16.0); Mean Corpuscular Hemoglobin 26.0 pg (25.0-34.0); Mean Corpuscular Volume 87.1 fL (80.0-100.0); Platelet Count 276 K/uL (130-400); RDW Standard Deviation 48.9 fL (36.4-46.3); Red Blood Count 3.81 M/uL (4.20-5.40); White Blood Count 7.26 K/ul (4.8-10.8)
[2025-02-26 07:25] LABS: Alanine Aminotransferase 11.0 U/L (7-52); Albumin Globulin Ratio 1.5 (0.9-2); Alkaline Phosphatase 41.0 U/L (34-104); Anion Gap 6.0 (3-11); Bilirubin,Total 0.2 mg/dl (0.2-1.0); Blood Urea Nitrogen 8.0 mg/dl (6-23); Calcium 8.5 mg/dl (8.6-10.3); Carbon Dioxide 29.0 mmol/L (21-32); Chloride 105.0 mmol/L (98-107); Creatinine Clr Calc Pharmacy 145.4 ml/min; Globulin 2.3 gm/dl (2.5-4.0); Glucose 76.0 mg/dl (70-99(Fasting)); Potassium 3.4 mmol/L (3.5-5.1); Sodium 140.0 mmol/L (136-145); Total Protein 5.8 gm/dl (6.0-8.3)
--- NOTE | 2025-02-26 08:26 | Urology Consultation ---
Date of Consultation February 26, 2025 Assessment & Plan (1) Neurogenic bladder: (2) Suprapubic catheter: 39-year-old female with a history of neurogenic bladder and SP tube that was previously managed by the urologist at [facility] Incredibly difficult to follow patient's history and get an idea of what is truly bothering her. I ultimately think she is likely experiencing bladder spasms. The catheter is in appropriate position based on CT scan and it is draining that based on physical exam. The site around the catheter is clean dry and no concern for excoriation or wound breakdown Could consider giving patient gemtesa 75 mg daily to help with bladder spasms. Also could consider Toradol to assist in pain control No urologic intervention necessary Explained to patient that these can sometimes be symptoms of a chronic SP tube and that our options for treatment are limited given that she needs to have this catheter and cannot perform CIC Patient requested follow-up with [facility] and we can certainly get her scheduled for an appointment but this may be several months so she will need to continue current SP tube care until then Greater than 60 minutes was spent reviewing her history and speaking with the patient History of Present Illness Attending Physician: Chandrika Orantes DO History of Present Illness 39-year-old female with a history of neurogenic bladder and SP tube that was previously managed by the urologist at [facility] who is currently admitted with suspicion of a UTI. She is currently afebrile with stable vitals but has been mildly tachycardic. Initial labs showed a white count of 9.7 which is down to 7.2 today. Hemoglobin is stable. Creatinine has been stable at 0.6. Urinalysis was positive for leukocytosis and microscopic hematuria but no other concerning findings. A CT scan of the abdomen pelvis was performed which I independently reviewed which does not show any hydronephrosis and a decompressed bladder around the suprapubic tube. It also question atrophic adrenal glands. Urology was consulted to establish care if she no longer has a urologist. Patient has flight of ideas and is very hard to follow from a history perspective. It sounds like she initially saw a urologist at [facility] that managed her catheter but there were a lot of issues with exchanges and infections. She then switched over to [facility] with Dr. Campbell. She has a history of [place] and all of her other healthcare is in [facility] and she is interested in following up with [facility]. She currently is reporting a lot of pain in her vaginal and urethral area which sound to be consistent with bladder spasms. It is very hard to follow her symptoms or chronological history in order to get an idea of what exactly is going on. She reports she has previously tried oxybutynin and trospium. Allergies Allergy/AdvReac Type Severity Reaction Status Date / Time adhesive tape Allergy Intermediate SKIN Verified 02/24/25 21:18 REDDENED, ITCHY scopolamine Allergy Intermediate SKIN Verified 02/24/25 21:18 REDDENED, ITCHY escitalopram [From Lexapro] AdvReac Intermediate VERY Verified 02/24/25 21:18 EMOTIONAL, OPPOSITE EFFECT haloperidol [From Haldol] AdvReac Intermediate LOCKED JAW Verified 02/24/25 21:18 [email or web address] AdvReac Unknown Uncoded 02/24/25 21:18 Home Medications Medication Instructions Recorded Confirmed Type B-complex with vitamin C 1 cap PO DAILY 11/29/24 02/24/25 History ascorbic acid (vitamin C) 1,000 mg 1,000 mg PO DAILY 11/29/24 02/24/25 History tablet (Vitamin C) calcium 250 mg (as 2 tab PO DAILY 11/29/24 02/24/25 History citrate)-vitamin D3 5 mcg (200 unit) tablet clonazepam 1 mg tablet 1 mg PO TID 11/29/24 02/24/25 History clotrimazole 10 mg ludwig 10 mg PO DIRECTED PRN Flare 11/29/24 02/24/25 History cyanocobalamin (vitamin B-12) 1,000 mcg IM WK 11/29/24 02/24/25 History 1,000 mcg/mL injection solution dicyclomine 10 mg capsule 10 mg PO TID PRN IRRITABLE BOWEL 11/29/24 02/24/25 History SYMPTOMS ferrous sulfate 325 mg (65 mg 650 mg PO DAILY 11/29/24 02/24/25 History iron) tablet lidocaine 5 % topical patch 1 patch topical DAILY 11/29/24 02/24/25 History multivitamin with minerals 1 tab PO DAILY 11/29/24 02/24/25 History polyethylene glycol 3350 17 17 g PO DAILY PRN Constipation 11/29/24 02/24/25 History gram/dose oral powder (Miralax) potassium chloride 20 mEq 20 meq PO DAILY 11/29/24 02/24/25 History tablet,extended release(part/cryst) pregabalin 100 mg capsule 100 mg PO AMHS 11/29/24 02/24/25 History pregabalin 50 mg capsule 50 mg PO QPM 11/29/24 02/24/25 History propranolol 10 mg tablet 10 mg PO TID PRN NEEDED 11/29/24 02/24/25 History sennosides 8.6 mg tablet (senna) 17.2 mg PO HS PRN Constipation 11/29/24 02/24/25 History sucralfate 1 gram tablet (Carafate) 1 g PO ACHS 11/29/24 02/24/25 History thiamine HCl (vitamin B1) 100 mg 100 mg PO DAILY 11/29/24 02/24/25 History tablet (Vitamin B-1) topiramate 100 mg tablet 100 mg PO BID 11/29/24 02/24/25 History topiramate 25 mg tablet 25 mg PO BID 11/29/24 02/24/25 History zinc acetate 50 mg (zinc) capsule 50 mg PO DAILY 11/29/24 02/24/25 History zolpidem 10 mg tablet (Ambien) 10 mg PO HS PRN Sleep 12/12/24 02/24/25 History acetaminophen 500 mg tablet 500 mg PO Q6H PRN Pain 12/26/24 02/24/25 History cholestyramine 4 gram oral powder 4 g PO 2200 #30 ea 01/17/25 02/24/25 Rx for suspension in a packet (Prevalite) famotidine 20 mg tablet 20 mg PO BID #60 tabs 01/17/25 02/24/25 Rx pantoprazole 40 mg tablet,delayed 40 mg PO BID #60 tabs 01/17/25 02/24/25 Rx release phenazopyridine 200 mg tablet 200 mg PO TID PRN pain #30 tabs 01/17/25 02/24/25 Rx (Pyridium) sucralfate 100 mg/mL oral 1 g (10 mL) PO ACHS #420 mL 01/17/25 02/24/25 Rx suspension cyclobenzaprine 10 mg tablet 10 mg PO QAM #90 tabs 02/07/25 02/24/25 Rx oxycodone 5 mg tablet 5 mg PO DAILY PRN pain #5 tabs 02/07/25 02/24/25 Rx promethazine 25 mg tablet 25 mg PO Q6H PRN NAUSEA/VOMITING 02/07/25 02/24/25 Rx #120 tabs Port care See Rx Instructions .Route 02/22/25 Rx .COMPLEX #1 ea lactated Ringers 1,000 ml IV Q OTHER DAY 4 weeks 02/22/25 02/24/25 Rx prednisone 1 mg tablet See Rx Instructions .Route .COMPLEX 02/24/25 02/24/25 History Patient History Medical History Vulvovaginal candidiasis Difficult intravenous access Alternating constipation and diarrhea Vomiting Surgical History History of lumbar fusion History of gastric bypass Family History Grandfather (Paternal) Colorectal cancer Grandmother (Paternal) Myocardial infarction Denies family history of Ovarian cancer Prostate cancer Breast cancer Social History Smoking Status: Never smoker Second Hand Exposure: No; Do You Dip or Chew Tobacco: No; Hx Alcohol Use: No Hx Substance Use: No Preferred Language: Sudanese Communication Ability: Effective Visual Impairment: No Limitations Hearing Ability: Normal [employer] Services Manager Required: No Beliefs That Will Affect Care: None marital status: Current Living Situation: Spouse current occupational status: disabled How many Children do You have: 2 Other Information That Helps Us Care for You: No Feels Safe at Home: Yes Safety Concerns: Feels Safe At This Time Childhood Exposure to Second-Hand Smoke: No Diet: other Diet Comment: protein, Bypass diet caffeine: Yes during the past year weight has: increased > 10 lbs Dental Care, Regularly: No Physical Activity Frequency: 3-4 Times per Week Physical Activity Frequency Comment: PT/OT Seatbelt Use: always Sunscreen Use: Yes Assistive Devices: Walker, Wheelchair and Other Physical Exam Physical Exam: General: Alert and oriented, no acute distress HEENT: Normocephalic, mucous membranes moist Pulmonary: Nonlabored respirations Abdomen: Nondistended : Suprapubic site clean dry and intact with a 20 Icelandic three-way catheter in place with the inflow capped. This is draining jaida to orange urine as she is on Pyridium Extremities: Moves all 4 spontaneously Neuro: No gross deficits Skin: Warm, dry, no rashes noted Results & Data Vital Signs (Past 12 Hours) Vital Signs Temp Pulse Pulse Resp BP Pulse Ox Pulse Ox 02/26/25 04:51 85 02/26/25 00:53 102 H 02/26/25 00:08 123 H 147/89 H 02/26/25 00:00 36.5 C 99 H 20 126/88 91 02/25/25 23:07 96 02/25/25 22:43 81 02/25/25 20:53 36.6 C 90 20 129/88 98 O2 Del Method O2 Del Method 02/26/25 04:51 02/26/25 00:53 02/26/25 00:08 02/26/25 00:00 Room Air 02/25/25 23:07 Room Air 02/25/25 22:43 02/25/25 20:53 Room Air PG Care Time/CCT Total # of Minutes Spent Total Time Spent with Patient: Total time spent is greater than 50% in coordination of care (as documented) at patient's floor/unit and/or counseling patient: Coding Level of Care Code 26515 IN/OBS CONSULT LVL 4,60M Diagnoses Neurogenic bladder N31.9 Suprapubic catheter Z93.59
[2025-02-26] MEDS: PROPRANOLOL HCL 10 MG TAB PO PRN (10:56)
--- NOTE | 2025-02-26 11:02 | Hospitalist Progress Note ---
Date of Service February 26, 2025 Assessment & Plan (1) Diarrhea: (2) Nausea & vomiting: (3) HTN (hypertension): (4) Suprapubic catheter: (5) UTI (urinary tract infection): (6) GERD without esophagitis: (7) Anxiety: (8) Crossroads's disease: Plan Ms. Weldon is a 39 yo female with PMHx of POTS, GERD, Fredrick's disease, ankylosing spondylitis, neurogenic bladder on suprapubic, Anxiety, ovarian cysts. who presents to the hospital due to catheter associated UTI. she have long standing abdominal issues and went to [facility] for evaluation, she was recently at [facility] for CAUTI, per patient, [facility] did not changed the catheter. she did not want to stay in [facility] any longer and came to our hospital for evaluation, started on doxycycyline for UTI she was switched to ampicillin IV for UTI:. 02/25, switch to ampicillin for UTI; stress dose steroid by IV 02/26. tachycardia episode, CTA PE to r/o PE, duplex ultrasound. urology evaluated the patient, will plan for establish outpatient f/u added fluconazole #CAUTI, suprapuic catheter her urologist at [place] recently relocated urology attending, Dr. Ruiz; will evaluate the patient. - Patient was recently admitted at [place], was treated for CAUTI. She was discharged today and presented here due to concern of adrenal crisis. Awaiting records from [facility] - Per records shown by patient, urine culture + for E. faecalis -switched from doxycycline to ampicillin -repeat u/a #Crossroads's disease stay on IV hydrocortisone 50mg IV q8 hours for next 24 hours - home regimen of 10mg hydrocortisone TID (7am, 2pm, 6pm) - 100 mg hydrocortisone IV in ED, will give 50mg IV q8 for next 24 hours, reevaluate after 24 hours - continue to monitor #Short Gut syndrome/Nausea - Diarrhea likely related to motility and absorption issues as well as anxiety - Continue home medications and follow symptoms she trying to has f/u appointment with [facility] for outpatient GI evaluation noted she was recently at [facility]. #Anxiety - Active reassurance and open discussions - Likely contributory to mild tachycardia, nausea, diarrhea Dispo: med-surg tele Diet: heart healthy VTE Prophylaxis: Lovenox Code: full Admission and Anticipated Discharge Date Admission Date: February 24, 2025 Subjective she's on IV ampicillin, her urine look clear she's still have irrigation around the rene catheter, added fluconazole given her hx tachycardia episodes, multiple hospitalization with past couple of month. CTA to r/o PE has diffuse pain. f/u phosphate and magnesium level. Review of Systems Review of Systems: HEENT: + for pounding headache lung: No shortness of breath abdomen: + for chronic abdominal pain neuro: + for neuropathy MSK: + for long standing back pain Physical Exam Physical Exam: VITALS: Reviewed. WEIGHT/BMI reviewed. GEN: well developed PSYCH: normal memory; no sign of hallucination calm; cooperative HEENT -Head: NC/AT; NECK: Supple, with no masses. CV: RRR, no m/r/g. LUNGS: on room air; no respiratory distress ABD: Soft, NT/ND, NBS, no masses + for suprapubic catheter. : + for rene catheter; the urine is non-cloudy MSK: lumbar spine tender to palpitation; no gross deformity EXT: no edema noted; no cyanosis NEURO: following command; responded to interview question. Results & Data Results & Data Vital Signs (Past 12 Hours) Vital Signs Temp Pulse Resp BP Pulse Ox Pulse Ox O2 Del Method 02/26/25 08:25 36.5 C 107 H 20 128/86 98 Room Air 02/26/25 04:51 85 02/26/25 00:53 102 H 02/26/25 00:08 123 H 147/89 H 02/26/25 00:00 36.5 C 99 H 20 126/88 91 Room Air 02/25/25 23:07 96 O2 Del Method 02/26/25 08:25 02/26/25 04:51 02/26/25 00:53 02/26/25 00:08 02/26/25 00:00 02/25/25 23:07 Room Air Laboratory Results Laboratory Results - last 72 hr 02/24/25 02/24/25 02/24/25 18:29 18:33 20:11 WBC 10.48 RBC 4.36 Hgb 11.5 L POC Hgb 12.9 Hct 37.4 POC Hct 38 MCV 85.8 MCH 26.4 MCHC 30.7 L RDW Std Deviation 47.7 H RDW Coeff of [place] 15.2 H Plt Count 340 MPV 9.6 Immature Gran % (Auto) 1.9 Neut % (Auto) 86.5 Lymph % (Auto) 7.7 [place] % (Auto) 3.5 Eos % (Auto) 0.1 Baso % (Auto) 0.3 Neut # (Auto) 9.06 H Lymph # (Auto) 0.81 L [place] # (Auto) 0.37 Eos # (Auto) 0.01 Baso # (Auto) 0.03 Immature Gran # (Auto) 0.20 Absolute Nucleated RBC Nucleated RBC % (auto) PT 10.3 INR 0.9 VBG pH 7.43 H VBG pCO2 38 VBG pO2 58 VBG HCO3 25 VBG O2 Saturation 87.6 VBG Base Excess 1.0 POC Sodium 139 Sodium 139 POC Potassium 3.6 Potassium 3.6 POC Chloride 104 Chloride 103 Carbon Dioxide 24 POC Total CO2 21 L Anion Gap 12 H POC Anion Gap 18.0 POC BUN 6 L BUN 9 Creatinine 0.80 POC Creatinine 0.7 Est Cr Clr Drug Dosing Not Reportable eGFR 95.46 BUN/Creatinine Ratio 11.3 Glucose 169 H POC Glucose (other) 165 H Lactate 4.4 H* Calcium 9.7 POC Ioniz Calcium [place] 1.23 Magnesium 1.8 Total Bilirubin 0.2 Direct Bilirubin 0.1 AST 11 L ALT 15 Alkaline Phosphatase 53 Troponin I High Sens < 2.3 Total Protein 7.2 Albumin 4.2 Globulin Albumin/Globulin Ratio Procalcitonin 0.04 Urine Color Yellow Urine Appearance Cloudy A Urine pH >= 9.0 H Ur Specific [place] 1.028 Urine Protein Negative Urine Glucose (UA) Negative Urine Ketones Negative Urine Blood 1+ H Urine Nitrite Negative Urine Bilirubin Negative Urine Urobilinogen Negative Ur Leukocyte Esterase Trace H Urine WBC (Auto) 6-10 H Urine RBC (Auto) 11-20 H U Hyaline Cast (Auto) 0-2 U Epithel Cells (Auto) 0-2 Urine Bacteria (Auto) None Seen Urine Comment Staphylococcus sp PCR DETECTED A mecA/C-Methicil Resis Gene DETECTED A Staph epidermidis (PCR) DETECTED A Bld Cult ID Panel PCR See PCR Comment 02/24/25 02/25/25 02/26/25 20:35 05:56 06:22 WBC 9.74 7.26 RBC 3.84 L 3.81 L Hgb 10.4 L 9.9 L POC Hgb Hct 32.5 L 33.2 L POC Hct MCV 84.6 87.1 MCH 27.1 26.0 MCHC 32.0 29.8 L RDW Std Deviation 46.3 48.9 H RDW Coeff of [place] 15.0 H 15.4 H Plt Count 308 276 MPV 9.5 9.4 Immature Gran % (Auto) 1.2 Neut % (Auto) 82.9 Lymph % (Auto) 11.8 [place] % (Auto) 3.9 Eos % (Auto) 0.1 Baso % (Auto) 0.1 Neut # (Auto) 8.07 H Lymph # (Auto) 1.15 L [place] # (Auto) 0.38 Eos # (Auto) 0.01 Baso # (Auto) 0.01 Immature Gran # (Auto) 0.12 Absolute Nucleated RBC 0.02 Nucleated RBC % (auto) 0.3 PT 10.5 INR 1.0 VBG pH VBG pCO2 VBG pO2 VBG HCO3 VBG O2 Saturation VBG Base Excess POC Sodium Sodium 142 140 POC Potassium Potassium 3.4 L 3.4 L POC Chloride Chloride 105 105 Carbon Dioxide 30 29 POC Total CO2 Anion Gap 7 6 POC Anion Gap POC BUN BUN 8 8 Creatinine 0.66 0.68 POC Creatinine Est Cr Clr Drug Dosing 149.8 145.4 eGFR 113.65 112.84 BUN/Creatinine Ratio 12.1 11.8 Glucose 105 H 76 POC Glucose (other) Lactate 2.8 H* Calcium 8.6 8.5 L POC Ioniz Calcium [place] Magnesium Total Bilirubin 0.2 0.2 Direct Bilirubin AST 8 L 10 L ALT 10 11 Alkaline Phosphatase 42 41 Troponin I High Sens Total Protein 6.1 5.8 L Albumin 3.7 3.5 Globulin 2.4 L 2.3 L Albumin/Globulin Ratio 1.5 1.5 Procalcitonin Urine Color Urine Appearance Urine pH Ur Specific [place] Urine Protein Urine Glucose (UA) Urine Ketones Urine Blood Urine Nitrite Urine Bilirubin Urine Urobilinogen Ur Leukocyte Esterase Urine WBC (Auto) Urine RBC (Auto) U Hyaline Cast (Auto) U Epithel Cells (Auto) Urine Bacteria (Auto) Urine Comment Staphylococcus sp PCR mecA/C-Methicil Resis Gene Staph epidermidis (PCR) Bld Cult ID Panel PCR PG Care Time/CCT Total # of Minutes Spent Total Time Spent with Patient: Total time spent is greater than 50% in coordination of care (as documented) at patient's floor/unit and/or counseling patient: Coding Level of Care Code 48288 SUB INP/OBS CARE 08/06MIN Diagnoses Diarrhea R19.7 Diarrhea type: unspecified type Nausea & vomiting R11.2 HTN (hypertension) I10 Suprapubic catheter Z93.59 UTI (urinary tract infection) N39.0 GERD without esophagitis K21.9 Anxiety F41.9 Fredrick's disease E27.1 Time Spent (min) 25 (1) Diarrhea Diarrhea type: unspecified type Qualified Code(s): R19.7 - Diarrhea, unspecified
[2025-02-26] MEDS: OPTIRAY 320 125ml IV ONE (11:55)
--- NOTE | 2025-02-26 12:21 | CT Scan Report ---
Technique: Axial computed tomography images were obtained of the chest after the administration of intravenous contrast according to the CT angiogram protocol Comparison is made to the prior CT dated 11/29/2024 Findings: There is no definite sign of pulmonary embolism. There is lingular and left lower lobe atelectasis. The lungs otherwise appear clear without infiltrate or mass. There is no pleural effusion or pneumothorax. There is no sign of pulmonary fibrosis or other diffuse interstitial process. No endobronchial lesion is seen There is no mediastinal, hilar, or axillary adenopathy. The thoracic aorta appears unremarkable with no sign of aneurysm or dissection. There is no pericardial effusion. There is a right chest wall port with its tip in the SVC There is a small hiatal hernia. Postsurgical changes are seen of gastric bypass surgery. No fracture is seen. No focal osseous lesion is evident Impression: 1. No definite sign of pulmonary embolism 2. Mild lingular and left lower lobe atelectasis 3. Small hiatal hernia Electronically signed by Howie Johnson 02-26-2025 12:21 PM
[2025-02-26] MEDS: PROPRANOLOL HCL 20 MG TAB PO STA (12:58)
--- NOTE | 2025-02-26 15:32 | Psychiatric Consultation ---
Date of Consultation February 26, 2025 Impression / Recommendations Impression Diagnostically consistent with adjustment disorder with anxiety in context of ongoing medical concerns as well as possible illness anxiety component/somatic component given history of medical issues and hypervigilance now related to this as well as historical diagnoses of PTSD, panic disorder. No current symptoms of major depressive episode. Acute risk of self-harm is low given denial of SI. Encouraged her to engage in outpatient therapy to process multitude of events related to medical challenges and recent bad experience with fearing that she could lose her life. Also could benefit from CBT approach to help with illness anxiety and PTSD as seems she can quickly catastrophize physical symptoms given history of serious medical events in the past. She will continue to follow with her outpatient psychiatrsit. Overall, I spent a total of 80 minutes with this case including review of chart records, review of labwork, review of EKG QTc, direct evaluation of the patient at bedside, counseling the patient, discussion of the patient with the Nurse and with the hospitalist provider, discussion with the psychiatric liason during clinical rounds and documentation in the electronic health record. (1) Anxiety: (2) Motley's disease: Plan -Agree with use of ativan 1mg po or IV prn for panic attack -Can continue Klonopin 1mg TID, last script filled in January, would encourage transition to prn as tolerated with goal of outpatient taper given risks of long-term benzodiazepine use -Would consider discontinuation of Ambien given last script filled November 2024 and goal of avoiding concurrent use with benzodiazepines -If anxiety worsens consider use of mirtazapine 15mg HS Psych History Identifying Data Ms. Weldon is a 39 yo female with PMHx of HTN, POTS, GERD, Fredrick's disease, Anxiety, who presents to the hospital due to catheter associated UTI. Psychiatry consulted for anxiety. Chief Complaint "I word vomit a lot". History of Present Illness Benny wasd admitted following recent hospitalization at [facility] for UTI and during which she describes nearly dying due to inadequate care. She asked to see our service due to history of being not believed and having symptoms all attributed to her anxiety and "I wanted to make sure you were involved in case things don't go well and to make sure they don't think I'm crazy". Reflected that she's been hyperverbal and tangential with others. She notes this is standard and that "I word vomit a lot". She denies any history of hypomania nor jessenia from steroid-induced nor bipolar. She follows with an outpatient psychiatrist Dr. Panda and reports past diagnoses of PTSD, ROMEO, panic disorder and depression. Denies current SI. Hasn't had a panic attack in ~ 8 years but has felt more anxious and like she could have a panic attack after recent negative experience at [facility]. Describes history of having to advocate for her health needs and difficulty trusting the medical system given past errors. She feels much better knowing that ativan is available as a prn and denies any other needs from our service. Allergies Allergy/AdvReac Type Severity Reaction Status Date / Time adhesive tape Allergy Intermediate SKIN Verified 02/24/25 21:18 REDDENED, ITCHY scopolamine Allergy Intermediate SKIN Verified 02/24/25 21:18 REDDENED, ITCHY escitalopram [From Lexapro] AdvReac Intermediate VERY Verified 02/24/25 21:18 EMOTIONAL, OPPOSITE EFFECT haloperidol [From Haldol] AdvReac Intermediate LOCKED JAW Verified 02/24/25 21:18 [email or web address] AdvReac Unknown Uncoded 02/24/25 21:18 Home Medications Medication Instructions Recorded Confirmed Type B-complex with vitamin C 1 cap PO DAILY 11/29/24 02/24/25 History ascorbic acid (vitamin C) 1,000 mg 1,000 mg PO DAILY 11/29/24 02/24/25 History tablet (Vitamin C) calcium 250 mg (as 2 tab PO DAILY 11/29/24 02/24/25 History citrate)-vitamin D3 5 mcg (200 unit) tablet clonazepam 1 mg tablet 1 mg PO TID 11/29/24 02/24/25 History clotrimazole 10 mg ludwig 10 mg PO DIRECTED PRN Flare 11/29/24 02/24/25 History cyanocobalamin (vitamin B-12) 1,000 mcg IM WK 11/29/24 02/24/25 History 1,000 mcg/mL injection solution dicyclomine 10 mg capsule 10 mg PO TID PRN IRRITABLE BOWEL 11/29/24 02/24/25 History SYMPTOMS ferrous sulfate 325 mg (65 mg 650 mg PO DAILY 11/29/24 02/24/25 History iron) tablet lidocaine 5 % topical patch 1 patch topical DAILY 11/29/24 02/24/25 History multivitamin with minerals 1 tab PO DAILY 11/29/24 02/24/25 History polyethylene glycol 3350 17 17 g PO DAILY PRN Constipation 11/29/24 02/24/25 History gram/dose oral powder (Miralax) potassium chloride 20 mEq 20 meq PO DAILY 11/29/24 02/24/25 History tablet,extended release(part/cryst) pregabalin 100 mg capsule 100 mg PO AMHS 11/29/24 02/24/25 History pregabalin 50 mg capsule 50 mg PO QPM 11/29/24 02/24/25 History propranolol 10 mg tablet 10 mg PO TID PRN NEEDED 11/29/24 02/24/25 History sennosides 8.6 mg tablet (senna) 17.2 mg PO HS PRN Constipation 11/29/24 02/24/25 History sucralfate 1 gram tablet (Carafate) 1 g PO ACHS 11/29/24 02/24/25 History thiamine HCl (vitamin B1) 100 mg 100 mg PO DAILY 11/29/24 02/24/25 History tablet (Vitamin B-1) topiramate 100 mg tablet 100 mg PO BID 11/29/24 02/24/25 History topiramate 25 mg tablet 25 mg PO BID 11/29/24 02/24/25 History zinc acetate 50 mg (zinc) capsule 50 mg PO DAILY 11/29/24 02/24/25 History zolpidem 10 mg tablet (Ambien) 10 mg PO HS PRN Sleep 12/12/24 02/24/25 History acetaminophen 500 mg tablet 500 mg PO Q6H PRN Pain 12/26/24 02/24/25 History cholestyramine 4 gram oral powder 4 g PO 2200 #30 ea 01/17/25 02/24/25 Rx for suspension in a packet (Prevalite) famotidine 20 mg tablet 20 mg PO BID #60 tabs 01/17/25 02/24/25 Rx pantoprazole 40 mg tablet,delayed 40 mg PO BID #60 tabs 01/17/25 02/24/25 Rx release phenazopyridine 200 mg tablet 200 mg PO TID PRN pain #30 tabs 01/17/25 02/24/25 Rx (Pyridium) sucralfate 100 mg/mL oral 1 g (10 mL) PO ACHS #420 mL 01/17/25 02/24/25 Rx suspension cyclobenzaprine 10 mg tablet 10 mg PO QAM #90 tabs 02/07/25 02/24/25 Rx oxycodone 5 mg tablet 5 mg PO DAILY PRN pain #5 tabs 02/07/25 02/24/25 Rx promethazine 25 mg tablet 25 mg PO Q6H PRN NAUSEA/VOMITING 02/07/25 02/24/25 Rx #120 tabs Port care See Rx Instructions .Route 02/22/25 Rx .COMPLEX #1 ea lactated Ringers 1,000 ml IV Q OTHER DAY 4 weeks 02/22/25 02/24/25 Rx prednisone 1 mg tablet See Rx Instructions .Route .COMPLEX 02/24/25 02/24/25 History Patient History Medical History UTI (urinary tract infection) Suprapubic catheter Vulvovaginal candidiasis Difficult intravenous access Alternating constipation and diarrhea Vomiting Surgical History History of lumbar fusion History of gastric bypass Family History Grandfather (Paternal) Colorectal cancer Grandmother (Paternal) Myocardial infarction Denies family history of Ovarian cancer Prostate cancer Breast cancer Social History Smoking Status: Never smoker Second Hand Exposure: No; Do You Dip or Chew Tobacco: No; Hx Alcohol Use: No Hx Substance Use: No Preferred Language: Armenian Communication Ability: Effective Visual Impairment: No Limitations Hearing Ability: Normal Property Claims Adjuster Required: No Beliefs That Will Affect Care: None marital status: Current Living Situation: Spouse current occupational status: disabled How many Children do You have: 2 Other Information That Helps Us Care for You: No Feels Safe at Home: Yes Safety Concerns: Feels Safe At This Time Childhood Exposure to Second-Hand Smoke: No Diet: other Diet Comment: protein, Bypass diet caffeine: Yes during the past year weight has: increased > 10 lbs Dental Care, Regularly: No Physical Activity Frequency: 3-4 Times per Week Physical Activity Frequency Comment: PT/OT Seatbelt Use: always Sunscreen Use: Yes Assistive Devices: Walker, Wheelchair and Other Physical Exam Psychiatric: Orientation: alert, oriented x 3 and cooperative Apperance: appropriately dressed Eye Contact: good eye contact Motor Behavior: no abnormal motor movements Speech: + abnormal rate/rhythm/volume of speech (rapid) Affect: + anxious affect Mood: + anxious mood Thought Process: + circumstantial thought process Thought Content: reality based without delusions Suicidal Thoughts: denies suicidal thoughts Homicidal Thoughts: denies homicidal thoughts Hallucinations: no auditory hallucinations and no visual hallucinations Insight: + fair insight Judgment: + fair judgement Vital Signs (Past 24 Hours): Last Vital Signs Temp 36.8 C 02/26/25 12:12 Pulse 114 H 02/26/25 12:12 Resp 19 02/26/25 12:12 BP 112/89 02/26/25 12:12 Pulse Ox 95 02/26/25 12:12 O2 Del Method Room Air 02/26/25 14:05 Results & Data (PSY) Medications Administered Acetaminophen (Acetaminophen 325 Mg Tab) 650 mg PO Q4H PRN PRN Reason: Pain or Fever Stop: 03/26/25 23:06 Last Admin: 02/25/25 20:36 Dose: 650 mg Documented By: Admin: 02/25/25 08:08 Dose: 650 mg Documented By: ROWAN Clonazepam (Clonazepam 1 Mg Tab) 1 mg PO TID [facility] Stop: 03/27/25 08:59 Last Admin: 02/26/25 14:46 Dose: 1 mg Documented By: Admin: 02/26/25 09:00 Dose: 1 mg Documented By: Admin: 02/25/25 20:23 Dose: 1 mg Documented By: Admin: 02/25/25 13:26 Dose: 1 mg Documented By: Admin: 02/25/25 08:54 Dose: 1 mg Documented By: JF Cyclobenzaprine HCl (Cyclobenzaprine Hcl 10 Mg Tab) 10 mg PO QAM [facility] Stop: 03/27/25 08:59 Last Admin: 02/26/25 08:43 Dose: 10 mg Documented By: Admin: 02/25/25 08:46 Dose: 10 mg Documented By: JF Famotidine (Famotidine 20 Mg Tab) 20 mg PO BID [facility] Stop: 03/27/25 08:59 Last Admin: 02/26/25 09:00 Dose: 20 mg Documented By: Admin: 02/25/25 20:23 Dose: 20 mg Documented By: Admin: 02/25/25 08:53 Dose: 20 mg Documented By: JF Ferrous Sulfate (Ferrous Sulfate 325 Mg Tab) 650 mg PO DAILY [facility] Stop: 03/27/25 08:59 Last Admin: 02/26/25 08:43 Dose: 650 mg Documented By: Admin: 02/25/25 08:46 Dose: 650 mg Documented By: JF Doxycycline Hyclate 100 mg/ (Dextrose) 100 mls @ 50 mls/hr IV Q12H [facility] Stop: 03/07/25 00:00 Last Infusion: 02/26/25 13:47 Dose: Infused Documented By: Admin: 02/26/25 11:41 Dose: 50 mls/hr Documented By: Infusion: 02/26/25 01:39 Dose: Infused Documented By: Admin: 02/25/25 23:33 Dose: 50 mls/hr Documented By: Infusion: 02/25/25 15:29 Dose: Infused Documented By: Admin: 02/25/25 13:26 Dose: 50 mls/hr Documented By: Infusion: 02/25/25 02:08 Dose: Infused Documented By: Admin: 02/25/25 00:09 Dose: 50 mls/hr Documented By: OS Ampicillin Sodium 2,000 mg/ (Sodium Chloride) 100 mls @ 200 mls/hr IV Q6H [facility] Stop: 03/07/25 13:29 Last Infusion: 02/26/25 12:56 Dose: Infused Documented By: Admin: 02/26/25 12:23 Dose: 200 mls/hr Documented By: Infusion: 02/26/25 09:14 Dose: Infused Documented By: Admin: 02/26/25 08:39 Dose: 200 mls/hr Documented By: Infusion: 02/26/25 02:14 Dose: Infused Documented By: Admin: 02/26/25 01:38 Dose: 200 mls/hr Documented By: Infusion: 02/25/25 19:58 Dose: Infused Documented By: Admin: 02/25/25 18:38 Dose: 200 mls/hr Documented By: Infusion: 02/25/25 15:41 Dose: Infused Documented By: Admin: 02/25/25 15:04 Dose: 200 mls/hr Documented By: JF Lactated Ringer's (Lr) 1,000 mls @ 125 mls/hr IV .Q8H [facility] Stop: 03/01/25 00:29 Last Admin: 02/26/25 09:08 Dose: 125 mls/hr Documented By: Infusion: 02/26/25 09:08 Dose: Infused Documented By: Infusion: 02/26/25 02:14 Dose: 125 mls/hr Documented By: Infusion: 02/26/25 01:39 Dose: 0 mls/hr Documented By: Admin: 02/26/25 00:32 Dose: 125 mls/hr Documented By: OS Lidocaine (Lidocaine 5% 1 Patch) 1 patch TD DAILY [facility] Stop: 03/27/25 08:59 Last Admin: 02/26/25 09:01 Dose: 1 patch Documented By: Admin: 02/25/25 08:56 Dose: 1 patch Documented By: JF Lorazepam (Lorazepam 2 Mg/1 Ml Vial) 1 mg IV Q8H PRN PRN Reason: Anxiety/Agitation Stop: 03/27/25 21:31 Last Admin: 02/26/25 09:49 Dose: 1 mg Documented By: Admin: 02/26/25 01:34 Dose: 1 mg Documented By: OS Miscellaneous (Remove Lidoderm Patch) 1 each N/A DAILY@2100 [facility] Stop: 03/27/25 20:59 Last Admin: 02/25/25 20:25 Dose: 1 each Documented By: OS Ondansetron HCl (Ondansetron Inj 2 Mg/Ml 2 Ml Vial) 4 mg IV Q6H PRN PRN Reason: Nausea Stop: 03/26/25 23:06 Last Admin: 02/26/25 08:37 Dose: 4 mg Documented By: Admin: 02/25/25 08:08 Dose: 4 mg Documented By: ROWAN Oxycodone HCl (Oxycodone Hcl Ir 5 Mg Tab (Immediate Release)) 5 mg PO DAILY PRN PRN Reason: pain Stop: 03/10/25 23:06 Last Admin: 02/26/25 06:31 Dose: 5 mg Documented By: Admin: 02/25/25 16:24 Dose: 5 mg Documented By: Admin: 02/25/25 10:31 Dose: 5 mg Documented By: Admin: 02/25/25 06:01 Dose: 5 mg Documented By: OS Oxycodone HCl (Oxycodone Hcl Ir 5 Mg Tab (Immediate Release)) 10 mg PO Q6H PRN PRN Reason: Moderate Pain 4-6/10 Stop: 03/12/25 11:11 Last Admin: 02/26/25 11:41 Dose: 10 mg Documented By: PAH Pantoprazole Sodium (Pantoprazole 40 Mg Tab) 40 mg PO BID [facility] Stop: 03/27/25 08:59 Last Admin: 02/26/25 08:43 Dose: 40 mg Documented By: Admin: 02/25/25 20:25 Dose: 40 mg Documented By: Admin: 02/25/25 08:45 Dose: 40 mg Documented By: JF Phenazopyridine HCl (Phenazopyridine Hcl 200 Mg Tab) 200 mg PO TID PRN PRN Reason: pain Stop: 03/26/25 23:06 Last Admin: 02/26/25 02:15 Dose: 200 mg Documented By: Admin: 02/25/25 08:45 Dose: 200 mg Documented By: JF Potassium Chloride (Potassium Chloride Crtab 20 Meq Tabcr) 20 meq PO DAILY [facility] Stop: 03/27/25 08:59 Last Admin: 02/26/25 09:00 Dose: 20 meq Documented By: Admin: 02/25/25 08:53 Dose: 20 meq Documented By: JF Pregabalin (Pregabalin 50 Mg Cap) 50 mg PO DAILY@1400 [facility] Stop: 03/27/25 13:59 Last Admin: 02/26/25 14:46 Dose: 50 mg Documented By: Admin: 02/25/25 13:29 Dose: 50 mg Documented By: JF Pregabalin (Pregabalin 100 Mg Cap) 100 mg PO BID [facility] Stop: 03/27/25 08:59 Last Admin: 02/26/25 09:00 Dose: 100 mg Documented By: Admin: 02/25/25 20:36 Dose: 100 mg Documented By: Admin: 02/25/25 08:53 Dose: 100 mg Documented By: JF Promethazine HCl (Promethazine Hcl 25 Mg Tab) 25 mg PO Q6H PRN PRN Reason: NAUSEA/VOMITING Stop: 03/26/25 23:06 Last Admin: 02/25/25 23:41 Dose: 25 mg Documented By: OS Propranolol HCl (Propranolol Hcl 10 Mg Tab) 10 mg PO TID PRN PRN Reason: Tachycardia - give if HR>120 Stop: 03/26/25 23:06 Last Admin: 02/26/25 10:56 Dose: 10 mg Documented By: JYOTI Sucralfate (Sucralfate 1 Gm/10 Ml Udc) 1 gm PO ACHS [facility] Stop: 03/27/25 07:29 Last Admin: 02/26/25 10:55 Dose: 1 gm Documented By: Admin: 02/26/25 08:40 Dose: 1 gm Documented By: Admin: 02/25/25 20:26 Dose: 1 gm Documented By: Admin: 02/25/25 16:24 Dose: 1 gm Documented By: Admin: 02/25/25 10:31 Dose: 1 gm Documented By: Admin: 02/25/25 08:45 Dose: 1 gm Documented By: JF Thiamine HCl (Thiamine Hcl 100 Mg Tab) 100 mg PO DAILY [facility] Stop: 03/27/25 08:59 Last Admin: 02/26/25 08:43 Dose: 100 mg Documented By: Admin: 02/25/25 08:45 Dose: 100 mg Documented By: JF Topiramate (Topiramate 25 Mg Tab) 25 mg PO BID [facility] Stop: 03/27/25 08:59 Last Admin: 02/26/25 08:47 Dose: 25 mg Documented By: Admin: 02/25/25 20:27 Dose: 25 mg Documented By: Admin: 02/25/25 08:45 Dose: 25 mg Documented By: JF Topiramate (Topiramate 100 Mg Tab) 100 mg PO BID [facility] Stop: 03/27/25 08:59 Last Admin: 02/26/25 08:41 Dose: 100 mg Documented By: Admin: 02/25/25 20:24 Dose: 100 mg Documented By: Admin: 02/25/25 08:45 Dose: 100 mg Documented By: JF Zinc Sulfate (Zinc Sulfate 220 Mg Capsule) 220 mg PO DAILY [facility] Stop: 03/27/25 08:59 Last Admin: 02/26/25 08:45 Dose: 220 mg Documented By: Admin: 02/25/25 08:45 Dose: 220 mg Documented By: JF Zolpidem Tartrate (Zolpidem Tartrate 5 Mg Tab) 10 mg PO HS PRN PRN Reason: Sleep Stop: 03/26/25 23:06 Last Admin: 02/25/25 21:03 Dose: 10 mg Documented By: OS Coding Level of Care Code 08906 IN/OBS CONSULT LVL 5,80M Diagnoses Anxiety F41.9 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
[2025-02-26] MEDS: HYDROCORTISONE SOD 50 MG in SYRINGE 0 ML IV SCH (15:41)
[2025-02-26] MEDS: MELATONIN 3 MG TAB PO PRN (20:01)
[2025-02-26] MEDS ORDERED: Nursing to Pharmacy Communication SCH (20:45)
[2025-02-27 07:02] LABS: Hematocrit (blood only) 34.5 % (37.0-47.0); Hemoglobin 10.4 g/dl (12.0-16.0); Mean Corpuscular Hemoglobin 26.1 pg (25.0-34.0); Mean Corpuscular Volume 86.5 fL (80.0-100.0); Platelet Count 301 K/uL (130-400); RDW Standard Deviation 48.6 fL (36.4-46.3); Red Blood Count 3.99 M/uL (4.20-5.40); White Blood Count 11.04 K/ul (4.8-10.8)
[2025-02-27 07:24] LABS: Alanine Aminotransferase 10.0 U/L (7-52); Albumin Globulin Ratio 1.5 (0.9-2); Alkaline Phosphatase 44.0 U/L (34-104); Anion Gap 7.0 (3-11); Bilirubin,Total 0.2 mg/dl (0.2-1.0); Blood Urea Nitrogen 9.0 mg/dl (6-23); Calcium 8.9 mg/dl (8.6-10.3); Carbon Dioxide 27.0 mmol/L (21-32); Chloride 105.0 mmol/L (98-107); Creatinine Clr Calc Pharmacy 155.9 ml/min; Globulin 2.5 gm/dl (2.5-4.0); Glucose 108.0 mg/dl (70-99(Fasting)); Magnesium 2.0 mg/dl (1.7-2.4); Potassium 3.3 mmol/L (3.5-5.1); Sodium 139.0 mmol/L (136-145); Total Protein 6.2 gm/dl (6.0-8.3)
[2025-02-27] MEDS ORDERED: SODIUM PHOSPHATE 3 MMOL/1 ML INFUSION IV STA (07:49)
[2025-02-27] MEDS: SODIUM PHOSPHATE 24 MMOL in SODIUM CHLORIDE 0.9% 500 ML IV ONE (08:40)
--- NOTE | 2025-02-27 11:01 | Hospitalist Progress Note ---
Date of Service February 27, 2025 Assessment & Plan (1) Diarrhea: (2) Nausea & vomiting: (3) HTN (hypertension): (4) Suprapubic catheter: (5) UTI (urinary tract infection): (6) GERD without esophagitis: (7) Anxiety: (8) [place]'s disease: Plan Ms. Weldon is a 39 yo female with PMHx of POTS, GERD, Fredrick's disease, ankylosing spondylitis, neurogenic bladder on suprapubic, Anxiety, ovarian cysts. who presents to the hospital due to catheter associated UTI. she have long standing abdominal issues and went to [facility] for evaluation. she was recently at [facility] for CAUTI, per patient, [facility] did not changed the catheter. she did not want to stay in [facility] any longer and came to our hospital for eval, started on doxycycyline for UTI she was switched to ampicillin IV for UTI:. 02/25, switch to ampicillin for UTI; stress dose steroid by IV 02/26. tachycardia episode, CTA PE to r/o PE, duplex ultrasound. urology evaluated the patient, will plan for establish outpatient f/u added fluconazole , s/p IV hydrocortisone in the afternoon 02/27. CTA negative for PE, repleting phosphate. c/w ampicillin #CAUTI, suprapuic catheter her urologist at [place] recently relocated urology attending, Dr. Ruiz; will evaluate the patient. - Patient was recently admitted at [place], was treated for CAUTI. She was discharged today and presented here due to concern of adrenal crisis. Awaiting records from [facility] - Per records shown by patient, urine culture + for E. 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 #Anxiety - Active reassurance and open discussions - Likely contributory to mild tachycardia, nausea, diarrhea -psych recommended ativan 1mg PO PRN for panic attack -will evaluate for hydroxyzine Dispo: med-surg tele Diet: heart healthy VTE Prophylaxis: Lovenox Code: full Admission and Anticipated Discharge Date Admission Date: February 24, 2025 Subjective she's has concern about worsening has intermittent pounding headache. nausea and vomiting episode yesterday; started on IV hydrocortisone phosphate low, receiving IV repletion her was updated in over the phone this morning Review of Systems Review of Systems: Constitutional: + for fatigue Cardiovascular: No Chest Pain, No SOB, No PND, No Dyspnea on Exertion, Respiratory: No Cough, No Sputum, No Wheezing, No Smoke Exposure, No Dyspnea Gastrointestinal: + for nausea and vomiting Genitourinary: + for irrigation around the rene sites Musculoskeletal: + for leg cramp; Neuro: + for pounding headache. + for somnolence. Physical Exam Physical Exam: VITALS: Reviewed. WEIGHT/BMI reviewed. GEN: Healthy appearing, well-developed, NAD. non-toxic appearing PSYCH: AAox3. -Head: NC/AT; NECK: Supple, with no masses. CV: RRR, no m/r/g. LUNGS: CTAB, no w/r/c. ABD: Soft, NT/ND, NBS, no masses or organomegaly. + for suprapubic catheter. draining douglas ar urine : N/A MSK: No deformities, Normal gait. EXT: No clubbing, cyanosis, or edema. NEURO: AAox3. Results & Data Results & Data Vital Signs (Past 12 Hours) Vital Signs Temp Pulse Pulse Resp BP Pulse Ox O2 Del Method 02/27/25 07:30 Room Air 02/27/25 07:04 87 02/27/25 03:53 36.6 C 92 H 20 130/91 100 Room Air 02/26/25 23:27 36.7 C 88 20 119/87 98 Room Air Laboratory Results Laboratory Results - last 72 hr 02/24/25 02/24/25 02/24/25 18:29 18:33 20:11 WBC 10.48 RBC 4.36 Hgb 11.5 L POC Hgb 12.9 Hct 37.4 POC Hct 38 MCV 85.8 MCH 26.4 MCHC 30.7 L RDW Std Deviation 47.7 H RDW Coeff of Los 15.2 H Plt Count 340 MPV 9.6 Immature Gran % (Auto) 1.9 Neut % (Auto) 86.5 Lymph % (Auto) 7.7 Fisher % (Auto) 3.5 Eos % (Auto) 0.1 Baso % (Auto) 0.3 Neut # (Auto) 9.06 H Lymph # (Auto) 0.81 L Fisher # (Auto) 0.37 Eos # (Auto) 0.01 Baso # (Auto) 0.03 Immature Gran # (Auto) 0.20 Absolute Nucleated RBC Nucleated RBC % (auto) PT 10.3 INR 0.9 VBG pH 7.43 H VBG pCO2 38 VBG pO2 58 VBG HCO3 25 VBG O2 Saturation 87.6 VBG Base Excess 1.0 POC Sodium 139 Sodium 139 POC Potassium 3.6 Potassium 3.6 POC Chloride 104 Chloride 103 Carbon Dioxide 24 POC Total CO2 21 L Anion Gap 12 H POC Anion Gap 18.0 POC BUN 6 L BUN 9 Creatinine 0.80 POC Creatinine 0.7 Est Cr Clr Drug Dosing Not Reportable eGFR 95.46 BUN/Creatinine Ratio 11.3 Glucose 169 H POC Glucose (other) 165 H Lactate 4.4 H* Calcium 9.7 POC Ioniz Calcium Merrill 1.23 Phosphorus Magnesium 1.8 Total Bilirubin 0.2 Direct Bilirubin 0.1 AST 11 L ALT 15 Alkaline Phosphatase 53 Troponin I High Sens < 2.3 Total Protein 7.2 Albumin 4.2 Globulin Albumin/Globulin Ratio Procalcitonin 0.04 Urine Color Yellow Urine Appearance Cloudy A Urine pH >= 9.0 H Ur Specific [place] 1.028 Urine Protein Negative Urine Glucose (UA) Negative Urine Ketones Negative Urine Blood 1+ H Urine Nitrite Negative Urine Bilirubin Negative Urine Urobilinogen Negative Ur Leukocyte Esterase Trace H Urine WBC (Auto) 6-10 H Urine RBC (Auto) 11-20 H U Hyaline Cast (Auto) 0-2 U Epithel Cells (Auto) 0-2 Urine Bacteria (Auto) None Seen Urine Comment Staphylococcus sp PCR DETECTED A mecA/C-Methicil Resis Gene DETECTED A Staph epidermidis (PCR) DETECTED A Bld Cult ID Panel PCR See PCR Comment 02/24/25 02/25/25 02/26/25 20:35 05:56 06:22 WBC 9.74 7.26 RBC 3.84 L 3.81 L Hgb 10.4 L 9.9 L POC Hgb Hct 32.5 L 33.2 L POC Hct MCV 84.6 87.1 MCH 27.1 26.0 MCHC 32.0 29.8 L RDW Std Deviation 46.3 48.9 H RDW Coeff of Los 15.0 H 15.4 H Plt Count 308 276 MPV 9.5 9.4 Immature Gran % (Auto) 1.2 Neut % (Auto) 82.9 Lymph % (Auto) 11.8 Fisher % (Auto) 3.9 Eos % (Auto) 0.1 Baso % (Auto) 0.1 Neut # (Auto) 8.07 H Lymph # (Auto) 1.15 L Fisher # (Auto) 0.38 Eos # (Auto) 0.01 Baso # (Auto) 0.01 Immature Gran # (Auto) 0.12 Absolute Nucleated RBC 0.02 Nucleated RBC % (auto) 0.3 PT 10.5 INR 1.0 VBG pH VBG pCO2 VBG pO2 VBG HCO3 VBG O2 Saturation VBG Base Excess POC Sodium Sodium 142 140 POC Potassium Potassium 3.4 L 3.4 L POC Chloride Chloride 105 105 Carbon Dioxide 30 29 POC Total CO2 Anion Gap 7 6 POC Anion Gap POC BUN BUN 8 8 Creatinine 0.66 0.68 POC Creatinine Est Cr Clr Drug Dosing 149.8 145.4 eGFR 113.65 112.84 BUN/Creatinine Ratio 12.1 11.8 Glucose 105 H 76 POC Glucose (other) Lactate 2.8 H* Calcium 8.6 8.5 L POC Ioniz Calcium [place]ill Phosphorus Magnesium Total Bilirubin 0.2 0.2 Direct Bilirubin AST 8 L 10 L ALT 10 11 Alkaline Phosphatase 42 41 Troponin I High Sens Total Protein 6.1 5.8 L Albumin 3.7 3.5 Globulin 2.4 L 2.3 L Albumin/Globulin Ratio 1.5 1.5 Procalcitonin Urine Color Urine Appearance Urine pH Ur Specific [place] Urine Protein Urine Glucose (UA) Urine Ketones Urine Blood Urine Nitrite Urine Bilirubin Urine Urobilinogen Ur Leukocyte Esterase Urine WBC (Auto) Urine RBC (Auto) U Hyaline Cast (Auto) U Epithel Cells (Auto) Urine Bacteria (Auto) Urine Comment Staphylococcus sp PCR mecA/C-Methicil Resis Gene Staph epidermidis (PCR) Bld Cult ID Panel PCR 02/27/25 06:31 WBC 11.04 H RBC 3.99 L Hgb 10.4 L POC Hgb Hct 34.5 L POC Hct MCV 86.5 MCH 26.1 MCHC 30.1 L RDW Std Deviation 48.6 H RDW Coeff of Los 15.3 H Plt Count 301 MPV 9.2 L Immature Gran % (Auto) Neut % (Auto) Lymph % (Auto) Fisher % (Auto) Eos % (Auto) Baso % (Auto) Neut # (Auto) Lymph # (Auto) Fisher # (Auto) Eos # (Auto) Baso # (Auto) Immature Gran # (Auto) Absolute Nucleated RBC Nucleated RBC % (auto) PT INR VBG pH VBG pCO2 VBG pO2 VBG HCO3 VBG O2 Saturation VBG Base Excess POC Sodium Sodium 139 POC Potassium Potassium 3.3 L POC Chloride Chloride 105 Carbon Dioxide 27 POC Total CO2 Anion Gap 7 POC Anion Gap POC BUN BUN 9 Creatinine 0.64 POC Creatinine Est Cr Clr Drug Dosing 155.9 eGFR 114.50 BUN/Creatinine Ratio 14.1 Glucose 108 H POC Glucose (other) Lactate Calcium 8.9 POC Ioniz Calcium [place] Phosphorus 1.8 L Magnesium 2.0 Total Bilirubin 0.2 Direct Bilirubin AST 9 L ALT 10 Alkaline Phosphatase 44 Troponin I High Sens Total Protein 6.2 Albumin 3.7 Globulin 2.5 Albumin/Globulin Ratio 1.5 Procalcitonin Urine Color Urine Appearance Urine pH Ur Specific [place] Urine Protein Urine Glucose (UA) Urine Ketones Urine Blood Urine Nitrite Urine Bilirubin Urine Urobilinogen Ur Leukocyte Esterase Urine WBC (Auto) Urine RBC (Auto) U Hyaline Cast (Auto) U Epithel Cells (Auto) Urine Bacteria (Auto) Urine Comment Staphylococcus sp PCR mecA/C-Methicil Resis Gene Staph epidermidis (PCR) Bld Cult ID Panel PCR Diagnostic Findings Laboratory Results - last 72 hr 02/24/25 02/24/25 02/24/25 18:29 18:33 20:11 WBC 10.48 RBC 4.36 Hgb 11.5 L POC Hgb 12.9 Hct 37.4 POC Hct 38 MCV 85.8 MCH 26.4 MCHC 30.7 L RDW Std Deviation 47.7 H RDW Coeff of Los 15.2 H Plt Count 340 MPV 9.6 Immature Gran % (Auto) 1.9 Neut % (Auto) 86.5 Lymph % (Auto) 7.7 Fisher % (Auto) 3.5 Eos % (Auto) 0.1 Baso % (Auto) 0.3 Neut # (Auto) 9.06 H Lymph # (Auto) 0.81 L Fisher # (Auto) 0.37 Eos # (Auto) 0.01 Baso # (Auto) 0.03 Immature Gran # (Auto) 0.20 Absolute Nucleated RBC Nucleated RBC % (auto) PT 10.3 INR 0.9 VBG pH 7.43 H VBG pCO2 38 VBG pO2 58 VBG HCO3 25 VBG O2 Saturation 87.6 VBG Base Excess 1.0 POC Sodium 139 Sodium 139 POC Potassium 3.6 Potassium 3.6 POC Chloride 104 Chloride 103 Carbon Dioxide 24 POC Total CO2 21 L Anion Gap 12 H POC Anion Gap 18.0 POC BUN 6 L BUN 9 Creatinine 0.80 POC Creatinine 0.7 Est Cr Clr Drug Dosing Not Reportable eGFR 95.46 BUN/Creatinine Ratio 11.3 Glucose 169 H POC Glucose (other) 165 H Lactate 4.4 H* Calcium 9.7 POC Ioniz Calcium [place] 1.23 Phosphorus Magnesium 1.8 Total Bilirubin 0.2 Direct Bilirubin 0.1 AST 11 L ALT 15 Alkaline Phosphatase 53 Troponin I High Sens < 2.3 Total Protein 7.2 Albumin 4.2 Globulin Albumin/Globulin Ratio Procalcitonin 0.04 Urine Color Yellow Urine Appearance Cloudy A Urine pH >= 9.0 H Ur Specific [place] 1.028 Urine Protein Negative Urine Glucose (UA) Negative Urine Ketones Negative Urine Blood 1+ H Urine Nitrite Negative Urine Bilirubin Negative Urine Urobilinogen Negative Ur Leukocyte Esterase Trace H Urine WBC (Auto) 6-10 H Urine RBC (Auto) 11-20 H U Hyaline Cast (Auto) 0-2 U Epithel Cells (Auto) 0-2 Urine Bacteria (Auto) None Seen Urine Comment Staphylococcus sp PCR DETECTED A mecA/C-Methicil Resis Gene DETECTED A Staph epidermidis (PCR) DETECTED A Bld Cult ID Panel PCR See PCR Comment 02/24/25 02/25/25 02/26/25 20:35 05:56 06:22 WBC 9.74 7.26 RBC 3.84 L 3.81 L Hgb 10.4 L 9.9 L POC Hgb Hct 32.5 L 33.2 L POC Hct MCV 84.6 87.1 MCH 27.1 26.0 MCHC 32.0 29.8 L RDW Std Deviation 46.3 48.9 H RDW Coeff of Los 15.0 H 15.4 H Plt Count 308 276 MPV 9.5 9.4 Immature Gran % (Auto) 1.2 Neut % (Auto) 82.9 Lymph % (Auto) 11.8 Fisher % (Auto) 3.9 Eos % (Auto) 0.1 Baso % (Auto) 0.1 Neut # (Auto) 8.07 H Lymph # (Auto) 1.15 L Fisher # (Auto) 0.38 Eos # (Auto) 0.01 Baso # (Auto) 0.01 Immature Gran # (Auto) 0.12 Absolute Nucleated RBC 0.02 Nucleated RBC % (auto) 0.3 PT 10.5 INR 1.0 VBG pH VBG pCO2 VBG pO2 VBG HCO3 VBG O2 Saturation VBG Base Excess POC Sodium Sodium 142 140 POC Potassium Potassium 3.4 L 3.4 L POC Chloride Chloride 105 105 Carbon Dioxide 30 29 POC Total CO2 Anion Gap 7 6 POC Anion Gap POC BUN BUN 8 8 Creatinine 0.66 0.68 POC Creatinine Est Cr Clr Drug Dosing 149.8 145.4 eGFR 113.65 112.84 BUN/Creatinine Ratio 12.1 11.8 Glucose 105 H 76 POC Glucose (other) Lactate 2.8 H* Calcium 8.6 8.5 L POC Ioniz Calcium [place] Phosphorus Magnesium Total Bilirubin 0.2 0.2 Direct Bilirubin AST 8 L 10 L ALT 10 11 Alkaline Phosphatase 42 41 Troponin I High Sens Total Protein 6.1 5.8 L Albumin 3.7 3.5 Globulin 2.4 L 2.3 L Albumin/Globulin Ratio 1.5 1.5 Procalcitonin Urine Color Urine Appearance Urine pH Ur Specific [place] Urine Protein Urine Glucose (UA) Urine Ketones Urine Blood Urine Nitrite Urine Bilirubin Urine Urobilinogen Ur Leukocyte Esterase Urine WBC (Auto) Urine RBC (Auto) U Hyaline Cast (Auto) U Epithel Cells (Auto) Urine Bacteria (Auto) Urine Comment Staphylococcus sp PCR mecA/C-Methicil Resis Gene Staph epidermidis (PCR) Bld Cult ID Panel PCR 02/27/25 06:31 WBC 11.04 H RBC 3.99 L Hgb 10.4 L POC Hgb Hct 34.5 L POC Hct MCV 86.5 MCH 26.1 MCHC 30.1 L RDW Std Deviation 48.6 H RDW Coeff of [place] 15.3 H Plt Count 301 MPV 9.2 L Immature Gran % (Auto) Neut % (Auto) Lymph % (Auto) Fisher % (Auto) Eos % (Auto) Baso % (Auto) Neut # (Auto) Lymph # (Auto) Fisher # (Auto) Eos # (Auto) Baso # (Auto) Immature Gran # (Auto) Absolute Nucleated RBC Nucleated RBC % (auto) PT INR VBG pH VBG pCO2 VBG pO2 VBG HCO3 VBG O2 Saturation VBG Base Excess POC Sodium Sodium 139 POC Potassium Potassium 3.3 L POC Chloride Chloride 105 Carbon Dioxide 27 POC Total CO2 Anion Gap 7 POC Anion Gap POC BUN BUN 9 Creatinine 0.64 POC Creatinine Est Cr Clr Drug Dosing 155.9 eGFR 114.50 BUN/Creatinine Ratio 14.1 Glucose 108 H POC Glucose (other) Lactate Calcium 8.9 POC Ioniz Calcium [place] Phosphorus 1.8 L Magnesium 2.0 Total Bilirubin 0.2 Direct Bilirubin AST 9 L ALT 10 Alkaline Phosphatase 44 Troponin I High Sens Total Protein 6.2 Albumin 3.7 Globulin 2.5 Albumin/Globulin Ratio 1.5 Procalcitonin Urine Color Urine Appearance Urine pH Ur Specific [place] Urine Protein Urine Glucose (UA) Urine Ketones Urine Blood Urine Nitrite Urine Bilirubin Urine Urobilinogen Ur Leukocyte Esterase Urine WBC (Auto) Urine RBC (Auto) U Hyaline Cast (Auto) U Epithel Cells (Auto) Urine Bacteria (Auto) Urine Comment Staphylococcus sp PCR mecA/C-Methicil Resis Gene Staph epidermidis (PCR) Bld Cult ID Panel PCR PG Care Time/CCT Total # of Minutes Spent Total Time Spent with Patient: Total time spent is greater than 50% in coordination of care (as documented) at patient's floor/unit and/or counseling patient: Coding Level of Care Code 68427 SUB INP/OBS CARE 1/25MIN Diagnoses Diarrhea R19.7 Diarrhea type: unspecified type Nausea & vomiting R11.2 HTN (hypertension) I10 Suprapubic catheter Z93.59 UTI (urinary tract infection) N39.0 GERD without esophagitis K21.9 Anxiety F41.9 [place]'s disease E27.1 Time Spent (min) 25 (1) Diarrhea Diarrhea type: unspecified type Qualified Code(s): R19.7 - Diarrhea, unspecified
--- NOTE | 2025-02-27 15:32 | Electrocardiogram Report ---
Test Reason : Blood Pressure : */* mmHG Vent. Rate : 125 BPM Atrial Rate : 125 BPM P-R Int : 148 ms QRS Dur : 82 ms QT Int : 300 ms P-R-T Axes : 36 6 -6 degrees QTcB Int : 433 ms Sinus tachycardia Inferior infarct (cited on or before 06-Jan-2025) Cannot rule out Anterior infarct (cited on or before 24-Feb-2025) Abnormal ECG When compared with ECG of 24-Feb-2025 18:14, No significant change was found Confirmed by Barry Jimenez [id number] on 02/27/2025 3:32:50 PM Referred By: REFERRED SELF Confirmed By: Barry Jimenez
[2025-02-28 07:32] LABS: Hematocrit (blood only) 31.4 % (37.0-47.0); Hemoglobin 9.4 g/dl (12.0-16.0); Mean Corpuscular Hemoglobin 25.8 pg (25.0-34.0); Mean Corpuscular Volume 86.3 fL (80.0-100.0); Platelet Count 301 K/uL (130-400); RDW Standard Deviation 48.1 fL (36.4-46.3); Red Blood Count 3.64 M/uL (4.20-5.40); White Blood Count 12.15 K/ul (4.8-10.8)
[2025-02-28 07:55] LABS: Alanine Aminotransferase 10.0 U/L (7-52); Albumin Globulin Ratio 1.7 (0.9-2); Alkaline Phosphatase 39.0 U/L (34-104); Anion Gap 6.0 (3-11); Bilirubin,Total 0.2 mg/dl (0.2-1.0); Blood Urea Nitrogen 10.0 mg/dl (6-23); Calcium 8.4 mg/dl (8.6-10.3); Carbon Dioxide 29.0 mmol/L (21-32); Chloride 107.0 mmol/L (98-107); Creatinine Clr Calc Pharmacy 188.8 ml/min; Globulin 2.1 gm/dl (2.5-4.0); Glucose 100.0 mg/dl (70-99(Fasting)); Potassium 3.4 mmol/L (3.5-5.1); Sodium 142.0 mmol/L (136-145); Total Protein 5.6 gm/dl (6.0-8.3)
--- NOTE | 2025-02-28 15:14 | Hospitalist Progress Note ---
Date of Service February 28, 2025 Assessment & Plan (1) Diarrhea: (2) Nausea & vomiting: (3) HTN (hypertension): (4) Suprapubic catheter: (5) UTI (urinary tract infection): (6) GERD without esophagitis: (7) Anxiety: (8) Sangamon's disease: Plan Ms. Weldon is a 39 yo female with PMHx of POTS, GERD, Fredrick's disease, ankylosing spondylitis, neurogenic bladder on suprapubic, Anxiety, ovarian cysts. who presents to the hospital due to catheter associated UTI. she have long standing abdominal issues and went to [facility] for evaluation. she was recently at [facility] for CAUTI, per patient, [facility] did not changed the catheter. she did not want to stay in [facility] any longer and came to our hospital for eval, started on doxycycyline for UTI she was switched to ampicillin IV for UTI:. 02/25, switch to ampicillin for UTI; stress dose steroid by IV 02/26. tachycardia episode, CTA PE to r/o PE, duplex ultrasound. urology evaluated the patient, will plan for establish outpatient f/u added fluconazole , s/p IV hydrocortisone in the afternoon 02/27. CTA negative for PE, repleting phosphate. c/w ampicillin 02/28, worsening WBC, still does not feel well, continue IV antibiotics lactic acid stable, #CAUTI, suprapuic catheter her urologist at [place] recently relocated urology attending, Dr. Ruiz; will evaluate the patient. - Patient was recently admitted at [place], was treated for CAUTI. She was discharged today and presented here due to concern of adrenal crisis. Awaiting records from [facility] - Per records shown by patient, urine culture + for E. 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 #Anxiety - Active reassurance and open discussions - Likely contributory to mild tachycardia, nausea, diarrhea -psych recommended ativan 1mg PO PRN for panic attack -will evaluate for hydroxyzine Dispo: med-surg tele Diet: heart healthy VTE Prophylaxis: Lovenox Code: full Admission and Anticipated Discharge Date Admission Date: February 24, 2025 Subjective she's has worsening WBC, does not feel well enough she will required additional IV antibiotics her lactic acid is repeat she is particular about being on IV stress dose steroid she need an appointment with [facility] GI outpatient Physical Exam Physical Exam: VITALS: Reviewed. WEIGHT/BMI reviewed. GEN: Healthy appearing, well-developed, NAD. -Head: NC/AT; NECK: Supple, with no masses. CV: RRR, no m/r/g. LUNGS: CTAB, no w/r/c. ABD: Soft, NT/ND, NBS, no masses or organomegaly. : no CVA tenderness + for suprapubic catheter. SKIN: Warm, well perfused. No skin rashes or abnormal lesions. MSK: No deformities, Normal gait. EXT: No clubbing, cyanosis, or edema. NEURO: AAox3 Results & Data Results & Data Vital Signs (Past 12 Hours) Vital Signs Temp Pulse Pulse Resp BP Pulse Ox O2 Del Method 02/28/25 14:57 89 02/28/25 10:58 36.8 C 100 H 20 137/93 96 Room Air 02/28/25 09:00 78 02/28/25 06:57 36.6 C 81 20 119/81 95 Room Air Laboratory Results Laboratory Results - last 72 hr 02/24/25 02/26/25 02/27/25 18:29 06:22 06:31 WBC 7.26 11.04 H RBC 3.81 L 3.99 L Hgb 9.9 L 10.4 L Hct 33.2 L 34.5 L MCV 87.1 86.5 MCH 26.0 26.1 MCHC 29.8 L 30.1 L RDW Std Deviation 48.9 H 48.6 H RDW Coeff of Los 15.4 H 15.3 H Plt Count 276 301 MPV 9.4 9.2 L Absolute Nucleated RBC 0.02 Nucleated RBC % (auto) 0.3 Sodium 140 139 Potassium 3.4 L 3.3 L Chloride 105 105 Carbon Dioxide 29 27 Anion Gap 6 7 BUN 8 9 Creatinine 0.68 0.64 Est Cr Clr Drug Dosing 145.4 155.9 eGFR 112.84 114.50 BUN/Creatinine Ratio 11.8 14.1 Glucose 76 108 H Lactate Calcium 8.5 L 8.9 Phosphorus 1.8 L Magnesium 2.0 Total Bilirubin 0.2 0.2 AST 10 L 9 L ALT 11 10 Alkaline Phosphatase 41 44 Total Protein 5.8 L 6.2 Albumin 3.5 3.7 Globulin 2.3 L 2.5 Albumin/Globulin Ratio 1.5 1.5 Staphylococcus sp PCR DETECTED A mecA/C-Methicil Resis Gene DETECTED A Staph epidermidis (PCR) DETECTED A Bld Cult ID Panel PCR See PCR Comment 02/28/25 02/28/25 05:50 11:08 WBC 12.15 H RBC 3.64 L Hgb 9.4 L Hct 31.4 L MCV 86.3 MCH 25.8 MCHC 29.9 L RDW Std Deviation 48.1 H RDW Coeff of Los 15.3 H Plt Count 301 MPV 9.4 Absolute Nucleated RBC 0.02 Nucleated RBC % (auto) 0.2 Sodium 142 Potassium 3.4 L Chloride 107 Carbon Dioxide 29 Anion Gap 6 BUN 10 Creatinine 0.53 L Est Cr Clr Drug Dosing 188.8 eGFR 119.83 BUN/Creatinine Ratio 18.9 Glucose 100 H Lactate 1.5 Calcium 8.4 L Phosphorus Magnesium Total Bilirubin 0.2 AST 9 L ALT 10 Alkaline Phosphatase 39 Total Protein 5.6 L Albumin 3.5 Globulin 2.1 L Albumin/Globulin Ratio 1.7 Staphylococcus sp PCR mecA/C-Methicil Resis Gene Staph epidermidis (PCR) Bld Cult ID Panel PCR Medications Administered Current Inpatient Medications Acetaminophen (Acetaminophen 325 Mg Tab) 650 mg PO Q4H PRN PRN Reason: Pain or Fever Stop: 03/26/25 23:06 Last Admin: 02/27/25 20:48 Dose: 650 mg Al Hydrox/Mg Hydrox/Simethicone (Aluminum/Magnesium Susp 30 Ml Udc) 15 ml PO Q4H PRN PRN Reason: Dyspepsia Stop: 03/26/25 23:06 Clonazepam (Clonazepam 1 Mg Tab) 1 mg PO TID ASHOK Stop: 03/27/25 08:59 Last Admin: 02/28/25 13:54 Dose: 1 mg Clotrimazole (Clotrimazole 10 Mg Enoch) 10 mg BUCCAL TID PRN PRN Reason: Flare Stop: 03/26/25 23:06 Cyclobenzaprine HCl (Cyclobenzaprine Hcl 10 Mg Tab) 10 mg PO QAM ASHOK Stop: 03/27/25 08:59 Last Admin: 02/28/25 08:50 Dose: 10 mg Dicyclomine HCl (Dicyclomine Hcl 10 Mg Cap) 10 mg PO TID PRN PRN Reason: IRRITABLE BOWEL SYMPTOMS Stop: 03/26/25 23:06 Famotidine (Famotidine 20 Mg Tab) 20 mg PO BID ASHOK Stop: 03/27/25 08:59 Last Admin: 02/28/25 08:50 Dose: 20 mg Ferrous Sulfate (Ferrous Sulfate 325 Mg Tab) 650 mg PO DAILY ASHOK Stop: 03/27/25 08:59 Last Admin: 02/28/25 08:53 Dose: 650 mg Heparin Sodium (Porcine) (Heparin 100 Unit/Ml 5ml Flush) 5 ml FLUSH PRN PRN PRN Reason: Flush Stop: 03/27/25 04:22 Doxycycline Hyclate 100 mg/ (Dextrose) 100 mls @ 50 mls/hr IV Q12H ASHOK Stop: 03/07/25 00:00 Last Infusion: 02/28/25 13:45 Dose: Infused Ampicillin Sodium 2,000 mg/ (Sodium Chloride) 100 mls @ 200 mls/hr IV Q6H ASHOK Stop: 03/07/25 13:29 Last Infusion: 02/28/25 14:26 Dose: Infused Lactated Ringer's (Lr) 1,000 mls @ 125 mls/hr IV .Q8H ASHOK Stop: 03/01/25 00:29 Last Admin: 02/28/25 13:54 Dose: 125 mls/hr Hydrocortisone Sodium (Succinate 50 mg/ Syringe) 1 mls @ 4 mls/min IV Q6H ASHOK Stop: 02/28/25 15:29 Last Admin: 02/28/25 08:36 Dose: 4 mls/min Lidocaine (Lidocaine 5% 1 Patch) 1 patch TD DAILY ASHOK Stop: 03/27/25 08:59 Last Admin: 02/28/25 08:52 Dose: 1 patch Lorazepam (Lorazepam 2 Mg/1 Ml Vial) 1 mg IV Q8H PRN PRN Reason: Anxiety/Agitation Stop: 03/27/25 21:31 Last Admin: 02/28/25 12:43 Dose: 1 mg Magnesium Hydroxide (Magnesium Hydroxide Susp 30 Ml Udc) 30 ml PO Q12H PRN PRN Reason: Constipation Stop: 03/26/25 23:06 Melatonin (Melatonin 3 Mg Tab) 3 mg PO HS PRN PRN Reason: Sleep Stop: 03/26/25 23:06 Last Admin: 02/27/25 20:46 Dose: 3 mg Miscellaneous (Remove Lidoderm Patch) 1 each N/A DAILY@2100 [facility] Stop: 03/27/25 20:59 Last Admin: 02/27/25 20:49 Dose: 1 each Ondansetron HCl (Ondansetron Inj 2 Mg/Ml 2 Ml Vial) 4 mg IV Q6H PRN PRN Reason: Nausea Stop: 03/26/25 23:06 Last Admin: 02/28/25 08:49 Dose: 4 mg Oxycodone HCl (Oxycodone Hcl Ir 5 Mg Tab (Immediate Release)) 5 mg PO DAILY PRN PRN Reason: pain Stop: 03/10/25 23:06 Last Admin: 02/26/25 06:31 Dose: 5 mg Oxycodone HCl (Oxycodone Hcl Ir 5 Mg Tab (Immediate Release)) 10 mg PO Q6H PRN PRN Reason: Moderate Pain 4-6/10 Stop: 03/12/25 11:11 Last Admin: 02/28/25 13:54 Dose: 10 mg Pantoprazole Sodium (Pantoprazole 40 Mg Tab) 40 mg PO BID ASHOK Stop: 03/27/25 08:59 Last Admin: 02/28/25 08:51 Dose: 40 mg Phenazopyridine HCl (Phenazopyridine Hcl 200 Mg Tab) 200 mg PO TID PRN PRN Reason: pain Stop: 03/26/25 23:06 Last Admin: 02/27/25 19:37 Dose: 200 mg Polyethylene Glycol (Polyethylene (Miralax) 17 Gm Pack) 17 gm PO DAILY PRN PRN Reason: Constipation Stop: 03/26/25 23:06 Potassium Chloride (Potassium Chloride Crtab 20 Meq Tabcr) 20 meq PO DAILY ASHOK Stop: 03/27/25 08:59 Last Admin: 02/28/25 08:50 Dose: 20 meq Pregabalin (Pregabalin 50 Mg Cap) 50 mg PO DAILY@1400 ASHOK Stop: 03/27/25 13:59 Last Admin: 02/28/25 13:54 Dose: 50 mg Pregabalin (Pregabalin 100 Mg Cap) 100 mg PO BID ASHOK Stop: 03/27/25 08:59 Last Admin: 02/28/25 08:50 Dose: 100 mg Promethazine HCl (Promethazine Hcl 25 Mg Tab) 25 mg PO Q6H PRN PRN Reason: NAUSEA/VOMITING Stop: 03/26/25 23:06 Last Admin: 02/25/25 23:41 Dose: 25 mg Propranolol HCl (Propranolol Hcl 10 Mg Tab) 10 mg PO TID PRN PRN Reason: Tachycardia - give if HR>120 Stop: 03/26/25 23:06 Last Admin: 02/26/25 10:56 Dose: 10 mg Sennosides (Senna 8.6 Mg Tab) 17.2 mg PO HS PRN PRN Reason: Constipation Stop: 03/26/25 23:06 Sucralfate (Sucralfate 1 Gm/10 Ml Udc) 1 gm PO ACHS ASHOK Stop: 03/27/25 07:29 Last Admin: 02/28/25 11:04 Dose: 1 gm Thiamine HCl (Thiamine Hcl 100 Mg Tab) 100 mg PO DAILY ASHOK Stop: 03/27/25 08:59 Last Admin: 02/28/25 08:51 Dose: 100 mg Topiramate (Topiramate 25 Mg Tab) 25 mg PO BID ASHOK Stop: 03/27/25 08:59 Last Admin: 02/28/25 08:51 Dose: 25 mg Topiramate (Topiramate 100 Mg Tab) 100 mg PO BID ASHOK Stop: 03/27/25 08:59 Last Admin: 02/28/25 08:50 Dose: 100 mg Zinc Sulfate (Zinc Sulfate 220 Mg Capsule) 220 mg PO DAILY ASHOK Stop: 03/27/25 08:59 Last Admin: 02/28/25 08:51 Dose: 220 mg Zolpidem Tartrate (Zolpidem Tartrate 5 Mg Tab) 10 mg PO HS PRN PRN Reason: Sleep Stop: 03/26/25 23:06 Last Admin: 02/25/25 21:03 Dose: 10 mg PG Care Time/CCT Total # of Minutes Spent Total Time Spent with Patient: Total time spent is greater than 50% in coordination of care (as documented) at patient's floor/unit and/or counseling patient: Coding Level of Care Code 67370 SUB INP/OBS CARE 2/35MIN Diagnoses Diarrhea R19.7 Diarrhea type: unspecified type Nausea & vomiting R11.2 HTN (hypertension) I10 Suprapubic catheter Z93.59 UTI (urinary tract infection) N39.0 GERD without esophagitis K21.9 Anxiety F41.9 Sangamon's disease E27.1 Time Spent (min) 35 (1) Diarrhea Diarrhea type: unspecified type Qualified Code(s): R19.7 - Diarrhea, unspecified
[2025-02-28] MEDS: HYDROCORTISONE SOD 50 MG in SYRINGE 0 ML IV SCH (21:03)
[2025-02-28] MEDS: POLYETHYLENE (MIRALAX) 17 GM PACK PO PRN (21:18)
[2025-03-01] MEDS: HEPARIN 100 UNIT/ML 5ML FLUSH FLUSH PRN (06:08)
[2025-03-01 06:19] LABS: Hematocrit (blood only) 30.4 % (37.0-47.0); Hemoglobin 9.4 g/dl (12.0-16.0); Mean Corpuscular Hemoglobin 26.6 pg (25.0-34.0); Mean Corpuscular Volume 85.9 fL (80.0-100.0); Platelet Count 282 K/uL (130-400); RDW Standard Deviation 48.6 fL (36.4-46.3); Red Blood Count 3.54 M/uL (4.20-5.40); White Blood Count 10.38 K/ul (4.8-10.8)
[2025-03-01 06:51] LABS: Alanine Aminotransferase 8.0 U/L (7-52); Albumin Globulin Ratio 1.5 (0.9-2); Alkaline Phosphatase 39.0 U/L (34-104); Anion Gap 6.0 (3-11); Bilirubin,Total 0.2 mg/dl (0.2-1.0); Blood Urea Nitrogen 11.0 mg/dl (6-23); Calcium 7.8 mg/dl (8.6-10.3); Carbon Dioxide 28.0 mmol/L (21-32); Chloride 108.0 mmol/L (98-107); Creatinine Clr Calc Pharmacy 189.9 ml/min; Globulin 2.1 gm/dl (2.5-4.0); Glucose 81.0 mg/dl (70-99(Fasting)); Potassium 3.1 mmol/L (3.5-5.1); Sodium 142.0 mmol/L (136-145); Total Protein 5.3 gm/dl (6.0-8.3)
[2025-03-01] MEDS ORDERED: VANCOMYCIN CONSULT ACTIVE PRN (07:52)
--- NOTE | 2025-03-01 08:04 | Communication Note ---
Date of Service: March 01, 2025
[2025-03-01] MEDS: VANCOMYCIN HCL 2,500 MG in SODIUM CHLORIDE 0.9% 500 ML IV ONE (08:37)
[2025-03-01] MEDS: POTASSIUM CHLORIDE CRTAB 20 MEQ TABCR PO STA (08:44)
--- NOTE | 2025-03-01 12:15 | Pharmacy Report ---
Pharmacy PK ABX Note - Date of Service March 01, 2025 - Assessment and Plan Assessment 39 year old F with h/o of neurogenic bladder and suprapubic catheter who presented on 02/24/25 with abdominal pain, mild SOB, L sided chest pain, and nausea. Recently discharged from [facility] where she was treated for CAUTI. Patient reports receiving ceftriaxone, vancomycin, pip/tazo and cefazolin during that stay. She was started on ampicillin + doxycycline IV at our institution (selection based on previous culture results). These antibiotics were held today and vancomycin IV has been ordered for possible bacteremia due to Staph epidermidis growing in 1 of 2 BC. Patient has R subclavian port. Repeat BC pending. TTE pending. ID consulted. Pertinent microbiologic data includes: 02/07 BC - Staph epidermidis (1 of 2) 02/24 BC - Staph epidermidis (1 of 2) 03/01 BC - pending 01/15/25 -suprapubic catheter culture - E. faecalis, Staph epidermidis Plan Vancomycin * Loading dose: 2500 mg IV x 1 * Maintenance dose: 1750 mg IV every 12 hours * Regimen is predicted to achieve target AUC/ROYER of 400-600 mg/L.hr * Patient is at high risk of drug accumulation with BMI of 45.6. CrCl likely overestimated due to weight. * Will obtain vanco level in the next 24-48 hours Pharmacy will continue to follow and will adjust dose/frequency as necessary. Thank you. Pharmacy has transitioned to AUC monitoring for vancomycin. AUC/ROYER is the preferred PK/PD target and is associated with decreased risk of nephrotoxicity compared to traditional trough targets.
--- NOTE | 2025-03-01 12:47 | Infectious Disease Consult ---
Date of Consultation March 01, 2025 Assessment & Plan (1) Staphylococcus epidermidis bacteremia: Plan Problems: #Staph epi in blood cultures #Port in place #Neurogenic bladder with suprapubic catheter Micro: 03/01 BCx x2: pending 02/24 BCx x2: Staph epi in 2/4 bottles (both from 1 set) 02/07 Bx x2: Staph epi in 1/4 bottles 01/15 UCx: E faecalis, Staph epi 01/07 UCx: Staph epi Abx: Vnac 03/01 - present Ampicillin 02/25 - 03/01 Doxycycline 02/25 - present Cefepime 02/24 39 yo F with HTN, POTS, GERD, Fenton's disease, ankylosing spondylitis, neurogenic bladder s/p suprapubic catheter, PTSD, anxiety, borderline personality disorder, who presented on 02/24 due to concern for CAUTI. Pt reports recent admission at [facility] with increased erythema and purulent drainage from her suprapubic catheter site, and was given a range of antibiotics including ceftriaxone, vanc, Zosyn, cefazolin and eventually discharged. Unable to see records of this currently. Pt feels she "went into a crisis" due to her Fenton's disease after discharge, and states she was not given steroids at [facility]. Reports diffuse abd pain, mild SOB, L chest pain, nausea. Per records shown by patient, recent UCx positive for E faecalis. On presentation, pt was afebrile, tachycardic. Labs showed WBC 10.48, lactate 4.4, procal 0.04, UA with 6-10 WBCs. CXR negative. CTAP with IV contrast with moderate inflammatory changes to urinary bladder with wall thickening and perivesical fat stranding, mild enteritis may also be present. She was started on doxycycline based on prior sensitivities, and given stress dose steroids. Ampicillin added 02/25. No urine culture performed this admission. Urology was consulted, noted that her history was difficult to follow, but felt she was likely experiencing bladder spasms. There was no concern for wound breakdown around the suprapubic catheter site. Admission blood cultures grew Staph epi in 2/4 bottles (from 1 of 2 sets). ID is consulted to evaluate for port infection. She has had multiple recent hospitalizations, including at [facility] 02/07-02/10 with concerns of low grade temps and weakness. She did not have true fever and no signs/symptoms of infection, was not felt to be having adrenal crisis per her concern, and was discharged on home dose of steroids. Then admitted to [facility] 02/11-02/14 with report of 3 weeks of diffuse cramping abd pain, N/V/D, fevers, chills, LE cramping which she felt were similar to prior episodes of adrenal crisis. It was felt her GI symptoms were due to constipation and she was started on a bowel regimen. It was not felt that she had adrenal crisis. Discussion: Staph epi in 1 of 2 blood culture sets may represent contaminant vs port infection. Pt did have 02/07 and 02/24 BCx positive for Staph epi in 1 of 2 sets, but did have intervening set of blood cultures obtained at [facility] on 02/20 that finalized with no growth. Biofire this admission with methicillin resistance detected. Recommendations: - Appreciate primary team efforts to obtain records from [facility] - Follow-up repeat blood cultures obtained this AM. It looks like on set was obtained prior to first dose of vanc, and one set obtained after. - Can continue vanc for now pending repeat blood cultures - Can hold off on further ampicillin Will continue to follow Consultation Information This patient recommendation is based on a telemedicine consult request which was completed asynchronously through chart review and information provided by the primary physician. The patient was not seen or examined today. The evaluation is consultative in nature and all patient care and treatment decisions can either be accepted or rejected by the patient's primary hospital-based treating physic nelly using their own independent medical judgment for their patient. Napping Machine Operator contact information: Please call [facility] [phone]. (Phone Number For Physician Use Only) An e-consult was performed as the video cart is not functioning. Time Spent Reviewing Chart: 31+ minutes History of Present Illness Reason for Consultation: Staph epi bacteremia, evaluate for port infection Attending Physician: Bharati Patterson MD History of Present Illness 39 yo F with HTN, POTS, GERD, Fenton's disease, ankylosing spondylitis, neurogenic bladder s/p suprapubic catheter, PTSD, anxiety, borderline personality disorder, who presented on 02/24 due to concern for CAUTI. Pt reports recent admission at [facility] with increased erythema and purulent d rainage from her suprapubic catheter site, and was given a range of antibiotics including ceftriaxone, vanc, Zosyn, cefazolin and eventually discharged. Unable to see records of this currently. Pt feels she "went into a crisis" due to her Fenton's disease after discharge, and states she was not given steroids at [facility]. Reports diffuse abd pain, mild SOB, L chest pain, nausea. Per records shown by patient, recent UCx positive for E faecalis. On presentation, pt was afebrile, tachycardic. Labs showed WBC 10.48, lactate 4.4, procal 0.04, UA with 6-10 WBCs. CXR negative. CTAP with IV contrast with moderate inflammatory changes to urinary bladder with wall thickening and perivesical fat stranding, mild enteritis may also be present. She was started on doxycycline based on prior sensitivities, and given stress dose steroids. Ampicillin added 02/25. Urology was consulted, noted that her history was difficult to follow, but felt she was likely experiencing bladder spasms. There was no concern for wound breakdown around the suprapubic catheter site. Admission blood cultures grew Staph epi in 2/4 bottles (from 1 of 2 sets). ID is consulted to evaluate for port infection. She has had multiple recent hospitalizations, including at [facility] 02/07-02/10 with concerns of low grade temps and weakness. She did not have true fever and no signs/symptoms of infection, was not felt to be having adrenal crisis per her concern, and was discharged on home dose of steroids. Then admitted to [facility] 02/11-02/14 with report of 3 weeks of diffuse cramping abd pain, N/V/D, fevers, chills, LE cramping which she felt were similar to prior episodes of adrenal crisis. It was felt her GI symptoms were due to constipation and she was started on a bowel regimen. It was not felt that she had adrenal crisis. Allergies Allergy/AdvReac Type Severity Reaction Status Date / Time adhesive tape Allergy Intermediate SKIN Verified 02/24/25 21:18 REDDENED, ITCHY scopolamine Allergy Intermediate SKIN Verified 02/24/25 21:18 REDDENED, ITCHY escitalopram [From Lexapro] AdvReac Intermediate VERY Verified 02/24/25 21:18 EMOTIONAL, OPPOSITE EFFECT haloperidol [From Haldol] AdvReac Intermediate LOCKED JAW Verified 02/24/25 21:18 cayenne pepper fruits AdvReac Unknown "JAMARI" Verified 03/01/25 05:53 UNKNOWN Home Medications Medication Instructions Recorded Confirmed Type B-complex with vitamin C 1 cap PO DAILY 11/29/24 02/24/25 History ascorbic acid (vitamin C) 1,000 mg 1,000 mg PO DAILY 11/29/24 02/24/25 History tablet (Vitamin C) calcium 250 mg (as 2 tab PO DAILY 11/29/24 02/24/25 History citrate)-vitamin D3 5 mcg (200 unit) tablet clonazepam 1 mg tablet 1 mg PO TID 11/29/24 02/24/25 History clotrimazole 10 mg ludwig 10 mg PO DIRECTED PRN Flare 11/29/24 02/24/25 History cyanocobalamin (vitamin B-12) 1,000 mcg IM WK 11/29/24 02/24/25 History 1,000 mcg/mL injection solution dicyclomine 10 mg capsule 10 mg PO TID PRN IRRITABLE BOWEL 11/29/24 02/24/25 History SYMPTOMS ferrous sulfate 325 mg (65 mg 650 mg PO DAILY 11/29/24 02/24/25 History iron) tablet lidocaine 5 % topical patch 1 patch topical DAILY 11/29/24 02/24/25 History multivitamin with minerals 1 tab PO DAILY 11/29/24 02/24/25 History polyethylene glycol 3350 17 17 g PO DAILY PRN Constipation 11/29/24 02/24/25 History gram/dose oral powder (Miralax) potassium chloride 20 mEq 20 meq PO DAILY 11/29/24 02/24/25 History tablet,extended release(part/cryst) pregabalin 100 mg capsule 100 mg PO AMHS 11/29/24 02/24/25 History pregabalin 50 mg capsule 50 mg PO QPM 11/29/24 02/24/25 History propranolol 10 mg tablet 10 mg PO TID PRN NEEDED 11/29/24 02/24/25 History sennosides 8.6 mg tablet (senna) 17.2 mg PO HS PRN Constipation 11/29/24 02/24/25 History sucralfate 1 gram tablet (Carafate) 1 g PO ACHS 11/29/24 02/24/25 History thiamine HCl (vitamin B1) 100 mg 100 mg PO DAILY 11/29/24 02/24/25 History tablet (Vitamin B-1) topiramate 100 mg tablet 100 mg PO BID 11/29/24 02/24/25 History topiramate 25 mg tablet 25 mg PO BID 11/29/24 02/24/25 History zinc acetate 50 mg (zinc) capsule 50 mg PO DAILY 11/29/24 02/24/25 History zolpidem 10 mg tablet (Ambien) 10 mg PO HS PRN Sleep 12/12/24 02/24/25 History acetaminophen 500 mg tablet 500 mg PO Q6H PRN Pain 12/26/24 02/24/25 History cholestyramine 4 gram oral powder 4 g PO 2200 #30 ea 01/17/25 02/24/25 Rx for suspension in a packet (Prevalite) famotidine 20 mg tablet 20 mg PO BID #60 tabs 01/17/25 02/24/25 Rx pantoprazole 40 mg tablet,delayed 40 mg PO BID #60 tabs 01/17/25 02/24/25 Rx release phenazopyridine 200 mg tablet 200 mg PO TID PRN pain #30 tabs 01/17/25 02/24/25 Rx (Pyridium) sucralfate 100 mg/mL oral 1 g (10 mL) PO ACHS #420 mL 01/17/25 02/24/25 Rx suspension cyclobenzaprine 10 mg tablet 10 mg PO QAM #90 tabs 02/07/25 02/24/25 Rx oxycodone 5 mg tablet 5 mg PO DAILY PRN pain #5 tabs 02/07/25 02/24/25 Rx promethazine 25 mg tablet 25 mg PO Q6H PRN NAUSEA/VOMITING 02/07/25 02/24/25 Rx #120 tabs Port care See Rx Instructions .Route 02/22/25 Rx .COMPLEX #1 ea lactated Ringers 1,000 ml IV Q OTHER DAY 4 weeks 02/22/25 02/24/25 Rx prednisone 1 mg tablet See Rx Instructions .Route .COMPLEX 02/24/25 02/24/25 History Patient History Medical History UTI (urinary tract infection) Suprapubic catheter Vulvovaginal candidiasis Difficult intravenous access Alternating constipation and diarrhea Vomiting Surgical History History of lumbar fusion History of gastric bypass Family History Grandfather (Paternal) Colorectal cancer Grandmother (Paternal) Myocardial infarction Denies family history of Ovarian cancer Prostate cancer Breast cancer Social History Smoking Status: Never smoker Second Hand Exposure: No; Do You Dip or Chew Tobacco: No; Hx Alcohol Use: No Hx Substance Use: No Preferred Language: Spanish Communication Ability: Effective Visual Impairment: No Limitations Hearing Ability: Normal Edge Trimmer Mechanic Required: No Beliefs That Will Affect Care: None marital status: Current Living Situation: Spouse current occupational status: disabled How many Children do You have: 2 Other Information That Helps Us Care for You: No Feels Safe at Home: Yes Safety Concerns: Feels Safe At This Time Childhood Exposure to Second-Hand Smoke: No Diet: other Diet Comment: protein, Bypass diet caffeine: Yes during the past year weight has: increased > 10 lbs Dental Care, Regularly: No Physical Activity Frequency: 3-4 Times per Week Physical Activity Frequency Comment: PT/OT Seatbelt Use: always Sunscreen Use: Yes Assistive Devices: Walker, Wheelchair and Other Results & Data Vital Signs (Past 12 Hours) Vital Signs Temp Pulse Pulse Resp BP Pulse Ox O2 Del Method 03/01/25 10:40 36.7 C 98 H 19 125/84 96 Room Air 03/01/25 08:00 87 03/01/25 07:21 36.6 C 94 H 19 130/84 99 Room Air 03/01/25 02:33 36.6 C 100 H 20 127/87 96 Room Air Laboratory Results Short CBC 03/01/25 Range/Units 06:00 WBC 10.38 (4.8-10.8) K/ul Hgb 9.4 L (12.0-16.0) g/dl Hct 30.4 L (37.0-47.0) % Plt Count 282 (130-400) K/uL BMP 03/01/25 06:00 Sodium 142 Potassium 3.1 L Chloride 108 H Carbon Dioxide 28 BUN 11 Creatinine 0.54 L Glucose 81 Calcium 7.8 L Liver Function 08/20/25 Range/Units 06:00 Total Bilirubin 0.2 (0.2-1.0) mg/dl AST 8 L (13-39) U/L ALT 8 (7-52) U/L Alkaline Phosphatase 39 (34-104) U/L Albumin 3.2 L (3.4-5.0) gm/dl Medications Administered Current Inpatient Medications Acetaminophen (Acetaminophen 325 Mg Tab) 650 mg PO Q4H PRN PRN Reason: Pain or Fever Stop: 03/26/25 23:06 Last Admin: 02/27/25 20:48 Dose: 650 mg Al Hydrox/Mg Hydrox/Simethicone (Aluminum/Magnesium Susp 30 Ml Udc) 15 ml PO Q4H PRN PRN Reason: Dyspepsia Stop: 03/26/25 23:06 Clonazepam (Clonazepam 1 Mg Tab) 1 mg PO TID ASHOK Stop: 03/27/25 08:59 Last Admin: 03/01/25 13:26 Dose: 1 mg Clotrimazole (Clotrimazole 10 Mg Ludwig) 10 mg BUCCAL TID PRN PRN Reason: Flare Stop: 03/26/25 23:06 Cyclobenzaprine HCl (Cyclobenzaprine Hcl 10 Mg Tab) 10 mg PO QAM ASHOK Stop: 03/27/25 08:59 Last Admin: 03/01/25 08:44 Dose: 10 mg Dicyclomine HCl (Dicyclomine Hcl 10 Mg Cap) 10 mg PO TID PRN PRN Reason: IRRITABLE BOWEL SYMPTOMS Stop: 03/26/25 23:06 Famotidine (Famotidine 20 Mg Tab) 20 mg PO BID ASHOK Stop: 03/27/25 08:59 Last Admin: 03/01/25 08:44 Dose: 20 mg Ferrous Sulfate (Ferrous Sulfate 325 Mg Tab) 650 mg PO DAILY ASHOK Stop: 03/27/25 08:59 Last Admin: 03/01/25 08:45 Dose: 650 mg Heparin Sodium (Porcine) (Heparin 100 Unit/Ml 5ml Flush) 5 ml FLUSH PRN PRN PRN Reason: Flush Stop: 03/27/25 04:22 Last Admin: 03/01/25 06:08 Dose: 5 ml Ampicillin Sodium 2,000 mg/ (Sodium Chloride) 100 mls @ 200 mls/hr IV Q6H ASHOK Stop: 03/07/25 13:29 Last Admin: 03/01/25 07:55 Dose: Not Given Hydrocortisone Sodium (Succinate 50 mg/ Syringe) 1 mls @ 4 mls/min IV Q8H ASHOK Stop: 03/30/25 20:59 Last Admin: 03/01/25 13:27 Dose: 4 mls/min Vancomycin HCl 1,750 mg/ (Sodium Chloride) 535 mls @ 200 mls/hr IV Q12H [facility] Stop: 03/15/25 07:59 Lidocaine (Lidocaine 5% 1 Patch) 1 patch TD DAILY ASHOK Stop: 03/27/25 08:59 Last Admin: 03/01/25 08:46 Dose: 1 patch Lorazepam (Lorazepam 2 Mg/1 Ml Vial) 1 mg IV Q8H PRN PRN Reason: Anxiety/Agitation Stop: 03/27/25 21:31 Last Admin: 03/01/25 08:37 Dose: 1 mg Magnesium Hydroxide (Magnesium Hydroxide Susp 30 Ml Udc) 30 ml PO Q12H PRN PRN Reason: Constipation Stop: 03/26/25 23:06 Melatonin (Melatonin 3 Mg Tab) 3 mg PO HS PRN PRN Reason: Sleep Stop: 03/26/25 23:06 Last Admin: 02/27/25 20:46 Dose: 3 mg Miscellaneous (Remove Lidoderm Patch) 1 each N/A DAILY@2100 [facility] Stop: 03/27/25 20:59 Last Admin: 02/28/25 21:10 Dose: 1 each Miscellaneous Information (Vancomycin Consult Active) 1 each N/A UD PRN PRN Reason: Consult Stop: 03/31/25 07:51 Ondansetron HCl (Ondansetron Inj 2 Mg/Ml 2 Ml Vial) 4 mg IV Q6H PRN PRN Reason: Nausea Stop: 03/26/25 23:06 Last Admin: 03/01/25 08:37 Dose: 4 mg Oxycodone HCl (Oxycodone Hcl Ir 5 Mg Tab (Immediate Release)) 5 mg PO DAILY PRN PRN Reason: pain Stop: 03/10/25 23:06 Last Admin: 02/26/25 06:31 Dose: 5 mg Oxycodone HCl (Oxycodone Hcl Ir 5 Mg Tab (Immediate Release)) 10 mg PO Q6H PRN PRN Reason: Moderate Pain 4-6/10 Stop: 03/12/25 11:11 Last Admin: 03/01/25 13:27 Dose: 10 mg Pantoprazole Sodium (Pantoprazole 40 Mg Tab) 40 mg PO BID ASHOK Stop: 03/27/25 08:59 Last Admin: 03/01/25 08:45 Dose: 40 mg Phenazopyridine HCl (Phenazopyridine Hcl 200 Mg Tab) 200 mg PO TID PRN PRN Reason: pain Stop: 03/26/25 23:06 Last Admin: 02/27/25 19:37 Dose: 200 mg Polyethylene Glycol (Polyethylene (Miralax) 17 Gm Pack) 17 gm PO DAILY PRN PRN Reason: Constipation Stop: 03/26/25 23:06 Last Admin: 02/28/25 21:18 Dose: 17 gm Potassium Chloride (Potassium Chloride Crtab 20 Meq Tabcr) 20 meq PO DAILY ASHOK Stop: 03/27/25 08:59 Last Admin: 03/01/25 08:44 Dose: 20 meq Pregabalin (Pregabalin 50 Mg Cap) 50 mg PO DAILY@1400 ASHOK Stop: 03/27/25 13:59 Last Admin: 03/01/25 13:26 Dose: 50 mg Pregabalin (Pregabalin 100 Mg Cap) 100 mg PO BID ASHOK Stop: 03/27/25 08:59 Last Admin: 03/01/25 08:44 Dose: 100 mg Promethazine HCl (Promethazine Hcl 25 Mg Tab) 25 mg PO Q6H PRN PRN Reason: NAUSEA/VOMITING Stop: 03/26/25 23:06 Last Admin: 02/25/25 23:41 Dose: 25 mg Propranolol HCl (Propranolol Hcl 10 Mg Tab) 10 mg PO TID PRN PRN Reason: Tachycardia - give if HR>120 Stop: 03/26/25 23:06 Last Admin: 02/26/25 10:56 Dose: 10 mg Sennosides (Senna 8.6 Mg Tab) 17.2 mg PO HS PRN PRN Reason: Constipation Stop: 03/26/25 23:06 Sucralfate (Sucralfate 1 Gm/10 Ml Udc) 1 gm PO ACHS ASHOK Stop: 03/27/25 07:29 Last Admin: 03/01/25 11:32 Dose: 1 gm Thiamine HCl (Thiamine Hcl 100 Mg Tab) 100 mg PO DAILY ASHOK Stop: 03/27/25 08:59 Last Admin: 03/01/25 08:45 Dose: 100 mg Topiramate (Topiramate 25 Mg Tab) 25 mg PO BID ASHOK Stop: 03/27/25 08:59 Last Admin: 03/01/25 08:46 Dose: 25 mg Topiramate (Topiramate 100 Mg Tab) 100 mg PO BID ASHOK Stop: 03/27/25 08:59 Last Admin: 03/01/25 08:46 Dose: 100 mg Zinc Sulfate (Zinc Sulfate 220 Mg Capsule) 220 mg PO DAILY ASHOK Stop: 03/27/25 08:59 Last Admin: 03/01/25 08:45 Dose: 220 mg Zolpidem Tartrate (Zolpidem Tartrate 5 Mg Tab) 10 mg PO HS PRN PRN Reason: Sleep Stop: 03/26/25 23:06 Last Admin: 02/25/25 21:03 Dose: 10 mg
--- NOTE | 2025-03-01 16:30 | Hospitalist Progress Note ---
Date of Service March 01, 2025 Assessment & Plan (1) Diarrhea: (2) Nausea & vomiting: (3) HTN (hypertension): (4) Suprapubic catheter: (5) UTI (urinary tract infection): (6) GERD without esophagitis: (7) Anxiety: (8) Vernon Hill's disease: Plan Ms. Weldon is a 39 yo female with PMHx of POTS, GERD, Vernon Hill's disease, ankylosing spondylitis, neurogenic bladder on suprapubic, Anxiety, ovarian cysts. Admitted for presumed CAUTI. she have long standing abdominal issues and went to [facility] for evaluation. she was recently at [facility] for CAUTI, per patient, [facility] did not changed the catheter. she did not want to stay in [facility] any longer and came to our hospital for eval, started on doxycycyline then ampicillin for UTI hospital events: 02/25, switch to ampicillin for UTI; stress dose steroid by IV 02/26. tachycardia episode, CTA PE to r/o PE, duplex ultrasound. urology evaluated the patient, will plan for establish outpatient f/u added fluconazole , s/p IV hydrocortisone in the afternoon 02/27. repleting phosphate 02/28, worsening WBC, still does not feel well, continue IV antibiotics lactic acid stable, 03/01 2/4 bottles from admission blood cultures with staph epi, consulted ID, stopped ampicillin and started vancomycin #staph epi bacteremia, possible port infection vs contamination Serial hospitalizations for N/V/D, low grade fevers, persistent sinus tachycardia. Presumed to be UTI and adrenal crises. Has central line and SP catheter, adrenal insufficiency This admission has been on ampicillin IV for presumed enterococcal CAUTI (cultures reported to be at [facility] - trying to obtain ) One blood culture positive a few weeks ago 02/07 for staph epi, three other bottles negative and staph epi in urine at that time. Two bottles from one set 02/24 also positive. Might be contaminant but pattern is concerning for bacteremia / central line infection -repeat blood culture -stop ampicillin, replace with vancomycin -TTE -consult ID #possible CAUTI, suprapuic catheter her urologist at [place] recently relocated urologist Dr. Ruiz evaluated, though bladder spasms -Per records shown by patient, urine culture + for E. faecalis -switched from doxycycline to ampicillin -now on vancomycin #Vernon Hill's disease - home regimen of 10mg hydrocortisone TID (7am, 2pm, 6pm) - continue IV hydrocortisone until possible bacteremia sorted out #Short Gut syndrome/Nausea - Diarrhea likely related to motility and absorption issues as well as anxiety - Continue home medications and follow symptoms she trying to has f/u appointment with [facility] for outpatient GI evaluation noted she was recently at [facility]. #Anxiety -Active reassurance and open discussions -psych recommended ativan 1mg PO PRN for panic attack -will evaluate for hydroxyzine VTE Prophylaxis: Lovenox - reordered Admission and Anticipated Discharge Date Admission Date: February 24, 2025 Subjective has felt poorly for weeks with malaise, GI symptoms, low grade fevers serial [facility] Physical Exam: Last 24h vitals reviewed GEN: no acute distress, sitting in bed HEENT: pupils equal, sclerae anicteric, moist MM RESP: normal WOB CV: port Rt upper chest accessed - cdi no erythema ABD: deferred : SP catheter SKIN: warm and dry, no generalized rashes NEURO: AOx person, place, and situation. Face symmetric, speech normal, moves 4 ext spontaneously and equally Results & Data Results & Data Vital Signs (Past 12 Hours) Vital Signs Temp Pulse Pulse Resp BP Pulse Ox O2 Del Method 03/01/25 13:44 123 H 03/01/25 10:40 36.7 C 98 H 19 125/84 96 Room Air 03/01/25 08:00 87 03/01/25 07:21 36.6 C 94 H 19 130/84 99 Room Air Laboratory Results 03/01/25 06:00 03/01/25 06:00 labs today look a little diluted WBC 12-->10 PG Care Time/CCT Total # of Minutes Spent Total Time Spent with Patient: Total time spent is greater than 50% in coordination of care (as documented) at patient's floor/unit and/or counseling patient: Coding Level of Care Code 92098 SUB INP/OBS CARE 3/50MIN Diagnoses Diarrhea R19.7 Diarrhea type: unspecified type Nausea & vomiting R11.2 HTN (hypertension) I10 Suprapubic catheter Z93.59 UTI (urinary tract infection) N39.0 GERD without esophagitis K21.9 Anxiety F41.9 Fredrick's disease E27.1 (1) Diarrhea Diarrhea type: unspecified type Qualified Code(s): R19.7 - Diarrhea, unspecified
[2025-03-01] MEDS: VANCOMYCIN HCL 1,750 MG in SODIUM CHLORIDE 0.9% 500 ML IV SCH (17:46)
[2025-03-01] MEDS: ENOXAPARIN INJ 40 MG/0.4 ML SYR SQ SCH (17:46)
[2025-03-02] MEDS ORDERED: Nursing to Pharmacy Communication SCH (05:00)
[2025-03-02 06:49] LABS: Hematocrit (blood only) 32.0 % (37.0-47.0); Hemoglobin 9.7 g/dl (12.0-16.0); Mean Corpuscular Hemoglobin 26.2 pg (25.0-34.0); Mean Corpuscular Volume 86.5 fL (80.0-100.0); Platelet Count 285 K/uL (130-400); RDW Standard Deviation 49.3 fL (36.4-46.3); Red Blood Count 3.70 M/uL (4.20-5.40); White Blood Count 10.12 K/ul (4.8-10.8)
[2025-03-02 07:17] LABS: Alanine Aminotransferase 9.0 U/L (7-52); Albumin Globulin Ratio 1.5 (0.9-2); Alkaline Phosphatase 39.0 U/L (34-104); Anion Gap 5.0 (3-11); Bilirubin,Total 0.2 mg/dl (0.2-1.0); Blood Urea Nitrogen 11.0 mg/dl (6-23); Calcium 8.2 mg/dl (8.6-10.3); Carbon Dioxide 28.0 mmol/L (21-32); Chloride 108.0 mmol/L (98-107); Creatinine Clr Calc Pharmacy 173.2 ml/min; Globulin 2.2 gm/dl (2.5-4.0); Glucose 79.0 mg/dl (70-99(Fasting)); Potassium 3.6 mmol/L (3.5-5.1); Sodium 141.0 mmol/L (136-145); Total Protein 5.6 gm/dl (6.0-8.3)
[2025-03-02] MEDS: DICYCLOMINE HCL 10 MG CAP PO PRN (08:30)
--- NOTE | 2025-03-02 12:52 | XCELERA ---
[id number] [id number]
--- NOTE | 2025-03-02 15:20 | Pharmacy Report ---
Pharmacy PK ABX Note - Date of Service March 02, 2025 - Assessment and Plan Assessment 03/02: * Random vanco level resulted at 13.8 mcg/mL. This correlates to AUC/ROYER of 497 at steady state. * Repeat BC with no growth at 24 hour reese * Continue current vanco regimen 03/01: 39 year old F with h/o of neurogenic bladder and suprapubic catheter who presented on 02/24/25 with abdominal pain, mild SOB, L sided chest pain, and nausea. Recently discharged from [facility] where she was treated for CAUTI. Patient reports receiving ceftriaxone, vancomycin, pip/tazo and cefazolin during that stay. She was started on ampicillin + doxycycline IV at our institution (selection based on previous culture results). These antibiotics were held today and vancomycin IV has been ordered for possible bacteremia due to Staph epidermidis growing in 1 of 2 BC. Patient has R subclavian port. Repeat BC pending. TTE pending. ID consulted. Pertinent microbiologic data includes: 02/07 BC - Staph epidermidis (1 of 2) 02/24 BC - Staph epidermidis (1 of 2) 03/01 BC - No growth @ 24h 01/15/25 -suprapubic catheter culture - E. faecalis, Staph epidermidis Plan Vancomycin * Continue 1750 mg IV every 12 hours Pharmacy will continue to follow and will adjust dose/frequency as necessary. Thank you. Pharmacy has transitioned to AUC monitoring for vancomycin. AUC/ROYER is the preferred PK/PD target and is associated with decreased risk of nephrotoxicity compared to traditional trough targets.
[2025-03-02] MEDS: LACTATED RINGER'S 1,000 ML IV ONE (17:08)
--- NOTE | 2025-03-02 17:33 | Hospitalist Progress Note ---
Date of Service March 02, 2025 Assessment & Plan (1) Diarrhea: (2) Nausea & vomiting: (3) HTN (hypertension): (4) Suprapubic catheter: (5) UTI (urinary tract infection): (6) GERD without esophagitis: (7) Anxiety: (8) [place]'s disease: Plan 39 y/o woman with POTS and adrenal insufficiency on home IV fluids, back surgery, neurogenic bladder with SP catheter, gastric bypass, GI motility disorder. Recently treated for CAUTI at [facility], then admitted here for ongoing symptoms hospital events: 02/25, switch to ampicillin for UTI; stress dose steroid by IV 02/26. tachycardia episode, CTA PE to r/o PE, duplex ultrasound. urology evaluated the patient, will plan for establish outpatient f/u added fluconazole , s/p IV hydrocortisone in the afternoon 02/27. repleting phosphate 02/28, worsening WBC, still does not feel well, continue IV antibiotics lactic acid stable, 03/01 2/4 bottles from admission blood cultures with staph epi, consulted ID, stopped ampicillin and started vancomycin 03/02 I reviewed extensive records from [facility], [facility], home health. resuming her usual IV fluid regimen. Lets see if she can mobilize and be less tachycardic with this change #staph epi bacteremia, possible port infection vs contamination Serial hospitalizations for N/V/D, low grade fevers, persistent sinus tachycardia. Presumed to be UTI and adrenal crises. Has central line and SP catheter, adrenal insufficiency This admission has been on ampicillin IV for presumed enterococcal CAUTI One blood culture positive a few weeks ago 02/07 at [facility] for staph epi, three other bottles negative and staph epi in urine at that time. Two bottles from one set 02/24 also positive. Obtained records from recent hospitalization at [facility] and blood cultures from that stay finalized negative -repeat blood culture drawn 03/01 - remain NGTD -stopped ampicillin, continue vancomycin -TTE with probably mitral valve calcification, not hypermobile but cannot exclude a small vegetation -discussed with ID, Dr. Gutierrez - not very suspicious for bacteremia, await most recent blood cultures #possible CAUTI, suprapubic catheter for neurogenic bladder -her urologist at [place] recently relocated -urologist Dr. Ruiz evaluated, though bladder spasms, recommended outpatient follow up -Per records shown by patient, urine culture + for E. faecalis -switched from doxycycline to ampicillin -now on vancomycin #Adrenal insufficiency - per chart review ACTH levels have been inconsistent so not known if primary or secondary #POTS - home regimen of 10mg hydrocortisone TID (7am, 2pm, 6pm) - continue IV hydrocortisone until possible bacteremia sorted out - then can step down to triple usual oral dose and taper - resume IV fluids scheduled - has home IVF. Ordered 1L LR today #GI motility disorder - including esophageal dysmotility, frequent presentations with N/V and abdominal pain #History of gastric bypass - anastomosis open on recent EGD at [facility], reviewed report - admitted recently at [facility], recent EGD at [facility] with gastritis. Plan was for outpatient GI evaluation at [facility] #Anxiety -Active reassurance and open discussions -psych recommended ativan 1mg PO PRN for panic attack VTE Prophylaxis: Lovenox - reordered Admission and Anticipated Discharge Date Admission Date: February 24, 2025 Subjective Per nursing staff and patient she has been eating, no N/V Feels weak and lightheaded, tachycardic when she is up. Usually gets regular IVF at home I tried to see whether she is having pain from SP catheter, spasms, or dysuria right now but not a clear answer - yes? She says both her legs feel numb today like no pain sensation and this is circumferential, pressure sensation is intact Physical Exam 2 Physical Exam: Last 24h vitals reviewed GEN: no acute distress, sitting in bed HEENT: pupils equal, sclerae anicteric, moist MM RESP: normal WOB CV: port Rt upper chest accessed - cdi no erythema ABD: S/ND : SP catheter SKIN: warm and dry, no generalized rashes NEURO: AOx person, place, and situation. Face symmetric, speech normal, moves 4 ext spontaneously and equally Results & Data Results & Data Vital Signs (Past 12 Hours) Vital Signs Temp Pulse Pulse Resp BP BP Pulse Ox 03/02/25 16:08 114 H 03/02/25 15:14 36.8 C 98 H 16 142/90 H 99 03/02/25 11:01 36.9 C 95 H 16 138/93 95 03/02/25 08:13 36.6 C 108 H 16 119/83 95 03/02/25 08:00 81 O2 Del Method 03/02/25 16:08 08/21/25 15:14 Room Air 03/02/25 11:01 Room Air 03/02/25 08:13 Room Air 03/02/25 08:00 Laboratory Results 03/02/25 06:02 03/02/25 06:02 PG Care Time/CCT Total # of Minutes Spent Total Time Spent with Patient: Total time spent is greater than 50% in coordination of care (as documented) at patient's floor/unit and/or counseling patient: Coding Level of Care Code 71606 SUB INP/OBS CARE 2/35MIN Diagnoses Diarrhea R19.7 Diarrhea type: unspecified type Nausea & vomiting R11.2 HTN (hypertension) I10 Suprapubic catheter Z93.59 UTI (urinary tract infection) N39.0 GERD without esophagitis K21.9 Anxiety F41.9 [place]'s disease E27.1 (1) Diarrhea Diarrhea type: unspecified type Qualified Code(s): R19.7 - Diarrhea, unspecified
[2025-03-03 06:31] LABS: Hematocrit (blood only) 31.8 % (37.0-47.0); Hemoglobin 9.6 g/dl (12.0-16.0); Mean Corpuscular Hemoglobin 26.1 pg (25.0-34.0); Mean Corpuscular Volume 86.4 fL (80.0-100.0); Platelet Count 290 K/uL (130-400); RDW Standard Deviation 49.9 fL (36.4-46.3); Red Blood Count 3.68 M/uL (4.20-5.40); White Blood Count 9.71 K/ul (4.8-10.8)
[2025-03-03 07:01] LABS: Alanine Aminotransferase 9.0 U/L (7-52); Albumin Globulin Ratio 1.5 (0.9-2); Alkaline Phosphatase 36.0 U/L (34-104); Anion Gap 3.0 (3-11); Bilirubin,Total 0.2 mg/dl (0.2-1.0); Blood Urea Nitrogen 11.0 mg/dl (6-23); Calcium 8.4 mg/dl (8.6-10.3); Carbon Dioxide 29.0 mmol/L (21-32); Chloride 108.0 mmol/L (98-107); Creatinine Clr Calc Pharmacy 179.8 ml/min; Globulin 2.4 gm/dl (2.5-4.0); Glucose 83.0 mg/dl (70-99(Fasting)); Potassium 3.4 mmol/L (3.5-5.1); Sodium 140.0 mmol/L (136-145); Total Protein 5.9 gm/dl (6.0-8.3)
--- NOTE | 2025-03-03 10:55 | Infectious Disease Progress Nt ---
Date of Service March 03, 2025 Assessment & Plan (1) Staphylococcus epidermidis bacteremia: Plan Problems: #Staph epi in blood culture: likely contaminant #Port in place #Neurogenic bladder with suprapubic catheter Micro: 03/01 BCx x2: NGTD 02/24 BCx x2: Staph epi in 2/4 bottles (both from 1 set) 02/20 BCx x2 ([place]): NG 02/15 BCx x2 ([place]):NG 02/07 Bx x2: Staph epi in 1/4 bottles 01/15 UCx: E faecalis, Staph epi 01/07 UCx: Staph epi Abx: Vnac 03/01 - present Ampicillin 02/25 - 03/01 Doxycycline 02/25 - present Cefepime 02/24 39 yo F with HTN, POTS, GERD, [place]'s disease, ankylosing spondylitis, neurogenic bladder s/p suprapubic catheter, PTSD, anxiety, borderline personality disorder, who presented on 02/24 due to concern for CAUTI. Pt reports recent admission at [facility] with increased erythema and purulent drainage from her suprapubic catheter site, and was given a range of antibiotics including ceftriaxone, vanc, Zosyn, cefazolin and eventually discharged. Unable to see records of this currently. Pt feels she "went into a crisis" due to her [place]'s disease after discharge, and states she was not given steroids at [place]. Reports diffuse abd pain, mild SOB, L chest pain, nausea. Per records shown by patient, recent UCx positive for E faecalis. On presentation, pt was afebrile, tachycardic. Labs showed WBC 10.48, lactate 4.4, procal 0.04, UA with 6-10 WBCs. CXR negative. CTAP with IV contrast with moderate inflammatory changes to urinary bladder with wall thickening and perivesical fat stranding, mild enteritis may also be present. She was started on doxycycline based on prior sensitivities, and given stress dose steroids. Ampicillin added 02/25. No urine culture performed this admission. Urology was consulted, noted that her history was difficult to follow, but felt she was like ly experiencing bladder spasms. There was no concern for wound breakdown around the suprapubic catheter site. Admission blood cultures grew Staph epi in 2/4 bottles (from 1 of 2 sets). ID is consulted to evaluate for port infection. She has had multiple recent hospitalizations, including at [facility] 02/07-02/10 with concerns of low grade temps and weakness. She did not have true fever and no signs/symptoms of infection, was not felt to be having adrenal crisis per her concern, and was discharged on home dose of steroids. Then admitted to [facility] 02/11-02/14 with report of 3 weeks of diffuse cramping abd pain, N/V/D, fevers, chills, LE cramping which she felt were similar to prior episodes of adrenal crisis. It was felt her GI symptoms were due to constipation and she was started on a bowel regimen. It was not felt that she had adrenal crisis. Discussion: Staph epi in 1 of 2 blood culture sets may represent contaminant vs port infection. Pt did have 02/07 and 02/24 BCx positive for Staph epi in 1 of 2 sets, but did have intervening sets of blood cultures obtained at [facility] on 02/15, 02/20 that finalized with no growth. Biofire this admission with methicillin resistance detected. Recommendations: - BCx from 03/01 prior to receiving vanc have NGTD x 48 hours. The Staph epi is likely a contaminant. Can discontinue vanc Will sign off. Admission and Anticipated Discharge Date Admission Date: February 24, 2025 Subjective This patient recommendation is based on a telemedicine consult request which was completed asynchronously through chart review and information provided by the primary physician. The patient was not seen or examined today. The evaluation is consultative in nature and all patient care and treatment decisions can either be accepted or rejected by the patient's primary hospital-based treating physician using their own independent medical judgment for their patient. Time Spent Reviewing Chart: 11 - 20 minutes repeat BCx NGTD Afebrile without leukocytosis Results & Data Vital Signs (Past 12 Hours) Vital Signs Temp Pulse Pulse Resp BP Pulse Ox O2 Del Method 03/03/25 08:00 76 03/03/25 07:42 36.6 C 87 19 131/87 97 Room Air 03/03/25 03:22 36.6 C 83 20 135/92 97 Room Air 03/02/25 23:00 87 03/02/25 23:00 36.5 C 85 18 128/92 97 Room Air 03/02/25 23:00 O2 Del Method 03/03/25 08:00 03/03/25 07:42 03/03/25 03:22 03/02/25 23:00 03/02/25 23:00 03/02/25 23:00 Room Air
--- NOTE | 2025-03-03 15:16 | Hospitalist Progress Note ---
Date of Service March 03, 2025 Assessment & Plan (1) Diarrhea: (2) Nausea & vomiting: (3) HTN (hypertension): (4) Suprapubic catheter: (5) UTI (urinary tract infection): (6) GERD without esophagitis: (7) Anxiety: (8) [place]'s disease: Plan 39 y/o woman with POTS and adrenal insufficiency on home IV fluids, back surgery, neurogenic bladder with SP catheter, gastric bypass, GI motility disorder. Recently treated for CAUTI at [facility], then admitted here for ongoing symptoms #staph epi bacteremia, possible port infection vs contamination Serial hospitalizations for N/V/D, low grade fevers, persistent sinus tachycardia. Presumed to be UTI and adrenal crises. Has central line and SP catheter, adrenal insufficiency -repeat blood culture drawn 03/01 - remain NGTD -discussed with ID - seems to be skin contaminant - stopped vancomycin -TTE with probably mitral valve calcification, not hypermobile but cannot exclude a small vegetation -Benny showed me a recent Echo report on her phone with report of normal mitral valve. She reports having had Torsades and afib recently. 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 Reviewed previous [facility] chart and similarily high. Benny reports this is chronic and always thirsty. No urine Osm in meditech, no hyponatremias -discussed with RN and MA - she does drink a lot of fluid but did not seem like 8L yesterday (had 1L LR) -will do fluid restriction test to see whether this is polydipsia or DI. DI could look like POTS and adrenal insufficiency (chronic hypovolemia, sinus tachycardia) -check UOsm now and in AM. NPO after midnight. Tomorrow restrict fluid and check UOsm every 1-2h to see if urine can concentrate. If not, assess response to DDAVP #possible CAUTI, suprapubic catheter for neurogenic bladder -her urologist at [place] recently relocated -urologist Dr. Ruiz evaluated, though bladder spasms, recommended outpatient follow up -Per records shown by patient, urine culture + for E. faecalis -completed treatment with ampicillin/vancomycin #Adrenal insufficiency - per chart review ACTH levels have been inconsistent so not known if primary or secondary #POTS - home regimen of 10mg hydrocortisone TID (7am, 2pm, 6pm) - continue IV hydrocortisone for now - then can step down to triple usual oral dose and taper - usually gets liter of crystalloid daily to several days a week at home #GI motility disorder - including esophageal dysmotility, frequent presentations with N/V and abdominal pain #History of gastric bypass - anastomosis open on recent EGD at [facility], reviewed report - admitted recently at [facility], recent EGD at [facility] with gastritis. Plan was for outpatient GI evaluation at [facility] - bid PPI #Anxiety -Active reassurance and open discussions -on scheduled clonazepam 1 mg tid - confirmed in PDMP -psych recommended ativan 1mg PO PRN for panic attack - changed from IV to SL VTE Prophylaxis: Lovenox Admission and Anticipated Discharge Date Admission Date: February 24, 2025 Subjective [place] a little better after IV LR yesterday but not as much as she expected HR is better last 24h however She reports the high UOP is chronic. She drinks a lot because she is very thirsty. Urine usually light, though sounds like it did concentrate when sick recently at hospital in [place] Physical Exam 2 Physical Exam: Last 24h vitals reviewed GEN: no acute distress, sitting in bed. HR sinus in 90s sitting upright HEENT: pupils equal, sclerae anicteric, moist MM RESP: normal WOB CV: port Rt upper chest accessed - cdi no erythema ABD: S/ND : SP catheter SKIN: warm and dry, no generalized rashes NEURO: AOx person, place, and situation. Face symmetric, speech normal, moves 4 ext spontaneously and equally Results & Data Results & Data Vital Signs (Past 12 Hours) Vital Signs Temp Pulse Pulse Resp BP BP Pulse Ox 03/03/25 11:36 36.6 C 133 H 18 142/94 H 96 03/03/25 08:00 76 03/03/25 07:42 36.6 C 87 19 131/87 97 03/03/25 03:22 36.6 C 83 20 135/92 97 O2 Del Method 03/03/25 11:36 Room Air 03/03/25 08:00 03/03/25 07:42 Room Air 03/03/25 03:22 Room Air Laboratory Results 03/03/25 06:11 03/03/25 06:11 PG Care Time/CCT Total # of Minutes Spent Total Time Spent with Patient: Total time spent is greater than 50% in coordination of care (as documented) at patient's floor/unit and/or counseling patient: Coding Level of Care Code 88658 SUB INP/OBS CARE 50MIN Diagnoses Diarrhea R19.7 Diarrhea type: unspecified type Nausea & vomiting R11.2 HTN (hypertension) I10 Suprapubic catheter Z93.59 UTI (urinary tract infection) N39.0 GERD without esophagitis K21.9 Anxiety F41.9 [place]ack[place]'s disease E27.1 (1) Diarrhea Diarrhea type: unspecified type Qualified Code(s): R19.7 - Diarrhea, unspecified
[2025-03-03] MEDS: POTASSIUM CHLORIDE CRTAB 20 MEQ TABCR PO ONE (15:34)
[2025-03-03] MEDS: LORazepam 1 MG TAB SL PRN (17:20)
[2025-03-03 22:59] LABS: Appearance Urine Clear (Clear); Glucose Urine UA Negative (Negative)
[2025-03-04 06:32] LABS: Anion Gap 7.0 (3-11); Blood Urea Nitrogen 12.0 mg/dl (6-23); Calcium 8.4 mg/dl (8.6-10.3); Carbon Dioxide 26.0 mmol/L (21-32); Chloride 107.0 mmol/L (98-107); Creatinine Clr Calc Pharmacy 165.9 ml/min; Glucose 91.0 mg/dl (70-99(Fasting)); Magnesium 2.1 mg/dl (1.7-2.4); Potassium 3.5 mmol/L (3.5-5.1); Sodium 140.0 mmol/L (136-145)
--- NOTE | 2025-03-04 17:31 | Hospitalist Progress Note ---
Date of Service March 04, 2025 Assessment & Plan (1) Diarrhea: (2) Nausea & vomiting: (3) HTN (hypertension): (4) Suprapubic catheter: (5) UTI (urinary tract infection): (6) GERD without esophagitis: (7) Anxiety: (8) [place]'s disease: Plan 39 y/o woman with POTS and adrenal insufficiency on home IV fluids, back surgery, neurogenic bladder with SP catheter, gastric bypass, GI motility disorder. Recently treated for CAUTI at [facility], then admitted here for ongoing symptoms #staph epi bacteremia, possible port infection vs contamination Serial hospitalizations for N/V/D, low grade fevers, persistent sinus tachycardia. Presumed to be UTI and adrenal crises. Has central line and SP catheter, adrenal insufficiency -repeat blood culture drawn 03/01 - ngtd at 48h -discussed with ID - seems to be skin contaminant - stopped vancomycin -TTE with probably mitral valve calcification, not hypermobile but cannot exclude a small vegetation -Recent TTE at [place] normal 3 mo ago - working on obtaining report and images. She reports having had Torsades and afib recently. Continue pvc monitor -will get another set of blood cultures after interval off vancomycin -AM CBC #high urine output -UOP [id number] daily this stay. Reviewed previous [facility] chart and similarily high. Benny reports this is chronic and always thirsty. No urine Osm in meditech, no hyponatremias -she does drink a lot of fluid but UOP seems much higher than whats been observed -fluid restriction test underway with some caveats - she did have some oral fluids early this am and agreeable to 2L restriction. First two urine Osm were dilute, third was normal, fourth pending. -if inappropriately dilute will do trial of DDAVP - discussed with her and today -regardless, by tonight will give 2L crystalloid -orthostatic VS today - HR 111 lying -->126 standing. Standing BP was 122/72 which was better than the lying, sitting BPs. #possible CAUTI, suprapubic catheter for neurogenic bladder -her urologist at [place] recently relocated -urologist Dr. Ruiz evaluated, thought bladder spasms, recommended outpatient follow up -Per records shown by patient, urine culture + for E. faecalis -completed treatment with ampicillin/vancomycin. Negative UA 03/04. -continues with SP area tenderness and dysuria #Adrenal insufficiency - per chart review ACTH levels have been inconsistent so not known if primary or secondary #POTS - home regimen of 10mg hydrocortisone TID (7am, 2pm, 6pm) - continue IV hydrocortisone for now because of fluid restriction test - then can step down to triple usual oral dose and taper - usually gets liter of crystalloid daily to several days a week at home, recently q48h #GI motility disorder - including esophageal dysmotility, frequent presentations with N/V and abdominal pain #History of gastric bypass - anastomosis open on recent EGD at [facility], reviewed report - admitted recently at [facility], recent EGD at [facility] with gastritis. Plan was for outpatient GI evaluation at [facility] - currently doing well with this - bid PPI #Anxiety -Active reassurance and open discussions -on scheduled clonazepam 1 mg tid - confirmed in PDMP -psych recommended ativan 1mg PO PRN for panic attack VTE Prophylaxis: [place] I met with Benny and her present in room, as well as her two children and intermittently her RN. We discussed current situation, plan of care, and I addressed several questions including clarifying I am concerned with staph epi, not MRSA and plan to repeat blood cultures after interval off antibiotics which will be much more accurate, obtain recent comparison Echo ideally with images to determine whether new mitral valve changes. Discussed cystitis vs colonization of urinary catheters and how rapidly biofilm develops after catheter exchanges. Discussed causes of polyuria and the evaluation, which is underway. This conversation was greater than 30 minutes. Admission and Anticipated Discharge Date Admission Date: February 24, 2025 Subjective Feels generally not well today. Tachycardic with bed mobility. Eating well per nursing staff, no vomiting Continued dysuria and bilateral lower abdominal/suprapubic tenderness Physical Exam 2 Physical Exam: Last 24h vitals reviewed GEN: no acute distress, sitting in bed. HEENT: pupils equal, sclerae anicteric, moist MM RESP: normal WOB CV: port Rt upper chest accessed - cdi no erythema ABD: suprapubic/lower abdominal tenderness. Currently no cellulitis or yeast at SP cath site SKIN: warm and dry, no generalized rashes NEURO: AOx person, place, and situation. Face symmetric, speech normal, moves 4 ext spontaneously and equally Results & Data Results & Data Vital Signs (Past 12 Hours) Vital Signs Temp Pulse Pulse Resp BP Pulse Ox O2 Del Method 03/04/25 15:33 36.5 C 95 H 20 130/91 97 Room Air 03/04/25 14:01 96 H 03/04/25 11:34 36.6 C 99 Room Air 03/04/25 11:07 88 03/04/25 07:15 36.6 C 110 H 18 150/94 H 97 Room Air Laboratory Results 03/03/25 06:11 03/04/25 05:38 PG Care Time/CCT Total # of Minutes Spent Total Time Spent with Patient: I personally spent: 55 minutes today on clinical care activities including: x reviewing chart notes and vital signs [x] reviewing labs [] reviewing studies [] discussion with gis consultant(s) [] discussion with care technician x examining and counseling the patient [x] counseling the patient's family x writing orders x discussions with bedside RN x documentation Coding Level of Care Code 75985 SUB INP/OBS CARE 3/50MIN Diagnoses Diarrhea R19.7 Diarrhea type: unspecified type Nausea & vomiting R11.2 HTN (hypertension) I10 Suprapubic catheter Z93.59 UTI (urinary tract infection) N39.0 GERD without esophagitis K21.9 Anxiety F41.9 [place]'s disease E27.1 (1) Diarrhea Diarrhea type: unspecified type Qualified Code(s): R19.7 - Diarrhea, unspecified
[2025-03-04] MEDS: DESMOPRESSIN ACETATE 2 MCG in SODIUM CHLORIDE 0.9% 50 ML IV STA (19:13)
[2025-03-04] MEDS: SENNA 8.6 MG TAB PO PRN (20:03)
[2025-03-04] MEDS: LACTATED RINGER'S 2,000 ML IV ONE (21:02)
[2025-03-05 07:37] LABS: Hematocrit (blood only) 31.1 % (37.0-47.0); Hemoglobin 9.6 g/dl (12.0-16.0); Immature Granulocytes # (auto) 0.24 K/uL (0.01-0.20); Immature Granulocytes % (auto) 1.6 %; Mean Corpuscular Hemoglobin 26.3 pg (25.0-34.0); Mean Corpuscular Volume 85.2 fL (80.0-100.0); Platelet Count 288 K/uL (130-400); RDW Standard Deviation 49.7 fL (36.4-46.3); Red Blood Count 3.65 M/uL (4.20-5.40); White Blood Count 15.37 K/ul (4.8-10.8)
[2025-03-05 07:53] LABS: Anion Gap 8 (3-11); Blood Urea Nitrogen 12 mg/dl (6-23); Calcium 8.3 mg/dl (8.6-10.3); Carbon Dioxide 25 mmol/L (21-32); Chloride 99 mmol/L (98-107); Creatinine Clr Calc Pharmacy 181.5 ml/min; Glucose 121 mg/dl (70-99(Fasting)); Magnesium 1.8 mg/dl (1.7-2.4); Potassium 2.9 mmol/L (3.5-5.1); Sodium 132 mmol/L (136-145)
[2025-03-05 10:37] LABS: Appearance Urine Cloudy (Clear); Bacteria Urine Automated None Seen (None Seen); Cast Urine Automated 0-2 /lpf (0-2); Epithelial Cell Urine Auto 0-2 /hpf (0-2); Glucose Urine UA Negative (Negative); RBC Urine Automated 0-2 /hpf (0-2); WBC Urine Automated 0-5 /hpf (0-5)
[2025-03-05] MEDS: POTASSIUM CHLORIDE CRTAB 20 MEQ TABCR PO SCH (11:42)
[2025-03-05] MEDS: HYDROCORTISONE SOD 50 MG in SYRINGE 0 ML IV STA (14:44)
[2025-03-05] MEDS: LACTATED RINGER'S 1,000 ML IV ONE (14:45)
--- NOTE | 2025-03-05 14:51 | Hospitalist Progress Note ---
Date of Service March 05, 2025 Assessment & Plan (1) [place]'s disease: (2) Polyuria: (3) UTI (urinary tract infection): (4) HTN (hypertension): (5) Suprapubic catheter: (6) GERD without esophagitis: Plan 39 y/o woman with POTS and adrenal insufficiency on home IV fluids, back surgery, neurogenic bladder with SP catheter, gastric bypass, GI motility disorder. Recently treated for CAUTI at [facility], then admitted here for ongoing symptoms #staph epi bacteremia vs contamination #abnormal echo Serial hospitalizations for N/V/D, low grade fevers, persistent sinus tachycardia. Presumed to be UTI and adrenal crises. Has central line and SP catheter, adrenal insufficiency -repeat blood culture drawn 03/01 - remain ngtd -consulted ID - stopped vancomycin 03/03 thought likely to be contaminant -TTE with probably mitral valve calcification, not hypermobile but cannot exclude a small vegetation -Recent TTE at [place] normal 3 mo ago - working on obtaining report and images. She reports having had Torsades (with electrolyte disturbance) and afib recently. 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 Frequently tachycardic attributed to adrenal crises Modified fluid restriction test 03/04 -she would not agree to complete fluid restriction but kept it to 1500 mL for the shift -no IV fluids given previous day, UOP was 3700 mL for the duration 0800 to 2100 -urine Osm 357 --> 198 --> 536 --> 264 at 1735 --> 2 mcg DDAVP IV at 1913 --> 623 at 2118 not a perfect test but she maintained dilute urine throughout the day with high UOP despite moderate fluid restriction, Urine Osm increased by >50% after dose of DDAVP which is consistent with central DI rather than polydipsia (should have only about 10% increase response). she reports episode of hypernatremia recently while hospitalized in [place] trial of oral DDAVP is warranted with close monitoring usual starting dose 0.05 bid. Will try to get some records from her endo at [facility]. Benny reports history of pituitary abnormality on brain MRI #possible CAUTI, suprapubic catheter for neurogenic bladder -her urologist at [place] recently relocated -urologist Dr. Ruiz evaluated, thought bladder spasms, recommended outpatient follow up -Per records shown by patient, urine culture + for E. faecalis -completed treatment with ampicillin/vancomycin. Negative UA 03/04. -continues with SP area tenderness and dysuria, another UA was sent and is basically normal today -checked CRP which is very low argues against ongoing pelvic infection. WBC has increased to 15. #Adrenal insufficiency - per chart review ACTH levels have been inconsistent so not known if primary or secondary #POTS - if she does have DI, its not striclty POTS however she does seem to have autonomic dysfunction which can be a consequence of untreated DI - home regimen of 10mg hydrocortisone TID (7am, 2pm, 6pm) - continue IV hydrocortisone for now because of fluid restriction test - tachycardic in bed today ordered 50 mg IV and 1L LR bolus - then can step down to triple usual oral dose and taper - usually gets liter of crystalloid daily to several days a week at home, recently q48h #GI motility disorder - including esophageal dysmotility, frequent presentations with N/V and abdominal pain #History of gastric bypass - anastomosis open on recent EGD at [facility], reviewed report - admitted recently at [facility], recent EGD at [facility] with gastritis. Plan was for outpatient GI evaluation at [facility] - currently doing well with this - bid PPI #Anxiety -on scheduled clonazepam 1 mg tid - confirmed in PDMP -psych recommended ativan 1mg PO PRN for panic attack VTE Prophylaxis: Lovenox Discussed plan of care with PCU nursing staff Admission and Anticipated Discharge Date Admission Date: February 24, 2025 Subjective Pesotum bad following IV ddavp - flushing nausea, etc Just woke up from nap with a start and HR was 140 Noticing mucus in her catheter tubing and worried it will quickly worsen and she will become septic Physical Exam 2 Physical Exam: Last 24h vitals reviewed GEN: no acute distress, sitting in bed. HEENT: pupils equal, sclerae anicteric, moist MM RESP: normal WOB CV: port Rt upper chest accessed ABD: SP cath site Urine yellow and only slightly cloudy, light mucus SKIN: warm and dry, no generalized rashes NEURO: AOx person, place, and situation. Face symmetric, speech normal, moves 4 ext spontaneously and equally Results & Data Results & Data Vital Signs (Past 12 Hours) Vital Signs Temp Pulse Resp BP Pulse Ox O2 Del Method 03/05/25 11:59 36.5 C 120 H 18 119/76 99 Room Air 03/05/25 09:40 Room Air 03/05/25 08:00 36.6 C 112 H 20 128/96 97 Room Air 03/05/25 03:31 36.7 C 104 H 18 138/91 96 Room Air Laboratory Results 03/05/25 06:57 03/05/25 06:57 PG Care Time/CCT Total # of Minutes Spent Total Time Spent with Patient: Total time spent is greater than 50% in coordination of care (as documented) at patient's floor/unit and/or counseling patient: Coding Level of Care Code 39798 SUB INP/OBS CARE 3/50MIN Diagnoses [place]'s disease E27.1 Polyuria R35.89 UTI (urinary tract infection) N39.0 HTN (hypertension) I10 Suprapubic catheter Z93.59 GERD without esophagitis K21.9
[2025-03-06 06:25] LABS: Hematocrit (blood only) 33.8 % (37.0-47.0); Hemoglobin 10.0 g/dl (12.0-16.0); Immature Granulocytes # (auto) 0.23 K/uL (0.01-0.20); Immature Granulocytes % (auto) 2.2 %; Mean Corpuscular Hemoglobin 25.6 pg (25.0-34.0); Mean Corpuscular Volume 86.4 fL (80.0-100.0); Platelet Count 317 K/uL (130-400); RDW Standard Deviation 50.1 fL (36.4-46.3); Red Blood Count 3.91 M/uL (4.20-5.40); White Blood Count 10.57 K/ul (4.8-10.8)
[2025-03-06 06:49] LABS: Anion Gap 7.0 (3-11); Blood Urea Nitrogen 11.0 mg/dl (6-23); Calcium 8.6 mg/dl (8.6-10.3); Carbon Dioxide 28.0 mmol/L (21-32); Chloride 107.0 mmol/L (98-107); Creatinine Clr Calc Pharmacy 154.6 ml/min; Glucose 102.0 mg/dl (70-99(Fasting)); Magnesium 2.1 mg/dl (1.7-2.4); Potassium 3.1 mmol/L (3.5-5.1); Sodium 142.0 mmol/L (136-145)
[2025-03-06] MEDS: POTASSIUM CHLORIDE CRTAB 20 MEQ TABCR PO SCH (09:16)
[2025-03-06] MEDS: LACTATED RINGER'S 1,000 ML IV SCH (14:26)
--- NOTE | 2025-03-06 18:09 | Hospitalist Progress Note ---
Date of Service March 06, 2025 Assessment & Plan (1) [place]'s disease: (2) Polyuria: (3) UTI (urinary tract infection): (4) HTN (hypertension): (5) Suprapubic catheter: (6) GERD without esophagitis: Plan 39 y/o woman with POTS and adrenal insufficiency on home IV fluids, back surgery, neurogenic bladder with SP catheter, gastric bypass, GI motility disorder. Recently treated for CAUTI at [facility], then admitted here for ongoing symptoms #staph epi bacteremia vs contamination #abnormal echo Serial hospitalizations for N/V/D, low grade fevers, persistent sinus tachycardia. Presumed to be UTI and adrenal crises. Has central line and SP catheter, adrenal insufficiency -repeat blood culture drawn 03/01 - remain ngtd. Second set well off abx drawn 03/06 -consulted ID - stopped vancomycin 03/03 thought likely to be contaminant -TTE with probably mitral valve calcification, not hypermobile but cannot exclude a small vegetation -Recent TTE at [place] normal 3 mo ago - working on obtaining report and images. She reports having had Torsades (with electrolyte disturbance) and afib recently. 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 Frequently tachycardic attributed to adrenal crises Modified fluid restriction test 03/04 -she would not agree to complete fluid restriction but kept it to 1500 mL for the shift -no IV fluids given previous day, UOP was 3700 mL for the duration 0800 to 2100 -urine Osm 357 --> 198 --> 536 --> 264 at 1735 --> 2 mcg DDAVP IV at 1913 --> 623 at 2118 not a perfect test but she maintained dilute urine throughout the day with high UOP despite moderate fluid restriction, Urine Osm increased by >50% after dose of DDAVP which is consistent with central DI rather than polydipsia (should have only about 10% increase response). 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 Slightly hyponatremic at 132 today but I think that is hypovolemic - gave 2L LR today. Getting 4:45 AM BMP will need to work with her on slowly reducing oral fluids if the DDAVP is successful, otherwise she risks hyponatremia no oral fluid restriction right now #possible CAUTI, suprapubic catheter for neurogenic bladder -her urologist at [place] recently relocated -urologist Dr. Ruiz evaluated, thought bladder spasms, recommended outpatient follow up -Per records shown by patient, urine culture + for E. faecalis -completed treatment with ampicillin/vancomycin. Negative UA 03/04. -continues with SP area tenderness and dysuria -checked CRP which is very low argues against ongoing pelvic infection. -repeat UAs at her request were negative #Adrenal insufficiency - per chart review ACTH levels have been inconsistent so not known if primary or secondary #POTS - if she does have DI, its not striclty POTS however she does seem to have autonomic dysfunction which can be a consequence of untreated DI - home regimen of 10mg hydrocortisone TID (7am, 2pm, 6pm) - ordered IV hydrocortisone to 40 mg at tid interval that she's used to with PRN 25 mg dose - I think a lot of the adrenal crisis symptoms have been hypovolemia, though they can coexist of course #GI motility disorder - including esophageal dysmotility, frequent presentations with N/V and abdominal pain #History of gastric bypass - anastomosis open on recent EGD at [facility], reviewed report - admitted recently at [facility], recent EGD at [facility] with gastritis. Plan was for outpatient GI evaluation at [facility]. She reports malabsorption issues. - currently doing well with this - bid PPI #Anxiety -on scheduled clonazepam 1 mg tid - confirmed in PDMP -psych recommended ativan 1mg PO PRN for panic attack VTE Prophylaxis: Pasha Discussed plan of care with PCU nursing staff, care coord, community artist Admission and Anticipated Discharge Date Admission Date: February 24, 2025 Subjective Upset about events overnight Fluid restriction was enforced though not intended. She felt she needed stress dose steroids. She showed me a video of some unusual breathing. Physical Exam 2 Physical Exam: Last 24h vitals reviewed GEN: no acute distress, sitting in bed. HEENT: pupils equal, sclerae anicteric, moist MM RESP: normal WOB CV: port Rt upper chest accessed ABD: SP cath site - no surrounding erythema or yeast Urine yellow with some increased mucus SKIN: warm and dry, no generalized rashes NEURO: AOx person, place, and situation. Face symmetric, speech normal, moves 4 ext spontaneously and equally Results & Data Results & Data Vital Signs (Past 12 Hours) Vital Signs Temp Pulse Resp BP Pulse Ox O2 Del Method 03/06/25 15:35 36.6 C 107 H 22 132/87 100 Room Air 03/06/25 10:41 36.6 C 109 H 22 128/91 97 Room Air 03/06/25 07:48 36.7 C 86 22 138/89 96 Room Air Laboratory Results 03/06/25 05:44 03/06/25 05:44 PG Care Time/CCT Total # of Minutes Spent Total Time Spent with Patient: Total time spent is greater than 50% in coordination of care (as documented) at patient's floor/unit and/or counseling patient: Coding Level of Care Code 11419 SUB INP/OBS CARE 3/50MIN Diagnoses [place] Jacinto's disease E27.1 Polyuria R35.89 UTI (urinary tract infection) N39.0 HTN (hypertension) I10 Suprapubic catheter Z93.59 GERD without esophagitis K21.9
[2025-03-06] MEDS ORDERED: HYDROCORTISONE SOD 40 MG in SYRINGE 0 ML IV SCH (20:00)
[2025-03-06] MEDS: HYDROCORTISONE SOD 40 MG in SYRINGE 0 ML IV SCH (20:26)
[2025-03-06] MEDS: DESMOPRESSIN ACETATE 0.1 MG TAB PO SCH (20:33)
[2025-03-07 08:16] LABS: Hematocrit (blood only) 32.2 % (37.0-47.0); Hemoglobin 9.9 g/dl (12.0-16.0); Immature Granulocytes # (auto) 0.38 K/uL (0.01-0.20); Immature Granulocytes % (auto) 3.6 %; Mean Corpuscular Hemoglobin 26.6 pg (25.0-34.0); Mean Corpuscular Volume 86.6 fL (80.0-100.0); Platelet Count 320 K/uL (130-400); RDW Standard Deviation 51.0 fL (36.4-46.3); Red Blood Count 3.72 M/uL (4.20-5.40); White Blood Count 10.66 K/ul (4.8-10.8)
[2025-03-07 08:33] LABS: Anion Gap 6.0 (3-11); Blood Urea Nitrogen 11.0 mg/dl (6-23); Calcium 8.8 mg/dl (8.6-10.3); Carbon Dioxide 29.0 mmol/L (21-32); Chloride 106.0 mmol/L (98-107); Creatinine Clr Calc Pharmacy 158.2 ml/min; Glucose 99.0 mg/dl (70-99(Fasting)); Potassium 3.0 mmol/L (3.5-5.1); Sodium 141.0 mmol/L (136-145)
[2025-03-07] MEDS: LACTATED RINGER'S 1,000 ML IV SCH ×2 (09:46→18:32)
[2025-03-07] MEDS: POTASSIUM CHLORIDE CRTAB 20 MEQ TABCR PO SCH ×2 (09:47→14:16)
[2025-03-07] MEDS ORDERED: VANCOMYCIN CONSULT ACTIVE PRN (13:26)
[2025-03-07] MEDS ORDERED: VANCOMYCIN HCL 2,000 MG in SODIUM CHLORIDE 0.9% 500 ML IV ONE (14:00)
--- NOTE | 2025-03-07 14:28 | Pharmacy Report ---
Pharmacy PK ABX Note - Date of Service March 07, 2025 - Assessment and Plan Assessment 03/07: * Vancomycin was discontinued by ID on 03/03/25. Being restarted today for possible UTI. Day #1 of therapy. * Lactate elevated. Procal normal. No leukocytosis. Afebrile. Renal fxn stable. * Blood cultures from 03/06/25 pending. 03/02: * Random vanco level resulted at 13.8 mcg/mL. This correlates to AUC/ROYER of 497 at steady state. * Repeat BC with no growth at 24 hour reese * Continue current vanco regimen 03/01: 39 year old F with h/o of neurogenic bladder and suprapubic catheter who presented on 02/24/25 with abdominal pain, mild SOB, L sided chest pain, and nausea. Recently discharged from [facility] where she was treated for CAUTI. Patient reports receiving ceftriaxone, vancomycin, pip/tazo and cefazolin during that stay. She was started on ampicillin + doxycycline IV at our institution (selection based on previous culture results). These antibiotics were held today and vancomycin IV has been ordered for possible bacteremia due to Staph epidermidis growing in 1 of 2 BC. Patient has R subclavian port. Repeat BC pending. TTE pending. ID consulted. Pertinent microbiologic data includes: 02/07 BC - Staph epidermidis (1 of 2) 02/24 BC - Staph epidermidis (1 of 2) 03/01 BC - No growth @ 24h 01/15/25 -suprapubic catheter culture - E. faecalis, Staph epidermidis Plan Vancomycin * Loading dose: 2500 mg IV x 1 * Maintenance dose: 1750 mg IV every 12 hours * Regimen is predicted to achieve a steady state AUC/ROYER of 400-600 mg/L.hr * Random level to be ordered on 03/09/25 Pharmacy will continue to follow and will adjust dose/frequency as necessary. Thank you. Pharmacy has transitioned to AUC monitoring for vancomycin. AUC/ROYER is the preferred PK/PD target and is associated with decreased risk of nephrotoxicity compared to traditional trough targets.
[2025-03-07] MEDS: HYDROCORTISONE SOD 50 MG in SYRINGE 0 ML IV SCH (14:47)
[2025-03-07] MEDS: MoRPHine SULFATE 4 MG/ML 1 ML CARP\\VIAL IV ONE ×2 (14:47→17:13)
--- NOTE | 2025-03-07 17:28 | Hospitalist Progress Note ---
Date of Service March 07, 2025 Assessment & Plan (1) [place]'s disease: (2) Polyuria: (3) UTI (urinary tract infection): (4) HTN (hypertension): (5) Suprapubic catheter: (6) GERD without esophagitis: Plan 39 y/o woman with POTS and adrenal insufficiency on home IV fluids, back surgery, neurogenic bladder with SP catheter, gastric bypass, GI motility disorder. Recently treated for CAUTI at [facility], then admitted here for ongoing symptoms She is extremely concerned she is developing sepsis today. Has been off vancomycin since Thursday. Sx include malaise / diffuse pain, diarrhea overnight, poor po, unchanged abdominal and SP pain Vital signs are similar and WBC 10.5. Two UAs over weekend negative and blood cultures remain negative. C. diff is possible since many recent antibiotics but last stool was not liquid. I do not see objective signs of worsening, however, we will start over since she clearly feels worse today. Provided reassurance -already getting IVF with 250 mL/h LR x 2 liters I ordered this AM for volume replacement -at her request checked lactate which is 2.1, 2.5 (however LR is running in at significant rate which will affect it) and increased hydrocortisone IV from 40 mg back to 50 mg -checked procalcitonin which is normal -repeating blood cultures and also a fungal blood culture -change SP catheter (which she says is due) and obtain new UA/culture. explained that positive culture without other evidence of urinary tract infection reflects colonization -unless in an emergency, above to be completed prior to empiric antibiotics -discussed while her was in room and provided opportunity to ask questions, discussed with nursing staff #staph epi bacteremia vs contamination #abnormal echo Serial hospitalizations for N/V/D, low grade fevers, persistent sinus tachycardia. Presumed to be UTI and adrenal crises. Has central line and SP catheter, adrenal insufficiency -repeat blood culture drawn 03/01 - remain ngtd. Second set well off abx drawn 03/06 also ngtd and see above -consulted ID - stopped vancomycin 03/03 thought likely to be contaminant. ID not following presently -TTE with probably mitral valve calcification, not hypermobile but cannot exclude a small vegetation. ID exchange underwriting consultant did not recommend JAKE at this time. -Recent TTE at [place] normal 3 mo ago - working on obtaining report and images. She reports having had Torsades (with electrolyte disturbance) and afib recently. 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 Frequently tachycardic attributed to adrenal crises Modified fluid restriction test 03/04 -she would not agree to complete fluid restriction but kept it to 1500 mL for the shift -no IV fluids given previous day, UOP was 3700 mL for the duration 0800 to 2100 -urine Osm 357 --> 198 --> 536 --> 264 at 1735 --> 2 mcg DDAVP IV at 1913 --> 623 at 2118 not a perfect test but she maintained dilute urine throughout the day with high UOP despite moderate fluid restriction, Urine Osm increased by >50% after dose of DDAVP which is consistent with central DI rather than polydipsia (should have only about 10% increase response). 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 Ruiz evaluated, thought bladder spasms, recommended outpatient follow up -Per records shown by patient, urine culture + for E. faecalis previous admission at -completed treatment with ampicillin/vancomycin -continues with SP area tenderness and dysuria -checked CRP which is very low argues against ongoing pelvic infection. -repeat UAs at her request were negative -see above #Adrenal insufficiency - per chart review ACTH levels have been inconsistent so not known if primary or secondary #POTS - if she does have DI, its not strictly POTS however she does seem to have autonomic dysfunction which can be a consequence of untreated DI - home regimen of 10mg hydrocortisone TID (7am, 2pm, 6pm) -IV hydrocortisone to 50 mg q8h with PRN 25 mg dose - I think a lot of the adrenal crisis symptoms have been hypovolemia, though they can coexist of course #GI motility disorder - including esophageal dysmotility, frequent presentations with N/V and abdominal pain #History of gastric bypass - anastomosis open on recent EGD at [facility], reviewed report - admitted recently at [facility], recent EGD at [facility] with gastritis. Plan was for outpatient GI evaluation at [facility]. She reports malabsorption issues. - currently doing well with this, excepting today - bid PPI #Anxiety -on scheduled clonazepam 1 mg tid - confirmed in PDMP -psych recommended ativan 1mg PO PRN for panic attack -extra lorazepam given this am for anxiety VTE Prophylaxis: Lovenox Discussed POC with Benny, her , 2S nursing staff Admission and Anticipated Discharge Date Admission Date: February 24, 2025 Subjective Today Benny is extremely concerned that she is developing sepsis because she feels achy and painful all over Continues to have lower abdominal / suprapubic pain and urethral pain, generalized abdominal pain She had diarrhea last night after an interval without. Last stool this AM was soft however per staff Oral intake not good today either Physical Exam 2 Physical Exam: Last 24h vitals reviewed GEN: awake/alert HEENT: pupils equal, sclerae anicteric, moist MM RESP: normal WOB CV: port Rt upper chest accessed ABD: pannus with ecchymoses from enoxaparin, lower abd wall tenderness similar, SP catheter Urine yellow and presently clear SKIN: warm and dry, no generalized rashes NEURO: AOx person, place, and situation. Face symmetric, speech normal, moves 4 ext spontaneously and equally Results & Data Results & Data Vital Signs (Past 12 Hours) Vital Signs Temp Pulse Pulse Resp BP BP Pulse Ox 03/07/25 16:46 125 H 03/07/25 16:33 36.7 C 115 H 16 152/85 H 99 03/07/25 13:53 112 H 03/07/25 10:51 36.6 C 111 H 18 127/86 95 03/07/25 07:30 03/07/25 07:18 36.5 C 92 H 19 137/85 97 03/07/25 07:00 83 O2 Del Method 03/07/25 16:46 03/07/25 16:33 Room Air 03/07/25 13:53 03/07/25 10:51 Room Air 03/07/25 07:30 Room Air 03/07/25 07:18 Room Air 03/07/25 07:00 Laboratory Results 03/07/25 07:36 03/07/25 07:36 lactate 2.1 --> 2.5 (however LR is running at 250/h during both draws) procalcitonin 0.06 PG Care Time/CCT Total # of Minutes Spent Total Time Spent with Patient: Total time spent is greater than 50% in coordination of care (as documented) at patient's floor/unit and/or counseling patient: Coding Level of Care Code 97063 SUB INP/OBS CARE 3/50MIN Diagnoses [place]'s disease E27.1 Polyuria R35.89 UTI (urinary tract infection) N39.0 HTN (hypertension) I10 Suprapubic catheter Z93.59 GERD without esophagitis K21.9
[2025-03-07] MEDS: VANCOMYCIN HCL 2,500 MG in SODIUM CHLORIDE 0.9% 500 ML IV ONE (18:42)
[2025-03-08] MEDS: HYDROCORTISONE SOD 25 MG in SYRINGE 0 ML IV PRN (00:33)
[2025-03-08] MEDS ORDERED: VANCOMYCIN HCL 1,750 MG in SODIUM CHLORIDE 0.9% 500 ML IV SCH (06:00)
[2025-03-08 07:29] LABS: Anion Gap 8.0 (3-11); Blood Urea Nitrogen 8.0 mg/dl (6-23); Calcium 8.7 mg/dl (8.6-10.3); Carbon Dioxide 30.0 mmol/L (21-32); Chloride 106.0 mmol/L (98-107); Creatinine Clr Calc Pharmacy 178.5 ml/min; Glucose 90.0 mg/dl (70-99(Fasting)); Potassium 3.1 mmol/L (3.5-5.1); Sodium 144.0 mmol/L (136-145)
[2025-03-08] MEDS: FERROUS SULFATE 325 MG TAB PO SCH (09:38)
[2025-03-08] MEDS: MoRPHine SULFATE 4 MG/ML 1 ML CARP\\VIAL IV PRN (12:28)
[2025-03-08 13:26] LABS: Appearance Urine Clear (Clear); Bacteria Urine Automated None Seen (None Seen); Cast Urine Automated 0-2 /lpf (0-2); Epithelial Cell Urine Auto 0-2 /hpf (0-2); Glucose Urine UA Negative (Negative); RBC Urine Automated 0-2 /hpf (0-2); WBC Urine Automated 0-5 /hpf (0-5)
--- NOTE | 2025-03-08 13:42 | Hospitalist Progress Note ---
Date of Service March 08, 2025 Assessment & Plan (1) Lignite's disease: (2) Polyuria: (3) UTI (urinary tract infection): (4) HTN (hypertension): (5) Suprapubic catheter: (6) GERD without esophagitis: Plan This is a 39 y/o woman with POTS and adrenal insufficiency on home IV fluids, back surgery, neurogenic bladder with SP catheter, gastric bypass, GI motility disorder. Recently treated for CAUTI at [facility], then admitted here for ongoing symptoms She is concerned she is developing sepsis and is in Adrenal crisis, however, her lactic acid level and procalcitonin levels are normal and she has been off antibiotics as suggested by Infectious Diseases. Antibiotics were initially started for Staph Epi, which ID later clarified was likely from contamination due to repeat negative cultures I reviewed her charts and records extensively from [facility] She follows up with endocrinology and they recommend to adjust her home Hydrocortisol doses if we suspect mild, moderate or severe stress Currently, she is on 50mg TID (at home, she gets 10mg TID) Will try to wean her down to her home dose Neurogenic bladder: She has a suprapubic catheter This would be changed today #abnormal echo Serial hospitalizations for N/V/D, low grade fevers, persistent sinus tachycardia. Presumed to be UTI and adrenal crises. Has central line and SP catheter, adrenal insufficiency -repeat blood culture drawn 03/01 - remain ngtd. Second set well off abx drawn 03/06 also ngtd and see above -consulted ID - stopped vancomycin 03/03 thought likely to be contaminant. ID not following presently -TTE with probably mitral valve calcification, not hypermobile but cannot exclude a small vegetation. ID internet consultant did not recommend JAKE at this time. 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 Modified fluid restriction test 03/04 -she would not agree to complete fluid restriction but kept it to 1500 mL for the shift -no IV fluids given previous day, UOP was 3700 mL for the duration 0800 to 2100 -urine Osm 357 --> 198 --> 536 --> 264 at 1735 --> 2 mcg DDAVP IV at 1913 --> 623 at 2118 -Will urge her to follow up with her regular Mens Locker Room Attendant at [facility] #possible CAUTI, suprapubic catheter for neurogenic bladder -her urologist at [place] recently relocated -urologist Dr. Ruiz evaluated, thought bladder spasms, recommended outpatient follow up -Per records shown by patient, urine culture + for E. faecalis previous admission at -completed treatment with ampicillin/vancomycin -continues with SP area tenderness and dysuria -checked CRP which is very low argues against ongoing pelvic infection. -repeat UAs at her request were negative -see above #Adrenal insufficiency - per chart review ACTH levels have been inconsistent so not known if primary or secondary #POTS - if she does have DI, its not strictly POTS however she does seem to have autonomic dysfunction which can be a consequence of untreated DI - home regimen of 10mg hydrocortisone TID (7am, 2pm, 6pm) -IV hydrocortisone to 50 mg q8h with PRN 25 mg dose - I think a lot of the adrenal crisis symptoms have been hypovolemia, though they can coexist of course #GI motility disorder - including esophageal dysmotility, frequent presentations with N/V and abdominal pain Said she has had gastric emptying studies in the past #History of gastric bypass - anastomosis open on recent EGD at [facility], reviewed report - admitted recently at [facility], recent EGD at [facility] with gastritis. Plan was for outpatient GI evaluation at [facility]. She reports malabsorption issues. - currently doing well with this, - bid PPI #Anxiety -on scheduled clonazepam 1 mg tid - confirmed in PDMP -psych recommended ativan 1mg PO PRN for panic attack -extra lorazepam given this am for anxiety Decondition: Will consult physical and Occupational Therapy VTE Prophylaxis: Lovenox Disposition: Hopefully d/c in the next 24 to 48 hrs Admission and Anticipated Discharge Date Admission Date: February 24, 2025 Subjective Patient seen and examined this morning, complains of mild chest discomfort and also was concerned about her suprapubic catheter, she was reassured that tube to be changed this afternoon Review of Systems Review of Systems: All systems reviewed are negative, apart from the ones contained in the history. Physical Exam Physical Exam: Last 24h vitals reviewed GEN: awake/alert HEENT: pupils equal, sclerae anicteric, moist MM RESP: normal WOB CV: port Rt upper chest accessed ABD: pannus with ecchymoses from enoxaparin, lower abd wall tenderness similar, SP catheter Urine yellow and presently clear SKIN: warm and dry, no generalized rashes NEURO: AOx person, place, and situation. Face symmetric, speech normal, moves 4 ext spontaneously and equally Results & Data Results & Data Vital Signs (Past 12 Hours) Vital Signs Temp Pulse Pulse Resp BP Pulse Ox O2 Del Method 03/08/25 11:46 97.7 F 78 20 130/69 96 Room Air 03/08/25 07:58 97.9 F 102 H 18 137/89 97 Room Air 03/08/25 07:00 101 H 03/08/25 03:31 98.1 F 104 H 18 135/96 96 Room Air PG Care Time/CCT Total # of Minutes Spent Total Time Spent with Patient: Total time spent is greater than 50% in coordination of care (as documented) at patient's floor/unit and/or counseling patient: Coding Level of Care Code 75953 SUB INP/OBS CARE 2/35MIN 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
[2025-03-08] MEDS: PHENAZOPYRIDINE HCL 200 MG TAB PO PRN (15:57)
[2025-03-09] MEDS ORDERED: VANCOMYCIN LEVEL ONE (05:00)
[2025-03-09 07:14] LABS: Anion Gap 6.0 (3-11); Calcium 8.3 mg/dl (8.6-10.3); Carbon Dioxide 28.0 mmol/L (21-32); Chloride 107.0 mmol/L (98-107); Potassium 3.4 mmol/L (3.5-5.1); Sodium 141.0 mmol/L (136-145)
[2025-03-09 07:19] LABS: Blood Urea Nitrogen 9.0 mg/dl (6-23); Creatinine Clr Calc Pharmacy 164.7 ml/min; Glucose 84.0 mg/dl (70-99(Fasting))
[2025-03-09 07:52] LABS: Hematocrit (blood only) 31.9 % (37.0-47.0); Hemoglobin 9.5 g/dl (12.0-16.0); Mean Corpuscular Hemoglobin 26.2 pg (25.0-34.0); Mean Corpuscular Volume 88.1 fL (80.0-100.0); Platelet Count 321 K/uL (130-400); RDW Standard Deviation 53.3 fL (36.4-46.3); Red Blood Count 3.62 M/uL (4.20-5.40); White Blood Count 10.15 K/ul (4.8-10.8)
--- NOTE | 2025-03-09 11:16 | Hospitalist Progress Note ---
Date of Service March 09, 2025 Assessment & Plan (1) Coleman's disease: (2) Polyuria: (3) UTI (urinary tract infection): (4) HTN (hypertension): (5) Suprapubic catheter: (6) GERD without esophagitis: Plan This is a 39 y/o woman with POTS and adrenal insufficiency on home IV fluids, back surgery, neurogenic bladder with SP catheter, gastric bypass, GI motility disorder. Recently treated for CAUTI at [facility], then admitted here for ongoing symptoms She is concerned she is developing sepsis and is in Adrenal crisis, however, her lactic acid level and procalcitonin levels are normal and she has been off antibiotics as suggested by Infectious Diseases. Antibiotics were initially started for Staph Epi, which ID later clarified was likely from contamination due to repeat negative cultures I reviewed her charts and records extensively from [facility] She follows up with endocrinology and they recommend to adjust her home Hydrocortisol doses if we suspect mild, moderate or severe stress Currently, she is on 50mg TID (at home, she gets 10mg TID) Will try to wean her down to her home dose Neurogenic bladder: She has a suprapubic catheter This would be changed today #abnormal echo Serial hospitalizations for N/V/D, low grade fevers, persistent sinus tachycardia. Presumed to be UTI and adrenal crises. Has central line and SP catheter, adrenal insufficiency -repeat blood culture drawn 03/01 - remain ngtd. Second set well off abx drawn 03/06 also ngtd and see above -consulted ID - stopped vancomycin 03/03 thought likely to be contaminant. ID not following presently -TTE with probably mitral valve calcification, not hypermobile but cannot exclude a small vegetation. ID oracle manufacturing consultant did not recommend JAKE at this time. -Recent TTE at [place] normal 3 mo ago -ECHO records from 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 -drinks a lot of fluids , recently requiring home IV fluids and carries diagnosis of POTS. Modified fluid restriction test 03/04 -she would not agree to complete fluid restriction but kept it to 1500 mL for the shift -no IV fluids given previous day, UOP was 3700 mL for the duration 0800 to 2100 -urine Osm 357 --> 198 --> 536 --> 264 at 1735 --> 2 mcg DDAVP IV at 1913 --> 623 at 2118 -Will urge her to follow up with her regular Urban Redevelopment Specialist at [facility], she has an appointment in a few weeks #possible CAUTI, suprapubic catheter for neurogenic bladder -her urologist at [place] recently relocated -urologist Dr. Ruiz evaluated, thought bladder spasms, recommended outpatient follow up -Per records shown by patient, urine culture + for E. faecalis previous admission at -completed treatment with ampicillin/vancomycin -continues with SP area tenderness and dysuria -checked CRP which is very low argues against ongoing pelvic infection. -repeat UAs at her request were negative -see above #Adrenal insufficiency - per chart review ACTH levels have been inconsistent so not known if primary or secondary #POTS - if she does have DI, its not strictly POTS however she does seem to have autonomic dysfunction which can be a consequence of untreated DI - home regimen of 10mg hydrocortisone TID (7am, 2pm, 6pm) -IV hydrocortisone to 50 mg q8h with PRN 25 mg dose - I think a lot of the adrenal crisis symptoms have been hypovolemia, though they can coexist of course #GI motility disorder - including esophageal dysmotility, frequent presentations with N/V and abdominal pain Said she has had gastric emptying studies in the past #History of gastric bypass - anastomosis open on recent EGD at [facility], reviewed report - admitted recently at [facility], recent EGD at [facility] with gastritis. Plan was for outpatient GI evaluation at [facility]. She reports malabsorption issues. - currently doing well with this, - bid PPI #Anxiety -on scheduled clonazepam 1 mg tid - confirmed in PDMP -psych recommended ativan 1mg PO PRN for panic attack Decondition: Will consult physical and Occupational Therapy VTE Prophylaxis: Lovenox Disposition: Hopefully d/c in the next 24 hrs Admission and Anticipated Discharge Date Admission Date: February 24, 2025 Subjective Patient seen and examined this morning, suprapubic catheter was changed yesterday Review of Systems Review of Systems: All systems reviewed are negative, apart from the ones contained in the history. Physical Exam Physical Exam: Last 24h vitals reviewed GEN: awake/alert HEENT: pupils equal, sclerae anicteric, moist MM RESP: normal WOB CV: port Rt upper chest accessed ABD: pannus with ecchymoses from enoxaparin, lower abd wall tenderness similar, SP catheter Urine yellow and presently clear SKIN: warm and dry, no generalized rashes NEURO: AOx person, place, and situation. 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
--- NOTE | 2025-03-09 18:15 | Electrocardiogram Report ---
Test Reason : Blood Pressure : */* mmHG Vent. Rate : 96 BPM Atrial Rate : 96 BPM P-R Int : 160 ms QRS Dur : 78 ms QT Int : 358 ms P-R-T Axes : 35 7 27 degrees QTcB Int : 452 ms Normal sinus rhythm Normal ECG When compared with ECG of 26-Feb-2025 00:06, Minimal criteria for Anterior infarct are no longer Present Nonspecific T wave abnormality no longer evident in Lateral leads Confirmed by Deangelo Leary ([id number]) on 03/09/2025 6:15:24 PM Referred By: REFERRED SELF Confirmed By: Deangelo Leary
[2025-03-10 08:52] LABS: Anion Gap 7.0 (3-11); Blood Urea Nitrogen 8.0 mg/dl (6-23); Calcium 8.2 mg/dl (8.6-10.3); Carbon Dioxide 29.0 mmol/L (21-32); Chloride 105.0 mmol/L (98-107); Creatinine Clr Calc Pharmacy 181.7 ml/min; Glucose 126.0 mg/dl (70-99(Fasting)); Potassium 3.2 mmol/L (3.5-5.1); Sodium 141.0 mmol/L (136-145)
[2025-03-10] MEDS: POTASSIUM CHLORIDE CRTAB 20 MEQ TABCR PO STA (10:32)
--- NOTE | 2025-03-10 11:33 | Hospitalist Progress Note ---
Date of Service March 10, 2025 Assessment & Plan (1) Twilight's disease: (2) Polyuria: (3) UTI (urinary tract infection): (4) HTN (hypertension): (5) Suprapubic catheter: (6) GERD without esophagitis: Plan This is a 39 y/o woman with POTS and adrenal insufficiency on home IV fluids, back surgery, neurogenic bladder with SP catheter, gastric bypass, GI motility disorder. Recently treated for CAUTI at [facility], then admitted here for ongoing symptoms She is concerned she is developing sepsis and is in Adrenal crisis, however, her lactic acid level and procalcitonin levels are normal and she has been off antibiotics as suggested by Infectious Diseases. Antibiotics were initially started for Staph Epi, which ID later clarified was likely from contamination due to repeat negative cultures I reviewed her charts and records extensively from [facility] She follows up with endocrinology and they recommend to adjust her home Hydrocortisol doses if we suspect mild, moderate or severe stress Currently, she is on 50mg TID (at home, she gets 10mg TID) Will try to wean her down to her home dose #possible CAUTI, suprapubic catheter for neurogenic bladder -catheter was changed 03/08 and culture taken -Urine culture growing E faecium, await sensitivities -her urologist at [place] recently relocated -urologist Dr. Ruiz evaluated, thought bladder spasms, recommended outpatient follow up -Per records shown by patient, urine culture + for E. faecalis previous admission at -completed treatment with ampicillin/vancomycin -continues with SP area tenderness and dysuria -checked CRP which is very low argues against ongoing pelvic infection. -repeat UAs at her request were negative -see above Neurogenic bladder: She has a suprapubic catheter This would be changed today #abnormal echo Serial hospitalizations for N/V/D, low grade fevers, persistent sinus tachycardia. Presumed to be UTI and adrenal crises. Has central line and SP catheter, adrenal insufficiency -repeat blood culture drawn 03/01 - remain ngtd. Second set well off abx drawn 03/06 also ngtd and see above -consulted ID - stopped vancomycin 03/03 thought likely to be contaminant. ID not following presently -TTE with probably mitral valve calcification, not hypermobile but cannot exclude a small vegetation. ID it systems analyst consultant did not recommend JAKE at this time. -Recent TTE at [place] normal 3 mo ago -ECHO records from 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 -drinks a lot of fluids , recently requiring home IV fluids and carries diagnosis of POTS. Modified fluid restriction test 03/04 -she would not agree to complete fluid restriction but kept it to 1500 mL for the shift -no IV fluids given previous day, UOP was 3700 mL for the duration 0800 to 2100 -urine Osm 357 --> 198 --> 536 --> 264 at 1735 --> 2 mcg DDAVP IV at 1913 --> 623 at 2118 -Will urge her to follow up with her regular Energy Trader at [facility], she has an appointment in a few weeks #Adrenal insufficiency - per chart review ACTH levels have been inconsistent so not known if primary or secondary #POTS - if she does have DI, its not strictly POTS however she does seem to have autonomic dysfunction which can be a consequence of untreated DI - home regimen of 20mg hydrocortisone TID (7am, 2pm, 6pm) -IV hydrocortisone to 50 mg q8h with PRN 25 mg dose - I think a lot of the adrenal crisis symptoms have been hypovolemia, though they can coexist of course #GI motility disorder - including esophageal dysmotility, frequent presentations with N/V and abdominal pain Said she has had gastric emptying studies in the past #History of gastric bypass - anastomosis open on recent EGD at [facility], reviewed report - admitted recently at [facility], recent EGD at [facility] with gastritis. Plan was for outpatient GI evaluation at [facility]. She reports malabsorption issues. - currently doing well with this, - bid PPI #Anxiety -on scheduled clonazepam 1 mg tid - confirmed in PDMP -psych recommended ativan 1mg PO PRN for panic attack Decondition: Will consult physical and Occupational Therapy VTE Prophylaxis: Lovenox Disposition: Hopefully d/c in the next 24 hrs Admission and Anticipated Discharge Date Admission Date: February 24, 2025 Subjective Patient seen and examined this morning, suprapubic catheter was changed Review of Systems Review of Systems: All systems reviewed are negative, apart from the ones contained in the history. Physical Exam Physical Exam: Last 24h vitals reviewed GEN: awake/alert HEENT: pupils equal, sclerae anicteric, moist MM RESP: normal WOB CV: port Rt upper chest accessed ABD: pannus with ecchymoses from enoxaparin, lower abd wall tenderness similar, SP catheter Urine yellow and presently clear SKIN: warm and dry, no generalized rashes NEURO: AOx person, place, and situation. 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
[2025-03-10 12:08] LABS: Hematocrit (blood only) 33.5 % (37.0-47.0); Hemoglobin 10.1 g/dl (12.0-16.0); Mean Corpuscular Hemoglobin 26.3 pg (25.0-34.0); Mean Corpuscular Volume 87.2 fL (80.0-100.0); Platelet Count 345 K/uL (130-400); RDW Standard Deviation 53.0 fL (36.4-46.3); Red Blood Count 3.84 M/uL (4.20-5.40); White Blood Count 9.65 K/ul (4.8-10.8)
[2025-03-10] MEDS: LACTATED RINGER'S 1,000 ML IV SCH (19:46)
[2025-03-11] MEDS ORDERED: HYDROCORTISONE SOD 25 MG in SYRINGE 0 ML IV PRN (01:00)
[2025-03-11] MEDS: HYDROCORTISONE SOD 25 MG in SYRINGE 0 ML IV SCH (01:08)
[2025-03-11] MEDS: MoRPHine SULFATE 2 MG/ML CARP IV STA (01:33)
--- NOTE | 2025-03-11 07:18 | Hospitalist Progress Note ---
Date of Service March 11, 2025 Assessment & Plan (1) POTS (postural orthostatic tachycardia syndrome): (2) Neurogenic bladder: (3) Primary central diabetes insipidus: (4) Colonization with multidrug-resistant bacteria: (5) Primary adrenal insufficiency: (6) Suprapubic catheter: (7) Port-A-Cath in place: (8) Dysfunctional uterine bleeding: (9) Chronic post-traumatic stress disorder (PTSD): (10) Anxiety disorder due to general medical condition with panic attack: (11) Calcification of mitral valve: Plan In summary this is a medically complex 39-year-old female initially admitted for adrenal crisis in the setting of suspected sepsis consequential of catheter associated UTI. Regarding the patient's initially proposed sepsis, at this time there is no evidence of an active infection other than a low CFU count of VRE and the patient's recently changed suprapubic catheter, this is the same species and resistance pattern from her previous infection though at this time she is not endorsing any specific symptoms related to a urinary tract infection. Suspect that this is likely colonization of a multidrug-resistant organism, blood cultures that were obtained on 03/09 are without growth at 48 hours, which is highly suggestive of the absence of any systemic bloodstream infection. Furthermore laboratory assessment obtained at the patient's request in the midday of 03/11 including CBC with manual differential and a lactic acid level is not suggestive of a developing infection No indication for antibiotic treatment at this time Continue to follow previously ordered blood cultures through 5 days Reassess CBC with manual differential in the morning 03/12 Regarding the patient's primary adrenal insufficiency, she is concerned that she is waxing and waning in and out of of episodes of crisis; at this time there is no specific source of what would be triggering crisis other than the patient's reported vaginal bleeding that may be causing symptoms similar to adrenal crisis. This is further discussed below during her previous hospitalization she has been discharged on an oral course of home steroids, continuing the previously prescribed occasion however the majority the patient's home medications have been transition to an IV formulation given concerns from her jail manager of possible malabsorption from her previous gastric bypass surgery. If the patient does not fact have that degree of severe malabsorption, it does not make clinical sense to continue oral steroids at the time of discharge and instead, given the patient has bradycardia access through a Port-A-Cath has been placed due to difficulty with access, discharged with intr avenous steroids for maintenance therapy may be reasonable in order to facilitate a safe transition to the patient traveling to [place], [place] for continued care from her multiple subspecialists, which is the patient's ultimate goal Continue stress dose hydrocortisone 60 mg IV every 7 hours Follow daily renal function panel and magnesium During the patient's current hospitalization they were noted to have large volume urine output, which the patient reports today that this is not necessarily a new condition, and is not part of the reasoning by why she is maintained on intravenous fluids while at home. Diagnostic testing led to a likely diagnosis of primary diabetes insipidus, a trial dose of DDAVP was administered during the testing phase however the patient reports significant adverse effects including severe generalized muscle cramping. She is not interested in further pursuit of this diagnostic testing at this time nor initiation of scheduled DDAVP which is the standard of care for this diagnosis We did discuss at length the risks of untreated diabetes insipidus, the patient is understanding of this, and her spouse was present by telephone during this discussion Postural orthostatic tachycardia syndrome//hypertension Chronic condition, the patient is maintained with propranolol to be taken on an as-needed basis with blood pressure parameters provided by their primary care physician; we did discuss, with family at bedside, that the patient's transient episodes of hyp tachycardia and hypertension may be related to intermittent episodes of withdraw from this medication and rebound tachycardia, which is well-documented in association with propranolol and atenolol Resume propranolol 100 mg p.o. 3 times daily, to be administered if systolic blood pressure exceeds 125 mmHg The patient's lead customer service representative, Malka, was attempted to be contacted though was not directly available given the weekend however I was able to discuss the patient's care with the lead customer service representative warehouse supervisor 3rd shift, Sasha, who provided additional information regarding the patient's benefits at home, home nursing services, and was the also able to shed light on the potential for home intravenous steroids until seen at her tertiary care facility in [place], [place]. Admission and Anticipated Discharge Date Admission Date: February 24, 2025 Subjective Ms. Weldon is a 39-year-old female whose active medical conditions include primary adrenal insufficiency, neurogenic bladder status post suprapubic catheter placement, chronic posttraumatic stress disorder associated with medical trauma, anxiety disorder associated with panic episodes among other chronic medical conditions who was admitted to [facility] on 02/24 due to concern of adrenal crisis in the setting of a possible catheter associated UTI. The patient was seen at bedside this morning, accompanied by her spouse via telephone. She notes multiple episodes of diarrhea overnight this past evening without any associated hematochezia, clot passage, or particularly foul odor. She also notes that she has had intermittent vaginal bleeding that is not new but has been associated with some small clots being passed approximately the size of a cough drop. She further notes concerns and has many questions regarding her current plan of care, the adjustments have been made to her medication and nonpharmacologic regimen during her hospitalization. There is an extended discussion had regarding her medical history, her current goals of care, along with her review of systems. Review of Systems Review of Systems: Review of constitutional systems was remarkable for subjective fever without objective measures; suprapubic discomfort, not specifically associated with the patient's suprapubic catheter but per the report feels to be related to the diarrhea; further review of cardiovascular, pulmonary, gastrointestinal, genitourinary, neurologic systems was unremarkable Physical Exam Physical Exam: General: Adult female in no acute distress Vital Signs: Reviewed HEENT: Pupils equally round reactive to light; extraocular motions intact; moist mucous membranes Neck: No appreciable jugular venous distention nor hepatojugular reflux Pulmonary: Symmetrically restricted chest wall rise without associated symptoms; clear to auscultation bilaterally with slightly diminished air movement in the posterior basilar segments Cardiovascular: Regular rate and rhythm with intermittently present grade 1/6 diastolic murmur best heard in the left fifth intercostal space in the anterior axillary line; bilateral radial pulses 2+ Gastrointestinal: Soft, nondistended; suprapubic catheter site appears well, bandage was recently changed per the patient's report Genitourinary: Suprapubic catheter collection bag with approximately 300 mL of berry yellow urine without sediment or alberto appearance blood Neurologic: CN II-XII grossly intact; no discernible focal weakness nor paresthesias Results & Data Results & Data Vital Signs (Past 12 Hours) Vital Signs Temp Pulse Pulse Resp BP Pulse Ox O2 Del Method 03/11/25 03:34 36.8 C 100 H 18 143/99 H 98 Room Air 03/11/25 01:16 114 H 159/101 H 03/10/25 23:29 36.2 C L 99 H 18 126/87 95 Room Air 03/10/25 22:40 104 H 03/10/25 19:22 37.2 C 104 H 18 148/103 H 95 Room Air Laboratory Results No appreciable leukocytosis, hemoglobin is stable; lactic acid, ordered at the patient's behest is unremarkable at 1.5 PG Care Time/CCT Total # of Minutes Spent Total Time Spent with Patient: Total time spent is greater than 50% in coordination of care (as documented) at patient's floor/unit and/or counseling patient: Coding Level of Care Code 69172 SUB INP/OBS CARE 3/50MIN Diagnoses POTS (postural orthostatic tachycardia syndrome) G90.A Neurogenic bladder N31.9 Primary central diabetes insipidus E23.2 Colonization with multidrug-resistant bacteria Z22.322 Primary adrenal insufficiency E27.1 Suprapubic catheter Z93.59 Port-A-Cath in place Z95.828 Dysfunctional uterine bleeding N93.8 Chronic post-traumatic stress disorder (PTSD) F43.12 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
[2025-03-11] MEDS: LACTATED RINGER'S 1,000 ML IV SCH (11:02)
[2025-03-11] MEDS ORDERED: ACETAMINOPHEN SUSP 160 MG/5 ML BTL PO STA (11:43)
[2025-03-11 12:26] LABS: Hematocrit (blood only) 31.8 % (37.0-47.0); Hemoglobin 9.6 g/dl (12.0-16.0); Immature Granulocytes # (auto) 0.13 K/uL (0.01-0.20); Immature Granulocytes % (auto) 1.5 %; Mean Corpuscular Hemoglobin 26.3 pg (25.0-34.0); Mean Corpuscular Volume 87.1 fL (80.0-100.0); Platelet Count 320 K/uL (130-400); RDW Standard Deviation 53.1 fL (36.4-46.3); Red Blood Count 3.65 M/uL (4.20-5.40); White Blood Count 8.69 K/ul (4.8-10.8)
[2025-03-11] MEDS ORDERED: ACETAMINOPHEN 500 MG TAB PO STA (12:36)
[2025-03-11] MEDS: HYDROCORTISONE SOD IV SCH (13:06)
[2025-03-11] MEDS: ACETAMINOPHEN 500 MG TAB PO STA (13:06)
[2025-03-11] MEDS: LORazepam 0.5 MG TAB PO PRN (15:18)
[2025-03-12 05:57] LABS: Hematocrit (blood only) 29.8 % (37.0-47.0); Hemoglobin 8.9 g/dl (12.0-16.0); Immature Granulocytes # (auto) 0.09 K/uL (0.01-0.20); Immature Granulocytes % (auto) 1.1 %; Mean Corpuscular Hemoglobin 25.7 pg (25.0-34.0); Mean Corpuscular Volume 86.1 fL (80.0-100.0); Platelet Count 291 K/uL (130-400); RDW Standard Deviation 52.3 fL (36.4-46.3); Red Blood Count 3.46 M/uL (4.20-5.40); White Blood Count 8.50 K/ul (4.8-10.8)
[2025-03-12 06:13] LABS: Anion Gap 4.0 (3-11); Blood Urea Nitrogen 8.0 mg/dl (6-23); Calcium 8.1 mg/dl (8.6-10.3); Carbon Dioxide 31.0 mmol/L (21-32); Chloride 108.0 mmol/L (98-107); Creatinine Clr Calc Pharmacy 212.0 ml/min; Glucose 89.0 mg/dl (70-99(Fasting)); Magnesium 1.9 mg/dl (1.7-2.4); Potassium 3.2 mmol/L (3.5-5.1); Sodium 143.0 mmol/L (136-145)
--- NOTE | 2025-03-12 07:37 | Hospitalist Progress Note ---
Date of Service March 12, 2025 Assessment & Plan (1) POTS (postural orthostatic tachycardia syndrome): (2) Neurogenic bladder: (3) Primary central diabetes insipidus: (4) Colonization with multidrug-resistant bacteria: (5) Primary adrenal insufficiency: (6) Suprapubic catheter: (7) Port-A-Cath in place: (8) Dysfunctional uterine bleeding: (9) Chronic post-traumatic stress disorder (PTSD): (10) Anxiety disorder due to general medical condition with panic attack: (11) Calcification of mitral valve: Plan In summary this is a medically complex 39-year-old female initially admitted for adrenal crisis in the setting of suspected sepsis consequential of catheter associated UTI. Regarding the patient's initially proposed sepsis, at this time there is no evidence of an active infection other than a low CFU count of VRE and the patient's recently changed suprapubic catheter, this is the same species and resistance pattern from her previous infection though at this time she is not endorsing any specific symptoms related to a urinary tract infection. Suspect that this is likely colonization of a multidrug-resistant organism, blood cultures that were obtained on 03/09 are without growth at 48 hours (pending 72 hour results at this time), which is highly suggestive of the absence of any systemic bloodstream infection. No indication for antibiotic treatment at this time Continue to follow previously ordered blood cultures through 5 days Reassess CBC without differential in the morning 03/12 Regarding the patient's primary adrenal insufficiency, she is concerned that she is waxing and waning in and out of of episodes of crisis; at this time there is no specific source of what would be triggering crisis other than the patient's reported vaginal bleeding that may be causing symptoms similar to adrenal crisis. This is further discussed below. During her previous hospitalization she was discharged on an oral course of home steroids, however the majority the patient's home medications have been transition to an IV formulation given concerns from her child psychology teacher of possible malabsorption from her previous gastric bypass surgery. If the patient does in fact have that degree of severe malabsorption, it does not make clinical sense to continue oral steroids at the time of discharge and instead, given the patient has access through a Port-A-Cath which was initially placed for difficulty with access, discharge with intravenous steroids for maintenance therapy may be reasonable in order to facilitate a safe transition to the patient traveling to [place], [place] for continued care from her multiple subspecialists, which is the p atient's ultimate goal Continue stress dose hydrocortisone 60 mg IV every 8 hours Follow daily renal function panel and magnesium During the patient's current hospitalization they were noted to have large volume urine output, which the patient reports today that this is not necessarily a new condition, and is not part of the reasoning by why she is maintained on intravenous fluids while at home. Diagnostic testing led to a likely diagnosis of primary diabetes insipidus, a trial dose of DDAVP was administered during the testing phase however the patient reports significant adverse effects including severe generalized muscle cramping. She is not interested in further pursuit of this diagnostic testing at this time nor initiation of scheduled DDAVP which is the standard of care for this diagnosis. On the morning of 03/12 she is noted to be hypokalemic and borderline hypomagnesemic, most likely consequential of renal losses from high volume urine output We did discuss at length the risks of untreated diabetes insipidus, the patient is understanding of this, and her spouse was present by telephone during this discussion Increase potassium replacement to 40 mEq p.o. 4 times daily Start magnesium oxide 400 mg p.o. daily The patient has had a prolonged issue with dysfunctional uterine bleeding, for which she is established with a electric stove installer at [facility] for an anticipated hysterectomy which is yet to be scheduled; patient has increasing concerns with the degree of her clot passage and bleeding during this hospitalization, though her hemoglobin remains stable (the current downtrend is symmetric with downtrending white blood cells and platelets, consistent with a dilutional condition); the patient is interested in evaluation by gynecology for additional recommendations, and reassurance Consult gynecology Postural orthostatic tachycardia syndrome//hypertension Chronic condition, the patient is maintained with propranolol to be taken on an as-needed basis with blood pressure parameters provided by their primary care physician; we did discuss, with family at bedside, that the patient's transient episodes of hyp tachycardia and hypertension may be related to intermittent episodes of withdraw from this medication and rebound tachycardia, which is well-documented in association with propranolol and atenolol Resume propranolol 100 mg p.o. 3 times daily, to be administered if systolic blood pressure exceeds 125 mmHg The patient's human service worker, Malka, was attempted to be contacted though was not directly available given the weekend however I was able to discuss the patient's care with the human service worker mail delivery supervisor, Sasha, who provided additional information regarding the patient's benefits at home, home nursing services, and was the also able to shed light on the potential for home intravenous steroids until seen at her tertiary care facility in [place], [place]. Admission and Anticipated Discharge Date Admission Date: February 24, 2025 Anticipated date of discharge: 03/13/25 Subjective Ms. Weldon is a 39-year-old female whose active medical conditions include primary adrenal insufficiency, neurogenic bladder status post suprapubic catheter placement, chronic posttraumatic stress disorder associated with medical trauma, anxiety disorder associated with panic episodes among other chronic medical conditions who was admitted to [facility] on 02/24 due to concern of adrenal crisis in the setting of a possible catheter associated UTI. The patient was seen at bedside this morning, accompanied by her spouse via telephone. She expresses concern regarding inaccurate documentation by this provider from 03/11 regarding the size of her vaginal clots (she said "sharon" whereas this provider thought she said a brand-name of a cough drop) and the presence of malodorous stool (it was explained that the documentation from 03/11 regarding malodorous stool was in reference to the usual odors associated with infectious diarrhea/C. difficile colitis). There has been continued diarrhea overnight, without change of its quality or quantity. Her vaginal bleeding has also continued. She further notes concerns and has many questions regarding her current plan of care, the adjustments have been made to her medication and nonpharmacologic regimen during her hospitalization. There is an extended discussion had regarding her medical history, her current goals of care, along with her review of systems. Review of Systems Review of Systems: Review of constitutional systems was remarkable for continue suprapubic discomfort, not specifically associated with the patient's suprapubic catheter but per the report feels to be related to the diarrhea, in addition to right back pain overlying the quadratus lumborum; further review of cardiovascular, pulmonary, gastrointestinal, genitourinary, neurologic systems was unremarkable Physical Exam Physical Exam: General: Adult female in no acute distress Vital Signs: Reviewed HEENT: Pupils equally round reactive to light; extraocular motions intact; moist mucous membranes Neck: No appreciable jugular venous distention Pulmonary: Symmetrically restricted chest wall rise without associated symptoms Cardiovascular: Regular rate and rhythm with intermittently present grade 1/6 diastolic murmur best heard in the left fifth intercostal space in the anterior axillary line; bilateral radial pulses 2+ Gastrointestinal: Soft, nondistended; tender to mildly deep palpation throughout Genitourinary: Suprapubic catheter collection bag with approximately 500 mL of pale yellow urine without sediment or alberto appearance blood Neurologic: CN II-XII grossly intact; no discernible focal weakness nor paresthesias Results & Data Results & Data Vital Signs (Past 12 Hours) Vital Signs Temp Pulse Pulse Pulse Resp BP BP 03/12/25 07:24 84 03/12/25 03:45 36.5 C 88 20 150/90 H 03/11/25 22:48 36.5 C 108 H 18 151/87 H 03/11/25 22:45 03/11/25 22:17 114 H 03/11/25 19:51 36.5 C 100 H 20 137/88 Pulse Ox O2 Del Method 03/12/25 07:24 03/12/25 03:45 98 Room Air 03/11/25 22:48 96 Room Air 03/11/25 22:45 Room Air 03/11/25 22:17 03/11/25 19:51 100 Room Air Laboratory Results Potassium 3.2, magnesium 1.9, hemoglobin 8.9, white blood cell count 8.5; normal lactic acid of 1.4 PG Care Time/CCT Total # of Minutes Spent Total Time Spent with Patient: Total time spent is greater than 50% in coordination of care (as documented) at patient's floor/unit and/or counseling patient: Coding Level of Care Code 86017 SUB INP/OBS CARE 3/50MIN Diagnoses POTS (postural orthostatic tachycardia syndrome) G90.A Neurogenic bladder N31.9 Primary central diabetes insipidus E23.2 Colonization with multidrug-resistant bacteria Z22.322 Primary adrenal insufficiency E27.1 Suprapubic catheter Z93.59 Port-A-Cath in place Z95.828 Dysfunctional uterine bleeding N93.8 Chronic post-traumatic stress disorder (PTSD) F43.12 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
[2025-03-12] MEDS: POTASSIUM CHLORIDE CRTAB 20 MEQ TABCR PO SCH (08:25)
[2025-03-12] MEDS: PROPRANOLOL HCL 10 MG TAB PO PRN (08:25)
[2025-03-12] MEDS: MAGNESIUM OXIDE 400 MG TAB PO SCH (08:30)
--- NOTE | 2025-03-12 11:11 | OB/GYN Consultation ---
Date of Consultation March 12, 2025 Assessment & Plan (1) Abnormal uterine bleeding (AUB): Benny is a 39-year-old medically complex patient admitted for multiple medical concerns including diabetes insipidus, sepsis and primary adrenal insufficiency. Patient seen by [facility] service for evaluation of menorrhagia/heavy uterine bleeding as detailed per HPI. Patient reports a history of heavy uterine bleeding reports that she has needed transfusions in the past. Patient currently on Lovenox at 40 mg twice daily. Bleeding on evaluation was noted to be scant at present although will likely have some increased bleeding with standing or activity. H/H appear to be relatively stable compared to prior evaluation. In light of patient's multiple medical concerns I would recommend continued monitoring of bleeding for now. Recommend continue with H/H evaluation and if a significant decline is noted would consider treatment with a progesterone medication to control menses. At this point patient is planned for hysterectomy through [facility] and would recommend continued follow-up with primary [facility] for care. If her hysterectomy is delayed due to her other medical comorbidities should consider outpatient placement of a Mirena IUD for longer term management until patient can safely proceed with hysterectomy. The Mirena IUD would likely control bleeding well and would have minimal effect on her other medical comorbidities. Greater than 60 minutes spent in review of history, exam and discussion. (2) Menorrhagia: (3) Dysfunctional uterine bleeding: History of Present Illness Attending Physician: Jonatan Salgado, History of Present Illness Benny is a 39-year-old very medically complex patient admitted to the medicine service for adrenal insufficiency, sepsis and diabetes insipidus. Patient reports a history of heavy uterine bleeding with menses. Reports that she started a menstrual bleeding episode yesterday which she reports is heavy. She reports saturating a pad in 1 to 2 hours although based on further inquiry seems that she has little noted bleeding for several hours and then stands and has to pass larger bleeding episode with clots. Reports that she has a history of heavy bleeding with anemia resulting in need for transfusions previously. She is currently planned for hysterectomy secondary to persistent cervical dysplasia, heavy uterine bleeding and chronic pelvic pain from suspected endometriosis. Patient was concerned due to prior heavy bleeding but this will exacerbate current admission concerns. She reports that her bleeding episode preceding this was about 1 month ago denies any bleeding in between menstrual episodes. She denies any lightheadedness, dizziness or symptoms of anemia at present. H/H at 8.9/29.8 today which is a mild decline compared to previous. Allergies Allergy/AdvReac Type Severity Reaction Status Date / Time adhesive tape Allergy Intermediate SKIN Verified 02/24/25 21:18 REDDENED, ITCHY scopolamine Allergy Intermediate SKIN Verified 02/24/25 21:18 REDDENED, ITCHY escitalopram [From Lexapro] AdvReac Intermediate VERY Verified 02/24/25 21:18 EMOTIONAL, OPPOSITE EFFECT haloperidol [From Haldol] AdvReac Intermediate LOCKED JAW Verified 02/24/25 21:18 Home Medications Medication Instructions Recorded Confirmed Type B-complex with vitamin C 1 cap PO DAILY 11/29/24 02/24/25 History ascorbic acid (vitamin C) 1,000 mg 1,000 mg PO DAILY 11/29/24 02/24/25 History tablet (Vitamin C) calcium 250 mg (as 2 tab PO DAILY 11/29/24 02/24/25 History citrate)-vitamin D3 5 mcg (200 unit) tablet clonazepam 1 mg tablet 1 mg PO TID 11/29/24 02/24/25 History clotrimazole 10 mg ludwig 10 mg PO DIRECTED PRN Flare 11/29/24 02/24/25 History cyanocobalamin (vitamin B-12) 1,000 mcg IM WK 11/29/24 02/24/25 History 1,000 mcg/mL injection solution dicyclomine 10 mg capsule 10 mg PO TID PRN IRRITABLE BOWEL 11/29/24 02/24/25 History SYMPTOMS ferrous sulfate 325 mg (65 mg 650 mg PO DAILY 11/29/24 02/24/25 History iron) tablet lidocaine 5 % topical patch 1 patch topical DAILY 11/29/24 02/24/25 History multivitamin with minerals 1 tab PO DAILY 11/29/24 02/24/25 History polyethylene glycol 3350 17 17 g PO DAILY PRN Constipation 11/29/24 02/24/25 History gram/dose oral powder (Miralax) potassium chloride 20 mEq 20 meq PO DAILY 11/29/24 02/24/25 History tablet,extended release(part/cryst) pregabalin 100 mg capsule 100 mg PO AMHS 11/29/24 02/24/25 History pregabalin 50 mg capsule 50 mg PO QPM 11/29/24 02/24/25 History propranolol 10 mg tablet 10 mg PO TID PRN NEEDED 11/29/24 02/24/25 History sennosides 8.6 mg tablet (senna) 17.2 mg PO HS PRN Constipation 11/29/24 02/24/25 History sucralfate 1 gram tablet (Carafate) 1 g PO ACHS 11/29/24 02/24/25 History thiamine HCl (vitamin B1) 100 mg 100 mg PO DAILY 11/29/24 02/24/25 History tablet (Vitamin B-1) topiramate 100 mg tablet 100 mg PO BID 11/29/24 02/24/25 History topiramate 25 mg tablet 25 mg PO BID 11/29/24 02/24/25 History zinc acetate 50 mg (zinc) capsule 50 mg PO DAILY 11/29/24 02/24/25 History zolpidem 10 mg tablet (Ambien) 10 mg PO HS PRN Sleep 12/12/24 02/24/25 History acetaminophen 500 mg tablet 500 mg PO Q6H PRN Pain 12/26/24 02/24/25 History cholestyramine 4 gram oral powder 4 g PO 2200 #30 ea 01/17/25 02/24/25 Rx for suspension in a packet (Prevalite) famotidine 20 mg tablet 20 mg PO BID #60 tabs 01/17/25 02/24/25 Rx pantoprazole 40 mg tablet,delayed 40 mg PO BID #60 tabs 01/17/25 02/24/25 Rx release phenazopyridine 200 mg tablet 200 mg PO TID PRN pain #30 tabs 01/17/25 02/24/25 Rx (Pyridium) sucralfate 100 mg/mL oral 1 g (10 mL) PO ACHS #420 mL 01/17/25 02/24/25 Rx suspension cyclobenzaprine 10 mg tablet 10 mg PO QAM #90 tabs 02/07/25 02/24/25 Rx oxycodone 5 mg tablet 5 mg PO DAILY PRN pain #5 tabs 02/07/25 02/24/25 Rx promethazine 25 mg tablet 25 mg PO Q6H PRN NAUSEA/VOMITING 02/07/25 02/24/25 Rx #120 tabs Port care See Rx Instructions .Route 02/22/25 Rx .COMPLEX #1 ea lactated Ringers 1,000 ml IV Q OTHER DAY 4 weeks 02/22/25 02/24/25 Rx prednisone 1 mg tablet See Rx Instructions .Route .COMPLEX 02/24/25 02/24/25 History Patient History Medical History (Updated 03/12/25 @ 11:08 by Charly Yao MD) Acute adrenal crisis UTI (urinary tract infection) Vulvovaginal candidiasis Difficult intravenous access Alternating constipation and diarrhea Vomiting Surgical History History of lumbar fusion History of gastric bypass Family History Grandfather (Paternal) Colorectal cancer Grandmother (Paternal) Myocardial infarction Denies family history of Ovarian cancer Prostate cancer Breast cancer Social History Smoking Status: Never smoker Second Hand Exposure: No; Do You Dip or Chew Tobacco: No; Hx Alcohol Use: No Hx Substance Use: No Preferred Language: [place] Communication Ability: Effective Visual Impairment: No Limitations Hearing Ability: Normal Agent Producer Required: No Beliefs That Will Affect Care: None marital status: Current Living Situation: Spouse current occupational status: disabled How many Children do You have: 2 Feels Safe at Home: Yes Childhood Exposure to Second-Hand Smoke: No Diet: other Diet Comment: protein, Bypass diet caffeine: Yes during the past year weight has: increased > 10 lbs Dental Care, Regularly: No Physical Activity Frequency: 3-4 Times per Week Physical Activity Frequency Comment: PT/OT Seatbelt Use: always Sunscreen Use: Yes Assistive Devices: Walker, Wheelchair and Other Physical Exam Genitourinary: Scant bleeding on leo-pad. Patient reports that current pad had been in place for approximately 3 to 4 hours. Results & Data Vital Signs (Past 12 Hours) Vital Signs Temp Pulse Pulse Resp BP BP Pulse Ox 03/12/25 08:26 36.7 C 106 H 16 159/109 H 98 03/12/25 07:24 84 03/12/25 03:45 36.5 C 88 20 150/90 H 98 O2 Del Method 03/12/25 08:26 Room Air 03/12/25 07:24 03/12/25 03:45 Room Air PG Care Time/CCT Total # of Minutes Spent Total Time Spent with Patient: Total time spent is greater than 50% in coordination of care (as documented) at patient's floor/unit and/or counseling patient: Coding Level of Care Code 38235 IN/OBS CONSULT LVL 4,60M Diagnoses Abnormal uterine bleeding (AUB) N93.9 Menorrhagia with regular cycle N92.0 Menorrhagia type: with regular cycle Dysfunctional uterine bleeding N93.8 (2) Menorrhagia Menorrhagia type: with regular cycle Qualified Code(s): N92.0 - Excessive and frequent menstruation with regular cycle
[2025-03-12] MEDS: CLOTRIMAZOLE 10 MG TROCHE BUCCAL PRN (12:14)
--- NOTE | 2025-03-13 07:13 | Hospitalist Progress Note ---
Date of Service March 13, 2025 Assessment & Plan Admission and Anticipated Discharge Date Admission Date: February 24, 2025 Results & Data Results & Data Vital Signs (Past 12 Hours) Vital Signs Temp Pulse Pulse Resp BP BP Pulse Ox 03/13/25 07:12 81 03/13/25 02:37 36.6 C 84 20 116/74 95 03/12/25 23:53 36.6 C 103 H 18 122/79 97 03/12/25 21:51 83 03/12/25 19:45 37.0 C 90 18 149/107 H 97 O2 Del Method 03/13/25 07:12 03/13/25 02:37 Room Air 03/12/25 23:53 Room Air 03/12/25 21:51 03/12/25 19:45 Room Air PG Care Time/CCT Total # of Minutes Spent Total Time Spent with Patient: Total time spent is greater than 50% in coordination of care (as documented) at patient's floor/unit and/or counseling patient: Coding
[2025-03-13 07:17] LABS: Hematocrit (blood only) 29.6 % (37.0-47.0); Hemoglobin 8.9 g/dl (12.0-16.0); Mean Corpuscular Hemoglobin 26.1 pg (25.0-34.0); Mean Corpuscular Volume 86.8 fL (80.0-100.0); Platelet Count 318 K/uL (130-400); RDW Standard Deviation 52.1 fL (36.4-46.3); Red Blood Count 3.41 M/uL (4.20-5.40); White Blood Count 8.53 K/ul (4.8-10.8)
[2025-03-13 07:38] LABS: Anion Gap 4.0 (3-11); Blood Urea Nitrogen 9.0 mg/dl (6-23); Calcium 8.7 mg/dl (8.6-10.3); Carbon Dioxide 30.0 mmol/L (21-32); Chloride 108.0 mmol/L (98-107); Creatinine Clr Calc Pharmacy 223.4 ml/min; Glucose 88.0 mg/dl (70-99(Fasting)); Magnesium 2.0 mg/dl (1.7-2.4); Potassium 3.6 mmol/L (3.5-5.1); Sodium 142.0 mmol/L (136-145)
[2025-03-13] MEDS: ENOXAPARIN INJ 40 MG/0.4 ML SYR SQ SCH (08:01)
[2025-03-13 08:26] VITALS: BP 137/92; RESP 18; TEMP 98.2; O2SAT 99
[2025-03-13 12:30] VITALS: PULSE 108
[2025-03-13] MEDS: HYDROCORTISONE SOD IV ONE (12:38)
--- NOTE | 2025-03-14 15:38 | Discharge Summary ---
Discharge Summary Date of Service March 14, 2025 Principal Dx & Hospital Course #1 = Principal Diagnosis (1) Primary adrenal insufficiency: (2) Primary central diabetes insipidus: (3) Colonization with multidrug-resistant bacteria: (4) Neurogenic bladder: (5) Suprapubic catheter: Plan In summary this is a medically complex 39-year-old female initially admitted for adrenal crisis in the setting of suspected sepsis consequential of catheter associated UTI. Regarding the patient's initially proposed sepsis, at this time there is no evidence of an active infection other than a low CFU count of VRE and the patient's recently changed suprapubic catheter, this is the same species and resistance pattern from her previous infection though at this time she is not endorsing any specific symptoms related to a urinary tract infection. Suspect that this is likely colonization of a multidrug-resistant organism, blood cultures that were obtained on 03/09 are without growth at 48 hours (pending 72 hour results at this time), which is highly suggestive of the absence of any systemic bloodstream infection. No indication for antibiotic treatment at this time Blood cultures were without growth at 5 days Regarding the patient's primary adrenal insufficiency, she is concerned that she is waxing and waning in and out of of episodes of crisis; at this time there is no specific source of what would be triggering crisis other than the patient's reported vaginal bleeding that may be causing symptoms similar to adrenal crisis. This is further discussed below. During her previous hospitalization she was discharged on an oral course of home steroids, however the majority the patient's home medications have been transition to an IV formulation given concerns from her software trainer of possible malabsorption from her previous gastric bypass surgery. If the patient does in fact have that degree of severe malabsorption, it does not make clinical sense to continue oral steroids at the time of discharge and instead, given the patient has access through a Port-A-Cath which was initially placed for difficulty with access, discharge with intravenous steroids for maintenance therapy may be reasonable in order to facilitate a safe transition to the patient traveling to [place], [place] for continued care from her multiple subspecialists, which is the patient's ultimate goal Continue stress dose hydrocortisone 60 mg IV every 8 hours During the patient's current hospitalization they were noted to have large volume urine output, which the patient reports today that this is not necessarily a new condition, and is not part of the reasoning by why she is maintained on intravenous fluids while at home. Diagnostic testing led to a likely diagnosis of primary diabetes insipidus, a trial dose of DDAVP was administered during the testing phase however the patient reports significant adverse effects including severe generalized muscle cramping. She is not interested in further pursuit of this diagnostic testing at this time nor initiation of scheduled DDAVP which is the standard of care for this diagnosis. On the morning of 03/12 she is noted to be hypokalemic and borderline hypomagnesemic, most likely consequential of renal losses from high volume urine output We did discuss at length the risks of untreated diabetes insipidus, the patient is understanding of this, and her spouse was present by telephone during this discussion Maintain potassium replacement to 40 mEq p.o. 4 times daily Continue magnesium oxide 400 mg p.o. daily The patient has had a prolonged issue with dysfunctional uterine bleeding, for which she is established with a sld teacher at [facility] for an anticipated hysterectomy which is yet to be scheduled; patient has increasing concerns with the degree of her clot passage and bleeding during this hospitalization, though her hemoglobin remains stable (the current downtrend is symmetric with downtrending white blood cells and platelets, consistent with a dilutional condition); the patient is interested in evaluation by gynecology for additional recommendations, and reassurance Consulted gynecology; recommendations reviewed Postural orthostatic tachycardia syndrome//hypertension Chronic condition, the patient is maintained with propranolol to be taken on an as-needed basis with blood pressure parameters provided by their primary care mark montoya; we did discuss, with family at bedside, that the patient's transient episodes of hyp tachycardia and hypertension may be related to intermittent episodes of withdraw from this medication and rebound tachycardia, which is well-documented in association with propranolol and atenolol Continue propranolol 100 mg p.o. 3 times daily, to be administered if systolic blood pressure exceeds 125 mmHg The patient's service line layer, Malka, was attempted to be contacted though was not directly available given the weekend however I was able to discuss the patient's care with the service line layer electric motor repairing supervisor, Sasha, who provided additional information regarding the patient's benefits at home, home nursing services, and was the also able to shed light on the potential for home intravenous steroids until seen at her tertiary care facility in [place], [place]. Notes For Next Care Provider Patient identified high risk for 30- day readmission. Our hospitalist team would be glad to discuss any details of the hospital stay with you, please reach out by [facility] [place] [facility] with a good call back number and we will return your call. Admission HPI Per Admitting Provider Ms. Weldon is a 39 yo female with PMHx of HTN, POTS, GERD, Fredrick's disease, Anxiety, who presents to the hospital due to catheter associated UTI. Patient was previously at [facility] due to increased redness and pus drainage from her catheter site. States she was given a range of antibiotics at [place] including Rocephin, Vancomycin, Zosyn, and Cefazolin and was eventually discharged. She feels as if she "went into a crisis" due to her Broadwater's disease after discharge. Reports she was not given steroids at [facility]. Today, she continues to have diffuse abdominal pain, mild SOB, L sided chest pain, and nausea. Denies cough, sore throat, vomiting episodes. States decreased urinary frequency but denies pain with urination. Discharge Exam General: Adult female in no acute distress Vital Signs: Reviewed HEENT: Pupils equally round reactive to light; extraocular motions intact; moist mucous membranes Neck: No appreciable jugular venous distention Pulmonary: Symmetrically restricted chest wall rise without associated symptoms Cardiovascular: Regular rate and rhythm with intermittently present grade 1/6 diastolic murmur best heard in the left fifth intercostal space in the anterior axillary line; bilateral radial pulses 2+ Gastrointestinal: Soft, nondistended; tender to mildly deep palpation throughout Genitourinary: Suprapubic catheter collection bag with approximately 500 mL of pale yellow urine without sediment or alberto appearance blood Neurologic: CN II-XII grossly intact; no discernible focal weakness nor paresthesias Discharge Plan Discharge Items Patient Disposition: Home - Home Health Services Reason For Visit: CAUTI Discharge Diagnosis: Primary adrenal insufficiency, Primary central diabetes insipidus Condition on Discharge: Fair Activity: Per Instructions section Non-emergency contact: Primary Care Provider, Specialist and Crime Specialist Call non-emergency contact if: you have any medication questions Follow-up/Referrals: Giovanni Mclean DO [Primary Care Provider] - Diet: Regular Fluids: 1800ml (7 cups) Addtl Attending Provider Instructions: You were admitted to [facility] for concern of a catheter associated urinary tract infection complicated by adrenal crisis. The patient is initially manage sepsis has resolved; at the time of discharge there is no evidence of an active infection. There is a low CFU count of VRE in the patient's urine, this is the same species and resistance pattern of her previous infection and is without any specific symptoms related to a urinary tract infection. This is likely colonization of a multidrug-resistant organism; blood cultures obtained are now 72 hours without growth. Regarding the patient's primary renal insufficiency, she has been maintained on hydrocortisone 60 mg IV every 8 hours which appears to be appropriately controlling her symptomatology. The patient discussed her case with her merchandise shopper, who advised scheduling her next dose of hydrocortisone at 1200 hrs. in order to optimize the patient's private transport to [facility] in [place], [place] for continued care. This has been ordered, and should be more than adequate to allow for safe transport by private vehicle. The patient has no frankly apparent causes or triggers of an adrenal crisis that should precipitate on route. During the patient's current hospitalization they were noted to have a persistently large volume of urine output, which the patient reported it is not necessarily new condition. Diagnostic testing led to a suspected diagnosis of primary diabetes insipidus, though testing was not optimized. She does have numerous electrolyte abnormalities that have slowly been improving during her hospitalization, in part related to her persistent diarrhea, primary adrenal insufficiency, but also likely related to this diagnosis of diabetes insipidus. At the time of discharge the patient's electrolytes are within acceptable range for private transport to her next hospital facility as she intends. The patient reports, while on the phone with her spouse who is en route to the hospital, that they will be leaving this facility directly to [facility] of [place], [place] for continued care of additional medical conditions including a calcified mitral valve leaflet, for which she is established with a cardiothoracic surgeon. She has been coordinating her care independently with her merchandise shopper during her hospitalization. She states that she does not require any additional prescriptions at the time of discharge as she will be going directly to this next facility. Optimization of her medical care at the time of discharge has been pursued. Thank you for choosing [facility] as your healthcare provider. Pending Studies at Discharge: No Stand-Alone Forms: My [facility], Pain - Opioid Pain Management Medications and DC Order Prescriptions: Continued lactated Ringers Parenteral Solution 1,000 ml IV Q OTHER DAY 28 Days Rx Instructions: Start 02/21. Run IV fluids at rate of 250mL/hr. Duration 4 weeks. Port care per routine protocol. Port care See Rx Instructions .ROUTE .COMPLEX Qty: 1 0RF Rx Instructions: Please provide chest port care per protocol; promethazine 25 mg tablet 25 mg PO Q6H PRN (Reason: NAUSEA/VOMITING) Qty: 120 3RF cyclobenzaprine 10 mg tablet 10 mg PO QAM Qty: 90 2RF oxycodone 5 mg tablet 5 mg PO DAILY PRN (Reason: pain) Qty: 5 0RF Rx Instructions: To be taken for catheter changes clotrimazole 10 mg Enoch 10 mg PO DIRECTED PRN (Reason: Flare) Rx Instructions: BID - TID as needed sennosides [senna] 8.6 mg Tablet 17.2 mg PO HS PRN (Reason: Constipation) ascorbic acid (vitamin C) [Vitamin C] 1,000 mg Tablet 1,000 mg PO DAILY zinc acetate 50 mg (zinc) Capsule 50 mg PO DAILY Rx Instructions: TAKE 1 HR PRIOR TO EATING OR 2 HR AFTER EATING sucralfate [Carafate] 1 gram Tablet 1 g PO ACHS Rx Instructions: PER PT "ONLY 2-3 TIMES A DAY" clonazepam 1 mg Tablet 1 mg PO TID thiamine HCl (vitamin B1) [Vitamin B-1] 100 mg Tablet 100 mg PO DAILY topiramate 25 mg Tablet 25 mg PO BID Rx Instructions: TOTAL DOSE 125 MG--TAKES WITH 100 MG TAB. potassium chloride 20 mEq Tablet,Er Particles/Crystals 20 meq PO DAILY cyanocobalamin (vitamin B-12) 1,000 mcg/mL Solution 1,000 mcg IM WK ferrous sulfate 325 mg (65 mg iron) Tablet 650 mg PO DAILY lidocaine 5 % Adhesive Patch,Medicated 1 patch TOPICAL DAILY Rx Instructions: leave on most painful area for up to 12 hrs multivitamin with minerals Tablet 1 tab PO DAILY polyethylene glycol 3350 [Miralax] 17 gram/dose Powder 17 g PO DAILY PRN (Reason: Constipation) topiramate 100 mg Tablet 100 mg PO BID Rx Instructions: TOTAL DOSE 125 MG--TAKES WITH 25 MG TAB. dicyclomine 10 mg Capsule 10 mg PO TID PRN (Reason: IRRITABLE BOWEL SYMPTOMS) B-complex with vitamin C Capsule 1 cap PO DAILY pregabalin 50 mg capsule 50 mg PO QPM Rx Instructions: TAKES Q AFTERNOON pregabalin 100 mg capsule 100 mg PO AMHS calcium citrate-vitamin D3 250 mg-5 mcg (200 unit) Tablet 2 tab PO DAILY zolpidem [Ambien] 10 mg tablet 10 mg PO HS PRN (Reason: Sleep) acetaminophen 500 mg Tablet 500 mg PO Q6H PRN (Reason: Pain) Prevalite 4 gram Powder In Packet 4 g PO 2200 Qty: 30 0RF sucralfate 100 mg/mL Suspension 1 g PO ACHS Qty: 420 0RF famotidine 20 mg Tablet 20 mg PO BID Qty: 60 0RF pantoprazole 40 mg Tablet,Delayed Release (Dr/Ec) 40 mg PO BID Qty: 60 0RF propranolol 10 mg Tablet 10 mg PO TID PRN (Reason: NEEDED) Qty: 0 0RF Rx Instructions: HOLD FOR LOW B/P Discontinued phenazopyridine [Pyridium] 200 mg Tablet 200 mg PO TID PRN (Reason: pain) Qty: 30 0RF prednisone 1 mg tablet See Rx Instructions .ROUTE .COMPLEX Rx Instructions: PT unsure of tapering dose Discharge Orders: Discharge Order (Routine); Ordered 03/13/25 Ordered By: Jonatan Salgado Admission Data Admit Date/Time: 02/24/25 22:29 Attending Provider: Jonatan Salgado Admit Provider: Sally Gomez Primary Care Provider: Giovanni Mclean Other Providers: Cookie Rosas; Jet Escamilla; Anna Valencia; Kylah Gayle; Yasmin Tuttle; Rodrigo Valiente; Sindy Verduzco; Sharron Oates; Betina Reddy; Charly Yao; Alecia Kapoor; Michelle Last Other Interventions: Discharge Summary Assessment (RN) Last Done: 03/13/25 12:29 Hospital Stay Data Consultations 02/26/25 08:00 Consult Urology Routine 03/01/25 09:40 Consult Infectious Diseases Routine 03/12/25 10:08 Consult Gynecology Routine Diagnostic Imagining Performed 02/24/25 18:24 CT Abd and Pelvis [CT abd pelvis IV con only] Stat 02/25/25 07:47 US RUQ [US liver] Urgent 02/26/25 10:51 CT angio chest PE protocol Stat Pending Results Patient Have Any Pending Studies at Discharge: No Discharge Instructions Given to Patient (Per Discharging Provider) You were admitted to [facility] for concern of a catheter associated urinary tract infection complicated by adrenal crisis. The patient is initially manage sepsis has resolved; at the time of discharge there is no evidence of an active infection. There is a low CFU count of VRE in the patient's urine, this is the same species and resistance pattern of her previous infection and is without any specific symptoms related to a urinary tract infection. This is likely colonization of a multidrug-resistant organism; blood cultures obtained are now 72 hours without growth. Regarding the patient's primary renal insufficiency, she has been maintained on hydrocortisone 60 mg IV every 8 hours which appears to be appropriately controlling her symptomatology. The patient discussed her case with her merchandise shopper, who advised scheduling her next dose of hydrocortisone at 1200 hrs. in order to optimize the patient's private transport to [facility] in [place], [place] for continued care. This has been ordered, and should be more than adequate to allow for safe transport by private vehicle. The patient has no frankly apparent causes or triggers of an adrenal crisis that should precipitate on route. During the patient's current hospitalization they were noted to have a persistently large volume of urine output, which the patient reported it is not necessarily new condition. Diagnostic testing led to a suspected diagnosis of primary diabetes insipidus, though testing was not optimized. She does have numerous electrolyte abnormalities that have slowly been improving during her hospitalization, in part related to her persistent diarrhea, primary adrenal insufficiency, but also likely related to this diagnosis of diabetes insipidus. At the time of discharge the patient's electrolytes are within acceptable range for private transport to her next hospital facility as she intends. The patient reports, while on the phone with her spouse who is en route to the hospital, that they will be leaving this facility directly to [facility] [place], [place] for continued care of additional medical conditions including a calcified mitral valve leaflet, for which she is established with a cardiothoracic surgeon. She has been coordinating her care independently with her merchandise shopper during her hospitalization. She states that she does not require any additional prescriptions at the time of discharge as she will be going directly to this next facility. Optimization of her medical care at the time of discharge has been pursued. Thank you for choosing [facility] as your healthcare provider. Total Time Total Time Spent Total Time Spent (In Minutes): I personally spent 120 minutes in the coordination of this patient's discharge including contacting their care coordinating service, review of their hospital course during his current hospitalization, documentation and records from an external hospital system for hospitalization that preceded their current hospitalization, discussion of the patient's plan of care with the patient, spouse who is present via video call, and discussion and coordination with the patient's nurse. Coding Level of Care Code 35035 INP/OBS DISCH >30 MIN Diagnoses Primary adrenal insufficiency E27.1 Primary central diabetes insipidus E23.2 Colonization with multidrug-resistant bacteria Z22.322 Neurogenic bladder N31.9 Suprapubic catheter Z93.59
== END 2025-03-13 13:47 | disposition home health service (06) | DRG 699 ==
LOC: ED 18:05 → 2S 22:29 → INTOOBSV 22:29 → SUATTDRO 22:29 → 2S 23:04 → 2W 03-11 21:48